=== PATIENT | female | born 2000 | race Caucasian/White ===

== ENCOUNTER 2018-02-12 19:54 | Inpatient (IN) | payer BC ==
[~2018-02-12] VITALS: Ht 182.9 cm; Wt 126.5 kg
[2018-02-12 20:21] VITALS: BP 143/66; PULSE 140; RESP 16; TEMP 98; O2SAT 96
--- NOTE | 2018-02-12 20:24 | PD ---
HPI Chief Complaint: Syncope, shortness of breath Time Seen by Provider: 20:24 Travel History International Travel<30 days: No Contact w/Intl Traveler<30days: No Traveled to known affect area: No History of Present Illness HPI 17-year-old female says that she was at a restaurant with her mother and grandmother today and was not feeling very well. She has been quite short of breath since yesterday. Just the walk from the car to the restaurant made her extremely short of breath. When they sat down to eat patient was nauseous. After they finished eating she got very nauseous and went to the bathroom and vomited 3. After that they drove back to the hotel where she is staying. Once again walking from the parking lot to the elevator made her short of breath and at this point she got really lightheaded and passed out. This is when her mother called 911 and patient was brought in by EMS. She has been tachycardic in the ER and tachypneic. She also says that she suffers from anxiety and has been quite anxious lately. She says that she finished her college on January 09 and her mother drove her from [place] back home. The drive was just 2 hours but about 3-4 weeks ago she went to an emergency room because she noticed her right leg being swollen. Her d-dimer was elevated there and they did an ultrasound which was negative. Patient says since past 2 days she has been having some right-sided chest pain and is very concerned of PE. The pain is worse upon taking a deep breath. Patient also has history of thyroidectomy and is wondering if her symptoms are related to abnormal thyroid levels. Patient is tachycardic, tachypneic and hypoxic. Patient is on oral contraceptives. Patient seemed short of breath while talking but her blood pressure and oxygen saturation were good. Patient was on 2 L of oxygen via nasal cannula. [facility] Past Medical History Narrative Medical List of her past medical, surgical, social and family history is reviewed from the nursing note Social History Tobacco Use: No Allergies-Medications (Allergen,Severity, Reaction): Coded Allergies: tree nut (Verified Allergy, Unknown, 02/12/18) Comments List of her allergies reviewed from the nursing note. Reported Meds & Prescriptions Reported Meds & Active Scripts Active Reported Proair Hfa 8.5 GM Inh (Albuterol Sulfate) 90 Mcg/Act Aer 2 Puff INH Q4-6H PRN 108 mcg/actuation Cetirizine (Cetirizine HCl) 10 Mg Chew 10 Mg CHEW DAILY Flonase Nasal [place] (Fluticasone Nasal [place]) 50 Mcg/Act [place] 50 Mcg EACH NARE BID 09/27 (Norethindrone-Ethinyl Estradiol) 1-20 Mg-Mcg Tab 1 Tab PO DAILY Synthroid (Levothyroxine Sodium) 175 Mcg Tab 175 Mcg PO DAILY Narrative Medication List of her home medications reviewed from the nursing note. Review of Systems Except as stated in HPI: all other systems reviewed are Neg Respiratory: Positive: Shortness of Breath Gastrointestinal: Positive: Nausea, Vomiting Neurologic: Positive: Syncope Physical Exam Narrative GENERAL: Awake, alert, anxious, morbidly obese, moderate to SKIN: Focused skin assessment warm/dry. Pale HEAD: Atraumatic. Normocephalic. EYES: Pupils equal and round. No scleral icterus. No injection or drainage. ENT: No nasal bleeding or discharge. Mucous membranes pink and moist. NECK: Trachea midline. No JVD. CARDIOVASCULAR: Regular rate and rhythm. Tachycardia. No murmur appreciated. RESPIRATORY: Tachypnea with use of accessory muscle. Clear to auscultation. Breath sounds equal bilaterally. GASTROINTESTINAL: Abdomen soft, non-tender, nondistended. Hepatic and splenic margins not palpable. MUSCULOSKELETAL: No obvious deformities. No clubbing. No cyanosis. No edema. NEUROLOGICAL: Awake and alert. No obvious cranial nerve deficits. Motor grossly within normal limits. Normal speech. PSYCHIATRIC: Appropriate mood and affect; insight and judgment normal. Data Data Last Documented VS Orders Orders Complete Blood Count With Diff (02/12/18 20:31) Basic Metabolic Panel (Bmp) (02/12/18 20:31) Troponin I (02/12/18 20:31) Iv Access Insert/Monitor (02/12/18 20:31) Electrocardiogram (02/12/18 20:31) Ecg Monitoring (02/12/18 20:31) Oximetry (02/12/18 20:31) Oxygen Administration (02/12/18 20:31) Ct Pulmonary Angiogram (02/12/18 20:31) Sodium Chloride 0.9% Flush (Ns Flush) (02/12/18 20:45) Lorazepam Inj (Ativan Inj) (02/12/18 21:00) Sodium Chlor 0.9% 1000 Ml Inj (Ns 1000 M (02/12/18 22:15) Sodium Chlor 0.9% 1000 Ml Inj (Ns 1000 M (02/12/18 22:15) Thyroid Stimulating Hormone (02/12/18 22:13) Heparin Inj (Heparin Inj) (02/12/18 23:00) Heparin-D5w 25,000 U/250 Ml (Heparin-D5w (02/12/18 23:00) Act Partial Throm Time (Ptt) (02/12/18 22:56) Prothrombin Time / Inr (Pt) (02/12/18 22:56) Act Partial Throm Time (Ptt) (02/13/18 05:56) Occult Blood (Hemoccult) Stool (02/12/18 22:56) Iohexol 350 Inj (Omnipaque 350 Inj) (02/12/18 22:58) Admit Order (Ed Use Only) (02/12/18 23:23) Labs Laboratory Tests Test 02/12/18 20:40 02/12/18 23:00 White Blood Count 13.7 TH/MM3 Red Blood Count 5.62 MIL/MM3 Hemoglobin 17.4 GM/DL Hematocrit 49.5 % Mean Corpuscular Volume 88.1 FL Mean Corpuscular Hemoglobin 30.9 PG Mean Corpuscular Hemoglobin Concent 35.1 % Red Cell Distribution Width 13.1 % Platelet Count 215 TH/MM3 Mean Platelet Volume 8.8 FL Neutrophils (%) (Auto) 76.6 % Lymphocytes (%) (Auto) 18.2 % Monocytes (%) (Auto) 3.9 % Eosinophils (%) (Auto) 0.8 % Basophils (%) (Auto) 0.5 % Neutrophils # (Auto) 10.5 TH/MM3 Lymphocytes # (Auto) 2.5 TH/MM3 Monocytes # (Auto) 0.5 TH/MM3 Eosinophils # (Auto) 0.1 TH/MM3 Basophils # (Auto) 0.1 TH/MM3 CBC Comment DIFF FINAL Differential Comment Blood Urea Nitrogen 14 MG/DL Creatinine 1.46 MG/DL Random Glucose 111 MG/DL Calcium Level 9.4 MG/DL Sodium Level 140 MEQ/L Potassium Level 4.5 MEQ/L Chloride Level 106 MEQ/L Carbon Dioxide Level 16.2 MEQ/L Anion Gap 18 MEQ/L Estimat Glomerular Filtration Rate 46 ML/MIN Troponin I LESS THAN 0.02 NG/ML Thyroid Stimulating Hormone 3rd Gen 2.310 uIU/ML Prothrombin Time 10.7 SEC Prothromb Time International Ratio 1.1 RATIO Activated Partial Thromboplast Time 25.5 SEC MDM Medical Decision Making Medical Screen Exam Complete: Yes Emergency Medical Condition: Yes Medical Record Reviewed: Yes Interpretation(s) Twelve-lead EKG was reviewed by me. Normal sinus rhythm, normal axis, tachycardia, S1 every 3 T3 pattern noticed, poor R-wave progression. Heart rate of 134 bpm Differential Diagnosis PE, hypothyroidism, dehydration Narrative Course 10:32 PM blood test results are back and patient has leukocytosis with elevated renal function suggestive of possible dehydration. She has increased anion gap acidosis. Awaiting for a TSH level. Awaiting for CT pulmonary angiogram. My suspicion is high for PE in her case. Given her anxiety I gave her some Ativan. Patient continues to be tachycardic with heart rate in 120s currently. Blood pressure stable. He was given 2 L of IV fluid boluses. I had asked for an arterial blood gas but the respiratory therapist came back and informed me that he had tried several times and was unable to get the ABG. [address] scan is suggestive of bilateral large PEs. I have ordered heparin bolus and drip. Awaiting for the hospitalist to call back for admission. Patient remains stable with blood pressure. Critical Care Narrative Aggregate critical care time was 45 minutes. Time to perform other separately billable procedures was not included in the critical care time. My time did not include minutes spent treating any other patients simultaneously or on activities that did not directly contribute to the patient's treatment. The services I provided to this patient were to treat and/or prevent clinically significant deterioration that could result in: Bilateral large PEs, tachycardia, syncope, shortness of breath, heparin bolus and drip I provided critical care services requiring my management, as noted below: Chart data review, documentation time, medication orders and management, vital sign assessments/reviewing monitor data, ordering and reviewing lab tests, ordering and interpreting/reviewing x-rays and diagnostic studies, care of the patient and discussion of the patient with the admitting physicians. Procedures EKG Prior to Arrival: Yes Diagnosis Primary Impression: Pulmonary emboli Additional Impressions: Syncope Qualified Codes: R55 - Syncope and collapse Respiratory distress Increased anion gap metabolic acidosis Admitting Information Admitting Physician Requests: Admit Bridgett,Shravanti R. MD Feb 12, 2018 20:24
[2018-02-12] MEDS ORDERED: JUNETAB PO (20:28)
[2018-02-12] MEDS ORDERED: SYNT175T PO (20:28)
[2018-02-12] MEDS ORDERED: ALBUAER3 INH (20:28)
[2018-02-12] MEDS ORDERED: FLUT1SPR5 EACH NARE (20:28)
[2018-02-12] MEDS ORDERED: CETI10CH CHEW (20:28)
[2018-02-12 20:34] VITALS: PULSE 137; RESP 18; O2SAT 97
[2018-02-12] MEDS ORDERED: SODIUM CHLORIDE 0.9% FLUSH 10 ML FLUSH IVF PRN (20:45)
[2018-02-12] MEDS ORDERED: LORazepam 2 MG/ML VIAL IV PUSH ONE (21:00)
[2018-02-12 21:26] LABS: AUTOMATED NEUTROPHIL # 10.5 TH/MM3 (1.8-7.7); BASOPHIL # 0.1 TH/MM3 (0-0.2); BASOPHIL % 0.5 % (0.0-2.0); EOSINOPHIL # 0.1 TH/MM3 (0-0.4); EOSINOPHIL % 0.8 % (0.0-4.0); HEMATOCRIT 49.5 % (35.0-46.0); HEMOGLOBIN 17.4 GM/DL (11.6-15.3); LYMPH % 18.2 % (9.0-44.0); LYMPHOCYTE # 2.5 TH/MM3 (1.0-4.8); MEAN CELL VOLUME 88.1 FL (80.0-100.0); MEAN CORPUSCULAR HEMOGLOBIN 30.9 PG (27.0-34.0); MEAN CORPUSCULAR HGB CONC 35.1 % (32.0-36.0); MEAN PLATELET VOLUME 8.8 FL (7.0-11.0); MONO % 3.9 % (0.0-8.0); MONOCYTE # 0.5 TH/MM3 (0-0.9); NEUT % 76.6 % (16.0-70.0); PLATELET COUNT 215 TH/MM3 (150-450); RED BLOOD COUNT 5.62 MIL/MM3 (4.00-5.30); RED CELL DISTRIBUTION WIDTH 13.1 % (11.6-17.2); WHITE BLOOD COUNT 13.7 TH/MM3 (4.0-11.0)
[2018-02-12 21:55] LABS: BICARBONATE 16.2 MEQ/L (21.0-32.0); BLOOD UREA NITROGEN 14 MG/DL (7-18); CALCIUM 9.4 MG/DL (8.5-10.1); CHLORIDE 106 MEQ/L (98-107); CREATININE 1.46 MG/DL (0.50-1.00); GLOMERULAR FILTRATION RATE 46 ML/MIN (>89); GLUCOSE,RANDOM 111 MG/DL (74-106); SODIUM (NA) 140 MEQ/L (136-145)
[2018-02-12 21:59] LABS: TROPONIN I LESS THAN 0.02 NG/ML (0.02-0.05)
[2018-02-12] MEDS ORDERED: SODIUM CHLOR 0.9% 1000 ML INJ 1,000 ML IV ONE ×2 (22:15)
[2018-02-12 22:58] VITALS: BP 130/66; PULSE 118; RESP 16; O2SAT 97
[2018-02-12] MEDS ORDERED: IOHEXOL 350 MG/ML 10 ML VIAL (for RAD DIAG) IVCONTRAST ONE (22:58)
[2018-02-12] MEDS ORDERED: HEPARIN SODIUM - IV 10,000 UNITS/10 ML VIAL IV ONE (23:00)
--- NOTE | 2018-02-12 23:15 | RADRPT ---
EXAM DATE: 02/12/2018 10:58 PM EDT AGE/SEX: 17 years / Female INDICATIONS: Possible syncopal episode. Shortness of breath. Carcinoma with chemotherapy. CLINICAL DATA: This is the patient's initial encounter. Patient reports that signs and symptoms have been present for 1 day and indicates a pain score of 0/10. MEDICAL/SURGICAL HISTORY: Carcinoma, thyroid. . RADIATION DOSE: 10.89 CTDI (mGy) COMPARISON: No prior exams available for comparison. TECHNIQUE: Volumetric scanning was performed using a multi-row detector CT scanner during bolus infu tommie of 75 ml Omnipaque 350 (iohexol) nonionic water-soluble contrast as a single exam dose. The marsha a was post processed with a variety of visualization algorithms including full volume maximum intensi ty projection and sliding thin slab reformation. Using automated exposure control and adjustment of the mA and/or kV according to patient size, radiation dose was kept as low as reasonably achievable t o obtain optimal diagnostic quality images. FINDINGS: There are numerous bilateral large central and peripheral pulmonary emboli. There is no pleural effus ion or lung consolidation. Calcified granuloma present in the right lower lobe. No adenopathy. Trace pericardial fluid. No acute findings in the upper abdomen. Thyroid gland is incompletely visualized i n patient with reported history of thyroid carcinoma. CONCLUSION: 1. Multiple large central and peripheral bilateral pulmonary emboli. 2. Trace pericardial fluid. Electronically signed by: Justo Patel MD 02/12/2018 11:14 PM EDT
[2018-02-12] MEDS: LORazepam 2 MG/ML VIAL IV PUSH PRN (23:53)
[2018-02-13] MEDS ORDERED: BISACODYL 10 MG SUPP RECTAL PRN (00:45)
[2018-02-13] MEDS ORDERED: SODIUM CHLORIDE 0.9% FLUSH 10 ML FLUSH IV FLUSH PRN (00:45)
[2018-02-13] MEDS ORDERED: MAGNESIUM HYDROXIDE SUSP 30 ML CUP PO PRN (00:45)
[2018-02-13] MEDS ORDERED: ACETAMINOPHEN 325 MG TAB PO PRN (00:45)
[2018-02-13] MEDS ORDERED: LACTULOSE SYRUP 20 GM/30 ML CUP PO PRN (00:45)
[2018-02-13] MEDS ORDERED: SENNOSIDES 8.6 MG TAB PO PRN (00:45)
[2018-02-13] MEDS ORDERED: NALOXONE HCL 0.4 MG/ML AMP IV PUSH PRN (00:45)
[2018-02-13] MEDS: HEPARIN-D5W 25,000 U/250 ML 250 ML IV PRN ×3 (01:00→15:07)
[2018-02-13 01:25] VITALS: BP 127/88; PULSE 119; RESP 18; TEMP 98.6; O2SAT 98
--- NOTE | 2018-02-13 01:46 | HHI.HP ---
HPI Service [facility] Primary Care Physician Unknown Admission Diagnosis Bilateral large PEs, shortness of breath, syncope Diagnoses: Travel History International Travel<30 Days: No Contact w/Intl Traveler <30 Da: No Traveled to Known Affected Are: No History of Present Illness 17-year-old female with a past medical history significant for hypothyroidism presents to the emergency department for evaluation of shortness of breath and a syncopal episode. Patient reports that for the past 2 days she has had shortness of breath. Today she noticed that she had increasing dyspnea on exertion. She reports associated emesis 3 with dizziness and loss of consciousness. She states she had right lower extremity pain approximately 1 month ago. She denies any chest pain. No abdominal pain. No fevers/chills. Review of Systems Except as stated in HPI: all other systems reviewed are Neg Past Family Social History Past Medical History Hypothyroidism Past Surgical History Thyroidectomy Reported Medications Reported Meds & Active Scripts Active Reported Proair Hfa 8.5 GM Inh (Albuterol Sulfate) 90 Mcg/Act Aer 2 Puff INH Q4-6H PRN 108 mcg/actuation Cetirizine (Cetirizine HCl) 10 Mg Chew 10 Mg CHEW DAILY Flonase Nasal [place] (Fluticasone Nasal [place]) 50 Mcg/Act [place] 50 Mcg EACH NARE BID June09/27 (Norethindrone-Ethinyl Estradiol) 1-20 Mg-Mcg Tab 1 Tab PO DAILY Synthroid (Levothyroxine Sodium) 175 Mcg Tab 175 Mcg PO DAILY Allergies: Coded Allergies: tree nut (Verified Allergy, Unknown, 02/12/18) Family History Father with diabetes mellitus Social History Negative for alcohol, tobacco and illicit drugs Physical Exam Vital Signs Vital Signs Date Time Temp Pulse Resp B/P (MAP) Pulse Ox O2 Delivery O2 Flow Rate FiO2 02/12/18 22:58 118 16 130/66 (87) 97 Nasal Cannula 2.00 02/12/18 20:34 137 18 97 2.00 02/12/18 20:34 97 Nasal Cannula 2.00 02/12/18 20:28 143 18 94 Nasal Cannula 2.00 02/12/18 20:21 98.0 140 16 143/66 (91) 96 Physical Exam GENERAL: Obese, female sitting up in bed. Patient is extremely anxious. SKIN: No rashes, ecchymoses or lesions. Cool and dry. HEAD: Atraumatic. Normocephalic. No temporal or scalp tenderness. EYES: Pupils equal round and reactive. Extraocular motions intact. No scleral icterus. No injection or drainage. ENT: Nose without bleeding, purulent drainage or septal hematoma. Throat without erythema, tonsillar hypertrophy or exudate. Uvula midline. Airway patent. NECK: Trachea midline. No JVD or lymphadenopathy. Supple, nontender, no meningeal signs. CARDIOVASCULAR: Regular rate and rhythm without murmurs, gallops, or rubs. RESPIRATORY: Clear to auscultation. Breath sounds equal bilaterally. No wheezes , rales, or rhonchi. GASTROINTESTINAL: Abdomen soft, non-tender, nondistended. No hepato-splenomegaly , or palpable masses. No guarding. MUSCULOSKELETAL: Extremities without clubbing, cyanosis, or edema. No joint tenderness, effusion, or edema noted. No calf tenderness. NEUROLOGICAL: Awake and alert. Cranial nerves II through XII intact. Motor and sensory grossly within normal limits. Normal speech. Laboratory Laboratory Tests Test 02/12/18 20:40 02/12/18 23:00 White Blood Count 13.7 Red Blood Count 5.62 Hemoglobin 17.4 Hematocrit 49.5 Mean Corpuscular Volume 88.1 Mean Corpuscular Hemoglobin 30.9 Mean Corpuscular Hemoglobin Concent 35.1 Red Cell Distribution Width 13.1 Platelet Count 215 Mean Platelet Volume 8.8 Neutrophils (%) (Auto) 76.6 Lymphocytes (%) (Auto) 18.2 Monocytes (%) (Auto) 3.9 Eosinophils (%) (Auto) 0.8 Basophils (%) (Auto) 0.5 Neutrophils # (Auto) 10.5 Lymphocytes # (Auto) 2.5 Monocytes # (Auto) 0.5 Eosinophils # (Auto) 0.1 Basophils # (Auto) 0.1 CBC Comment DIFF FINAL Differential Comment Blood Urea Nitrogen 14 Creatinine 1.46 Random Glucose 111 Calcium Level 9.4 Sodium Level 140 Potassium Level 4.5 Chloride Level 106 Carbon Dioxide Level 16.2 Anion Gap 18 Estimat Glomerular Filtration Rate 46 Troponin I LESS THAN 0.02 Thyroid Stimulating Hormone 3rd Gen 2.310 Result Diagram: 02/12/18203902/12/182039 Caprini VTE Risk Assessment Caprini VTE Risk Assessment: Mod/High Risk (score >= 2) Caprini Risk Assessment Model Point Value = 1 Point Value = 2 Point Value = 3 Point Value = 5 Age 41-60 Minor surgery BMI > 25 kg/m2 Swollen legs Varicose veins or History of unexplained or recurrent spontaneous Oral contraceptives or hormone replacement Sepsis (< 1 month) Serious lung disease, including pneumonia (< 1 month) Abnormal pulmonary function Acute myocardial infarction Congestive heart failure (< 1 month) History of inflammatory bowel disease Medical patient at bed rest Age 61-74 Arthroscopic surgery Major open surgery (> 45 min) Laparoscopic surgery (> 45 min) Malignancy Confined to bed (> 72 hours) Immobilizing plaster cast Central venous access Age >= 75 History of VTE Family history of VTE Factor V Leiden Prothrombin [id number] Lupus anticoagulant Anticardiolipin antibodies Elevated serum homocysteine Heparin-induced thrombocytopenia Other congenital or acquired thrombophilia Stroke (< 1 month) Elective arthroplasty Hip, pelvis, or leg fracture Acute spinal cord injury (< 1 month) Prophylaxis Regimen Total Risk Factor Score Risk Level Prophylaxis Regimen 0-1 Low Early ambulation 2 Moderate Order ONE of the following: *Sequential Compression Device (SCD) *Heparin 5000 units SQ BID 3-4 Higher Order ONE of the following medications: *Heparin 5000 units SQ TID *Enoxaparin/Lovenox 40 mg SQ daily (WT < 150 kg, CrCl > 30 mL/min) *Enoxaparin/Lovenox 30 mg SQ daily (WT < 150 kg, CrCl > 10-29 mL/min) *Enoxaparin/Lovenox 30 mg SQ BID (WT < 150 kg, CrCl > 30 mL/min) AND/OR *Sequential Compression Device (SCD) 5 or more Highest Order ONE of the following medications: *Heparin 5000 units SQ TID (Preferred with Epidurals) *Enoxaparin/Lovenox 40 mg SQ daily (WT < 150 kg, CrCl > 30 mL/min) *Enoxaparin/Lovenox 30 mg SQ daily (WT < 150 kg, CrCl > 10-29 mL/min) *Enoxaparin/Lovenox 30 mg SQ BID (WT < 150 kg, CrCl > 30 mL/min) AND *Sequential Compression Device (SCD) Assessment and Plan Assessment and Plan Assessment/plan: 1. Bilateral PE CTA significant for multiple large central and peripheral bilateral pulmonary emboli Heparin drip Pulmonology consulted, appreciate recommendations Lower extremity ultrasound pending Echo pending 2. Acute kidney injury Creatinine 1.46, no baseline for comparison IV fluid hydration Monitor renal function 3. Hypothyroidism Continue home Synthroid 4. Anxiety Patient extremely anxious Ativan as needed FEN Regular diet Electrolytes: Monitor and replete as needed Heparin drip Physician Certification 2 Midnight Certification Type: Admission for Inpatient Services Order for Inpatient Services The services are ordered in accordance with Medicare regulations or non- Medicare payer requirements, as applicable. In the case of services not specified as inpatient-only, they are appropriately provided as inpatient services in accordance with the 2-midnight benchmark. Estimated LOS (days): 2 2 days is the estimated time the patient will need to remain in the hospital, assuming treatment plan goals are met and no additional complications. Post-Hospital Plan: Not yet determined Rajwinder Ogden MD Feb 13, 2018 01:46
[2018-02-13 02:13] LABS: INTERNATIONAL NORMALIZED RATIO 1.1 RATIO; PROTHROMBIN TIME - PATIENT 10.7 SEC (9.8-11.6)
[2018-02-13] MEDS: SODIUM CHLOR 0.9% 1000 ML INJ 1,000 ML IV SCH ×3 (02:19→17:06)
[2018-02-13 04:00] VITALS: BP 128/76; PULSE 111; RESP 18; TEMP 97.9; O2SAT 98
[2018-02-13 06:10] LABS: BICARBONATE 17.7 MEQ/L (21.0-32.0); CALCIUM 8.6 MG/DL (8.5-10.1); CREATININE 0.93 MG/DL (0.50-1.00)
[2018-02-13] MEDS: LEVOTHYROXINE SODIUM 75 MCG TAB PO SCH (06:13)
[2018-02-13] MEDS: LEVOTHYROXINE SODIUM 100 MCG TAB PO SCH (06:13)
[2018-02-13 08:00] VITALS: BP 149/90; PULSE 110; RESP 15; TEMP 98.3; O2SAT 99
[2018-02-13] MEDS: SODIUM CHLORIDE 0.9% FLUSH 10 ML FLUSH IV FLUSH SCH ×2 (09:00→21:00)
--- NOTE | 2018-02-13 09:58 | RADRPT ---
EXAM DATE: 02/13/2018 9:54 AM EDT AGE/SEX: 17 years / Female INDICATIONS: Bilateral leg swelling. CLINICAL DATA: This is the patient's initial encounter. Patient reports that signs and symptoms have been present for 4 - 6 days and indicates a pain score of 2/10. MEDICAL/SURGICAL HISTORY: . Thyroid cancer. Glasses. Syncope. Anxiety. . Radiation therapy. COMPARISON: No prior exams available for comparison. TECHNIQUE: Venous ultrasound of both lower extremities was performed from the inguinal ligament to t he proximal calf. Real-time, color Doppler and spectral tracing, compression and augmentation techni ques were used. FINDINGS: Right Leg: There is thrombus within the right popliteal and peroneal veins. The common femoral vein, superficial femoral vein are patent. Left Leg: There is normal compressibility of the deep venous system from the inguinal region to the proximal calf. No echogenic clot is seen in the lumen of the common femoral, femoral, popliteal, and posterior tibial veins. There is a normal response of the venous system to proximal and distal augm entation and respiration. CONCLUSION: 1. There is thrombus within the right popliteal and peroneal veins. Electronically signed by: Maverick Joel MD 02/13/2018 9:57 AM EDT
[2018-02-13] MEDS: FLUTICASONE PROPIONATE 50 MCG/ACT 16 GM NASAL SPRAY EACH NARE SCH ×2 (10:14→21:00)
[2018-02-13] MEDS: CETIRIZINE HCL 10 MG TAB PO SCH (10:15)
[2018-02-13] MEDS ORDERED: EPINEPHrine HCL (1:10,000) 1 MG/10 ML SYRINGE IV ONE (10:18)
[2018-02-13 12:00] VITALS: BP 142/89; PULSE 114; RESP 16; TEMP 97.3; O2SAT 97
[2018-02-13] MEDS ORDERED: RESP: ALBUTEROL 1.25 MG/3 ML NEB (PRN) NEB (12:45)
[2018-02-13 13:08] LABS: RHEUMATOID FACTOR SCREEN NEGATIVE (NEGATIVE)
--- NOTE | 2018-02-13 13:10 | MB ---
cc: Tyra Abdul MD DATE: 02/13/2018 REASON FOR CONSULTATION: Pulmonary emboli and hypoxia. HISTORY OF PRESENT ILLNESS: This is a 17-year-old female who was admitted with a history of progressive shortness of breath and a syncopal episode. The patient apparently has been experiencing some shortness of breath for 2-3 days and she was dizzy and apparently had significant shortness of breath yesterday and had a syncopal episode and thus was brought to the emergency room for evaluation. Upon arrival a CTA of the chest was done which demonstrated multiple bilateral large pulmonary emboli and also evidence for trace pericardial fluid. Doppler study of the leg veins was positive for a DVT in the right popliteal and peroneal vein. The patient has been started on IV heparin and she is on oxygen at 2 liters. Presently, she is stable and maintaining good vitals with a blood pressure of 130/60, heart rate of 105. The patient denies chest pains. Her shortness of breath has improved and she denies any leg or calf muscle pains, but she has had leg cramping in the past: PAST MEDICAL HISTORY: Includes history for thyroid cancer with thyroidectomy that was done 2 years ago. She has had hypothyroidism and is on thyroid replacement therapy. She also has mild nasal allergies. No significant surgery other than the thyroidectomy and she also received radioiodine therapy. MEDICATION LIST: 1. Synthroid 175 mcg daily. 2. Cetirizine 10 mg a day. 3. Flonase nasal spray 2 sprays in each nostril daily. 4. Proventil 2 puffs p.r.n. 5. Norethindrone ethinyl estradiol 1 mg/20 mcg 1 tablet daily. ALLERGIES: NO KNOWN DRUG ALLERGIES. FAMILY HISTORY: Significant for diabetes mellitus. HABITS: The patient does not smoke. No history of alcohol use. She is in college. REVIEW OF SYSTEMS: The patient is overweight. She has shortness of breath. She has cramping in her legs. She has no significant leg swelling. Denies joint pains. No abdominal pains, nausea, vomiting. No headaches, but had blackout spell. She denies any hemoptysis or hematemesis. Denies skin lesions. She has some anxiety. PHYSICAL EXAMINATION: GENERAL: This moderately obese, young white female who is anxious, not in acute distress. VITAL SIGNS: Blood pressure 130/70, pulse is 106, respirations 20, temperature 98. HEENT: Head is normocephalic. Pupils were reactive. Throat was clear. Nasal mucosa injected. NECK: Supple, no bruits, no lymphadenopathy noted. CHEST: Equal movements with decreased breath sounds to the periphery. HEART: The heart tones were regular with S1 and S2. ABDOMEN: Soft, protuberant without masses. No organomegaly or tenderness. EXTREMITIES: No lesions. There is no edema. No calf tenderness. Eddie's sign is negative. SKIN: No lesions observed. NEUROLOGIC: There are no focal deficits identified. IMPRESSION: 1. Bilateral pulmonary embolism with hypoxemia. 2. History of thyroid cancer and thyroidectomy. 3. Hypothyroidism. 4. Dehydration and acute kidney injury. 5. Deep venous thrombosis, right lower extremity. PLAN: The patient is on heparin therapy per protocol which we will continue. I also placed her on O2 at 2 liters nasal cannula. We will maintain saturations greater than 92. Blood gas study to be obtained and the patient will be kept on bed rest. A hematology/oncology consult would be requested since she has a history of thyroid cancer and a hypercoagulable state. Once her clinical condition stabilizes, we could wean her off the oxygen. Thank you, Dr. Kitchen, for this consultation. Tyra Abdul MD VJD/CHARISMA , 12:44 PM , 01:09 PM
--- NOTE | 2018-02-13 15:18 | EKG ---
Date Performed: 02/12/2018 Time Performed: 21:36:14 PTAGE: 17 years EKG: SINUS TACHYCARDIA INDETERMINATE AXIS POSSIBLE ANTERIOR MYOCARDIAL INFARCTION MODERATE T-WAV E ABNORMALITY, CONSIDER LATERAL ISCHEMIA MODERATE T-WAVE ABNORMALITY, CONSIDER INFERIOR ISCHEMIA ABNO RMAL ECG NO PREVIOUS TRACING DOCTOR: Vanessa Guzman Interpretating Date/Time 02/13/2018 15:17:47
[2018-02-13 16:00] VITALS: BP 162/92; PULSE 114; RESP 16; TEMP 97.7; O2SAT 99
--- NOTE | 2018-02-13 18:43 | PD.CONS ---
History of Present Illness Service Hematology/oncology. Consult Requested By Pulmonology service. Reason for Consult Bilateral pulmonary emboli, suspected massive pulmonary emboli with cardiopulmonary compromise. Primary Care Physician Unknown Diagnoses: History of Present Illness Chief complaint: 1. Progressive difficulty breathing over the past 4 days. 2. Syncopal episode on the day of presentation to the hospital 02/12/2018). History of presenting illness: Ms. 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 The patient drove down 5 days ago from [place] to [facility] for family vacation. This was a 12 hour continuous car trip and the patient tells me she slept in the backseat for most of it. After arrival she became increasingly short of breath to the point where she had difficulty walking short distances, the shortness of breath was associated with nausea and vomiting and on the day of presentation to the hospital she passed out while walking from the lobby of her hotel to the hotel room. She was brought in immediately to the emergency department after she came to come at the time of presentation her heart rate was in the 140s, she was hypoxic. She was sent in for stat CT angiogram which revealed acute bilateral pulmonary emboli. Patient has been initiated on a heparin infusion. An EKG performed in the emergency department revealed poor R-wave progression and tachycardia. She has been on this overnight. She remains tachycardic and short of breath, she is perceives the shortness of breath is anxiety. The hematology service been asked to see her to ascertain the provoking factors of her pulmonary emboli. Should be noted this lady has been on estrogen containing oral contraceptive pills (Juvel) since 2016 in addition to this she is morbidly obese and had recent road travel. Review of Systems Constitutional: COMPLAINS OF: Fatigue, Dizziness, DENIES: Diaphoretic episodes , Fever, Weight gain, Weight loss, Chills, Change in appetite, Night Sweats Endocrine: DENIES: Abnorml menstrual pattern, Heat/cold intolerance, Polydipsia , Polyuria, Polyphagia Eyes: DENIES: Blurred vision, Diplopia, Eye inflammation, Eye pain, Vision loss , Photosensitivity, Double Vision Ears, nose, mouth, throat: DENIES: Tinnitus, Hearing loss, Vertigo, Nasal discharge, Oral lesions, Throat pain, Hoarseness, Ear Pain, Running Nose, Epistaxis, Sinus Pain, Toothache, Odynophagia Respiratory: COMPLAINS OF: Cough, Wheezing, Shortness of breath, DENIES: Apneas , Snoring, Hemoptysis, Sputum production Cardiovascular: COMPLAINS OF: Palpitations, Syncope, Dyspnea on Exertion, DENIES: Chest pain, PND, Lower Extremity Edema, Orthopnea, Claudication Gastrointestinal: DENIES: Abdominal pain, Black stools, Bloody stools, Constipation, Diarrhea, Nausea, Vomiting, Difficulty Swallowing, Anorexia Genitourinary: DENIES: Abnormal vaginal bleeding, Dysmenorrhea, Dyspareunia, Sexual dysfunction, Urinary frequency, Urinary incontinence, Urgency, Hematuria , Dysuria, Nocturia, Vaginal discharge Musculoskeletal: COMPLAINS OF: Joint pain (Ankle and knees.), Muscle aches, DENIES: Stiffness, Joint Swelling, Back pain, Neck pain Integumentary: DENIES: Abnormal pigmentation, Pruritus, Rash, Nail changes, Breast masses, Breast skin changes, Nipple discharge Hematologic/lymphatic: DENIES: Bruising, Lymphadenopathy Immunologic/allergic: DENIES: Eczema, Urticaria Neurologic: DENIES: Abnormal gait, Headache, Localized weakness, Paresthesias, Seizures, Speech Problems, Tremor, Poor Balance Psychiatric: COMPLAINS OF: Anxiety, DENIES: Confusion, Mood changes, Depression , Hallucinations, Agitation, Suicidal Ideation, Homicidal Ideation, Delusions Except as stated in HPI: all other systems reviewed are Neg Past Family Social History Allergies: Coded Allergies: tree nut (Verified Allergy, Unknown, 02/12/18) Past Medical History Diagnosis of papillary carcinoma of the thyroid diagnosed in 2015 when she was age [age] years old. Bilateral pulmonary emboli Obesity Ovarian cyst Past Surgical History Thyroidectomy 2015. [place] tooth extraction Family History Father diabetes. Maternal grandfather diabetes. No oncologic diagnoses in the family. Mother is alive and well. 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 Lives in [place], lifelong non-smoker , denies drug abuse. Physical Exam Vital Signs Vital Signs Date Time Temp Pulse Resp B/P (MAP) Pulse Ox O2 Delivery O2 Flow Rate FiO2 02/13/18 16:00 97.7 114 16 162/92 (115) 99 02/13/18 12:00 97.3 114 16 142/89 (106) 97 02/13/18 08:00 98.3 110 15 149/90 (109) 99 02/13/18 04:00 97.9 111 18 128/76 (93) 98 02/13/18 01:25 98.6 119 18 127/88 (101) 98 02/12/18 22:58 118 16 130/66 (87) 97 Nasal Cannula 2.00 02/12/18 20:34 137 18 97 2.00 02/12/18 20:34 97 Nasal Cannula 2.00 02/12/18 20:34 97 Nasal Cannula 2.00 02/12/18 20:28 143 18 94 Nasal Cannula 2.00 02/12/18 20:21 98.0 140 16 143/66 (91) 96 Physical Exam GENERAL: Young female, sitting up in bed, appears to be anxious, on oxygen supplementation via nasal cannula. Mother at bedside. SKIN: No rashes, ecchymoses or lesions. Cool and dry. HEAD: Atraumatic. Normocephalic. No temporal or scalp tenderness. EYES: Pupils equal round and reactive. Extraocular motions intact. No scleral icterus. No injection or drainage. ENT: Nose without bleeding, purulent drainage or septal hematoma. Throat without erythema, tonsillar hypertrophy or exudate. Uvula midline. Airway patent. Horizontal incision noted along the suprasternal notch. NECK: Trachea midline. No JVD or lymphadenopathy. Supple, nontender, no meningeal signs. CARDIOVASCULAR: Tachycardic, S1-S2 no obvious murmurs rubs gallops, regular rhythm. RESPIRATORY: Clear to auscultation. Breath sounds equal bilaterally. No wheezes , rales, or rhonchi. GASTROINTESTINAL: Abdomen soft, non-tender, nondistended. No hepato-splenomegaly , or palpable masses. No guarding. MUSCULOSKELETAL: Extremities without clubbing, cyanosis, or edema. No joint tenderness, effusion, or edema noted. No calf tenderness. Negative Homans sign bilaterally. NEUROLOGICAL: Awake and alert. Cranial nerves II through XII intact. Motor and sensory grossly within normal limits. Five out of 5 muscle strength in all muscle groups. Normal speech. Laboratory Laboratory Tests Test 02/12/18 20:40 02/12/18 23:00 02/13/18 05:20 02/13/18 12:00 White Blood Count 13.7 Red Blood Count 5.62 Hemoglobin 17.4 Hematocrit 49.5 Mean Corpuscular Volume 88.1 Mean Corpuscular Hemoglobin 30.9 Mean Corpuscular Hemoglobin Concent 35.1 Red Cell Distribution Width 13.1 Platelet Count 215 Mean Platelet Volume 8.8 Neutrophils (%) (Auto) 76.6 Lymphocytes (%) (Auto) 18.2 Monocytes (%) (Auto) 3.9 Eosinophils (%) (Auto) 0.8 Basophils (%) (Auto) 0.5 Neutrophils # (Auto) 10.5 Lymphocytes # (Auto) 2.5 Monocytes # (Auto) 0.5 Eosinophils # (Auto) 0.1 Basophils # (Auto) 0.1 CBC Comment DIFF FINAL Differential Comment Blood Urea Nitrogen 14 10 Creatinine 1.46 0.93 Random Glucose 111 91 Calcium Level 9.4 8.6 Sodium Level 140 143 Potassium Level 4.5 4.4 Chloride Level 106 113 Carbon Dioxide Level 16.2 17.7 Anion Gap 18 12 Estimat Glomerular Filtration Rate 46 78 Troponin I LESS THAN 0.02 Thyroid Stimulating Hormone 3rd Gen 2.310 Prothrombin Time 10.7 Prothromb Time International Ratio 1.1 Activated Partial Thromboplast Time 25.5 71.0 Erythrocyte Sedimentation Rate 4 C-Reactive Protein 1.75 Rheumatoid Factor Screen NEGATIVE Rheumatoid Factor Titer Test 02/13/18 14:25 Activated Partial Thromboplast Time 35.7 Result Diagram: 02/12/18203902/13/[address] angiogram dated 02/12/2018: Conclusion: 1. Multiple large central and peripheral bilateral pulmonary emboli. Trace pericardial fluid. Ultrasound Doppler studies of bilateral lower extremities dated 02/13/2018: Conclusion: 1. There is a thrombus within the right popliteal and peroneal veins. EKG dated 02/12/2018: Interpretation: Sinus tachycardia, intermediate axis possible anterior myocardial infarction moderate T-wave abnormality, consider lateral ischemia. Moderate T-wave abnormality. Consider inferior ischemia. Abnormal EKG. Assessment and Plan Assessment and Plan This is a 17-year-old female who recently traveled from [facility] to [facility] for family vacation. The patient developed difficulty breathing shortly after arrival symptoms worsen over the past 48 hours to the point where she had a syncopal episode in her hotel. The patient was evaluated at [facility], CT angiogram of the chest revealed bilateral pulmonary emboli involving central and peripheral vessels, lower extremity ultrasound studies revealed a right lower extremity deep venous thrombosis involving the popliteal vein. Risk factors for developing deep venous thrombosis and pulmonary emboli include morbid obesity, concomitant use of estrogen-containing oral contraceptive pills and recent long road travel. On my clinical assessment this lady has what appears to be massive pulmonary emboli. She needs to be considered for chemical thrombolysis with TPA. Plan: 1. Suspected massive pulmonary emboli with cardiopulmonary compromise: Obtain stat echocardiogram. If there are signs of myocardial strain specifically involving the right ventricle this patient will benefit from chemical thrombolysis with TPA to help mitigate long-term sequelae of massive pulmonary emboli which include chronic respiratory insufficiency. For the time being she may remain on intravenous heparin. I have contacted the on-call facility designer and explained the case to him; Dr. French has agreed to authorizing a stat echocardiogram. The patient's nurse as well as the charge nurse on the inpatient unit has been informed. My cell phone number has been distributed to the facility designer as well as the echocardiogram tech for them to call me with the results. Should this patient be found to have concerning findings suggestive of right heart strain she will be transferred to the critical care unit and the train reservation clerk will be consulted for placement of a internal jugular vein catheter with TPA infusion. I have noted a pro thrombotic workup has been ordered, the results of this will trickling over the next week to 10 days. Provoking factors which may be identified will pertain to intermediate to long-term management of her pulmonary emboli. Emphasis at this time ought to be on initial therapy. The hematology service to follow along with you. Discussed Condition With The patient, her mother, patient's nurse. On-call cardiology. Ernesto Banks MD Feb 13, 2018 18:43
[2018-02-13] MEDS: LORazepam 2 MG/ML VIAL IV PUSH PRN (19:34)
--- NOTE | 2018-02-13 20:21 | ECHRPT ---
Indication: PULMONARY EMBOLI CONCLUSIONS The left ventricular systolic function is normal with an estimated ejection fraction in the range of 60-65%. There is a flattened septum in systole consistent with right ventricle pressure overload. The right ventricle is severely dilated. There is akinesis of the RV free wall with apical hypercontractility of the apex (Miller's sign) consistent with pulmonary embolism. Trace mitral valve regurgitation. There is mild to moderate tricuspid valve regurgitation. There is estimated severe pulmonary hypertension present ( > 70 mmHg). Results discussed with Dr. Banks BP: 162 / 92 HR: 114 Rhythm: Sinus, PVCs MEASUREMENTS (Male / Female) Normal Values Technical Quality:Fair 2D ECHO LV Diastolic Diameter PLAX 4.3 cm 4.2 - 5.9 / 3.9 - 5.3 cm LV Systolic Diameter PLAX 3.1 cm IVS Diastolic Thickness 0.8 cm 0.6 - 1.0 / 0.6 - 0.9 cm LVPW Diastolic Thickness 0.8 cm 0.6 - 1.0 / 0.6 - 0.9 cm LV Relative Wall Thickness 0.4 RV Internal Dim ED PLAX 2.8 cm LVOT Diameter 2.0 cm Aortic Root Diameter 2.9 cm LA Systolic Diameter LX 2.3 cm 3.0 - 4.0 / 2.7 - 3.8 cm DOPPLER AV Peak Velocity 119.0 cm/s AV Peak Gradient 5.7 mmHg AV Mean Gradient 3.0 mmHg AV Velocity Time Integral 15.9 cm LVOT Peak Velocity 59.4 cm/s LVOT Peak Gradient 1.4 mmHg LVOT Velocity Time Integral 6.8 cm AV Area Cont Eq vti 1.3 cm AV Area Cont Eq pk 1.6 cm Mitral E Point Velocity 45.4 cm/s Mitral A Point Velocity 57.8 cm/s Mitral E to A Ratio 0.8 TR Peak Velocity 428.0 cm/s TR Peak Gradient 73.0 mmHg Right Atrial Pressure 15.0 mmHg Pulmonary Artery Systolic Pressu 88.3 mmHg Right Ventricular Systolic Press 88.3 mmHg PV Peak Velocity 48.1 cm/s PV Peak Gradient 0.9 mmHg FINDINGS LEFT VENTRICLE Normal left ventricular size. Wall thickness is normal. The left ventricular systolic function is normal with an estimated ejection fraction in the range of 60-65%. There is a flattened septum in systole consistent with right ventricle pressure overload. RIGHT VENTRICLE The right ventricle is severely dilated. The right ventricular systoilc function is severely decreased. There is akinesis of the RV free wall with apical hypercontractility of the apex (Miller's sign) consistent with pulmonary embolism. LEFT ATRIUM The left atrial size is normal. RIGHT ATRIUM The right atrial size is severely dilated. ATRIAL SEPTUM The interatrial septum not well visualized. AORTA The aortic root and proximal ascending aorta are normal in size on limited imaging. MITRAL VALVE Structurally normal mitral valve. No mitral valve stenosis. Trace mitral valve regurgitation. AORTIC VALVE Trileaflet aortic valve. No aortic valve stenosis or regurgitation. TRICUSPID VALVE Structurally normal tricuspid valve. There is mild to moderate tricuspid valve regurgitation. The estimated pulmonary arterial pressure is 88.3 mmHg. There is estimated severe pulmonary hypertension present ( > 70 mmHg). PULMONARY VALVE The pulmonary valve is not well visualized. Trivial pulmonary valve regurgitation. VESSELS The inferior vena cava was not well visualized. PERICARDIUM No pericardial effusion. Gómez French DO (Electronically Signed) Final Date:13 February 2018 20:20
[2018-02-13 21:00] VITALS: BP 164/109; PULSE 124; RESP 20; TEMP 98.3; O2SAT 100
--- NOTE | 2018-02-13 21:13 | PD.CONS ---
[facility] Service Critical Care Medicine Consult Requested By Primary Care Physician Unknown History of Present Illness 17-year-old female with a past medical history significant for hypothyroidism presents to the emergency department for evaluation of shortness of breath and a syncopal episode. Patient reports that for the past 2 days she has had shortness of breath. Today she noticed that she had increasing dyspnea on exertion. She reports associated emesis 3 with dizziness and loss of consciousness. She states she had right lower extremity pain approximately 1 month ago. She denies any chest pain. No abdominal pain. No fevers/chills. The patient was initially admitted to medicine service on a heparin drip. She was evaluated by hematology oncology Dr. Banks, and the stress echocardiogram showed severe RV dilation. The patient was also clinically worsening requiring more oxygen support. She was taken to IR for mechanical thrombectomy. While in the IR suite she suffered a respiratory arrest and was intubated and successfully resuscitated. She returned to ICU in severe shock/obstructive. Shortly after arrival to the unit the patient suffered another episode of cardiac arrest requiring 2 cycles of CPR and 2 injections of epinephrine. Due to hemodynamic instability the TPA bolus followed by an infusion was immediately administered. Review of Systems Constitutional: COMPLAINS OF: Diaphoretic episodes, Fatigue, DENIES: Fever, Weight gain, Weight loss, Chills, Dizziness, Change in appetite, Night Sweats Endocrine: DENIES: Abnorml menstrual pattern, Heat/cold intolerance, Polydipsia , Polyuria, Polyphagia Eyes: DENIES: Blurred vision, Diplopia, Eye inflammation, Eye pain, Vision loss , Photosensitivity, Double Vision Ears, nose, mouth, throat: DENIES: Tinnitus, Hearing loss, Vertigo, Nasal discharge, Oral lesions, Throat pain, Hoarseness, Ear Pain, Running Nose, Epistaxis, Sinus Pain, Toothache, Odynophagia Respiratory: COMPLAINS OF: Cough, Shortness of breath, DENIES: Apneas, Snoring , Wheezing, Hemoptysis, Sputum production Cardiovascular: COMPLAINS OF: Chest pain, Syncope, Dyspnea on Exertion, Lower Extremity Edema, DENIES: Palpitations, PND, Orthopnea, Claudication Gastrointestinal: DENIES: Abdominal pain, Black stools, Bloody stools, Constipation, Diarrhea, Nausea, Vomiting, Difficulty Swallowing, Anorexia Genitourinary: DENIES: Abnormal vaginal bleeding, Dysmenorrhea, Dyspareunia, Sexual dysfunction, Urinary frequency, Urinary incontinence, Urgency, Hematuria , Dysuria, Nocturia, Vaginal discharge Musculoskeletal: DENIES: Joint pain, Muscle aches, Stiffness, Joint Swelling, Back pain, Neck pain Integumentary: DENIES: Abnormal pigmentation, Pruritus, Rash, Nail changes, Breast masses, Breast skin changes, Nipple discharge Hematologic/lymphatic: DENIES: Bruising, Lymphadenopathy Immunologic/allergic: DENIES: Eczema, Urticaria Neurologic: DENIES: Abnormal gait, Headache, Localized weakness, Paresthesias, Seizures, Speech Problems, Tremor, Poor Balance Psychiatric: COMPLAINS OF: Anxiety, DENIES: Confusion, Mood changes, Depression , Hallucinations, Agitation, Suicidal Ideation, Homicidal Ideation, Delusions Past Family Social History Allergies: Coded Allergies: tree nut (Verified Allergy, Unknown, 02/12/18) Past Medical History Papillary carcinoma of the thyroid diagnosed in 2014 Bilateral pulmonary emboli Obesity Ovarian cyst Past Surgical History Thyroidectomy 2014. [place] tooth extraction Reported Medications Reported Meds & Active Scripts Active Reported Proair Hfa 8.5 GM Inh (Albuterol Sulfate) 90 Mcg/Act Aer 2 Puff INH Q4-6H PRN 108 mcg/actuation Cetirizine (Cetirizine HCl) 10 Mg Chew 10 Mg CHEW DAILY Flonase Nasal [place] (Fluticasone Nasal [place]) 50 Mcg/Act [place] 50 Mcg EACH NARE BID Junel 1/20 (Norethindrone-Ethinyl Estradiol) 1-20 Mg-Mcg Tab 1 Tab PO DAILY Synthroid (Levothyroxine Sodium) 175 Mcg Tab 175 Mcg PO DAILY Active Ordered Medications Current Medications Medications (Trade) Dose Ordered Sig/Gregg Route PRN Reason Start Time Stop Time Status Last Admin Dose Admin Sodium Chloride (NS Flush) 2 ml UNSCH PRN IVF FLUSH AFTER USING IV ACCESS 02/12/18 20:45 Heparin Sodium/ Dextrose 250 ml @ 18 mls/hr TITRATE PRN IV Coagulation Management 02/12/18 23:00 Future Hold 02/13/18 15:07 Lorazepam (Ativan Inj) 1 mg Q4H PRN IV PUSH anxiety 02/12/18 23:45 02/13/18 19:34 Sodium Chloride (NS Flush) 2 ml UNSCH PRN IV FLUSH FLUSH AFTER USING IV ACCESS 02/13/18 00:45 Sodium Chloride (NS Flush) 2 ml BID IV FLUSH 02/13/18 09:00 6/8/18 09:00 Acetaminophen (Tylenol) 650 mg Q4H PRN PO TEMP > 100.4 02/13/18 00:45 02/13/18 18:21 Naloxone HCl (Narcan Inj) 0.4 mg UNSCH PRN IV PUSH SEE LABEL COMMENTS 02/13/18 00:45 Magnesium Hydroxide (Milk Of Magnesia Liq) 30 ml Q12H PRN PO Mild constipation 02/13/18 00:45 Sennosides (Senokot) 17.2 mg Q12H PRN PO Moderate constipation 02/13/18 00:45 Bisacodyl (Dulcolax Supp) 10 mg DAILY PRN RECTAL SEVERE CONSITIPATION/ IF NPO 02/13/18 00:45 Lactulose (Lactulose Liq) 30 ml DAILY PRN PO SEVERE CONSITIPATION/ IF PO 02/13/18 00:45 Cetirizine HCl (ZyrTEC) 10 mg DAILY PO 02/13/18 09:00 02/13/18 10:15 Fluticasone Propionate (Flonase Anil Spr) 1 spray BID EACH NARE 02/13/18 09:00 02/13/18 10:14 Levothyroxine Sodium (Synthroid) 100 mcg DAILY@0700 PO 02/13/18 07:00 02/13/18 06:13 Levothyroxine Sodium (Synthroid) 75 mcg DAILY@0700 PO 02/13/18 07:00 02/13/18 06:13 Sodium Chloride 1,000 ml @ 125 mls/hr Q8H IV 02/13/18 01:45 02/13/18 02:19 Albuterol Sulfate (Albuterol Neb) 1.25 mg Q6HR NEB PRN NEB SHORTNESS OF BREATH 02/13/18 12:45 Family History Father diabetes. Maternal grandfather diabetes. No oncologic diagnoses in the family. Mother is alive and well. Social History Denies tobacco, alcohol, or illicit drug abuse Physical Exam Vital Signs Vital Signs Date Time Temp Pulse Resp B/P (MAP) Pulse Ox O2 Delivery O2 Flow Rate FiO2 02/13/18 16:00 97.7 114 16 162/92 (115) 99 02/13/18 12:00 97.3 114 16 142/89 (106) 97 02/13/18 08:00 98.3 110 15 149/90 (109) 99 02/13/18 04:00 97.9 111 18 128/76 (93) 98 02/13/18 01:25 98.6 119 18 127/88 (101) 98 02/12/18 22:58 118 16 130/66 (87) 97 Nasal Cannula 2.00 Physical Exam GENERAL: Obese young female in moderate respiratory distress. SKIN: Warm and dry. HEAD: Normocephalic. EYES: No scleral icterus. No injection or drainage. NECK: Supple, trachea midline. No JVD or lymphadenopathy. CARDIOVASCULAR: Regular rate and rhythm without murmurs, gallops, or rubs. RESPIRATORY: Breath sounds equal bilaterally. No accessory muscle use. GASTROINTESTINAL: Abdomen soft, non-tender, nondistended. MUSCULOSKELETAL: No cyanosis, or edema. BACK: Nontender without obvious deformity. NEURO EXAM: GCS: 15 Mental Status: The patient is alert and oriented to person, place, and time with normal speech. Cranial Nerves: Visual acuity intact bilaterally. Visual arteaga normal in all quadrants. Pupils are round, reactive to light. Extraocular movements are intact without ptosis. Hearing is normal bilaterally. Voice is normal. Tongue protrudes midline and moves symmetrically. Laboratory Laboratory Tests Test 02/12/18 23:00 02/13/18 05:20 02/13/18 12:00 02/13/18 14:25 Prothrombin Time 10.7 Prothromb Time International Ratio 1.1 Activated Partial Thromboplast Time 25.5 71.0 35.7 Blood Urea Nitrogen 10 Creatinine 0.93 Random Glucose 91 Calcium Level 8.6 Sodium Level 143 Potassium Level 4.4 Chloride Level 113 Carbon Dioxide Level 17.7 Anion Gap 12 Estimat Glomerular Filtration Rate 78 Erythrocyte Sedimentation Rate 4 C-Reactive Protein 1.75 Rheumatoid Factor Screen NEGATIVE Rheumatoid Factor Titer Result Diagram: 02/12/18203902/13/18 0520 Imaging Last 24 hours Impressions Lower Extremity Ultrasound 02/13/18 0000 Signed Impressions: CONCLUSION: 1. There is thrombus within the right popliteal and peroneal veins. Assessment and Plan Assessment and Plan Respiratory failure -Massive PE -Status post mechanical thrombectomy -TPA administration was discussed with patient's mother and explained to her high risks of bleeding including intracranial hemorrhage. The mother clearly understood all risks and benefits of the TPA administration and agreed with TPA infusion -Continue mechanical ventilation -Continue heparin drip -Liquor Commissioner input appreciated Obstructive shock -Due to above -TPA -Epinephrine/Levophed/vasopressin to keep MAP above 65 Metabolic acidosis -Sodium bicarbonate Hypercoagulable state -History of thyroid cancer -Management per hematology oncology DVT GI prophylaxis -Nathaniel's and SCDs -IV heparin -Pepcid Critical Care: The total critical care time was 35 minutes. Time to perform other separately billable procedures was not included in the critical care time. Tomás Dumont MD Feb 13, 2018 9:13 pm
[2018-02-14] VITALS (15 sets, daily range): BP systolic 92–143; BP diastolic 53–78; PULSE 70–133; RESP 18–35; TEMP 98.1–99.1; O2SAT 90–99
[2018-02-14] MEDS ORDERED: SODIUM CHLOR 0.9% 250 ML INJ 250 ML ONE ×2 (01:01→01:07)
[2018-02-14] MEDS ORDERED: SODIUM CHLORIDE 0.9% INJ 10 ML ONE (01:42)
[2018-02-14] MEDS ORDERED: IODIXANOL 320 MG/ML 50 ML VIAL (for RAD SPEC) I-ARTERIAL ONE ×2 (02:04→18:20)
[2018-02-14] MEDS ORDERED: NOREPINEPHRINE-DEXTROSE DRIP 250 ML IV ONE (02:08)
[2018-02-14] MEDS ORDERED: MIDAZOLAM HCL 2 MG/2 ML VIAL ONE (02:13)
[2018-02-14] MEDS ORDERED: fentaNYL 2,500 MCG/NS 250 ML IV PRN (02:15)
[2018-02-14] MEDS ORDERED: PROPOFOL 1000 MG/100 ML IV PRN (02:15)
[2018-02-14 02:36] LABS: AUTOMATED NEUTROPHIL # 9.9 TH/MM3 (1.8-7.7); BASOPHIL # 0.1 TH/MM3 (0-0.2); BASOPHIL % 0.7 % (0.0-2.0); EOSINOPHIL # 0.2 TH/MM3 (0-0.4); EOSINOPHIL % 1.3 % (0.0-4.0); HEMATOCRIT 38.1 % (35.0-46.0); HEMOGLOBIN 12.6 GM/DL (11.6-15.3); LYMPH % 29.4 % (9.0-44.0); LYMPHOCYTE # 4.4 TH/MM3 (1.0-4.8); MEAN CORPUSCULAR HEMOGLOBIN 30.4 PG (27.0-34.0); MEAN PLATELET VOLUME 8.7 FL (7.0-11.0); MONO % 1.8 % (0.0-8.0); MONOCYTE # 0.3 TH/MM3 (0-0.9); NEUT % 66.8 % (16.0-70.0); PLATELET COUNT 152 TH/MM3 (150-450); RED BLOOD COUNT 4.14 MIL/MM3 (4.00-5.30); RED CELL DISTRIBUTION WIDTH 13.3 % (11.6-17.2); WHITE BLOOD COUNT 14.8 TH/MM3 (4.0-11.0)
[2018-02-14] MEDS ORDERED: AMIODARONE INJ 150 MG in DEXTROSE 5% IN WATER 100ML INJ 100 ML IV ONE ×2 (03:00)
[2018-02-14] MEDS ORDERED: AMIODARONE INJ 450 MG in SODIUM CHLOR 0.9% (EXCEL) INJ 241 ML IV PRN (03:03)
[2018-02-14] MEDS ORDERED: PROPOFOL 1000 MG/100 ML INJ 100 ML IV PRN (03:15)
[2018-02-14] MEDS ORDERED: MIDAZOLAM 100 MG/100 ML INJ 100 ML IV PRN (03:15)
[2018-02-14 03:23] LABS: ALBUMIN 2.2 GM/DL (3.4-5.0); CALCIUM 6.8 MG/DL (8.5-10.1); CREATININE 1.75 MG/DL (0.50-1.00); MAGNESIUM 2.1 MG/DL (1.5-2.5); TOTAL BILIRUBIN ADULT 0.3 MG/DL (0.2-1.0); TOTAL PROTEIN 4.8 GM/DL (6.4-8.2); TROPONIN I 0.13 NG/ML (0.02-0.05)
[2018-02-14] MEDS ORDERED: PHENYLEPHRINE HCL 10 MG/ML VIAL ONE (03:29)
[2018-02-14] MEDS ORDERED: VASOPRESSIN 20 UNITS/ML VIAL ONE (03:43)
[2018-02-14] MEDS ORDERED: NURSING INFORMATION OTHER PRN (04:00)
[2018-02-14] MEDS ORDERED: ALTEPLASE INJ 100 MG in WATER STERILE FOR INJ 100 ML IV ONE (04:00)
--- NOTE | 2018-02-14 04:15 | RADRPT ---
EXAM DATE: 02/14/2018 3:46 AM EDT AGE/SEX: 17 years / Female INDICATIONS: Shortness of breath CLINICAL DATA: This is the patient's initial encounter. Patient reports that signs and symptoms have been present for 1 day and indicates a pain score of Nonresponsive. MEDICAL/SURGICAL HISTORY: Carcinoma, thyroid. None. COMPARISON: No prior exams available for comparison. FINDINGS: Endotracheal tube in good position. NG tip in stomach. Mild basilar airspace disease. Cardiomegaly. CONCLUSION: Cardiomegaly with mild basilar and dependent airspace disease in the lungs. Endotracheal tube and makeda ogastric tube in good position. Electronically signed by: Justo Patel MD 02/14/2018 4:14 AM EDT
[2018-02-14] MEDS ORDERED: VASOPRESSIN 40 U/D5W 100 ML Titrate, Post Cardiac Surgery IV PRN ×2 (04:30)
[2018-02-14] MEDS: EPINEPHrine 2 MG/D5W 250 ML IV PRN ×6 (04:41→15:15)
[2018-02-14] MEDS ORDERED: NOREPINEPHRINE 4 MG/D5W 250 ML IV PRN ×2 (05:00→15:00)
[2018-02-14] MEDS: SODIUM CHLOR 0.9% 1000 ML INJ 1,000 ML IV SCH ×4 (05:00→08:00)
[2018-02-14] MEDS ORDERED: EPINEPHrine HCL (1:10,000) 1 MG/10 ML SYRINGE IV ONE (05:00)
[2018-02-14] MEDS ORDERED: CALCIUM CHLORIDE 10% SOLN 1 GRAM/10 ML SYR IV ONE ×3 (05:00→12:00)
[2018-02-14] MEDS ORDERED: SODIUM BICARBONATE 8.4% INJ 50 MEQ/50 ML SYR IV ONE ×3 (05:00→12:00)
[2018-02-14] MEDS ORDERED: EPINEPHrine HCL (1:1000) 30 MG/30 ML VIAL IV ONE (05:00)
[2018-02-14] MEDS ORDERED: ATROPINE SULFATE 1 MG/10 ML SYRINGE IV ONE (05:00)
[2018-02-14] MEDS: SODIUM BICARBONATE 8.4% INJ 150 MEQ in DEXTROSE 5% IN WATE 1000ML INJ 1,000 ML IV SCH ×4 (05:39→15:49)
[2018-02-14] MEDS: fentaNYL DRIP 250 ML IV PRN (06:11)
[2018-02-14] MEDS: MIDAZOLAM 50 MG/50 ML INJ 50 ML IV PRN ×2 (06:31→20:22)
[2018-02-14] MEDS ORDERED: HEPARIN-D5W 25,000 U/250 ML 250 ML IV PRN (07:30)
[2018-02-14] MEDS: CHLORHEXIDINE 0.12% (ORAL KIT) 15 ML CUP MT SCH ×2 (08:00→20:48)
[2018-02-14] MEDS ORDERED: DOBUTamine INJ 1,000 MG in DEXTROSE 5% IN WATER INJ 170 ML IV PRN ×2 (08:00)
[2018-02-14] MEDS: EPOPROSTENOL NEB SOLUTION 50 NG/KG/MIN 100 ML NEB SCH ×2 (08:29)
[2018-02-14] MEDS: FLUTICASONE PROPIONATE 50 MCG/ACT 16 GM NASAL SPRAY EACH NARE SCH ×2 (09:00→21:00)
[2018-02-14] MEDS: INSULIN REGULAR 100 UNITS/100 ML NS ALGORITHM 4 IV PRN ×2 (09:00)
[2018-02-14] MEDS ORDERED: DEXTROSE 50% IN WATER 50 ML VIAL(D50) IV PUSH PRN (09:00)
[2018-02-14] MEDS ORDERED: MISC INFORMATION OTHER ONE (09:00)
[2018-02-14] MEDS: SODIUM CHLORIDE 0.9% FLUSH 10 ML FLUSH IV FLUSH SCH ×2 (09:00→22:03)
--- NOTE | 2018-02-14 09:08 | PD.ONC.PN ---
Subjective Subjective Remarks Afebrile overnight. Patient intubated, sedated. Objective Data Date Time Temp Pulse Resp B/P (MAP) Pulse Ox O2 Delivery O2 Flow Rate FiO2 02/14/18 08:23 114 88/54 02/14/18 06:00 114 02/14/18 04:41 120 108/62 02/14/18 04:26 97 100 02/14/18 04:00 99.1 120 27 105/53 (70) 97 02/14/18 04:00 99.1 120 26 105/53 (70) 97 02/14/18 04:00 101 02/14/18 03:45 120 107/60 02/14/18 03:20 55 34/14 02/14/18 03:10 101 94/57 02/14/18 02:28 94 100 02/14/18 01:30 93 100 02/13/18 21:00 98.3 124 20 164/109 (127) 100 02/13/18 19:21 20 02/13/18 16:00 97.7 114 16 162/92 (115) 99 02/13/18 12:00 97.3 114 16 142/89 (106) 97 02/14/18 02/14/18 02/14/18 07:00 15:00 23:00 Intake Total 3103 ml Output Total 500 ml Balance 2603 ml Result Diagram: 02/14/18 0200 02/14/18 0200 Laboratory Results Laboratory Tests Test 02/13/18 12:00 02/13/18 14:25 02/13/18 22:10 02/14/18 02:00 Erythrocyte Sedimentation Rate 4 mm/hr C-Reactive Protein 1.75 MG/DL Rheumatoid Factor Screen NEGATIVE Rheumatoid Factor Titer IU/ML Activated Partial Thromboplast Time 35.7 SEC 30.6 SEC 163.4 SEC White Blood Count 14.8 TH/MM3 Red Blood Count 4.14 MIL/MM3 Hemoglobin 12.6 GM/DL Hematocrit 38.1 % Mean Corpuscular Volume 92.0 FL Mean Corpuscular Hemoglobin 30.4 PG Mean Corpuscular Hemoglobin Concent 33.0 % Red Cell Distribution Width 13.3 % Platelet Count 152 TH/MM3 Mean Platelet Volume 8.7 FL Neutrophils (%) (Auto) 66.8 % Lymphocytes (%) (Auto) 29.4 % Monocytes (%) (Auto) 1.8 % Eosinophils (%) (Auto) 1.3 % Basophils (%) (Auto) 0.7 % Neutrophils # (Auto) 9.9 TH/MM3 Lymphocytes # (Auto) 4.4 TH/MM3 Monocytes # (Auto) 0.3 TH/MM3 Eosinophils # (Auto) 0.2 TH/MM3 Basophils # (Auto) 0.1 TH/MM3 CBC Comment DIFF FINAL Differential Comment Nasal Screen MRSA (PCR) MRSA NOT DETECTED Blood Urea Nitrogen 8 MG/DL Creatinine 1.75 MG/DL Random Glucose 249 MG/DL Total Protein 4.8 GM/DL Albumin 2.2 GM/DL Calcium Level 6.8 MG/DL Magnesium Level 2.1 MG/DL Alkaline Phosphatase 61 U/L Aspartate Amino Transf (AST/SGOT) 112 U/L Alanine Aminotransferase (ALT/SGPT) 137 U/L Total Bilirubin 0.3 MG/DL Sodium Level 145 MEQ/L Potassium Level 4.7 MEQ/L Chloride Level 114 MEQ/L Carbon Dioxide Level 15.0 MEQ/L Anion Gap 16 MEQ/L Estimat Glomerular Filtration Rate 37 ML/MIN Protein Corrected Calcium 8.0 MG/DL Troponin I 0.13 NG/ML Test 02/14/18 02:07 02/14/18 04:53 02/14/18 07:00 02/14/18 07:06 Blood Gas Puncture Site ART LINE ART LINE ART LINE Blood Gas Patient Temperature 98.6 98.6 98.6 Blood Gas HCO3 13 mmol/L 13 mmol/L 13 mmol/L Blood Gas Base Excess -17.0 mmol/L -14.8 mmol/L -14.2 mmol/L Blood Gas Oxygen Saturation 93 % 97 % 89 % Arterial Blood pH 6.93 7.11 7.14 Arterial Blood Partial Pressure CO2 68 mmHg 43 mmHg 40 mmHg Arterial Blood Partial Pressure O2 112 mmHg 148 mmHg 72 mmHg Arterial Blood Oxygen Content 15.9 Vol % 17.3 Vol % 16.9 Vol % Arterial Blood Carboxyhemoglobin 0.0 % 0.5 % 0.8 % Arterial Blood Methemoglobin 0.9 % 1.0 % 1.1 % Blood Gas Hemoglobin 12.1 G/DL 12.5 G/DL 13.4 G/DL Oxygen Delivery Device VENTILATOR VENTILATOR VENTILATOR Blood Gas Ventilator Setting PRVC12/500/1.0/+5 PRVC20/500/1.0/+5 500/20/+5/1.0 Blood Gas Inspired Oxygen 100 % 100 % 100 % Activated Partial Thromboplast Time 73.9 SEC Imaging Studies Last 24 hours Impressions Chest X-Ray 02/14/18 0000 Signed Impressions: CONCLUSION: Cardiomegaly with mild basilar and dependent airspace disease in the lungs. End otracheal tube and nasogastric tube in good position. Administered Medications Medications (Trade) Dose Ordered Sig/Gregg Route PRN Reason Start Time Stop Time Status Last Admin Dose Admin Lorazepam (Ativan Inj) 1 mg Q4H PRN IV PUSH anxiety 02/12/18 23:45 02/13/18 19:34 Sodium Chloride (NS Flush) 2 ml BID IV FLUSH 02/13/18 09:00 02/13/18 09:00 Acetaminophen (Tylenol) 650 mg Q4H PRN PO TEMP > 100.4 02/13/18 00:45 02/13/18 18:21 Cetirizine HCl (ZyrTEC) 10 mg DAILY PO 02/13/18 09:00 02/13/18 10:15 Fluticasone Propionate (Flonase Anil Spr) 1 spray BID EACH NARE 02/13/18 09:00 02/13/18 10:14 Levothyroxine Sodium (Synthroid) 100 mcg DAILY@0700 PO 02/13/18 07:00 02/13/18 06:13 Levothyroxine Sodium (Synthroid) 75 mcg DAILY@0700 PO 02/13/18 07:00 02/13/18 06:13 Fentanyl Citrate 250 ml @ 5 mls/hr TITRATE PRN IV SEDATION 02/14/18 03:15 02/14/18 06:11 Epinephrine HCl 2 mg/Dextrose 250 ml @ 37.5 mls/hr TITRATE PRN IV Blood Pressure Management 02/14/18 04:15 02/14/18 08:23 Vasopressin 40 units/Dextrose 100 ml @ 6 mls/hr TITRATE PRN IV Blood Pressure Management 02/14/18 04:30 02/14/18 03:45 Norepinephrine Bitartrate 250 ml @ 7.5 mls/hr TITRATE PRN IV Maintain MAP > 65 mmHg 02/14/18 05:00 02/14/18 03:20 Sodium Bicarbonate 150 meq/Dextrose 1,150 ml @ 100 mls/hr [id number] IV 02/14/18 05:15 02/14/18 05:39 Midazolam HCl 50 ml @ 2 mls/hr TITRATE PRN IV SEDATION 02/14/18 06:30 02/14/18 06:31 Epoprostenol Sodium 87.5 ml/ Sodium Chloride 100 ml @ 5 mls/hr Q8H NEB 02/14/18 09:00 02/14/18 08:29 Dobutamine HCl 1000 mg/Dextrose 250 ml @ 8.73 mls/hr TITRATE PRN IV Rate change by 02/14/18 08:00 02/14/18 08:49 Objective Remarks GENERAL: intubated sedated young female, supine in bed SKIN: Warm and dry. HEAD: Normocephalic. EYES: No injection or drainage. NECK: Supple, trachea midline. CARDIOVASCULAR: +S1/S2 RESPIRATORY: anterior arteaga with scattered rhonchi. on mechanical ventilation with FiO2 at 100% GASTROINTESTINAL: Abdomen soft, non-tender, nondistended. EXTREMITIES: No cyanosis NEUROLOGICAL: intubated, sedated Assessment/Plan Problem List: (1) Pulmonary emboli ICD Codes: I26.99 - Other pulmonary embolism without acute cor pulmonale Status: Acute Plan: --s/p tpa infusion 02/14 --s/p embolectomy Assessment 17y/o female admitted with massive pe with right heart strain, now s/p tpa. h/o papillary carcinoma of the thyroid diagnosed in 2014 when she was age [age] years old. Bilateral pulmonary emboli Obesity Ovarian cyst Past Surgical History Plan 1. continue heparin gtt 2. monitor CBC 3. continue supportive care Attending Statement The exam, history, and the medical decision-making described in the above note were completed with the assistance of the mid-level provider. I reviewed and agree with the findings presented. I attest that I had a [id number] encounter with the patient on the same day, and personally performed and documented my assessment and findings in the medical record. Events last 12 hours noted. Patient with massive PE, RV Echo changes, failed initial conservative management , clinical worsening transfer to ICU. Attempt at local thrombolysis when she decompensated in IR and was resuscitated successfully. Code in ICU and revived. Careful management by cardiologist. s/p CT head reviewed with NS. Recent fall reported by mom. Pt with abrasion over L cheek before admission. Trauma, emergent use of thrombolytic due to hemodynamic instability noted to produce the CT findings. As discussed conservative management. UFH continue for now due to life threatening PE with RV dysfunction. Case further complication by pt's menses which began after stopping OC's and post thrombolytic therapy. Monitor hgb and transfuse support as needed. Discussed with pt and mom last night, she tends to have heavy menses for first two days. Answered mother and aunt's questions at bedside. Problem Qualifiers (1) Pulmonary emboli: Lilliam Alvarado Feb 14, 2018 09:08 Julia Roblero MD Feb 14, 2018 15:35
[2018-02-14] MEDS ORDERED: CALCIUM GLUCONATE 10% 1 GM/10 ML VIAL ONE ×2 (09:46→09:47)
[2018-02-14] MEDS ORDERED: CALCIUM CHLORIDE 10% SOLN 1 GRAM/10 ML SYR ONE (09:46)
[2018-02-14] MEDS ORDERED: SODIUM BICARBONATE 8.4% INJ 50 MEQ/50 ML SYR ONE ×2 (09:46→10:00)
--- NOTE | 2018-02-14 10:49 | HHI.CCPN ---
Subjective Remarks/Hospital Course Hospital Course: 17-year-old female with a past medical history significant for hypothyroidism presents to the emergency department for evaluation of shortness of breath and a syncopal episode. Patient reports that for the past 2 days she has had shortness of breath. Today she noticed that she had increasing dyspnea on exertion. She reports associated emesis 3 with dizziness and loss of consciousness. She states she had right lower extremity pain approximately 1 month ago. She denies any chest pain. No abdominal pain. No fevers/chills. The patient was initially admitted to medicine service on a heparin drip. She was evaluated by hematology oncology Dr. Banks, and the stress echocardiogram showed severe RV dilation. The patient was also clinically worsening requiring more oxygen support. She was taken to IR for mechanical thrombectomy. While in the IR suite she suffered a respiratory arrest and was intubated and successfully resuscitated. She returned to ICU in severe shock/obstructive. Shortly after arrival to the unit the patient suffered another episode of cardiac arrest requiring 2 cycles of CPR and 2 injections of epinephrine. Due to hemodynamic instability the TPA bolus followed by an infusion was immediately administered. Subjective: 02/14: patient remains in profound obstructive cardiogenic shock with acute RV failure, as well as acute hypoxic respiratory failure. I added inhaled flolan at 50 ng/kg/min, dobutamine at 5 mcg/kg/min. epinephrine is at 6 mcg/min and vasopressin at 0.04 units/min. avoiding norepinephrine to minimize pulmonary vascular constriction. avoiding milrinone currently due to hypotension, although if we get control of her shock, milrinone may be of added benefit. lactate is 8 and continues to rise. pH 7.1 with BE -14. remains hemodynamically unstable. pupils are 6mm and minimally reactive, although the patient has recently received atropine IV during her cardiac arrest, so unclear what prognostic value her pupillary exam is currently. She does have a history of recently falling and hitting her head, so we will order head CT to rule out catastrophic hemorrhage. Also have given 3 amps bicarb, 1 gm calcium chloride for her acid/base and electrolyte derangements. started insulin drip for severe hyperglycemia. remained at bedside titrating vasoactive medications. remains on 100% fio2. very unstable. Objective Vital Signs Date Time Temp Pulse Resp B/P (MAP) Pulse Ox O2 Delivery O2 Flow Rate FiO2 02/14/18 08:23 114 88/54 02/14/18 04:26 97 100 02/14/18 04:00 99.1 27 02/12/18 22:58 Nasal Cannula 2.00 Intake and Output 02/14/18 02/14/18 02/15/18 08:00 16:00 00:00 Intake Total 2103 ml Output Total 500 ml Balance 1603 ml Result Diagram: 02/14/18 0200 02/14/18 0200 Other Results Laboratory Tests Test 02/14/18 02:07 02/14/18 04:53 02/14/18 07:06 Blood Gas Puncture Site ART LINE ART LINE ART LINE Blood Gas Patient Temperature 98.6 98.6 98.6 Blood Gas HCO3 13 mmol/L (22-26) 13 mmol/L (22-26) 13 mmol/L (22-26) Blood Gas Base Excess -17.0 mmol/L (-2-2) -14.8 mmol/L (-2-2) -14.2 mmol/L (-2-2) Blood Gas Oxygen Saturation 93 % (90-100) 97 % (90-100) 89 % (90-100) Arterial Blood pH 6.93 (7.380-7.420) 7.11 (7.380-7.420) 7.14 (7.380-7.420) Arterial Blood Partial Pressure CO2 68 mmHg (38-42) 43 mmHg (38-42) 40 mmHg (38-42) Arterial Blood Partial Pressure O2 112 mmHg (61-120) 148 mmHg (61-120) 72 mmHg (61-120) Arterial Blood Oxygen Content 15.9 Vol % (12.0-20.0) 17.3 Vol % (12.0-20.0) 16.9 Vol % (12.0-20.0) Arterial Blood Carboxyhemoglobin 0.0 % (0-4) 0.5 % (0-4) 0.8 % (0-4) Arterial Blood Methemoglobin 0.9 % (0-2) 1.0 % (0-2) 1.1 % (0-2) Blood Gas Hemoglobin 12.1 G/DL (12.0-16.0) 12.5 G/DL (12.0-16.0) 13.4 G/DL (12.0-16.0) Oxygen Delivery Device VENTILATOR VENTILATOR VENTILATOR Blood Gas Ventilator Setting PRVC12/500/1.0/+5 PRVC20/500/1.0/+5 500/20/+5/1.0 Blood Gas Inspired Oxygen 100 % 100 % 100 % Imaging Last 24 hours Impressions Lower Extremity Ultrasound 02/13/18 0000 Signed Impressions: CONCLUSION: 1. There is thrombus within the right popliteal and peroneal veins. Objective Remarks GENERAL: Obese young female in severe distress and hemodynamic instability. SKIN: cool, poorly perfused. HEAD: Normocephalic. EYES: No scleral icterus. No injection or drainage. NECK: Supple, trachea midline. large neck circumference prevents accurate assessment of JVD. CARDIOVASCULAR: tachycardic rate, regular rhythm. sinus. dobutamine at 5 mcg/kg/ min, epi 6 mcg/min, vasopressin 0.04 units/min, sodium bicarb 100cc/hr. RESPIRATORY: very tachypneic. RR 35. MV 23 LPM. PEEP 6. fio2 100%. inhaled flolan at 50 ng/kg/min. using accessory muscles. labored. equal chest rise. scant amount of bloody secretions. no active hemorrhage. GASTROINTESTINAL: Abdomen obese, soft, non-tender, nondistended. no guarding. EXTREMITIES: cool, poorly perfused. distal pulses 1+. right groin with arterial sheath in place, site clean and dry, dressing intact, no hematoma. left groin with triple lumen catheter in place, site c/d, dressing intact, no hematoma. NEURO EXAM: RASS -4. spontaneously moves all extremities. pupils 5mm and sluggishly reactive. equal and conjugate. withdraws to pain. Bedside Critical care ultrasound 02/14: hyperdynamic and underfilled left ventricle. severely dilated and moderately depressed right ventricular function. Severe flattening of the intraventricular septum in diastole suggestive of ongoing RV pressure overload. RVSP estimated at 69 mmHg based on TR jet. mild TR. IVC remains collapsable. trace pericardial effusion. A/P Assessment and Plan Assessment: 17yF with massive pulmonary embolism and associated Cardiogenic shock, Right heart failure, acute hypoxic respiratory failure. remains unstable. active resuscitation continues. Plan by systems: Neurologic: Acute metabolic encephalopathy - head CT to rule out intracerebral bleeding - possibly component of hypoxic/ischemic encephalopathy, but both cardiac arrest times were short, so likely minimized time of cerebral ischemia. - continue versed, fentanyl - no weaning of sedation until hemodynamics stabilize. - RASS goal -2/-3. Respiratory: Acute hypoxic and hypercarbic respiratory failure Massive pulmonary embolism Pulmonary Hypertension - PH secondary to acute PE - vent bundle, hob elevated, nebs - wean fio2 for goal spo2 > 92% - inhaled flolan at 50 ng/kg/min - no weaning of mechanical ventilation given shock and instability - trend abg's - will attempt to avoid neuromuscular blockade as it will likely worsen her hemodynamics - will avoid elevations in intrathoracic pressure such as high PEEP to improve hemodynamics. Cardiovascular: Cardiogenic Shock- Obstructive type Right Ventricular Failure Massive Pulmonary Embolism - lactate continues to rise: shock not controlled yet. - trend lactates - trend uop - trend abg - dobutamine at 5 mcg/kg/min - epi at 6 mcg/min - vasopressin at 0.04 units/min - will keep map > 65 mmHg and continue to maintain right coronary perfusion - s/p systemic TPA 02/14 for hemodynamic collapse - s/p endovascular mechanical thrombectomy 02/13 - continue heparin drip Renal: Acute kidney injury - likely secondary to shock - trend uop - daily bmp - must keep deluca. -- Strict I/Os FEN/GI: Acute Liver Injury: shock liver and congestive hepatopathy Obesity Lactic Acidosis: acute, severe, worsening. Severe anion gap metabolic acidosis - NPO while in shock - OG tube to LIWS - trend CMP daily - trend lactates - bicarb infusion at 100cc/hr Heme/ID: Hypercoagulable State s/p systemic TPA - continue heparin drip - hematology consulted and following - trend daily cbc - no infectious etiology suspected at this time Endocrine: Severe hyperglycemia of critical illness -- insulin drip, algorithm 4 Prophylaxis: GI Prophylaxis pepcid iv DVT Prophylaxis -- currently holding SCDs given concern over active DVTs. however, there is little evidence to suggest SCDs would worsen clot burden, and may prevent further development of clots. will order. - heparin drip Lines: 02/14: right femoral arterial sheath 02/14: left femoral triple lumen catheter 02/13: deluca must keep all lines. will need central line which terminates in SVC for CVP monitoring and ScVO2 monitoring, but will hold off on placing so recently after systemic TPA. Dispo: - remain in ICU. very critically ill and unstable. This patient remains critically ill with one or more organ systems which are or may become a threat to life. I have spent in excess of 126 minutes discontinuously in the care and management of this patient. This time is exclusive of procedures, and includes, but is not limited to, evaluation of the patient, review of the medical record, discussions with family, consultants, nursing staff, or respiratory therapy, and documentation in the medical record. Gennaro Ocampo MD Feb 14, 2018 10:49
[2018-02-14] MEDS: FAMOTIDINE 20 MG/2 ML VIAL IV PUSH SCH (11:00)
[2018-02-14] MEDS ORDERED: SODIUM CHLORIDE 0.9% IV ONE (11:45)
[2018-02-14] MEDS ORDERED: POTASSIUM CHLORIDE IV ONE (11:45)
[2018-02-14 12:00] LABS: HEMATOCRIT 36.7 % (35.0-46.0); HEMOGLOBIN 12.4 GM/DL (11.6-15.3); MEAN CELL VOLUME 89.7 FL (80.0-100.0); MEAN CORPUSCULAR HEMOGLOBIN 30.3 PG (27.0-34.0); MEAN CORPUSCULAR HGB CONC 33.7 % (32.0-36.0); RED BLOOD COUNT 4.09 MIL/MM3 (4.00-5.30); WHITE BLOOD COUNT 25.4 TH/MM3 (4.0-11.0)
[2018-02-14] MEDS ORDERED: ePHEDrine/NS 25 MG/5 ML SYRINGE IV ONE (12:00)
[2018-02-14] MEDS ORDERED: PHENYLEPH/NS 1000 MCG/10 ML SYR IV ONE (12:00)
[2018-02-14] MEDS ORDERED: ROCURONIUM INJ 50 MG/5 ML SYRINGE IV PUSH ONE (12:00)
[2018-02-14 12:01] LABS: MEAN PLATELET VOLUME 8.3 FL (7.0-11.0); PLATELET COUNT 136 TH/MM3 (150-450); RED CELL DISTRIBUTION WIDTH 12.8 % (11.6-17.2)
[2018-02-14 12:18] LABS: INTERNATIONAL NORMALIZED RATIO 1.5 RATIO; PROTHROMBIN TIME - PATIENT 14.8 SEC (9.8-11.6)
[2018-02-14 12:49] LABS: ALBUMIN 2.3 GM/DL (3.4-5.0); ALKALINE PHOSPHATASE 59 U/L (45-117); ALT (GPT) 243 U/L (9-42); BICARBONATE 15.4 MEQ/L (21.0-32.0); BLOOD UREA NITROGEN 14 MG/DL (7-18); CALCIUM 7.5 MG/DL (8.5-10.1); CHLORIDE 113 MEQ/L (98-107); CREATININE 2.47 MG/DL (0.50-1.00); GLOMERULAR FILTRATION RATE 25 ML/MIN (>89); GLUCOSE,RANDOM 247 MG/DL (74-106); SODIUM (NA) 147 MEQ/L (136-145); TOTAL BILIRUBIN ADULT 0.7 MG/DL (0.2-1.0); TOTAL PROTEIN 4.9 GM/DL (6.4-8.2)
--- NOTE | 2018-02-14 12:59 | RADRPT ---
EXAM DATE: 02/14/2018 12:45 PM EDT AGE/SEX: 17 years / Female INDICATIONS: Altered mental status. CLINICAL DATA: This is the patient's initial encounter. Patient reports that signs and symptoms have been present for 1 day and indicates a pain score of Nonresponsive. MEDICAL/SURGICAL HISTORY: Carcinoma, thyroid. Pulmonary embolism. None. RADIATION DOSE: 55.50 CTDI (mGy) COMPARISON: No prior exams available for comparison. TECHNIQUE: CT of the head without contrast. Using automated exposure control and adjustment of the mA and/or kV according to patient size, radiation dose was kept as low as reasonably achievable to ob tain optimal diagnostic quality images. FINDINGS: There is mild canting of the head which causes some asymmetry. Cerebrum: Abnormal. There are 2 focal hyperdense lesions in the right supratentorial brain. The larg er lesion is in the right middle cranial fossa adjacent and anterior to the right temporal bone measu ring 3.2 x 2.0 cm. This lesion extends to the mid convexity region. The second lesion is posterior in the right mid to high convexity parietal lobe with epicentered in the cortex measuring 1.9 x 1.3 cm. There is questionable linear hyperdensity in the sulci of the right mid convexity parietal and front al region and several focal small hyperdensities in the left mid convexity parietal region. There is no significant asymmetry to the ventricles when taking into account the canting of the head. No evide nce of midline shift. The lateral and third ventricles are normal in size. Posterior Fossa: The cerebellum and brainstem are intact. The 4th ventricle is midline. The cerebe llopontine angle is unremarkable. Extracranial: The visualized portion of the orbits is intact. Skull: The calvaria is intact. No evidence of skull fracture. CONCLUSION: 1. Multiple hyperdense abnormalities in the supratentorial brain with 2 focal areas of masslike hype rdensity right temporal and right parietal lobe, suggesting either masses or hematoma. In addition, t here is suggestion of bilateral subarachnoid hemorrhage. 2. Recommend further characterization with MRI of the brain with and without contrast. Electronically signed by: Bernardino Waters MD 02/14/2018 12:57 PM EDT
[2018-02-14 13:19] LABS: AST (GOT) 248 U/L (16-38)
[2018-02-14] MEDS: LEVOTHYROXINE SODIUM 100 MCG TAB PO SCH (13:30)
[2018-02-14] MEDS: CETIRIZINE HCL 10 MG TAB PO SCH (13:30)
[2018-02-14] MEDS: LEVOTHYROXINE SODIUM 75 MCG TAB PO SCH (13:30)
--- NOTE | 2018-02-14 13:33 | HHI.PR ---
Subjective Remarks ALL EVENTS SINCE YESTERDAY NOTED ON THE VENTILATOR UNRESPONSIVE POST CARDIAC ARRESST Objective Vital Signs Date Time Temp Pulse Resp B/P (MAP) Pulse Ox O2 Delivery O2 Flow Rate FiO2 02/14/18 12:00 99.1 133 32 104/65 (78) 97 02/14/18 10:00 85 02/14/18 08:23 114 88/54 02/14/18 08:10 96 100 02/14/18 08:00 100 02/14/18 08:00 116 02/14/18 08:00 98.4 116 35 92/56 (68) 90 Automatic Cuff 02/14/18 06:00 114 02/14/18 04:41 120 108/62 02/14/18 04:26 97 100 02/14/18 04:00 99.1 120 27 105/53 (70) 97 02/14/18 04:00 99.1 120 26 105/53 (70) 97 02/14/18 04:00 101 02/14/18 03:45 120 107/60 02/14/18 03:20 55 34/14 02/14/18 03:10 101 94/57 02/14/18 02:28 94 100 02/14/18 01:30 93 100 02/13/18 21:00 98.3 124 20 164/109 (127) 100 02/13/18 19:21 20 02/13/18 16:00 97.7 114 16 162/92 (115) 99 I/O 02/13/18 02/13/18 02/13/18 02/14/18 02/14/18 02/14/18 07:00 15:00 23:00 07:00 15:00 23:00 Intake Total 150 ml 240 ml 3103 ml 250 ml Output Total 500 ml Balance 150 ml 240 ml 2603 ml 250 ml Intake Oral 150 ml 240 ml IV Total 3103 ml 250 ml Output Urine Total 500 ml # Voids 1 3 # Bowel Movements 0 1 Result Diagram: 02/14/18 1111 02/14/18 1111 Objective Remarks Vital Signs Date Time Temp Pulse Resp B/P (MAP) Pulse Ox O2 Delivery O2 Flow Rate FiO2 02/14/18 12:00 99.1 133 32 104/65 (78) 97 02/14/18 10:00 85 02/14/18 08:23 114 88/54 02/14/18 08:10 96 100 02/14/18 08:00 100 02/14/18 08:00 116 02/14/18 08:00 98.4 116 35 92/56 (68) 90 Automatic Cuff 02/14/18 06:00 114 02/14/18 04:41 120 108/62 02/14/18 04:26 97 100 02/14/18 04:00 99.1 120 27 105/53 (70) 97 02/14/18 04:00 99.1 120 26 105/53 (70) 97 02/14/18 04:00 101 02/14/18 03:45 120 107/60 02/14/18 03:20 55 34/14 02/14/18 03:10 101 94/57 02/14/18 02:28 94 100 02/14/18 01:30 93 100 02/13/18 21:00 98.3 124 20 164/109 (127) 100 02/13/18 19:21 20 02/13/18 16:00 97.7 114 16 162/92 (115) 99 Medications and IVs GENERAL: ON VENT SUPPORT UNRESPONSIVE SKIN: Warm and dry. HEAD: Atraumatic. Normocephalic. EYES: Pupils equal and round. No scleral icterus. No injection or drainage. ENT: No nasal bleeding or discharge. Mucous membranes pink and moist. NECK: Trachea midline. No JVD. CARDIOVASCULAR: Regular rate and rhythm. RESPIRATORY: No accessory muscle use. Clear to auscultation. Breath sounds equal bilaterally. GASTROINTESTINAL: Abdomen soft, non-tender, nondistended. Hepatic and splenic margins not palpable. MUSCULOSKELETAL: Extremities without clubbing, cyanosis, or edema. No obvious deformities. NEUROLOGICAL: Awake and alert. No obvious cranial nerve deficits. Motor grossly within normal limits. Five out of 5 muscle strength in the arms and legs. Normal speech. PSYCHIATRIC: Appropriate mood and affect; insight and judgment normal. Assessment and Plan Assessment and Plan IMPRESSION RESPIRATORY FAILURE MASSIVE PE RV FAILURE/CARDIOGENIC JETHRO HYPERCOAGULABLE STATE S/P TPA/EMBOLECTOMY ACUTE LIVER AND KIDNEY INJURY PLAN VENT SUPPORTANTI COAGULATION NEURO ECALUATION CC,NEPHROLOGY,HEMATOLOGY FOLLOWING Discharge Planning GENERAL: ON THE VENTILATOR, UNRESPONSIVE SKIN: Warm and dry. HEAD: Atraumatic. Normocephalic. EYES: Pupils equal and round NON REACTIVE , . No scleral icterus. No injection or drainage. ENT: No nasal bleeding or discharge. Mucous membranes pink and moist. NECK: Trachea midline. No JVD. CARDIOVASCULAR: Regular rate and rhythm. RESPIRATORY: No accessory muscle use. Clear to auscultation. Breath sounds equal bilaterally. GASTROINTESTINAL: Abdomen soft, non-tender, nondistended. Hepatic and splenic margins not palpable. MUSCULOSKELETAL: Extremities without clubbing, cyanosis, or edema. No obvious deformities. NEUROLOGICAL: Awake and alert. No obvious cranial nerve deficits. Motor grossly within normal limits. Five out of 5 muscle strength in the arms and legs. Normal speech. PSYCHIATRIC: Appropriate mood and affect; insight and judgment normal. Leroy Harper MD Feb 14, 2018 13:33
[2018-02-14] MEDS ORDERED: DOBUTamine INJ 1,000 MG in SODIUM CHLOR 0.9% 250 ML INJ 170 ML IV PRN ×4 (15:00)
[2018-02-14] MEDS ORDERED: HEPARIN INJ 25,000 UNITS in SODIUM CHLOR 0.9% 250 ML INJ 250 ML IV PRN (15:00)
[2018-02-14] MEDS ORDERED: EPINEPHrine (1:1000) INJ 2 MG in SODIUM CHLOR 0.9% 250 ML INJ 250 ML IV PRN ×2 (15:00)
[2018-02-14] MEDS ORDERED: NOREPINEPHRINE INJ 4 MG in SODIUM CHLOR 0.9% 250 ML INJ 250 ML IV PRN (15:00)
[2018-02-14] MEDS ORDERED: VASOPRESSIN INJ 40 UNITS in SODIUM CHLORIDE 0.9% INJ 98 ML IV PRN (15:30)
[2018-02-14] MEDS ORDERED: POTASSIUM CHLOR 40 MEQ PREMIX 100 ML IV SCH (15:30)
--- NOTE | 2018-02-14 18:12 | PD.CONS ---
History of Present Illness Service Neurosurgery Consult Requested By Recreation Manager Reason for Consult Intracranial hemorrhage Primary Care Physician Unknown Diagnoses: History of Present Illness 17-year-old female visiting. Approximately 5 days ago he drove to patient. After arrival at his shortness of breath. Mother states that patient has a structure with probable loss of consciousness. She was brought to the emergency room for evaluation. She was noted to be hypoxic and tachycardic. Stat pulmonary CT angiogram revealed acute bilateral pulmonary emboli. She was placed on Heparin infusion.. Echocardiogram revealed severe right ventricle dilation. She underwent mechanical thrombectomy, and sustained respiratory arrest requiring resuscitation and intubation in the interventional radiology suite. She was admitted to the intensive surgical care unit with hemodynamic instability. She had a second cardiac arrest in the intensive care requiring CPR. She was given a TPA bolus and infusion. On 02/14/18 she remains in cardiogenic shock with RV failure, on pressors. Review of Systems Unable to obtain from patient. Intubated and sedated Past Family Social History Allergies: Coded Allergies: tree nut (Verified Allergy, Unknown, 02/12/18) Past Medical History Obesity Reported Medications Reported Meds & Active Scripts Active Reported Proair Hfa 8.5 GM Inh (Albuterol Sulfate) 90 Mcg/Act Aer 2 Puff INH Q4-6H PRN 108 mcg/actuation Cetirizine (Cetirizine HCl) 10 Mg Chew 10 Mg CHEW DAILY Flonase Nasal [place] (Fluticasone Nasal [place]) 50 Mcg/Act [place] 50 Mcg EACH NARE BID [place] 09/27 (Norethindrone-Ethinyl Estradiol) 1-20 Mg-Mcg Tab 1 Tab PO DAILY Synthroid (Levothyroxine Sodium) 175 Mcg Tab 175 Mcg PO DAILY Physical Exam Vital Signs Vital Signs Date Time Temp Pulse Resp B/P (MAP) Pulse Ox O2 Delivery O2 Flow Rate FiO2 02/14/18 16:22 99 100 02/14/18 15:15 112 122/65 02/14/18 12:30 99 100 02/14/18 12:00 80 02/14/18 12:00 133 02/14/18 12:00 99.1 133 32 104/65 (78) 97 02/14/18 11:00 124 102/60 02/14/18 10:00 85 02/14/18 08:23 114 88/54 02/14/18 08:10 96 100 02/14/18 08:00 100 02/14/18 08:00 116 02/14/18 08:00 98.4 116 35 92/56 (68) 90 Automatic Cuff 02/14/18 06:00 114 02/14/18 04:41 120 108/62 02/14/18 04:26 97 100 02/14/18 04:00 99.1 120 27 105/53 (70) 97 02/14/18 04:00 99.1 120 26 105/53 (70) 97 02/14/18 04:00 101 02/14/18 03:45 120 107/60 02/14/18 03:20 55 34/14 02/14/18 03:10 101 94/57 02/14/18 02:28 94 100 02/14/18 01:30 93 100 02/13/18 21:00 98.3 124 20 164/109 (127) 100 02/13/18 19:21 20 Physical Exam General: Sedated.Intubated. Neurologic: Pupils are 5 mm nonreactive Absent corneal and oculocephalic response No facial or extremity movement to deep pain. Laboratory Laboratory Tests Test 02/13/18 22:10 02/14/18 02:00 02/14/18 02:07 02/14/18 04:53 Activated Partial Thromboplast Time 30.6 163.4 White Blood Count 14.8 Red Blood Count 4.14 Hemoglobin 12.6 Hematocrit 38.1 Mean Corpuscular Volume 92.0 Mean Corpuscular Hemoglobin 30.4 Mean Corpuscular Hemoglobin Concent 33.0 Red Cell Distribution Width 13.3 Platelet Count 152 Mean Platelet Volume 8.7 Neutrophils (%) (Auto) 66.8 Lymphocytes (%) (Auto) 29.4 Monocytes (%) (Auto) 1.8 Eosinophils (%) (Auto) 1.3 Basophils (%) (Auto) 0.7 Neutrophils # (Auto) 9.9 Lymphocytes # (Auto) 4.4 Monocytes # (Auto) 0.3 Eosinophils # (Auto) 0.2 Basophils # (Auto) 0.1 CBC Comment DIFF FINAL Differential Comment Nasal Screen MRSA (PCR) MRSA NOT DETECTED Blood Urea Nitrogen 8 Creatinine 1.75 Random Glucose 249 Total Protein 4.8 Albumin 2.2 Calcium Level 6.8 Magnesium Level 2.1 Alkaline Phosphatase 61 Aspartate Amino Transf (AST/SGOT) 112 Alanine Aminotransferase (ALT/SGPT) 137 Total Bilirubin 0.3 Sodium Level 145 Potassium Level 4.7 Chloride Level 114 Carbon Dioxide Level 15.0 Anion Gap 16 Estimat Glomerular Filtration Rate 37 Protein Corrected Calcium 8.0 Troponin I 0.13 Blood Gas Puncture Site ART LINE ART LINE Blood Gas Patient Temperature 98.6 98.6 Blood Gas HCO3 13 13 Blood Gas Base Excess -17.0 -14.8 Blood Gas Oxygen Saturation 93 97 Arterial Blood pH 6.93 7.11 Arterial Blood Partial Pressure CO2 68 43 Arterial Blood Partial Pressure O2 112 148 Arterial Blood Oxygen Content 15.9 17.3 Arterial Blood Carboxyhemoglobin 0.0 0.5 Arterial Blood Methemoglobin 0.9 1.0 Blood Gas Hemoglobin 12.1 12.5 Oxygen Delivery Device VENTILATOR VENTILATOR Blood Gas Ventilator Setting PRVC12/500/1.0/+5 PRVC20/500/1.0/+5 Blood Gas Inspired Oxygen 100 100 Test 02/14/18 07:00 02/14/18 07:06 02/14/18 11:11 Activated Partial Thromboplast Time 73.9 37.5 Blood Gas Puncture Site ART LINE Blood Gas Patient Temperature 98.6 Blood Gas HCO3 13 Blood Gas Base Excess -14.2 Blood Gas Oxygen Saturation 89 Arterial Blood pH 7.14 Arterial Blood Partial Pressure CO2 40 Arterial Blood Partial Pressure O2 72 Arterial Blood Oxygen Content 16.9 Arterial Blood Carboxyhemoglobin 0.8 Arterial Blood Methemoglobin 1.1 Blood Gas Hemoglobin 13.4 Oxygen Delivery Device VENTILATOR Blood Gas Ventilator Setting 500/20/+5/1.0 Blood Gas Inspired Oxygen 100 White Blood Count 25.4 Red Blood Count 4.09 Hemoglobin 12.4 Hematocrit 36.7 Mean Corpuscular Volume 89.7 Mean Corpuscular Hemoglobin 30.3 Mean Corpuscular Hemoglobin Concent 33.7 Red Cell Distribution Width 12.8 Platelet Count 136 Mean Platelet Volume 8.3 Prothrombin Time 14.8 Prothromb Time International Ratio 1.5 Fibrinogen 85 Blood Urea Nitrogen 14 Creatinine 2.47 Random Glucose 247 Total Protein 4.9 Albumin 2.3 Calcium Level 7.5 Alkaline Phosphatase 59 Aspartate Amino Transf (AST/SGOT) 248 Alanine Aminotransferase (ALT/SGPT) 243 Total Bilirubin 0.7 Sodium Level 147 Potassium Level 3.1 Chloride Level 113 Carbon Dioxide Level 15.4 Anion Gap 19 Estimat Glomerular Filtration Rate 25 Lactic Acid Level 11.4 Result Diagram: 02/14/18 1111 02/14/18 1111 Imaging 03/07/2018 CT scan head images reviewed by the undersigned. In addition to the 2 areas of parenchymal hemorrhage right temporal parietal lobes, there is evidence contusion and subarachnoid hemorrhage throughout the right greater than left hemisphere. No significant overall mass-effect. Head CT 02/14/18 0000 Signed Impressions: CONCLUSION: 1. Multiple hyperdense abnormalities in the supratentorial brain with 2 focal areas of masslike hyperdensity right temporal and right parietal lobe, suggesti ng either masses or hematoma. In addition, there is suggestion of bilateral sub arachnoid hemorrhage. 2. Recommend further characterization with MRI of the brain with and without c ontrast. Chest X-Ray 02/14/18 Signed Impressions: CONCLUSION: Cardiomegaly with mild basilar and dependent airspace disease in the lungs. End otracheal tube and nasogastric tube in good position. Lower Extremity Ultrasound 02/13/18 Signed Impressions: CONCLUSION: 1. There is thrombus within the right popliteal and peroneal veins. CT Angiography 02/12/182030 Signed Impressions: CONCLUSION: 1. Multiple large central and peripheral bilateral pulmonary emboli. 2. Trace pericardial fluid. Assessment and Plan Assessment and Plan Impression: 1. Right temporal and parietal acute parenchymal hemorrhage with smaller scattered areas of punctate hemorrhage and mild subarachnoid hemorrhage in the right greater than left hemisphere. No significant mass-effect. Contributing factors include head trauma, anticoagulation-TPA, emboli, hypoxia- cerebral ischemia, venous congestion or thrombosis. She apparently also had a brief episode following TPA and cardiac resuscitation Plan: Findings were discussed with the family. Discussed with paint process engineer Discussed with radiology Patient undergoing further interventional procedures for residual left pulmonary embolus. Plan follow-up CT scan of the radiology procedures today. Rodrigo Izaguirre MD Feb 14, 2018 18:12
--- NOTE | 2018-02-14 18:42 | RADRPT ---
EXAM DATE: 02/14/2018 6:32 PM EDT AGE/SEX: 17 years / Female INDICATIONS: Follow up hemorrhage. CLINICAL DATA: This is the patient's subsequent encounter. Patient reports that signs and symptoms h ave been present for 1 day and indicates a pain score of Nonresponsive. MEDICAL/SURGICAL HISTORY: Cardiovascular disease. Carcinoma, thyroid. . RADIATION DOSE: 55.39 CTDI (mGy) ;Tabletop exam COMPARISON: [facility] [place], CT BRAIN W/O CONTRAST, 02/14/2018. . TECHNIQUE: CT of the head without contrast. Using automated exposure control and adjustment of the mA and/or kV according to patient size, radiation dose was kept as low as reasonably achievable to ob tain optimal diagnostic quality images. FINDINGS: Previously described focal hemorrhage in the right parieto-occipital region measuring up to about 1.3 x 1.8 cm and in the right temporal lobe measuring up to about 3.2 x 2 cm is stable with some surroun ding edema. There is scattered subarachnoid hemorrhage in the brain. There is some sulcal effacement in brain edema but no significant midline shift. No acute bony abnormalities. CONCLUSION: 1. Stable parenchymal hemorrhage on the right and scattered subarachnoid hemorrhage with some swelli ng and edema in the brain. Overall no significant change from February 14 at 1243. Electronically signed by: Justo Patel MD 02/14/2018 6:41 PM EDT
[2018-02-14] MEDS ORDERED: levETIRAcetam INJ 100 ML IV ONE (19:30)
--- NOTE | 2018-02-14 19:43 | RADRPT ---
EXAM DATE: 02/14/2018 7:22 PM EDT AGE/SEX: 17 years / Female INDICATIONS: PA catheterplacement. CLINICAL DATA: This is the patient's subsequent encounter. Patient reports that signs and symptoms h ave been present for 2 days and indicates a pain score of Nonresponsive. MEDICAL/SURGICAL HISTORY: None. None. COMPARISON: [facility] – [place], CHEST SINGLE AP, 02/14/2018. . FINDINGS: [place] catheter tip in right pulmonary artery. Endotracheal tube and nasogastric tube in good posi tion. Mild patchy bilateral airspace disease, slightly increased from February 14 3:05 AM. CONCLUSION: Increase in bilateral airspace disease since earlier exam. Placement of [place] catheter with tip i n right pulmonary artery. Endotracheal tube and nasogastric tube unchanged. Electronically signed by: Justo Patel MD 02/14/2018 7:42 PM EDT
[2018-02-14] MEDS: MILRINONE INJ 20 MG in SODIUM CHLORIDE 0.9% INJ 80 ML IV SCH (20:47)
[2018-02-14] MEDS: levETIRAcetam INJ 500 MG in SODIUM CHLORIDE 0.9% INJ 100 ML IV SCH (21:00)
[2018-02-14 23:52] LABS: HOMOCYSTEINE 5.8 umol/L (<10.4)
[2018-02-15] VITALS (20 sets, daily range): BP systolic 98–151; BP diastolic 47–84; PULSE 80–125; RESP 18; TEMP 98.4–99.6; O2SAT 93–99
[2018-02-15] MEDS: FAMOTIDINE 20 MG/2 ML VIAL IV PUSH SCH ×2 (00:02→12:20)
[2018-02-15] MEDS: fentaNYL DRIP 250 ML IV PRN ×2 (00:08→17:14)
[2018-02-15] MEDS: INSULIN REGULAR 100 UNITS/100 ML NS ALGORITHM 4 IV PRN ×2 (00:43)
[2018-02-15] MEDS ORDERED: INSULIN REGULAR 100 UNITS/100 ML NS ALGORITHM 4 IV PRN ×2 (04:00)
[2018-02-15 05:56] LABS: HEMATOCRIT 29.6 % (35.0-46.0); HEMOGLOBIN 10.3 GM/DL (11.6-15.3); MEAN CELL VOLUME 87.4 FL (80.0-100.0); MEAN CORPUSCULAR HEMOGLOBIN 30.4 PG (27.0-34.0); MEAN CORPUSCULAR HGB CONC 34.7 % (32.0-36.0); MEAN PLATELET VOLUME 8.8 FL (7.0-11.0); PLATELET COUNT 99 TH/MM3 (150-450); RED BLOOD COUNT 3.38 MIL/MM3 (4.00-5.30); WHITE BLOOD COUNT 20.4 TH/MM3 (4.0-11.0)
[2018-02-15 06:05] LABS: INTERNATIONAL NORMALIZED RATIO 1.1 RATIO; PROTHROMBIN TIME - PATIENT 11.5 SEC (9.8-11.6)
[2018-02-15 06:15] LABS: ALBUMIN 2.4 GM/DL (3.4-5.0); ALKALINE PHOSPHATASE 63 U/L (45-117); ALT (GPT) 156 U/L (9-42); AST (GOT) 101 U/L (16-38); BICARBONATE 22.9 MEQ/L (21.0-32.0); BLOOD UREA NITROGEN 20 MG/DL (7-18); CALCIUM 7.7 MG/DL (8.5-10.1); CHLORIDE 113 MEQ/L (98-107); CREATININE 2.44 MG/DL (0.50-1.00); GLOMERULAR FILTRATION RATE 26 ML/MIN (>89); GLUCOSE,RANDOM 112 MG/DL (74-106); SODIUM (NA) 147 MEQ/L (136-145); TOTAL BILIRUBIN ADULT 0.5 MG/DL (0.2-1.0); TOTAL PROTEIN 4.9 GM/DL (6.4-8.2)
[2018-02-15] MEDS: MILRINONE INJ 20 MG in SODIUM CHLORIDE 0.9% INJ 80 ML IV SCH (07:13)
[2018-02-15] MEDS: LEVOTHYROXINE SODIUM 100 MCG TAB PO SCH (07:14)
[2018-02-15] MEDS: LEVOTHYROXINE SODIUM 75 MCG TAB PO SCH (07:14)
--- NOTE | 2018-02-15 08:43 | HHI.CCPN ---
Subjective Remarks/Hospital Course Hospital Course: 17-year-old female with a past medical history significant for hypothyroidism presents to the emergency department for evaluation of shortness of breath and a syncopal episode. Patient reports that for the past 2 days she has had shortness of breath. Today she noticed that she had increasing dyspnea on exertion. She reports associated emesis 3 with dizziness and loss of consciousness. She states she had right lower extremity pain approximately 1 month ago. She denies any chest pain. No abdominal pain. No fevers/chills. The patient was initially admitted to medicine service on a heparin drip. She was evaluated by hematology oncology Dr. Banks, and the stress echocardiogram showed severe RV dilation. The patient was also clinically worsening requiring more oxygen support. She was taken to IR for mechanical thrombectomy. While in the IR suite she suffered a respiratory arrest and was intubated and successfully resuscitated. She returned to ICU in severe shock/obstructive. Shortly after arrival to the unit the patient suffered another episode of cardiac arrest requiring 2 cycles of CPR and 2 injections of epinephrine. Due to hemodynamic instability the TPA bolus followed by an infusion was immediately administered. Subjective: 02/14: patient remains in profound obstructive cardiogenic shock with acute RV failure, as well as acute hypoxic respiratory failure. I added inhaled flolan at 50 ng/kg/min, dobutamine at 5 mcg/kg/min. epinephrine is at 6 mcg/min and vasopressin at 0.04 units/min. avoiding norepinephrine to minimize pulmonary vascular constriction. avoiding milrinone currently due to hypotension, although if we get control of her shock, milrinone may be of added benefit. lactate is 8 and continues to rise. pH 7.1 with BE -14. remains hemodynamically unstable. pupils are 6mm and minimally reactive, although the patient has recently received atropine IV during her cardiac arrest, so unclear what prognostic value her pupillary exam is currently. She does have a history of recently falling and hitting her head, so we will order head CT to rule out catastrophic hemorrhage. Also have given 3 amps bicarb, 1 gm calcium chloride for her acid/base and electrolyte derangements. started insulin drip for severe hyperglycemia. remained at bedside titrating vasoactive medications. remains on 100% fio2. very unstable. 02/15: Objective Vital Signs Date Time Temp Pulse Resp B/P (MAP) Pulse Ox O2 Delivery O2 Flow Rate FiO2 02/15/18 07:42 122 101/48 02/15/18 05:30 50 02/15/18 04:15 96 02/15/18 04:00 99.6 18 02/14/18 19:00 Mechanical Ventilator 02/12/18 22:58 2.00 Intake and Output 02/15/18 02/15/18 02/15/18 07:59 15:59 23:59 Intake Total 90 ml Output Total 270 ml Balance -180 ml Result Diagram: 02/15/18 0530 02/15/18 0530 Imaging Last 24 hours Impressions Lower Extremity Ultrasound 02/13/18 0000 Signed Impressions: CONCLUSION: 1. There is thrombus within the right popliteal and peroneal veins. Objective Remarks GENERAL: Obese young female in severe distress and hemodynamic instability. SKIN: cool, poorly perfused. HEAD: Normocephalic. EYES: No scleral icterus. No injection or drainage. NECK: Supple, trachea midline. large neck circumference prevents accurate assessment of JVD. CARDIOVASCULAR: tachycardic rate, regular rhythm. sinus. dobutamine at 5 mcg/kg/ min, epi 6 mcg/min, vasopressin 0.04 units/min, sodium bicarb 100cc/hr. RESPIRATORY: very tachypneic. RR 35. MV 23 LPM. PEEP 6. fio2 100%. inhaled flolan at 50 ng/kg/min. using accessory muscles. labored. equal chest rise. scant amount of bloody secretions. no active hemorrhage. GASTROINTESTINAL: Abdomen obese, soft, non-tender, nondistended. no guarding. EXTREMITIES: cool, poorly perfused. distal pulses 1+. right groin with arterial sheath in place, site clean and dry, dressing intact, no hematoma. left groin with triple lumen catheter in place, site c/d, dressing intact, no hematoma. NEURO EXAM: RASS -4. spontaneously moves all extremities. pupils 5mm and sluggishly reactive. equal and conjugate. withdraws to pain. Bedside Critical care ultrasound 02/14: hyperdynamic and underfilled left ventricle. severely dilated and moderately depressed right ventricular function. Severe flattening of the intraventricular septum in diastole suggestive of ongoing RV pressure overload. RVSP estimated at 69 mmHg based on TR jet. mild TR. IVC remains collapsable. trace pericardial effusion. A/P Assessment and Plan Assessment: 17yF with massive pulmonary embolism and associated Cardiogenic shock, Right heart failure, acute hypoxic respiratory failure. Course now complicated by Intracerebral hemorrhage. critically ill. Plan by systems: Neurologic: Acute metabolic encephalopathy Acute intraparenchymal hemorrhage - neurosurgery: Dr. Izaguirre following - possibly component of hypoxic/ischemic encephalopathy, but both cardiac arrest times were short, so likely minimized time of cerebral ischemia. - continue versed, fentanyl - start spontaneous awakening trials. - RASS goal -2 - frequent neuro checks - repeat head CT today or tomorrow - avoid anticoagulation. - noted platelets of 99: risk/benefit favors holding on transfusing platelets given recent massive PE and concern for hypercoagulability. Respiratory: Acute hypoxic and hypercarbic respiratory failure Massive pulmonary embolism Pulmonary Hypertension - PH secondary to acute PE - vent bundle, hob elevated, nebs - wean fio2 for goal spo2 > 92% - inhaled flolan at 50 ng/kg/min - no weaning of mechanical ventilation given shock and instability - trend abg's Cardiovascular: Cardiogenic Shock- Obstructive type Right Ventricular Failure Massive Pulmonary Embolism - clearing lactate. - too hypotensive with milrinone overnight. will discontinue and restart dobutamine - continue vasopressin for map > 65 mmHg. - s/p systemic TPA 02/14 for hemodynamic collapse - s/p endovascular mechanical thrombectomy 02/13, repeat thrombectomy 02/14 - s/p emergent IVC filter placement 02/14 - hold all anticoagulation. Renal: Acute kidney injury likely Acute Tubular Necrosis - likely secondary to shock and contrast loads: now almost completely anuric. likely ATN - trend uop - daily bmp - must keep deluca. -- Strict I/Os - does not need emergent dialysis today: however, her right ventricular failure will not tolerate any degree of volume overload or cor pulmonale, so will consult nephrology: may need emergent dialysis for any hemodynamic volume overload. In addition, with new head bleeds and likely some degree of cerebral edema from ischemic encephalopathy, would prefer CVVHD to IHD to minimize oncotic shifts. FEN/GI: Acute Liver Injury: shock liver and congestive hepatopathy Obesity Lactic Acidosis- resolving. Severe anion gap metabolic acidosis- resolving. - start tube feeds. - trend CMP daily Heme/ID: Hypercoagulable State s/p systemic TPA 02/14 Thrombocytopenia Hypofibrinogenemia Massive Pulmonary Embolism - hold all anticoagulation given head bleeds - will not reverse coagulopathy given recent massive PE - low platelets secondary to consumption: 4T score low probability for HIT - s/p emergent IVC filter placement 02/14 - hematology consulted and following - trend daily cbc - no infectious etiology suspected at this time Endocrine: Severe hyperglycemia of critical illness- improving -- d/c insulin drip. -- start SSI, med scale, q4h Prophylaxis: GI Prophylaxis pepcid iv DVT Prophylaxis -- SCDs - IVC filter - hold anticoagulation. Lines: 02/14: right femoral arterial sheath 02/14: left femoral triple lumen catheter 02/13: deluca 02/14: right IJ 9 Fr introducer sheath 02/14: right IJ PA catheter (IR guided into right main PA, free of clot). Dispo: - remain in ICU. very critically ill. This patient remains critically ill with one or more organ systems which are or may become a threat to life. I have spent in excess of 65 minutes discontinuously in the care and management of this patient. This time is exclusive of procedures, and includes, but is not limited to, evaluation of the patient, review of the medical record, discussions with family, consultants, nursing staff, or respiratory therapy, and documentation in the medical record. Gennaro Ocampo MD Feb 15, 2018 08:43
[2018-02-15] MEDS ORDERED: DEXTROSE 50% IN WATER 50 ML VIAL(D50) IV PUSH PRN (08:45)
[2018-02-15] MEDS: EPOPROSTENOL NEB SOLUTION 50 NG/KG/MIN 100 ML NEB SCH ×8 (09:00→21:13)
[2018-02-15] MEDS: FLUTICASONE PROPIONATE 50 MCG/ACT 16 GM NASAL SPRAY EACH NARE SCH ×2 (09:00→21:00)
[2018-02-15] MEDS: SODIUM CHLOR 0.9% 1000 ML INJ 1,000 ML IV SCH (09:30)
[2018-02-15] MEDS: CETIRIZINE HCL 10 MG TAB PO SCH (09:53)
[2018-02-15] MEDS: CHLORHEXIDINE 0.12% (ORAL KIT) 15 ML CUP MT SCH ×2 (09:54→20:00)
[2018-02-15] MEDS: levETIRAcetam INJ 500 MG in SODIUM CHLORIDE 0.9% INJ 100 ML IV SCH ×2 (09:54→21:17)
[2018-02-15] MEDS: SODIUM CHLORIDE 0.9% FLUSH 10 ML FLUSH IV FLUSH SCH ×2 (09:54→21:00)
--- NOTE | 2018-02-15 10:44 | PD.ONC.PN ---
Subjective Subjective Remarks Afebrile overnight. Patient intubated, sedated. about to undergo EEG s/p IVC filter placement last night. off heparin. Objective Data Date Time Temp Pulse Resp B/P (MAP) Pulse Ox O2 Delivery O2 Flow Rate FiO2 02/15/18 10:23 93 40 02/15/18 08:36 97 Mechanical Ventilator 40 02/15/18 08:00 40 02/15/18 08:00 99.1 125 18 124/72 (89) 99 98/47 (64) 02/15/18 07:42 122 101/48 02/15/18 07:42 119 98/46 02/15/18 07:13 110 84/48 02/15/18 07:00 124 02/15/18 05:30 50 02/15/18 04:15 96 40 02/15/18 04:00 40 02/15/18 04:00 99.6 102 18 151/68 (95) 98 102/54 (70) 02/15/18 03:00 105 02/15/18 01:00 105 02/15/18 00:30 97 40 02/15/18 00:30 40 02/15/18 00:00 60 02/15/18 00:00 98.4 97 18 105/59 (74) 98 114/66 (82) 02/14/18 23:00 97 98/56 02/14/18 22:39 98 100/55 02/14/18 21:23 99 60 02/14/18 20:47 89 135/72 02/14/18 20:00 98.1 70 18 131/65 (87) 98 143/78 (99) 02/14/18 20:00 60 02/14/18 19:00 80 02/14/18 19:00 98 Mechanical Ventilator 60 02/14/18 18:55 98 100 02/14/18 18:25 99 100 02/14/18 16:22 99 100 02/14/18 15:15 112 122/65 02/14/18 12:30 99 100 02/14/18 12:00 80 02/14/18 12:00 133 02/14/18 12:00 99.1 133 32 104/65 (78) 97 02/14/18 11:00 124 102/60 02/15/18 02/15/18 02/15/18 07:00 15:00 23:00 Intake Total 90 ml 1831 ml Output Total 270 ml Balance -180 ml 1831 ml Result Diagram: 02/15/18 0530 02/15/18 0530 Laboratory Results Laboratory Tests Test 02/14/18 11:11 02/15/18 05:30 White Blood Count 25.4 TH/MM3 20.4 TH/MM3 Red Blood Count 4.09 MIL/MM3 3.38 MIL/MM3 Hemoglobin 12.4 GM/DL 10.3 GM/DL Hematocrit 36.7 % 29.6 % Mean Corpuscular Volume 89.7 FL 87.4 FL Mean Corpuscular Hemoglobin 30.3 PG 30.4 PG Mean Corpuscular Hemoglobin Concent 33.7 % 34.7 % Red Cell Distribution Width 12.8 % 13.0 % Platelet Count 136 TH/MM3 99 TH/MM3 Mean Platelet Volume 8.3 FL 8.8 FL Prothrombin Time 14.8 SEC 11.5 SEC Prothromb Time International Ratio 1.5 RATIO 1.1 RATIO Activated Partial Thromboplast Time 37.5 SEC 23.0 SEC Fibrinogen 85 mg/dL 223 mg/dL Blood Urea Nitrogen 14 MG/DL 20 MG/DL Creatinine 2.47 MG/DL 2.44 MG/DL Random Glucose 247 MG/DL 112 MG/DL Total Protein 4.9 GM/DL 4.9 GM/DL Albumin 2.3 GM/DL 2.4 GM/DL Calcium Level 7.5 MG/DL 7.7 MG/DL Alkaline Phosphatase 59 U/L 63 U/L Aspartate Amino Transf (AST/SGOT) 248 U/L 101 U/L Alanine Aminotransferase (ALT/SGPT) 243 U/L 156 U/L Total Bilirubin 0.7 MG/DL 0.5 MG/DL Sodium Level 147 MEQ/L 147 MEQ/L Potassium Level 3.1 MEQ/L 4.6 MEQ/L Chloride Level 113 MEQ/L 113 MEQ/L Carbon Dioxide Level 15.4 MEQ/L 22.9 MEQ/L Anion Gap 19 MEQ/L 11 MEQ/L Estimat Glomerular Filtration Rate 25 ML/MIN 26 ML/MIN Lactic Acid Level 11.4 mmol/L 1.2 mmol/L Administered Medications Medications (Trade) Dose Ordered Sig/Gregg Route PRN Reason Start Time Stop Time Status Last Admin Dose Admin Sodium Chloride (NS Flush) 2 ml BID IV FLUSH 02/13/18 09:00 02/15/18 09:54 Acetaminophen (Tylenol) 650 mg Q4H PRN PO TEMP > 100.4 02/13/18 00:45 02/13/18 18:21 Cetirizine HCl (ZyrTEC) 10 mg DAILY PO 02/13/18 09:00 02/15/18 09:53 Fluticasone Propionate (Flonase Anil Spr) 1 spray BID EACH NARE 02/13/18 09:00 02/13/18 10:14 Levothyroxine Sodium (Synthroid) 100 mcg DAILY@0700 PO 02/13/18 07:00 02/15/18 07:14 Levothyroxine Sodium (Synthroid) 75 mcg DAILY@0700 PO 02/13/18 07:00 02/15/18 07:14 Chlorhexidine Gluconate (Peridex 0.12% Liq) 15 ml BID@08,20 MT 02/14/18 08:00 02/15/18 09:54 Fentanyl Citrate 250 ml @ 5 mls/hr TITRATE PRN IV SEDATION 02/14/18 03:15 02/15/18 00:08 Midazolam HCl 50 ml @ 2 mls/hr TITRATE PRN IV SEDATION 02/14/18 06:30 02/14/18 20:22 Epoprostenol Sodium 87.5 ml/ Sodium Chloride 100 ml @ 5 mls/hr Q8H NEB 02/14/18 09:00 02/15/18 10:18 Famotidine (Pepcid Inj) 20 mg Q12H IV PUSH 02/14/18 11:00 02/15/18 00:02 Sodium Chloride 1,000 ml @ 50 mls/hr Q20H IV 02/14/18 13:30 02/15/18 09:30 Levetriacetam 500 mg/Sodium Chloride 105 ml @ 420 mls/hr Q12HR IV 02/14/18 21:00 02/15/18 09:54 Objective Remarks GENERAL: intubated sedated young woman, supine in bed, undergoing EEG SKIN: Warm and dry. HEAD: Normocephalic. EYES: No injection or drainage. NECK: Supple, trachea midline. CARDIOVASCULAR: +S1/S2 RESPIRATORY: scattered rhonchi, anterior arteaga. on mechanical ventilation. GASTROINTESTINAL: Abdomen nondistended. EXTREMITIES: No cyanosis NEUROLOGICAL: intubated, sedated Assessment/Plan Problem List: (1) Pulmonary emboli ICD Codes: I26.99 - Other pulmonary embolism without acute cor pulmonale Status: Acute Plan: --s/p tpa infusion 02/14 --s/p embolectomy --s/p IVC filter placement. (2) SAH (subarachnoid hemorrhage) ICD Codes: I60.9 - Nontraumatic subarachnoid hemorrhage, unspecified Assessment 17y/o female admitted with massive pe with right heart strain, now s/p tpa. h/o papillary carcinoma of the thyroid diagnosed in 2014 when she was age [age] years old. Bilateral pulmonary emboli Obesity Ovarian cyst Past Surgical History Plan 1. monitor CBC 2. continue supportive care 3. anticoagulation contraindicated d/t brain bleed. Attending Statement The exam, history, and the medical decision-making described in the above note were completed with the assistance of the mid-level provider. I reviewed and agree with the findings presented. I attest that I had a [id number] encounter with the patient on the same day, and personally performed and documented my assessment and findings in the medical record. Events overnight noted. Decker liam monitoring, special tester managing. Emotional support provided to mother consistently at bedside. Problem Qualifiers (1) Pulmonary emboli: Lilliam Alvarado Feb 15, 2018 10:44 Julia Roblero MD Feb 15, 2018 12:48
[2018-02-15] MEDS: INSULIN NovoLIN REGULAR SUPPLEMENTAL SCALE SQ SCH ×3 (12:00→20:00)
[2018-02-15] MEDS ORDERED: VASOPRESSIN INJ 40 UNITS in DEXTROSE 5% IN WATER 100ML INJ 98 ML IV PRN ×2 (13:17)
--- NOTE | 2018-02-15 13:19 | PD.CONS ---
HPI Service Nephrology Consult Requested By Dr. Ocampo Reason for Consult ARF Primary Care Physician Unknown History of Present Illness 17 Year old from [place], here on family vacation, had a long drive, she was short of breath and had nausea, vomiting, she passed out while walking from Hotel lobby to the room, brought in with these complaints, she was diagnosed with Bilateral pulmonary embolism, she was taking oral contraceptive pills and has ovarian cysts. Patient has Pulmonary angiogram had cardiac arrest and resuscitation and a second cardiac arrest in ICU. Patient had a brain bleed from the fall, TPA, embolectomy, she has IVC filter. She is now oliguric ARF creatinine 2.44. Review of Systems ROS Limitations: Clinical Condition Past Family Social History Allergies: Coded Allergies: tree nut (Verified Allergy, Unknown, 02/12/18) Past Medical History Diagnosis of papillary carcinoma of the thyroid diagnosed in 2014 when she was age [age] years old. Bilateral pulmonary emboli Obesity Ovarian cyst Past Surgical History Thyroidectomy 2014. [place] tooth extraction Reported Medications Reported Meds & Active Scripts Active Reported Proair Hfa 8.5 GM Inh (Albuterol Sulfate) 90 Mcg/Act Aer 2 Puff INH Q4-6H PRN 108 mcg/actuation Cetirizine (Cetirizine HCl) 10 Mg Chew 10 Mg CHEW DAILY Flonase Nasal [place] (Fluticasone Nasal [place]) 50 Mcg/Act [place] 50 Mcg EACH NARE BID Junel 09/27 (Norethindrone-Ethinyl Estradiol) 1-20 Mg-Mcg Tab 1 Tab PO DAILY Synthroid (Levothyroxine Sodium) 175 Mcg Tab 175 Mcg PO DAILY Active Ordered Medications Current Medications Medications (Trade) Dose Ordered Sig/Gregg Route Start Time Stop Time Status Last Admin (NS Flush) 2 ml UNSCH PRN IVF 02/12/18 20:45 (NS Flush) 2 ml UNSCH PRN IV FLUSH 02/13/18 00:45 (NS Flush) 2 ml BID IV FLUSH 02/13/18 09:00 02/15/18 09:54 (Tylenol) 650 mg Q4H PRN PO 02/13/18 00:45 02/13/18 18:21 (Narcan Inj) 0.4 mg UNSCH PRN IV PUSH 02/13/18 00:45 (Milk Of Magnesia Liq) 30 ml Q12H PRN PO 02/13/18 00:45 (Senokot) 17.2 mg Q12H PRN PO 02/13/18 00:45 (Dulcolax Supp) 10 mg DAILY PRN RECTAL 02/13/18 00:45 (Lactulose Liq) 30 ml DAILY PRN PO 02/13/18 00:45 (ZyrTEC) 10 mg DAILY PO 02/13/18 09:00 02/15/18 09:53 (Flonase Anil Spr) 1 spray BID EACH NARE 02/13/18 09:00 02/13/18 10:14 (Synthroid) 100 mcg DAILY@0700 PO 02/13/18 07:00 02/15/18 07:14 (Synthroid) 75 mcg DAILY@0700 PO 02/13/18 07:00 02/15/18 07:14 (Albuterol Neb) 1.25 mg Q6HR NEB PRN NEB 02/13/18 12:45 (Peridex 0.12% Liq) 15 ml BID@08,20 MT 02/14/18 08:00 02/15/18 09:54 Propofol 100 ml @ 3.45 mls/hr TITRATE PRN IV 02/14/18 03:15 Fentanyl Citrate 250 ml @ 5 mls/hr TITRATE PRN IV 02/14/18 03:15 02/15/18 00:08 Midazolam HCl 50 ml @ 2 mls/hr TITRATE PRN IV 02/14/18 06:30 02/14/18 20:22 Epoprostenol Sodium 87.5 ml/ Sodium Chloride 100 ml @ 5 mls/hr Q8H NEB 02/14/18 09:00 02/15/18 10:18 (D50w (Vial) Inj) 50 ml UNSCH PRN IV PUSH 02/14/18 09:00 (Pepcid Inj) 20 mg Q12H IV PUSH 02/14/18 11:00 02/15/18 12:20 Sodium Chloride 1,000 ml @ 50 mls/hr Q20H IV 02/14/18 13:30 02/15/18 09:30 Heparin Sodium (Porcine) 91805 units/Sodium Chloride 252.5 ml @ 10.1 mls/hr TITRATE PRN IV 02/14/18 15:00 Dobutamine HCl 1000 mg/Sodium Chloride 250 ml @ 13.09 mls/ hr TITRATE PRN IV 02/14/18 15:00 Epinephrine HCl 2 mg/Sodium Chloride 252 ml @ 37.8 mls/hr TITRATE PRN IV 02/14/18 15:00 Norepinephrine Bitartrate 4 mg/ Sodium Chloride 254 ml @ 7.62 mls/hr TITRATE PRN IV 02/14/18 15:00 Clevidipine 50 ml @ 2 mls/hr TITRATE PRN IV 02/14/18 19:15 Levetriacetam 500 mg/Sodium Chloride 105 ml @ 420 mls/hr Q12HR IV 02/14/18 21:00 02/15/18 09:54 (D50w (Vial) Inj) 25 ml UNSCH PRN IV PUSH 02/15/18 08:45 (NovoLIN R SUPPLEMENTAL SCALE) 1 Q4HR SQ 02/15/18 12:00 (Pepcid Inj) 10 mg Q12H IV PUSH 02/15/18 21:00 Family History Father diabetes Mother healthy Social History Single, 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 Lives in [place], lifelong non-smoker , denies drug abuse. Physical Exam Vital Signs Vital Signs Date Time Temp Pulse Resp B/P (MAP) Pulse Ox O2 Delivery O2 Flow Rate FiO2 02/15/18 12:43 98.9 02/15/18 12:40 40 02/15/18 10:23 93 40 02/15/18 08:36 97 Mechanical Ventilator 40 02/15/18 08:00 40 02/15/18 08:00 99.1 125 18 124/72 (89) 99 98/47 (64) 02/15/18 07:42 122 101/48 02/15/18 07:42 119 98/46 02/15/18 07:13 110 84/48 02/15/18 07:00 124 02/15/18 05:30 50 02/15/18 04:15 96 40 02/15/18 04:00 40 02/15/18 04:00 99.6 102 18 151/68 (95) 98 102/54 (70) 02/15/18 03:00 105 02/15/18 01:00 105 02/15/18 00:30 97 40 02/15/18 00:30 40 02/15/18 00:00 60 02/15/18 00:00 98.4 97 18 105/59 (74) 98 114/66 (82) 02/14/18 23:00 97 98/56 02/14/18 22:39 98 100/55 02/14/18 21:23 99 60 02/14/18 20:47 89 135/72 02/14/18 20:00 98.1 70 18 131/65 (87) 98 143/78 (99) 02/14/18 20:00 60 02/14/18 19:00 80 02/14/18 19:00 98 Mechanical Ventilator 60 02/14/18 18:55 98 100 02/14/18 18:25 99 100 02/14/18 16:22 99 100 02/14/18 15:15 112 122/65 Physical Exam GENERAL: Well-nourished, well-developed intubated patient. SKIN: Warm and dry. HEAD: Normocephalic. EYES: No scleral icterus. No injection or drainage. NECK: Supple, trachea midline. No JVD or lymphadenopathy.intubated CARDIOVASCULAR: Regular rate and rhythm without murmurs, gallops, or rubs. RESPIRATORY: Breath sounds equal bilaterally. No accessory muscle use. GASTROINTESTINAL: Abdomen soft, non-tender, nondistended. EXTREMITIES: No cyanosis, or edema. NEUROLOGICAL: obtunded. Laboratory Laboratory Tests Test 02/15/18 05:30 White Blood Count 20.4 Red Blood Count 3.38 Hemoglobin 10.3 Hematocrit 29.6 Mean Corpuscular Volume 87.4 Mean Corpuscular Hemoglobin 30.4 Mean Corpuscular Hemoglobin Concent 34.7 Red Cell Distribution Width 13.0 Platelet Count 99 Mean Platelet Volume 8.8 Prothrombin Time 11.5 Prothromb Time International Ratio 1.1 Activated Partial Thromboplast Time 23.0 Fibrinogen 223 Blood Urea Nitrogen 20 Creatinine 2.44 Random Glucose 112 Total Protein 4.9 Albumin 2.4 Calcium Level 7.7 Alkaline Phosphatase 63 Aspartate Amino Transf (AST/SGOT) 101 Alanine Aminotransferase (ALT/SGPT) 156 Total Bilirubin 0.5 Sodium Level 147 Potassium Level 4.6 Chloride Level 113 Carbon Dioxide Level 22.9 Anion Gap 11 Estimat Glomerular Filtration Rate 26 Lactic Acid Level 1.2 Result Diagram: 02/15/18 0530 02/15/18 0530 Imaging Last Impressions Head CT 02/14/18 0000 Signed Impressions: CONCLUSION: 1. Stable parenchymal hemorrhage on the right and scattered subarachnoid hemor rhage with some swelling and edema in the brain. Overall no significant change from February 14 at 1243. Chest X-Ray 02/14/18 0000 Signed Impressions: CONCLUSION: Increase in bilateral airspace disease since earlier exam. Placement of [place] nz catheter with tip in right pulmonary artery. Endotracheal tube and nasogastr ic tube unchanged. Lower Extremity Ultrasound 02/13/18 Signed Impressions: CONCLUSION: 1. There is thrombus within the right popliteal and peroneal veins. CT Angiography 02/12/182030 Signed Impressions: CONCLUSION: 1. Multiple large central and peripheral bilateral pulmonary emboli. 2. Trace pericardial fluid. Assessment and Plan Problem List: (1) Acute renal failure ICD Codes: N17.9 - Acute kidney failure, unspecified Plan: patient has ischemic event and receive contrast study contributing to ARF her urine out put is low PA pressures are high she may require CRRT at some point she requires vasopressors check urine Na creatinine BMP avoid Nephrotoxins. d/w Dr. Ocampo (2) Pulmonary emboli ICD Codes: I26.99 - Other pulmonary embolism without acute cor pulmonale Status: Acute Plan: treated with TPA, Angiogram (3) Cardiac arrest ICD Codes: I46.9 - Cardiac arrest, cause unspecified Plan: patient had cardiac arrest x 2 (4) SAH (subarachnoid hemorrhage) ICD Codes: I60.9 - Nontraumatic subarachnoid hemorrhage, unspecified Status: Acute Plan: as above complications from fall/TPA/anticoagulation Problem Qualifiers (1) Acute renal failure: Qualified Codes: N17.0 - Acute kidney failure with tubular necrosis (2) Pulmonary emboli: Lori Banks MD Feb 15, 2018 13:19
[2018-02-15] MEDS ORDERED: VASOPRESSIN INJ 40 UNITS in SODIUM CHLORIDE 0.9% INJ 100 ML IV PRN (13:45)
--- NOTE | 2018-02-15 14:29 | MG ---
cc: Kendall De Guzman MD, PhD TEST NUMBER: [id number] REFERRING PHYSICIAN: Dr. Paul TECHNIQUE: This is a 17-channel EEG. DESCRIPTION: Background rhythm reveals generalized slowing in delta frequency, roughly 3-4 Hz with an amplitude of 20-40 microvolts. There is periodic activity, which appears to be mainly triphasic waves. It is not truly epileptiform. Later in the tracing, there does appear to be some sharply contoured waves over the right hemisphere with some degree of phase reversal periodically in the right hemisphere. These become more frequent throughout the tracing. Photic stimulation is done with no significant driving response. INTERPRETATION: Abnormal study consistent with a diffuse encephalopathy. In addition, sharp activity is identified frequently over the right hemisphere with phase reversal, which is consistent with a possible seizure focus in the right hemisphere. Kendall De Guzman MD, PhD ALYCIA/CHARISMA , 02:16 PM , 02:28 PM
--- NOTE | 2018-02-15 15:14 | EKG ---
Date Performed: 02/14/2018 Time Performed: 02:10:08 PTAGE: 17 years EKG: Atrial fibrillation with uncontrolled ventricular response. Right axis deviation Possible e xtensive infarct - age undetermined Low QRS voltages in precordial leads Abnormal ECG NO PREVIOUS TRACING DOCTOR: Jeb Blank Interpretating Date/Time 02/15/2018 15:11:59
--- NOTE | 2018-02-15 15:46 | MB ---
cc: Kendall De Guzman MD, PhD DATE: 02/15/2018 REASON FOR CONSULTATION: Seizure. HISTORY OF PRESENT ILLNESS: This is a 17-year-old female who presented to the hospital on 02/12/2018 with syncopal episodes and shortness of breath. CT angiogram on presentation revealed multiple large central and peripheral bilateral pulmonary emboli. She did receive TPA and underwent mechanical thrombectomy, placed on heparin infusion. CT scan of the brain revealed 2 areas of parenchymal hemorrhage in the right temporal and parietal lobe area, as well as subarachnoid hemorrhage at the right greater than the left hemisphere. No mass effect were seen. She developed intermittent twitching activity in the left side. An EEG was obtained. The EEG reveals diffuse slowing with epileptiform discharges over the right hemisphere. She is on Keppra. Apparently, the twitching has subsided. CURRENT MEDICATIONS: She has been loaded with Cerebyx 1000 mg and placed on Cerebyx maintenance of 100 mg IV every 8 hours. She is on Keppra 500 mg every 12 hours, heparin infusion, dobutamine, norepinephrine. NEUROLOGIC EXAMINATION: Blood pressure 137/63, pulse 111, temperature 98.1 degrees. Higher cortical function: She is nonresponsive. Cranial nerves: The pupils are 2 mm, symmetric and reactive to light. Extraocular movements are intact to doll's eyes maneuver. Motor exam: To tactile stimulation of the left hand, she has some myoclonus, a little bit on the right as well. She has no spontaneous limb movements. Otherwise, there is no posturing. Reflexes are symmetric. IMAGING STUDIES: CT of the brain done yesterday shows multiple hyperdense abnormalities with 2 focal areas of mass-like hyperdensity right temporal lobe, right parietal lobe suggesting masses or hematoma, bilateral subarachnoid hemorrhage is identified. LABORATORY DATA: The white count is 20,400, hemoglobin 10.3, hematocrit 29.6%, platelet count is 99,000. Sedimentation rate is 4. Sodium is 147, potassium 4.6, chloride 113, CO2 22.9, BUN is 20, creatinine 2.44, glucose 112, AST 101, ALT 156, alkaline phosphatase 63. ABG 23. PT 11.5, INR 1.1. IMPRESSION: Focal seizures from the right hemisphere. There is evidence of right hemispheric hemorrhage on CT scan, as well as bilateral subarachnoid hemorrhage. RECOMMENDATION: Agree with the current anticonvulsant therapy with both Cerebyx and Keppra. We will repeat an EEG tomorrow. Kendall De Guzman MD, PhD ALYCIA/ALFREDA , 02:52 PM , 03:45 PM
[2018-02-15] MEDS ORDERED: FOSPHENYTOIN INJ 1,000 MGPE in SODIUM CHLORIDE 0.9% INJ 50 ML IV ONE (16:00)
--- NOTE | 2018-02-15 16:22 | HHI.PR ---
Subjective Remarks ALL EVENTS SINCE YESTERDAY NOTED ON THE VENTILATOR UNRESPONSIVE POST CARDIAC ARREST Objective Vital Signs Date Time Temp Pulse Resp B/P (MAP) Pulse Ox O2 Delivery O2 Flow Rate FiO2 02/15/18 16:10 97 40 02/15/18 15:33 98 02/15/18 13:55 111 125/65 02/15/18 13:41 110 02/15/18 12:43 98.9 02/15/18 12:40 40 02/15/18 12:00 98.9 111 18 137/63 (87) 99 134/68 (90) 02/15/18 10:23 93 40 02/15/18 08:36 97 Mechanical Ventilator 40 02/15/18 08:00 40 02/15/18 08:00 99.1 125 18 124/72 (89) 99 98/47 (64) 02/15/18 07:42 122 101/48 02/15/18 07:42 119 98/46 02/15/18 07:13 110 84/48 02/15/18 07:00 124 02/15/18 05:30 50 02/15/18 04:15 96 40 02/15/18 04:00 40 02/15/18 04:00 99.6 102 18 151/68 (95) 98 102/54 (70) 02/15/18 03:00 105 02/15/18 01:00 105 02/15/18 00:30 97 40 02/15/18 00:30 40 02/15/18 00:00 60 02/15/18 00:00 98.4 97 18 105/59 (74) 98 114/66 (82) 02/14/18 23:00 97 98/56 02/14/18 22:39 98 100/55 02/14/18 21:23 99 60 02/14/18 20:47 89 135/72 02/14/18 20:00 98.1 70 18 131/65 (87) 98 143/78 (99) 02/14/18 20:00 60 02/14/18 19:00 80 02/14/18 19:00 98 Mechanical Ventilator 60 02/14/18 18:55 98 100 02/14/18 18:25 99 100 02/14/18 16:22 99 100 I/O 6/9/18 6/9/18 602/15/18 02/15/18 02/15/18 07:00 15:00 23:00 07:00 15:00 23:00 Intake Total 3103 ml 350 ml 1450 ml 90 ml 2036 ml Output Total 500 ml 462 ml 270 ml Balance 2603 ml 350 ml 988 ml -180 ml 2036 ml Intake Oral 0 ml IV Total 3103 ml 350 ml 1450 ml 2036 ml Tube Irrigant 90 ml Output Urine Total 500 ml 412 ml 270 ml Gastric Drainage Total 50 ml # Bowel Movements 0 0 Result Diagram: 02/15/1830 02/15/18529 Objective Remarks Vital Signs Date Time Temp Pulse Resp B/P (MAP) Pulse Ox O2 Delivery O2 Flow Rate FiO2 02/14/18 12:00 99.1 133 32 104/65 (78) 97 02/14/18 10:00 85 02/14/18 08:23 114 88/54 02/14/18 08:10 96 100 02/14/18 08:00 100 02/14/18 08:00 116 02/14/18 08:00 98.4 116 35 92/56 (68) 90 Automatic Cuff 02/14/18 06:00 114 02/14/18 04:41 120 108/62 02/14/18 04:26 97 100 02/14/18 04:00 99.1 120 27 105/53 (70) 97 02/14/18 04:00 99.1 120 26 105/53 (70) 97 02/14/18 04:00 101 02/14/18 03:45 120 107/60 02/14/18 03:20 55 34/14 02/14/18 03:10 101 94/57 02/14/18 02:28 94 100 02/14/18 01:30 93 100 02/13/18 21:00 98.3 124 20 164/109 (127) 100 02/13/18 19:21 20 02/13/18 16:00 97.7 114 16 162/92 (115) 99 Assessment and Plan Assessment and Plan IMPRESSION RESPIRATORY FAILURE MASSIVE PE RV FAILURE/CARDIOGENIC SHOCK HYPERCOAGULABLE STATE S/P TPA/EMBOLECTOMY ACUTE LIVER AND KIDNEY INJURY PLAN VENT SUPPORT ANTI COAGULATION NEURO EVALUATION CC,NEPHROLOGY,HEMATOLOGY FOLLOWING WEAN OFF VENT WHEN POSSIBLE Leroy Harper MD Feb 15, 2018 16:22
[2018-02-15 19:12] LABS: CREATININE, RANDOM URINE 503.2 MG/DL
[2018-02-15] MEDS ORDERED: FAMOTIDINE 20 MG/2 ML VIAL IV PUSH SCH (21:00)
--- NOTE | 2018-02-15 21:32 | PD.PROCEDR ---
Procedure Note Procedure Procedure date: 02/14/2018 Procedure time: 2:30 AM Procedure: Central line placement A time-out was completed verifying correct patient, procedure, site, positioning , and special equipment if applicable. The patient was placed in a dependent position appropriate for central line placement based on the vein to be cannulated. The patients left groin was prepped and draped in sterile fashion. 1% Lidocaine was used to anesthetize the surrounding skin area. A triple lumen 9 -[place] catheter was introduced into the the common femoral vein using the Seldinger technique and under ultrasound guidance. The catheter was threaded smoothly over the guide wire and appropriate blood return was obtained. Each lumen of the catheter was evacuated of air and flushed with sterile saline. The catheter was then sutured in place to the skin and a sterile dressing applied. Perfusion to the extremity distal to the point of catheter insertion was checked and found to be adequate. Estimated Blood Loss: 1ml The patient tolerated the procedure well and there were no complications. Tomás Dumont MD Feb 15, 2018 9:32 pm
[2018-02-15] MEDS ORDERED: FOSPHENYTOIN SODIUM 100 MG PE/2 ML VIAL IM SCH (22:00)
[2018-02-15] MEDS: FOSPHENYTOIN SODIUM 100 MG PE/2 ML VIAL IV SCH (22:01)
--- NOTE | 2018-02-15 23:25 | HHI.NSPN ---
History Chief Complaint: Intubated Interval History In CVICU Intubated on fentanyl Exam Results Vital Signs Date Time Temp Pulse Resp B/P (MAP) Pulse Ox O2 Delivery O2 Flow Rate FiO2 02/15/18 21:43 99 40 02/15/18 20:46 99.1 80 18 149/84 (105) 140/72 (94) 02/15/18 19:00 Mechanical Ventilator 02/12/18 22:58 2.00 Intake and Output 02/15/18 02/15/18 02/16/18 08:00 16:00 00:00 Intake Total 1921 ml 205 ml 884 ml Output Total 270 ml 95 ml Balance 1651 ml 205 ml 789 ml Physical Examination Intubated Pupils 3 mm nonreactive Minimal mildly disconjugate EOM Mild flexion and internal rotation LE deep pain Lab, Micro, Other Results Laboratory Tests Test 02/15/18 05:30 02/15/18 18:20 White Blood Count 20.4 TH/MM3 Red Blood Count 3.38 MIL/MM3 Hemoglobin 10.3 GM/DL Hematocrit 29.6 % Mean Corpuscular Volume 87.4 FL Mean Corpuscular Hemoglobin 30.4 PG Mean Corpuscular Hemoglobin Concent 34.7 % Red Cell Distribution Width 13.0 % Platelet Count 99 TH/MM3 Mean Platelet Volume 8.8 FL Prothrombin Time 11.5 SEC Prothromb Time International Ratio 1.1 RATIO Activated Partial Thromboplast Time 23.0 SEC Fibrinogen 223 mg/dL Blood Urea Nitrogen 20 MG/DL Creatinine 2.44 MG/DL Random Glucose 112 MG/DL Total Protein 4.9 GM/DL Albumin 2.4 GM/DL Calcium Level 7.7 MG/DL Alkaline Phosphatase 63 U/L Aspartate Amino Transf (AST/SGOT) 101 U/L Alanine Aminotransferase (ALT/SGPT) 156 U/L Total Bilirubin 0.5 MG/DL Sodium Level 147 MEQ/L Potassium Level 4.6 MEQ/L Chloride Level 113 MEQ/L Carbon Dioxide Level 22.9 MEQ/L Anion Gap 11 MEQ/L Estimat Glomerular Filtration Rate 26 ML/MIN Lactic Acid Level 1.2 mmol/L Urine Random Creatinine 503.2 MG/DL Urine Random Sodium 52 MEQ/L Medical Decision Making Impression and Plan Impression: Stable neuro exam. Minimal responses. ICH. SAH Possible ischemic encephalopathy Plan: D/W patients mother in ICU Will F/U CT, possible MRI when patient stable for study Rodrigo Izaguirre MD Feb 15, 2018 23:25
[2018-02-16] VITALS (17 sets, daily range): BP systolic 147–175; BP diastolic 68–92; PULSE 69–93; RESP 18–19; TEMP 98.7–99.2; O2SAT 98–100
[2018-02-16 03:50] LABS: ANTI-THROMBIN III ACT 98 (80-120)
[2018-02-16] MEDS: INSULIN NovoLIN REGULAR SUPPLEMENTAL SCALE SQ SCH ×6 (04:00→20:00)
[2018-02-16 04:18] LABS: HEMATOCRIT 26.3 % (35.0-46.0); MEAN CELL VOLUME 88.8 FL (80.0-100.0); MEAN CORPUSCULAR HEMOGLOBIN 30.4 PG (27.0-34.0); MEAN CORPUSCULAR HGB CONC 34.2 % (32.0-36.0); MEAN PLATELET VOLUME 9.3 FL (7.0-11.0); PLATELET COUNT 82 TH/MM3 (150-450); RED BLOOD COUNT 2.96 MIL/MM3 (4.00-5.30); RED CELL DISTRIBUTION WIDTH 13.2 % (11.6-17.2); WHITE BLOOD COUNT 16.5 TH/MM3 (4.0-11.0)
[2018-02-16 04:25] LABS: INTERNATIONAL NORMALIZED RATIO 1.1 RATIO; PROTHROMBIN TIME - PATIENT 11.4 SEC (9.8-11.6)
[2018-02-16 04:31] LABS: ALBUMIN 2.4 GM/DL (3.4-5.0); ALT (GPT) 101 U/L (9-42); AST (GOT) 51 U/L (16-38); BICARBONATE 21.8 MEQ/L (21.0-32.0); BLOOD UREA NITROGEN 30 MG/DL (7-18); CALCIUM 7.5 MG/DL (8.5-10.1); CHLORIDE 114 MEQ/L (98-107); CREATININE 2.18 MG/DL (0.50-1.00); GLOMERULAR FILTRATION RATE 29 ML/MIN (>89); GLUCOSE,RANDOM 104 MG/DL (74-106); SODIUM (NA) 146 MEQ/L (136-145)
[2018-02-16 04:33] LABS: ALKALINE PHOSPHATASE 62 U/L (45-117); PHENYTOIN (DILANTIN) 5.1 MCG/ML (10.0-20.0); TOTAL BILIRUBIN ADULT 0.4 MG/DL (0.2-1.0); TOTAL PROTEIN 5.1 GM/DL (6.4-8.2)
[2018-02-16] MEDS: FOSPHENYTOIN SODIUM 100 MG PE/2 ML VIAL IV SCH ×3 (05:30→21:08)
[2018-02-16] MEDS: SODIUM CHLOR 0.9% 1000 ML INJ 1,000 ML IV SCH (05:31)
[2018-02-16] MEDS: LEVOTHYROXINE SODIUM 75 MCG TAB PO SCH (06:46)
[2018-02-16] MEDS: LEVOTHYROXINE SODIUM 100 MCG TAB PO SCH (06:46)
[2018-02-16] MEDS ORDERED: ACETAMINOPHEN 650 MG/20.3 ML UDC NG PRN (07:30)
--- NOTE | 2018-02-16 07:41 | HHI.CCPN ---
Subjective Remarks/Hospital Course Hospital Course: 17-year-old female with a past medical history significant for hypothyroidism presents to the emergency department for evaluation of shortness of breath and a syncopal episode. Patient reports that for the past 2 days she has had shortness of breath. Today she noticed that she had increasing dyspnea on exertion. She reports associated emesis 3 with dizziness and loss of consciousness. She states she had right lower extremity pain approximately 1 month ago. She denies any chest pain. No abdominal pain. No fevers/chills. The patient was initially admitted to medicine service on a heparin drip. She was evaluated by hematology oncology Dr. Banks, and the stress echocardiogram showed severe RV dilation. The patient was also clinically worsening requiring more oxygen support. She was taken to IR for mechanical thrombectomy. While in the IR suite she suffered a respiratory arrest and was intubated and successfully resuscitated. She returned to ICU in severe shock/obstructive. Shortly after arrival to the unit the patient suffered another episode of cardiac arrest requiring 2 cycles of CPR and 2 injections of epinephrine. Due to hemodynamic instability the TPA bolus followed by an infusion was immediately administered. 02/14: patient remains in profound obstructive cardiogenic shock with acute RV failure, as well as acute hypoxic respiratory failure. I added inhaled flolan at 50 ng/kg/min, dobutamine at 5 mcg/kg/min. epinephrine is at 6 mcg/min and vasopressin at 0.04 units/min. avoiding norepinephrine to minimize pulmonary vascular constriction. avoiding milrinone currently due to hypotension, although if we get control of her shock, milrinone may be of added benefit. lactate is 8 and continues to rise. pH 7.1 with BE -14. remains hemodynamically unstable. pupils are 6mm and minimally reactive, although the patient has recently received atropine IV during her cardiac arrest, so unclear what prognostic value her pupillary exam is currently. She does have a history of recently falling and hitting her head, so we will order head CT to rule out catastrophic hemorrhage. Also have given 3 amps bicarb, 1 gm calcium chloride for her acid/base and electrolyte derangements. started insulin drip for severe hyperglycemia. remained at bedside titrating vasoactive medications. remains on 100% fio2. very unstable. 02/15: Subjective: 02/16: Afebrile. Temperature overnight but did not tolerate tube feeds will be restarted today. KUB ordered. Pupils are reactive with a leftward gaze. Withdraws to pain bilateral upper and lower extremities. Discussed with mother at bedside. Objective Vital Signs Date Time Temp Pulse Resp B/P (MAP) Pulse Ox O2 Delivery O2 Flow Rate FiO2 02/16/18 05:00 71 149/66 02/16/18 04:31 99 40 02/16/18 04:00 99.2 19 02/15/18 19:00 Mechanical Ventilator 02/12/18 22:58 2.00 Intake and Output 02/16/18 02/16/18 02/16/18 07:59 15:59 23:59 Intake Total 884 ml Output Total 239 ml Balance 645 ml Result Diagram: 02/16/18 0400 02/16/18 0400 Imaging Last Impressions Head CT 02/14/18 0000 Signed Impressions: CONCLUSION: 1. Stable parenchymal hemorrhage on the right and scattered subarachnoid hemor rhage with some swelling and edema in the brain. Overall no significant change from February 14 at 1243. Chest X-Ray 02/14/18 0000 Signed Impressions: CONCLUSION: Increase in bilateral airspace disease since earlier exam. Placement of [place] n[place] catheter with tip in right pulmonary artery. Endotracheal tube and nasogastr ic tube unchanged. Lower Extremity Ultrasound 02/13/18 Signed Impressions: CONCLUSION: 1. There is thrombus within the right popliteal and peroneal veins. CT Angiography 02/12/182030 Signed Impressions: CONCLUSION: 1. Multiple large central and peripheral bilateral pulmonary emboli. 2. Trace pericardial fluid. Objective Remarks GENERAL: 17-year-old female currently orotracheally intubated and sedated on a fentanyl drip SKIN: Warm. Well perfused. HEAD: Normocephalic. Atraumatic. EYES: Pupils are about 4 mils bilaterally and sluggishly reactive to 3 mm. No scleral icterus. No injection or drainage. NECK: Supple, trachea midline. large neck circumference prevents accurate assessment of JVD. Right IJ's introducer/[place] catheter is clean dry and intact CARDIOVASCULAR: tachycardic rate, regular rhythm. sinus. S1, S2. No S4. Murmur not appreciated RESPIRATORY: Diminished breath sounds throughout. No wheezing is appreciated GASTROINTESTINAL: Abdomen obese, soft, non-tender, nondistended. no guarding. EXTREMITIES: Warm and currently well perfused.. distal pulses 1+. right groin with arterial sheath in place, site clean and dry, dressing intact, no hematoma. left groin with triple lumen catheter in place, site c/d, dressing intact, no hematoma. NEURO EXAM: RASS -4. spontaneously moves and withdraws to all extremities. Positive gag and corneal reflex. Urinary Catheter: Yes Assessment to: Continue Deluca insert reason: Prolonged Immobilization Vascular Central Line Catheter: Yes Assessment to: Continue Date of Insertion: Feb 14, 2018 Line: Central Venous Catheter Side: Left Location: Femoral A/P Assessment and Plan Neuro/Psych: Acute metabolic encephalopathy Acute temporoparietal intraparenchymal hemorrhage with scattered punctate hemorrhage in right greater than left subarachnoid hemorrhage Seizure disorder NOS Allergic rhinitis - neurosurgery: Dr. Izaguirre following -Neurology following -Dr. De Guzman - possibly component of hypoxic/ischemic encephalopathy, but both cardiac arrest times were short, so likely minimized time of cerebral ischemia. - continue fentanyl drip at 150 mcg/h for sedation while intubated - RASS goal -2 - frequent neuro checks - Daily sedation vacation - repeat head CT brain on 02/16. MRI brain when clinically stable for prolonged movement - avoid anticoagulation in light of hemorrhage as above. - noted platelets of 82: risk/benefit favors holding on transfusing platelets given recent massive PE and concern for hypercoagulability. -Acetaminophen 650 mg by tube every 6 hours as needed fever Currently on levetiracetam 5 mg IV twice daily and fosphenytoin 100 mg IV every 8 hours. Loaded with 5 mg tablet daily to level 5.1 phenytoin. Recheck in a.m. Follow-up EEG today. Yesterday's EEG revealed a diffuse encephalopathy. In addition,sharp activity is identified frequently over the right hemisphere with phase reversal, which is consistent with a possible seizure focus in the right hemisphere. Currently on cetirizine 10 mg daily Respiratory: Acute hypoxic and hypercarbic respiratory failure Massive pulmonary embolism status post alteplase Acute pulmonary Hypertension secondary to acute pulmonary embolism PRVC 18/600/09/13/39 - vent bundle, hob elevated, Albuterol/ipratropium aerosols every 4 hours with albuterol aerosols every 2 hours as needed dyspnea - wean fio2 for goal spo2 > 92% - inhaled epoprostenol at 50 ng/kg/min - no weaning of mechanical ventilation given shock and instability - trend abg's Cardiovascular: Cardiogenic Shock- Obstructive type Right Ventricular Failure secondary to massive pulmonary embolism Resolved lactic acidosis Moderate TR Currently on dobutamine drip at 5 mcg/kg/min - continue vasopressin creatinine 0.01 U/min for map > 65 mmHg. - s/p systemic TPA 02/14 for hemodynamic collapse - s/p endovascular mechanical thrombectomy 02/13, repeat thrombectomy 02/14 - s/p emergent IVC filter placement 02/14 - hold all anticoagulation. Continue normal saline at 50 cc an hour [place] catheter pulmonary capillary wedge pressure 15 mmHg cardiac index 3.2 L/min cardiac output 7.6 Echocardiogram 02/13 The left ventricular systolic function is normal with an estimated ejection fraction in the range of 60-65%. There is a flattened septum in systole consistent with right ventricle pressure overload. The right ventricle is severely dilated. There is akinesis of the RV free wall with apical hypercontractility of the apex (Miller's sign) consistent with pulmonary embolism. Trace mitral valve regurgitation. There is mild to moderate tricuspid valve regurgitation. There is estimated severe pulmonary hypertension present ( > 70 mmHg). Renal: Acute kidney injury likely Acute Tubular Necrosis - likely secondary to shock and contrast loads: -Around 334 cc overnight. Continue to monitor urine output - daily bmp, magnesium phosphorus - must keep deluca. -- Strict I/Os FEN/GI: Acute Liver Injury: shock liver and congestive hepatopathy Elevated BMI of 35.1 Hypoalbuminemia Hypernatremia - start tube feeds with vital 1.5 per nutrition recommendations goal 75 cc an hour Lansoprazole for GI prophylaxis Docusate sodium 100 mg twice daily/senna 820 mg twice daily for bowel regimen - trend CMP daily Heme/ID: Hypercoagulable State with ongoing workup of hypercoagulable profile s/p systemic TPA 02/14 Thrombocytopenia Hypofibrinogenemia Normocytic anemia Massive Pulmonary Embolism - hold all anticoagulation given head bleeds - will not reverse coagulopathy given recent massive PE - low platelets secondary to consumption: 4T score low probability for HIT - s/p emergent IVC filter placement 02/14 - hematology consulted and following - trend daily cbc - no infectious etiology suspected at this time Endocrine: Severe hyperglycemia of critical illness- improving Hypothyroidism Continue SSI, med scale, q4h -TSH is 2.31. Continue levothyroxine 170 mcg by mouth daily Prophylaxis: GI Prophylaxis Lansoprazole DVT Prophylaxis -- SCDs - IVC filter - hold anticoagulation. Lines: 02/14: right femoral arterial sheath 02/14: left femoral triple lumen catheter 02/13: deluca 02/14: right IJ 9 Fr introducer sheath 02/14: right IJ PA catheter (IR guided into right main PA, free of clot). Critical Care: The total critical care time was 35 minutes. Time to perform other separately billable procedures was not included in the critical care time. Discussed with mother at bedside Poncho Casey MD Feb 16, 2018 07:41
--- NOTE | 2018-02-16 07:47 | PD.ONC.PN ---
Subjective Subjective Remarks Patient seen and examined, vital signs, labs, medications, imaging studies including CT scans of the head were reviewed. Events over the past 3 days have been reviewed in detail. She had cardiopulmonary arrest late at night on 02/13/2018 and then arrested again on 02/14/2018 early in the morning. She was successfully resuscitated with ACLS and CPR on both occasions. The first cardiac arrest occurred while She was undergoing mechanical thrombectomy in the interventional radiology suite. The second episode occurred after she had been returned to the surgical intensive care unit. On 02/15/2018 she underwent IVC filter placement and repeat pulmonary arteriogram which revealed interval decrease in clot burden involving the pulmonary artery circulation. The patient is intubated and sedated, she is nonresponsive, case discussed with the patient's mother who is at bedside and the patient's nurse. Overnight there were no acute cardiopulmonary events, the patient continues to be monitored closely with a [place] catheter which is monitoring cardiac output, pulmonary arterial pressures as well as left heart pressures. She is on multiple pressors and inotropes. From a hematologic standpoint, the patient is no longer on anticoagulation given CT head findings indicating intracranial hemorrhage. EEG results from 02/15/2018 were also reviewed, neurosurgical and neurology consultations are reviewed as well. The patient was found to have seizure-like activity on EEG and is now on antiepileptic/antiseizure medications. Objective Data Date Time Temp Pulse Resp B/P (MAP) Pulse Ox O2 Delivery O2 Flow Rate FiO2 02/16/18 07:33 80 02/16/18 07:31 98 Mechanical Ventilator 40 02/16/18 07:19 99 40 02/16/18 05:00 71 149/66 02/16/18 04:31 99 40 02/16/18 04:00 40 02/16/18 04:00 99.2 83 19 167/72 (103) 98 149/68 (95) 02/16/18 03:00 83 02/16/18 00:10 98 40 02/16/18 00:10 40 02/16/18 00:10 99.1 83 19 147/87 (107) 98 153/73 (99) 02/15/18 23:00 86 02/15/18 21:43 99 40 02/15/18 20:46 99.1 80 18 149/84 (105) 97 140/72 (94) 02/15/18 20:46 40 02/15/18 19:00 80 02/15/18 19:00 97 Mechanical Ventilator 40 02/15/18 18:07 95 138/71 02/15/18 17:01 40 02/15/18 16:10 97 40 02/15/18 16:03 98.9 02/15/18 16:00 98.9 91 18 126/68 (87) 95 117/62 (80) 02/15/18 15:33 98 02/15/18 13:55 111 125/65 02/15/18 13:41 110 02/15/18 12:43 98.9 02/15/18 12:40 40 02/15/18 12:00 98.9 111 18 137/63 (87) 99 134/68 (90) 02/15/18 10:23 93 40 02/15/18 08:36 97 Mechanical Ventilator 40 02/15/18 08:00 40 02/15/18 08:00 99.1 125 18 124/72 (89) 99 98/47 (64) 02/15/18 07:42 122 101/48 02/15/18 07:42 119 98/46 02/16/18 02/16/18 02/16/18 07:00 15:00 23:00 Intake Total 884 ml Output Total 239 ml Balance 645 ml Result Diagram: 02/16/18 0400 02/16/18 0400 Laboratory Results Laboratory Tests Test 02/15/18 18:20 02/16/18 04:00 Urine Random Creatinine 503.2 MG/DL Urine Random Sodium 52 MEQ/L White Blood Count 16.5 TH/MM3 Red Blood Count 2.96 MIL/MM3 Hemoglobin 9.0 GM/DL Hematocrit 26.3 % Mean Corpuscular Volume 88.8 FL Mean Corpuscular Hemoglobin 30.4 PG Mean Corpuscular Hemoglobin Concent 34.2 % Red Cell Distribution Width 13.2 % Platelet Count 82 TH/MM3 Mean Platelet Volume 9.3 FL Prothrombin Time 11.4 SEC Prothromb Time International Ratio 1.1 RATIO Activated Partial Thromboplast Time 22.6 SEC Fibrinogen 217 mg/dL Blood Urea Nitrogen 30 MG/DL Creatinine 2.18 MG/DL Random Glucose 104 MG/DL Total Protein 5.1 GM/DL Albumin 2.4 GM/DL Calcium Level 7.5 MG/DL Alkaline Phosphatase 62 U/L Aspartate Amino Transf (AST/SGOT) 51 U/L Alanine Aminotransferase (ALT/SGPT) 101 U/L Total Bilirubin 0.4 MG/DL Sodium Level 146 MEQ/L Potassium Level 4.2 MEQ/L Chloride Level 114 MEQ/L Carbon Dioxide Level 21.8 MEQ/L Anion Gap 10 MEQ/L Estimat Glomerular Filtration Rate 29 ML/MIN Lactic Acid Level 1.2 mmol/L Phenytoin (Dilantin) Level 5.1 MCG/ML Administered Medications Medications (Trade) Dose Ordered Sig/Gregg Route PRN Reason Start Time Stop Time Status Last Admin Dose Admin Sodium Chloride (NS Flush) 2 ml BID IV FLUSH 02/13/18 09:00 02/15/18 21:00 Cetirizine HCl (ZyrTEC) 10 mg DAILY PO 02/13/18 09:00 02/15/18 09:53 Fluticasone Propionate (Flonase Anil Spr) 1 spray BID EACH NARE 02/13/18 09:00 Future Hold 02/13/18 10:14 Levothyroxine Sodium (Synthroid) 100 mcg DAILY@0700 PO 02/13/18 07:00 02/16/18 06:46 Levothyroxine Sodium (Synthroid) 75 mcg DAILY@0700 PO 02/13/18 07:00 02/16/18 06:46 Chlorhexidine Gluconate (Peridex 0.12% Liq) 15 ml BID@08,20 MT 02/14/18 08:00 02/15/18 20:00 Fentanyl Citrate 250 ml @ 5 mls/hr TITRATE PRN IV SEDATION 02/14/18 03:15 02/15/18 17:14 Midazolam HCl 50 ml @ 2 mls/hr TITRATE PRN IV SEDATION 02/14/18 06:30 02/14/18 20:22 Epoprostenol Sodium 87.5 ml/ Sodium Chloride 100 ml @ 5 mls/hr Q8H NEB 02/14/18 09:00 02/15/18 21:13 Sodium Chloride 1,000 ml @ 50 mls/hr Q20H IV 02/14/18 13:30 02/16/18 05:31 Levetriacetam 500 mg/Sodium Chloride 105 ml @ 420 mls/hr Q12HR IV 02/14/18 21:00 02/15/18 21:17 Vasopressin 40 units/Sodium Chloride 102 ml @ 1.5 mls/hr Q24H PRN IV Blood pressure management 02/15/18 13:45 02/15/18 13:55 Fosphenytoin Sodium (Cerebyx Inj) 100 mgpe Q8HR IV 02/15/18 22:00 02/16/18 12:00 02/16/18 05:30 Objective Remarks GENERAL: Young female, laying in bed, intubated and sedated, she has generalized anasarca and edema. No active bleeding noted though she does have areas of bruising of the skin. SKIN: Warm and dry. With small bruising over her chest and extremities. HEAD: Normocephalic. EYES: No scleral icterus. No injection or drainage. Conjunctivae are pale. Pupils appear to be fixed at about 3-4 mm and do not react to light. NECK: Supple, trachea midline. No JVD or lymphadenopathy. Right-sided central venous catheter in place; [place]-Christiano. LYMPHATIC: No adenopathy. CARDIOVASCULAR: Regular rate and rhythm without murmurs. RESPIRATORY: Intubated, on ventilator support, breath sounds equal bilaterally. No accessory muscle use. GASTROINTESTINAL: Abdomen soft, non-tender, appears distended. EXTREMITIES: Generalized edema/anasarca. MUSCULOSKELETAL: Difficult to assess muscle tone due to sedation. NEUROLOGICAL: No spontaneous movements at this time, she is sedated. PSYCHIATRIC: Unable to assess. Assessment/Plan Assessment 17-year-old female hospitalized on 02/12/2018 following syncopal episode and difficulty breathing, CT angiogram revealed bilateral pulmonary emboli with significant clot volume/burden. Lower extremity deep venous thrombosis also identified. Echocardiogram revealed severe right ventricular failure and elevated right peak pulmonary arterial pressures. She underwent thrombolytic therapy on the night of 02/14/2018, shortly thereafter she decompensated from a cardiopulmonary standpoint and has since then been intubated and sedated. Over the past 76 hours she has had 2 cardiopulmonary arrests for which she was resuscitated. sap gatherer of 02/14/2018 she underwent TPA thrombolytic therapy. Afternoon 02/14/2018 she was found to have intracranial hemorrhage. Plan 1. Bilateral pulmonary emboli: Due to intracranial hemorrhage there is a contraindication to anticoagulation at this time. 2. Right heart failure: [place]-Christiano monitor indicates pulmonary arterial systolic pressure 50-55 mmHg. She is on inotropes including Flolan to help regulate pulmonary arterial pressures. 3. Intracranial hemorrhage: Repeat CT scan of the brain without contrast is ordered for later today. 4. Encephalopathy: EEG results noted, per the interpretation of the EEG there appears to be diffuse abnormal activity consistent with diffuse encephalopathy. Areas of sharp activity noted in the right hemisphere concerning for possible seizure focus. Continue antiepileptic therapy; fosphenytoin. 5. Acute kidney injury: Nephrology consulted, the patient may at some point require renal replacement therapy. Disposition: Continue full supportive care. Ernesto Banks MD Feb 16, 2018 07:47
[2018-02-16] MEDS: RESP: ALBUTEROL 2.5 MG/IPRATROPIUM 0.5 MG NEB (SCH) NEB ×4 (08:00→20:50)
[2018-02-16] MEDS: CHLORHEXIDINE 0.12% (ORAL KIT) 15 ML CUP MT SCH ×2 (08:00→20:44)
[2018-02-16] MEDS: fentaNYL DRIP 250 ML IV PRN ×2 (08:42→10:09)
[2018-02-16] MEDS: EPOPROSTENOL NEB SOLUTION 50 NG/KG/MIN 100 ML NEB SCH ×6 (08:45→22:09)
[2018-02-16] MEDS ORDERED: FOSPHENYTOIN SODIUM 500 MG PE/10 ML VIAL IV ONE (09:00)
[2018-02-16] MEDS: SENNOSIDES SYRUP 8.8 MG/5 ML CUP PO SCH ×2 (09:08→21:07)
[2018-02-16] MEDS: CETIRIZINE HCL 10 MG TAB PO SCH (09:08)
[2018-02-16] MEDS: LANSOPRAZOLE SOLUTAB 30 MG TAB NG SCH (09:08)
[2018-02-16] MEDS: DOCUSATE SODIUM 100 MG/10 ML UDC PO SCH ×2 (09:09→21:07)
[2018-02-16] MEDS: SODIUM CHLORIDE 0.9% FLUSH 10 ML FLUSH IV FLUSH SCH ×2 (09:09→21:00)
[2018-02-16] MEDS: levETIRAcetam INJ 500 MG in SODIUM CHLORIDE 0.9% INJ 100 ML IV SCH ×2 (09:13→21:07)
--- NOTE | 2018-02-16 09:41 | RADRPT ---
EXAM DATE: 02/16/2018 8:28 AM EDT AGE/SEX: 17 years / Female INDICATIONS: Evaluate ileus. CLINICAL DATA: This is the patient's initial encounter. Patient reports that signs and symptoms have been present for 1 day and indicates a pain score of Nonresponsive. MEDICAL/SURGICAL HISTORY: None. None. COMPARISON: . FINDINGS: Vena cava filter is again seen. Radiographic contrast persists in both kidneys. Femoral pelvic line is in good position. Bowel gas pattern is unremarkable. CONCLUSION: No significant bowel distention Persistent contrast remaining in the kidneys. This can be seen with ATN. Electronically signed by: Drake Seals MD 02/16/2018 9:40 AM EDT
[2018-02-16] MEDS ORDERED: FOSPHENYTOIN INJ 500 MGPE in SODIUM CHLORIDE 0.9% INJ 50 ML IV ONE (10:30)
[2018-02-16] MEDS: ARTIFICIAL TEARS OPTH SOLN 15 ML BTL EACH EYE SCH ×2 (13:42→21:08)
[2018-02-16 14:55] LABS: CARDIOLIPIN IGG AB <9.4 GPL; CARDIOLIPIN IGM AB <9.4 MPL
[2018-02-16 15:51] LABS: DRVVT 1:1 MIX ND (CORRECTED); DRVVT CONFIRM ND (NEGATIVE); HEXAGONAL PHASE CONFIRM NEGATIVE (NEGATIVE)
--- NOTE | 2018-02-16 15:51 | HHI.NPPN ---
Subjective History of Present Illness 17 year old with massive PE, cardiac arrest ARF, brain bleed Objective Data Data 02/16/18 02/17/18 19:00 07:00 Intake Total 515 ml Balance 515 ml IV Total 515 ml Vital Signs Date Time Temp Pulse Resp B/P (MAP) Pulse Ox O2 Delivery O2 Flow Rate FiO2 02/16/18 15:02 69 02/16/18 13:44 99 40 02/16/18 12:04 40 02/16/18 12:04 98.7 81 19 157/76 (103) 98 153/73 (99) 02/16/18 11:01 82 02/16/18 10:33 99 40 02/16/18 08:40 99.2 69 18 161/82 (108) 98 155/77 (103) 02/16/18 08:35 40 02/16/18 07:33 80 02/16/18 07:31 98 Mechanical Ventilator 40 02/16/18 07:19 99 40 02/16/18 05:00 71 149/66 02/16/18 04:31 99 40 02/16/18 04:00 40 02/16/18 04:00 99.2 83 19 167/72 (103) 98 149/68 (95) 02/16/18 03:00 83 02/16/18 00:10 98 40 02/16/18 00:10 40 02/16/18 00:10 99.1 83 19 147/87 (107) 98 153/73 (99) 02/15/18 23:00 86 02/15/18 21:43 99 40 02/15/18 20:46 99.1 80 18 149/84 (105) 97 140/72 (94) 02/15/18 20:46 40 02/15/18 19:00 80 02/15/18 19:00 97 Mechanical Ventilator 40 02/15/18 18:07 95 138/71 02/15/18 17:01 40 02/15/18 16:10 97 40 02/15/18 16:03 98.9 02/15/18 16:00 98.9 91 18 126/68 (87) 95 117/62 (80) -: 02/16/18 0400 02/16/18 0400 Physical Exam General Appearance: Well Developed, Well Nourished Neck Neck Exam: Neck Supple Pulmonary Resp Exam: Clear Bilaterally, Breath Sounds Equal Cardiology CV Exam: Tachycardia Gastrointestinal/Abdomen GI Exam: Soft, Non-Tender, Bowel Sounds Present Extremeties Extremities Exam: Moderate Edema Assessment/Plan Problem List: (1) Acute renal failure ICD Codes: N17.9 - Acute kidney failure, unspecified Plan: patient has ischemic event and receive contrast study contributing to ARF her urine out put is low PA pressures are high She is on Flolan to help regulate pulmonary arterial pressures. off vasopressors on dobutamine Give Lasix 40 mg IV X 1 Cr declined will try diuresis avoid Nephrotoxins. (2) Pulmonary emboli ICD Codes: I26.99 - Other pulmonary embolism without acute cor pulmonale Status: Acute Plan: treated with TPA, Angiogram (3) Cardiac arrest ICD Codes: I46.9 - Cardiac arrest, cause unspecified Plan: patient had cardiac arrest x 2 (4) SAH (subarachnoid hemorrhage) ICD Codes: I60.9 - Nontraumatic subarachnoid hemorrhage, unspecified Status: Acute Plan: as above complications from fall/TPA/anticoagulation Problem Qualifiers (1) Acute renal failure: Qualified Codes: N17.0 - Acute kidney failure with tubular necrosis (2) Pulmonary emboli: Lori Banks MD Feb 16, 2018 15:51
[2018-02-16] MEDS ORDERED: FUROSEMIDE 40 MG/4 ML VIAL IV PUSH ONE (16:00)
--- NOTE | 2018-02-16 17:07 | HHI.NSPN ---
(Michel Hawley) History Chief Complaint: Unable to obtain due to patient's clinical condition. (Michel Hawley) Interval History 02/14: 17-year-old female visiting. Approximately 5 days ago he drove to patient. After arrival at his shortness of breath. Mother states that patient has a structure with probable loss of consciousness. She was brought to the emergency room for evaluation. She was noted to be hypoxic and tachycardic. Stat pulmonary CT angiogram revealed acute bilateral pulmonary emboli. She was placed on Heparin infusion.. Echocardiogram revealed severe right ventricle dilation. She underwent mechanical thrombectomy, and sustained respiratory arrest requiring resuscitation and intubation in the interventional radiology suite. She was admitted to the intensive surgical care unit with hemodynamic instability. She had a second cardiac arrest in the intensive care requiring CPR. She was given a TPA bolus and infusion. On 02/14/18 she remains in cardiogenic shock with RV failure, on pressors. 02/15: In CVICU Intubated on fentanyl 02/16: Patient is comatose when seen this afternoon. She is intubated and mechanically ventilated. She does not have any sedation infusing. She has slight movement of the left great toe to touch but she did not have any other movement of her extremities to either command or noxious stimulation. (Michel Hawley) Exam Results 02/14/18 02/14/18 02/15/18 02/15/18 02/16/18 02/16/18 06:00 18:00 06:00 18:00 06:00 18:00 Intake Total 3103 ml 1700 ml 190 ml 2086 ml 1768 ml 515 ml Output Total 500 ml 462 ml 270 ml 334 ml Balance 2603 ml 1238 ml -80 ml 2086 ml 1434 ml 515 ml Intake Oral 0 ml 0 ml IV Total 3103 ml 1700 ml 100 ml 2086 ml 1565 ml 515 ml Tube Feeding 143 ml Tube Irrigant 90 ml 60 ml Output Urine Total 500 ml 412 ml 270 ml 334 ml Gastric Drainage Total 50 ml # Bowel Movements 0 0 0 Vital Signs Date Time Temp Pulse Resp B/P (MAP) Pulse Ox O2 Delivery O2 Flow Rate FiO2 02/16/18 16:07 99.0 81 18 156/84 (108) 100 159/83 (108) 02/16/18 16:07 40 02/16/18 15:02 69 02/16/18 13:44 99 40 02/16/18 12:04 40 02/16/18 12:04 98.7 81 19 157/76 (103) 98 153/73 (99) 02/16/18 11:01 82 02/16/18 10:33 99 40 02/16/18 08:40 99.2 69 18 161/82 (108) 98 155/77 (103) 02/16/18 08:35 40 02/16/18 07:33 80 02/16/18 07:31 98 Mechanical Ventilator 40 02/16/18 07:19 99 40 02/16/18 05:00 71 149/66 02/16/18 04:31 99 40 02/16/18 04:00 40 02/16/18 04:00 99.2 83 19 167/72 (103) 98 149/68 (95) 02/16/18 03:00 83 02/16/18 00:10 98 40 02/16/18 00:10 40 02/16/18 00:10 99.1 83 19 147/87 (107) 98 153/73 (99) 02/15/18 23:00 86 02/15/18 21:43 99 40 02/15/18 20:46 99.1 80 18 149/84 (105) 97 140/72 (94) 02/15/18 20:46 40 02/15/18 19:00 80 02/15/18 19:00 97 Mechanical Ventilator 40 02/15/18 18:07 95 138/71 02/15/18 17:01 40 02/15/18 16:10 97 40 02/15/18 16:03 98.9 02/15/18 16:00 98.9 91 18 126/68 (87) 95 117/62 (80) 02/15/18 15:33 98 02/15/18 13:55 111 125/65 02/15/18 13:41 110 02/15/18 12:43 98.9 02/15/18 12:40 40 6/10/18 12:00 98.9 111 18 137/63 (87) 99 134/68 (90) 02/15/18 10:23 93 40 02/15/18 08:36 97 Mechanical Ventilator 40 02/15/18 08:00 40 02/15/18 08:00 99.1 125 18 124/72 (89) 99 98/47 (64) 02/15/18 07:42 122 101/48 02/15/18 07:42 119 98/46 02/15/18 07:13 110 84/48 02/15/18 07:00 124 02/15/18 05:30 50 02/15/18 04:15 96 40 02/15/18 04:00 40 02/15/18 04:00 99.6 102 18 151/68 (95) 98 102/54 (70) 02/15/18 03:00 105 02/15/18 01:00 105 02/15/18 00:30 97 40 02/15/18 00:30 40 02/15/18 00:00 60 02/15/18 00:00 98.4 97 18 105/59 (74) 98 114/66 (82) 02/14/18 23:00 97 98/56 02/14/18 22:39 98 100/55 02/14/18 21:23 99 60 02/14/18 20:47 89 135/72 02/14/18 20:00 98.1 70 18 131/65 (87) 98 143/78 (99) 02/14/18 20:00 60 02/14/18 19:00 80 02/14/18 19:00 98 Mechanical Ventilator 60 02/14/18 18:55 98 100 02/14/18 18:25 99 100 02/14/18 16:22 99 100 02/14/18 15:15 112 122/65 02/14/18 12:30 99 100 02/14/18 12:00 80 02/14/18 12:00 133 02/14/18 12:00 99.1 133 32 104/65 (78) 97 02/14/18 11:00 124 102/60 02/14/18 10:00 85 02/14/18 08:23 114 88/54 02/14/18 08:10 96 100 02/14/18 08:00 100 02/14/18 08:00 116 02/14/18 08:00 98.4 116 35 92/56 (68) 90 Automatic Cuff 02/14/18 06:00 114 02/14/18 04:41 120 108/62 02/14/18 04:26 97 100 02/14/18 04:00 99.1 120 27 105/53 (70) 97 02/14/18 04:00 99.1 120 26 105/53 (70) 97 02/14/18 04:00 101 02/14/18 03:45 120 107/60 02/14/18 03:43 80 02/14/18 03:29 80 02/14/18 03:20 55 34/14 02/14/18 03:10 101 94/57 02/14/18 02:28 94 100 02/14/18 01:30 93 100 02/13/18 21:00 98.3 124 20 164/109 (127) 100 02/13/18 19:21 20 (Michel Hawley) Physical Examination GENERAL: The patient is comatose when seen. She is intubated and mechanically ventilated. She has no sedation infusing. She has fentanyl infusing at 150 mcg/ hr for pain control. Dobutamine is infusing at 5 mcg/kg/min for her blood pressure. HEENT: Normocephalic, atraumatic. Pupils 3 mm and questionably sluggish, mildly disconjugate. Orally intubated. OGT. MUSCULOSKELETAL: Slight movement of left great toe to touch but no response to command or noxious stimulation to any extremity. No evident clubbing or deformity. NEUROLOGICAL: Comatose, no sedation infusing. No eye opening to any stimulation. Did not follow any commands. Slight movement of left great toe to touch but no other extremity response to local or central noxious stimulation. (Michel Hawley) Lab, Micro, Other Results Recent Impressions Abdomen X-Ray 02/16/18 Signed Impressions: CONCLUSION: No significant bowel distention Persistent contrast remaining in the kidneys. This can be seen with ATN. Head CT 02/14/18 Signed Impressions: CONCLUSION: 1. Stable parenchymal hemorrhage on the right and scattered subarachnoid hemor rhage with some swelling and edema in the brain. Overall no significant change from February [address] 6/9/18 0000 Signed Impressions: CONCLUSION: 1. Multiple hyperdense abnormalities in the supratentorial brain with 2 focal areas of masslike hyperdensity right temporal and right parietal lobe, suggesti ng either masses or hematoma. In addition, there is suggestion of bilateral sub arachnoid hemorrhage. 2. Recommend further characterization with MRI of the brain with and without c ontrast. Chest X-Ray 02/14/18 0000 Signed Impressions: CONCLUSION: Increase in bilateral airspace disease since earlier exam. Placement of [place] catheter with tip in right pulmonary artery. Endotracheal tube and nasogastr ic tube unchanged. Chest X-Ray 02/14/18 0000 Signed Impressions: CONCLUSION: Cardiomegaly with mild basilar and dependent airspace disease in the lungs. End otracheal tube and nasogastric tube in good position. Laboratory Tests Test 02/13/18 22:10 02/14/18 02:00 02/14/18 02:07 02/14/18 04:53 Activated Partial Thromboplast Time 30.6 SEC 163.4 SEC White Blood Count 14.8 TH/MM3 Red Blood Count 4.14 MIL/MM3 Hemoglobin 12.6 GM/DL Hematocrit 38.1 % Mean Corpuscular Volume 92.0 FL Mean Corpuscular Hemoglobin 30.4 PG Mean Corpuscular Hemoglobin Concent 33.0 % Red Cell Distribution Width 13.3 % Platelet Count 152 TH/MM3 Mean Platelet Volume 8.7 FL Neutrophils (%) (Auto) 66.8 % Lymphocytes (%) (Auto) 29.4 % Monocytes (%) (Auto) 1.8 % Eosinophils (%) (Auto) 1.3 % Basophils (%) (Auto) 0.7 % Neutrophils # (Auto) 9.9 TH/MM3 Lymphocytes # (Auto) 4.4 TH/MM3 Monocytes # (Auto) 0.3 TH/MM3 Eosinophils # (Auto) 0.2 TH/MM3 Basophils # (Auto) 0.1 TH/MM3 CBC Comment DIFF FINAL Differential Comment Nasal Screen MRSA (PCR) MRSA NOT DETECTED Blood Urea Nitrogen 8 MG/DL Creatinine 1.75 MG/DL Random Glucose 249 MG/DL Total Protein 4.8 GM/DL Albumin 2.2 GM/DL Calcium Level 6.8 MG/DL Magnesium Level 2.1 MG/DL Alkaline Phosphatase 61 U/L Aspartate Amino Transf (AST/SGOT) 112 U/L Alanine Aminotransferase (ALT/SGPT) 137 U/L Total Bilirubin 0.3 MG/DL Sodium Level 145 MEQ/L Potassium Level 4.7 MEQ/L Chloride Level 114 MEQ/L Carbon Dioxide Level 15.0 MEQ/L Anion Gap 16 MEQ/L Estimat Glomerular Filtration Rate 37 ML/MIN Protein Corrected Calcium 8.0 MG/DL Troponin I 0.13 NG/ML Blood Gas Puncture Site ART LINE ART LINE Blood Gas Patient Temperature 98.6 98.6 Blood Gas HCO3 13 mmol/L 13 mmol/L Blood Gas Base Excess -17.0 mmol/L -14.8 mmol/L Blood Gas Oxygen Saturation 93 % 97 % Arterial Blood pH 6.93 7.11 Arterial Blood Partial Pressure CO2 68 mmHg 43 mmHg Arterial Blood Partial Pressure O2 112 mmHg 148 mmHg Arterial Blood Oxygen Content 15.9 Vol % 17.3 Vol % Arterial Blood Carboxyhemoglobin 0.0 % 0.5 % Arterial Blood Methemoglobin 0.9 % 1.0 % Blood Gas Hemoglobin 12.1 G/DL 12.5 G/DL Oxygen Delivery Device VENTILATOR VENTILATOR Blood Gas Ventilator Setting PRVC12/500/1.0/+5 PRVC20/500/1.0/+5 Blood Gas Inspired Oxygen 100 % 100 % Test 02/14/18 07:00 02/14/18 07:06 02/14/18 11:11 02/15/18 05:30 Activated Partial Thromboplast Time 73.9 SEC 37.5 SEC 23.0 SEC Blood Gas Puncture Site ART LINE Blood Gas Patient Temperature 98.6 Blood Gas HCO3 13 mmol/L Blood Gas Base Excess -14.2 mmol/L Blood Gas Oxygen Saturation 89 % Arterial Blood pH 7.14 Arterial Blood Partial Pressure CO2 40 mmHg Arterial Blood Partial Pressure O2 72 mmHg Arterial Blood Oxygen Content 16.9 Vol % Arterial Blood Carboxyhemoglobin 0.8 % Arterial Blood Methemoglobin 1.1 % Blood Gas Hemoglobin 13.4 G/DL Oxygen Delivery Device VENTILATOR Blood Gas Ventilator Setting 500/20/+5/1.0 Blood Gas Inspired Oxygen 100 % White Blood Count 25.4 TH/MM3 20.4 TH/MM3 Red Blood Count 4.09 MIL/MM3 3.38 MIL/MM3 Hemoglobin 12.4 GM/DL 10.3 GM/DL Hematocrit 36.7 % 29.6 % Mean Corpuscular Volume 89.7 FL 87.4 FL Mean Corpuscular Hemoglobin 30.3 PG 30.4 PG Mean Corpuscular Hemoglobin Concent 33.7 % 34.7 % Red Cell Distribution Width 12.8 % 13.0 % Platelet Count 136 TH/MM3 99 TH/MM3 Mean Platelet Volume 8.3 FL 8.8 FL Prothrombin Time 14.8 SEC 11.5 SEC Prothromb Time International Ratio 1.5 RATIO 1.1 RATIO Fibrinogen 85 mg/dL 223 mg/dL Blood Urea Nitrogen 14 MG/DL 20 MG/DL Creatinine 2.47 MG/DL 2.44 MG/DL Random Glucose 247 MG/DL 112 MG/DL Total Protein 4.9 GM/DL 4.9 GM/DL Albumin 2.3 GM/DL 2.4 GM/DL Calcium Level 7.5 MG/DL 7.7 MG/DL Alkaline Phosphatase 59 U/L 63 U/L Aspartate Amino Transf (AST/SGOT) 248 U/L 101 U/L Alanine Aminotransferase (ALT/SGPT) 243 U/L 156 U/L Total Bilirubin 0.7 MG/DL 0.5 MG/DL Sodium Level 147 MEQ/L 147 MEQ/L Potassium Level 3.1 MEQ/L 4.6 MEQ/L Chloride Level 113 MEQ/L 113 MEQ/L Carbon Dioxide Level 15.4 MEQ/L 22.9 MEQ/L Anion Gap 19 MEQ/L 11 MEQ/L Estimat Glomerular Filtration Rate 25 ML/MIN 26 ML/MIN Lactic Acid Level 11.4 mmol/L 1.2 mmol/L Test 02/15/18 18:20 02/16/18 04:00 02/16/18 10:34 Urine Random Creatinine 503.2 MG/DL Urine Random Sodium 52 MEQ/L White Blood Count 16.5 TH/MM3 Red Blood Count 2.96 MIL/MM3 Hemoglobin 9.0 GM/DL Hematocrit 26.3 % Mean Corpuscular Volume 88.8 FL Mean Corpuscular Hemoglobin 30.4 PG Mean Corpuscular Hemoglobin Concent 34.2 % Red Cell Distribution Width 13.2 % Platelet Count 82 TH/MM3 Mean Platelet Volume 9.3 FL Prothrombin Time 11.4 SEC Prothromb Time International Ratio 1.1 RATIO Activated Partial Thromboplast Time 22.6 SEC Fibrinogen 217 mg/dL Blood Urea Nitrogen 30 MG/DL Creatinine 2.18 MG/DL Random Glucose 104 MG/DL Total Protein 5.1 GM/DL Albumin 2.4 GM/DL Calcium Level 7.5 MG/DL Alkaline Phosphatase 62 U/L Aspartate Amino Transf (AST/SGOT) 51 U/L Alanine Aminotransferase (ALT/SGPT) 101 U/L Total Bilirubin 0.4 MG/DL Sodium Level 146 MEQ/L Potassium Level 4.2 MEQ/L Chloride Level 114 MEQ/L Carbon Dioxide Level 21.8 MEQ/L Anion Gap 10 MEQ/L Estimat Glomerular Filtration Rate 29 ML/MIN Lactic Acid Level 1.2 mmol/L Human Chorionic Gonadotropin, Quant LESS THAN 1 MIU/ML Phenytoin (Dilantin) Level 5.1 MCG/ML Blood Gas Puncture Site ALICIA Blood Gas Patient Temperature 98.6 Blood Gas HCO3 21 mmol/L Blood Gas Base Excess -2.8 mmol/L Blood Gas Oxygen Saturation 97 % Arterial Blood pH 7.41 Arterial Blood Partial Pressure CO2 35 mmHg Arterial Blood Partial Pressure O2 155 mmHg Arterial Blood Oxygen Content 12.6 Vol % Arterial Blood Carboxyhemoglobin 0.7 % Arterial Blood Methemoglobin 1.2 % Blood Gas Hemoglobin 9.0 G/DL Oxygen Delivery Device VENTILATOR Blood Gas Ventilator Setting SEE COMMENTS Blood Gas Inspired Oxygen 40 % (Michel Hawley) Medical Decision Making Impression and Plan Impression: 1. Right temporal and parietal acute parenchymal hemorrhage with smaller scattered areas of punctate hemorrhage and mild subarachnoid hemorrhage in the right greater than left hemisphere. No significant mass-effect. Contributing factors include head trauma, anticoagulation-TPA, emboli, hypoxia- cerebral ischemia, venous congestion or thrombosis. She apparently also had a brief episode following TPA and cardiac resuscitation 2. Possible ischemic encephalopathy Patient remains critical. She had no motor response to any stimulation other than the left great toe to touch. Past 24 hrs: 99.2 T max. Intermittent tachycardia. Intermittently elevated SBP. Reviewed labs for today. Improvement in leukocytosis. Decrease in haemoglobin level & platelet count. aPTT 22.6 & fibrinogen 217. Sodium 146. Slight improvement in renal function. Elevated transaminases. Per Dr Izaguirre: "03/07/2018 CT scan head images reviewed by the undersigned. In addition to the 2 areas of parenchymal hemorrhage right temporal parietal lobes, there is evidence contusion and subarachnoid hemorrhage throughout the right greater than left hemisphere. No significant overall mass-effect." Plan: Primary & critical care management per [facility]. Neuro checks. Follow up CT, possible MRI, when patient stable for study. (Michel Hawley) Attending Statement The exam, history, and the medical decision-making described in the above note were completed with the assistance of the mid-level provider. I reviewed and agree with the findings presented. I attest that I had a [id number] encounter with the patient on the same day, and personally performed and documented my assessment and findings in the medical record. On my examination of 02/16/2018, the patient remains intubated, sedated. Pupils 3 mm minimally reactive. Minimal oculocephalic and corneal responses Minimal mostly reflex response to deep pain left lower extremity. Otherwise no extremity responses Labs reviewed Plan follow-up CT scan head (Rodrigo Izaguirre MD) Michel Hawley Feb 16, 2018 17:07 Rodrigo Izaguirre MD Feb 18, 2018 09:57
--- NOTE | 2018-02-16 18:06 | HHI.PR ---
Subjective Remarks S/P Thrombolysis for massive PE and Cardiac Arrest. On vent support and FIO2 40 %.Poor output. On Pressors . Neuro Eval for subdural hematoma. Has pulmonary HTN on Flolan. Objective Vital Signs Date Time Temp Pulse Resp B/P (MAP) Pulse Ox O2 Delivery O2 Flow Rate FiO2 02/16/18 16:07 99.0 81 18 156/84 (108) 100 159/83 (108) 02/16/18 16:07 40 02/16/18 15:02 69 02/16/18 13:44 99 40 02/16/18 12:04 40 02/16/18 12:04 98.7 81 19 157/76 (103) 98 153/73 (99) 02/16/18 11:01 82 02/16/18 10:33 99 40 02/16/18 08:40 99.2 69 18 161/82 (108) 98 155/77 (103) 02/16/18 08:35 40 02/16/18 07:33 80 02/16/18 07:31 98 Mechanical Ventilator 40 02/16/18 07:19 99 40 02/16/18 05:00 71 149/66 02/16/18 04:31 99 40 02/16/18 04:00 40 02/16/18 04:00 99.2 83 19 167/72 (103) 98 149/68 (95) 02/16/18 03:00 83 02/16/18 00:10 98 40 02/16/18 00:10 40 02/16/18 00:10 99.1 83 19 147/87 (107) 98 153/73 (99) 02/15/18 23:00 86 02/15/18 21:43 99 40 02/15/18 20:46 99.1 80 18 149/84 (105) 97 140/72 (94) 02/15/18 20:46 40 02/15/18 19:00 80 02/15/18 19:00 97 Mechanical Ventilator 40 02/15/18 18:07 95 138/71 I/O 02/15/18 02/15/18 02/15/18 02/16/18 02/16/18 02/16/18 07:00 15:00 23:00 07:00 15:00 23:00 Intake Total 90 ml 2036 ml 934 ml 884 ml 515 ml 221 ml Output Total 270 ml 95 ml 239 ml Balance -180 ml 2036 ml 839 ml 645 ml 515 ml 221 ml Intake Oral 0 ml 0 ml IV Total 2036 ml 807 ml 808 ml 515 ml 221 ml Tube Feeding 67 ml 76 ml Tube Irrigant 90 ml 60 ml Output Urine Total 270 ml 95 ml 239 ml # Bowel Movements 0 0 Result Diagram: 02/16/1839902/16/18399 Objective Remarks GENERAL: This moderately obese, young white female who is intubated on the vent HEENT: Head is normocephalic. Pupils were reactive. NECK: Supple, no bruits, no lymphadenopathy noted. CHEST: Equal movements with decreased breath sounds to the periphery. HEART: The heart tones were regular with S1 and S2. ABDOMEN: Soft, protuberant without masses. No organomegaly. EXTREMITIES: No lesions. There is no edema. SKIN: No lesions observed. NEUROLOGIC:Sedated Assessment and Plan Assessment and Plan IMPRESSION: 1. Bilateral pulmonary embolism with hypoxemia. 2. History of thyroid cancer and thyroidectomy. 3. Hypothyroidism. 4. Dehydration and acute kidney injury. 5. Deep venous thrombosis, right lower extremity. 6. LAVINIA Plan : 1. Vent support and Wean FIO2. 2. Cont Flolan inhalation 50 Mcg/Kg 3. Albuterol nebs q6h PRN 4. CXR ,CBC,BMP in am 5. Neuro Evaluation and Rpt CT head. 6. No anticoagulation due to cerebral bleed. 7. Wean Pressors. 8. D/W family. Tyra Abdul MD Feb 16, 2018 18:06
[2018-02-16 18:17] LABS: PROTEIN C ACTIVITY 104 % (70 - 150); PROTEIN S ACTIVITY 69 % (50 - 160)
[2018-02-16] MEDS: CLEVIDIPINE INJ 50 ML IV PRN (21:11)
[2018-02-17] VITALS (19 sets, daily range): BP systolic 120–155; BP diastolic 69–99; PULSE 105–136; RESP 18–19; TEMP 98.5–99.5; O2SAT 94–99
[2018-02-17] MEDS: RESP: ALBUTEROL 2.5 MG/IPRATROPIUM 0.5 MG NEB (SCH) NEB ×6 (00:35→21:00)
[2018-02-17] MEDS: SODIUM CHLOR 0.9% 1000 ML INJ 1,000 ML IV SCH (01:30)
[2018-02-17 03:51] LABS: ACTIVATED PROTEIN C RESISTANCE 4.8 ratio (> OR = 2.1)
[2018-02-17] MEDS: INSULIN NovoLIN REGULAR SUPPLEMENTAL SCALE SQ SCH ×6 (04:00→20:00)
[2018-02-17] MEDS ORDERED: diphenhydrAMINE HCL 50 MG/ML VIAL IM PRN (04:30)
[2018-02-17] MEDS: fentaNYL DRIP 250 ML IV PRN ×2 (04:31→15:38)
[2018-02-17 05:04] LABS: HEMATOCRIT 28.8 % (35.0-46.0); HEMOGLOBIN 9.8 GM/DL (11.6-15.3); MEAN CELL VOLUME 88.8 FL (80.0-100.0); MEAN CORPUSCULAR HEMOGLOBIN 30.1 PG (27.0-34.0); MEAN CORPUSCULAR HGB CONC 33.8 % (32.0-36.0); MEAN PLATELET VOLUME 9.1 FL (7.0-11.0); PLATELET COUNT 99 TH/MM3 (150-450); RED BLOOD COUNT 3.25 MIL/MM3 (4.00-5.30); RED CELL DISTRIBUTION WIDTH 13.2 % (11.6-17.2); WHITE BLOOD COUNT 17.2 TH/MM3 (4.0-11.0)
[2018-02-17 05:09] LABS: INTERNATIONAL NORMALIZED RATIO 1.1 RATIO; PROTHROMBIN TIME - PATIENT 11.2 SEC (9.8-11.6)
[2018-02-17 05:12] LABS: ALBUMIN 2.9 GM/DL (3.4-5.0); AST (GOT) 45 U/L (16-38); BICARBONATE 21.7 MEQ/L (21.0-32.0); BLOOD UREA NITROGEN 31 MG/DL (7-18); CALCIUM 8.2 MG/DL (8.5-10.1); CHLORIDE 112 MEQ/L (98-107); CREATININE 1.86 MG/DL (0.50-1.00); GLOMERULAR FILTRATION RATE 35 ML/MIN (>89); GLUCOSE,RANDOM 108 MG/DL (74-106); MAGNESIUM 2.2 MG/DL (1.5-2.5); SODIUM (NA) 146 MEQ/L (136-145)
[2018-02-17 05:13] LABS: ALT (GPT) 84 U/L (9-42); PHOSPHORUS 2.9 MG/DL (2.5-4.9)
[2018-02-17 05:16] LABS: ALKALINE PHOSPHATASE 78 U/L (45-117); PHENYTOIN (DILANTIN) 10.2 MCG/ML (10.0-20.0); TOTAL BILIRUBIN ADULT 0.7 MG/DL (0.2-1.0); TOTAL PROTEIN 5.8 GM/DL (6.4-8.2); TROPONIN I 0.11 NG/ML (0.02-0.05)
[2018-02-17] MEDS: ARTIFICIAL TEARS OPTH SOLN 15 ML BTL EACH EYE SCH ×3 (06:00→21:21)
[2018-02-17] MEDS: FOSPHENYTOIN SODIUM 100 MG PE/2 ML VIAL IV SCH ×3 (06:58→21:21)
[2018-02-17] MEDS: LEVOTHYROXINE SODIUM 100 MCG TAB PO SCH (06:58)
[2018-02-17] MEDS: diphenhydrAMINE HCL 50 MG/ML VIAL IV PRN ×2 (06:58→10:55)
[2018-02-17] MEDS: LEVOTHYROXINE SODIUM 75 MCG TAB PO SCH (06:58)
[2018-02-17] MEDS: CLEVIDIPINE INJ 50 ML IV PRN ×3 (07:00→20:15)
--- NOTE | 2018-02-17 07:32 | PD.ONC.PN ---
Subjective Subjective Remarks Patient seen and examined, vital signs, labs and medications reviewed. 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 Patient remains intubated, though sedation was turned off overnight she remains on a fentanyl infusion for pain management. She does not respond to verbal or tactile stimulus this morning. There were no acute cardiopulmonary events overnight. Objective Data Date Time Temp Pulse Resp B/P (MAP) Pulse Ox O2 Delivery O2 Flow Rate FiO2 02/17/18 07:28 99 Mechanical Ventilator 40 02/17/18 07:00 133 139/88 02/17/18 04:00 40 02/17/18 03:53 98 40 02/17/18 03:00 99.5 132 18 152/87 (108) 99 137/86 (103) 02/17/18 03:00 121 02/17/18 00:36 99 40 02/17/18 00:00 40 02/16/18 23:00 93 02/16/18 23:00 99.0 87 18 160/83 (108) 99 156/92 (113) 02/16/18 21:11 90 173/101 02/16/18 20:50 98 40 02/16/18 20:00 40 02/16/18 19:00 98 Mechanical Ventilator 40 02/16/18 19:00 80 02/16/18 19:00 98.8 75 18 171/92 (118) 98 175/91 (119) 02/16/18 16:07 99.0 81 18 156/84 (108) 100 159/83 (108) 02/16/18 16:07 40 02/16/18 16:05 99 40 02/16/18 15:02 69 02/16/18 13:44 99 40 02/16/18 12:04 40 02/16/18 12:04 98.7 81 19 157/76 (103) 98 153/73 (99) 02/16/18 11:01 82 02/16/18 10:33 99 40 02/16/18 08:40 99.2 69 18 161/82 (108) 98 155/77 (103) 02/16/18 08:35 40 02/16/18 07:33 80 02/16/18 07:31 98 Mechanical Ventilator 40 02/17/18 02/17/18 02/17/18 07:00 15:00 23:00 Intake Total 808.2 ml Output Total 1600 ml Balance -791.8 ml Result Diagram: 02/17/18 0430 02/17/18 0430 Laboratory Results Laboratory Tests Test 02/16/18 10:34 02/17/18 04:30 02/17/18 05:58 Blood Gas Puncture Site ALICIA ART LINE Blood Gas Patient Temperature 98.6 98.6 Blood Gas HCO3 21 mmol/L 24 mmol/L Blood Gas Base Excess -2.8 mmol/L 0.2 mmol/L Blood Gas Oxygen Saturation 97 % 96 % Arterial Blood pH 7.41 7.43 Arterial Blood Partial Pressure CO2 35 mmHg 37 mmHg Arterial Blood Partial Pressure O2 155 mmHg 109 mmHg Arterial Blood Oxygen Content 12.6 Vol % 13.1 Vol % Arterial Blood Carboxyhemoglobin 0.7 % 0.8 % Arterial Blood Methemoglobin 1.2 % 1.3 % Blood Gas Hemoglobin 9.0 G/DL 9.6 G/DL Oxygen Delivery Device VENTILATOR VENTILATOR Blood Gas Ventilator Setting SEE COMMENTS PRVC/AC Blood Gas Inspired Oxygen 40 % 40 % White Blood Count 17.2 TH/MM3 Red Blood Count 3.25 MIL/MM3 Hemoglobin 9.8 GM/DL Hematocrit 28.8 % Mean Corpuscular Volume 88.8 FL Mean Corpuscular Hemoglobin 30.1 PG Mean Corpuscular Hemoglobin Concent 33.8 % Red Cell Distribution Width 13.2 % Platelet Count 99 TH/MM3 Mean Platelet Volume 9.1 FL Prothrombin Time 11.2 SEC Prothromb Time International Ratio 1.1 RATIO Activated Partial Thromboplast Time 21.7 SEC Fibrinogen 183 mg/dL Blood Urea Nitrogen 31 MG/DL Creatinine 1.86 MG/DL Random Glucose 108 MG/DL Total Protein 5.8 GM/DL Albumin 2.9 GM/DL Calcium Level 8.2 MG/DL Phosphorus Level 2.9 MG/DL Magnesium Level 2.2 MG/DL Alkaline Phosphatase 78 U/L Aspartate Amino Transf (AST/SGOT) 45 U/L Alanine Aminotransferase (ALT/SGPT) 84 U/L Lactate Dehydrogenase 460 U/L Total Bilirubin 0.7 MG/DL Sodium Level 146 MEQ/L Potassium Level 3.5 MEQ/L Chloride Level 112 MEQ/L Carbon Dioxide Level 21.7 MEQ/L Anion Gap 12 MEQ/L Estimat Glomerular Filtration Rate 35 ML/MIN Lactic Acid Level 1.5 mmol/L Total Creatine Kinase 193 U/L Creatine Kinase MB 0.9 NG/ML Creatine Kinase MB % 0.5 % Troponin I 0.11 NG/ML Amylase Level 73 U/L Lipase 128 U/L Phenytoin (Dilantin) Level 10.2 MCG/ML Administered Medications Medications (Trade) Dose Ordered Sig/Gregg Route PRN Reason Start Time Stop Time Status Last Admin Dose Admin Sodium Chloride (NS Flush) 2 ml BID IV FLUSH 02/13/18 09:00 02/16/18 21:00 Cetirizine HCl (ZyrTEC) 10 mg DAILY PO 02/13/18 09:00 02/16/18 09:08 Fluticasone Propionate (Flonase Anil Spr) 1 spray BID EACH NARE 02/13/18 09:00 Future Hold 02/13/18 10:14 Levothyroxine Sodium (Synthroid) 100 mcg DAILY@0700 PO 02/13/18 07:00 02/17/18 06:58 Levothyroxine Sodium (Synthroid) 75 mcg DAILY@0700 PO 02/13/18 07:00 02/17/18 06:58 Chlorhexidine Gluconate (Peridex 0.12% Liq) 15 ml BID@08,20 MT 02/14/18 08:00 02/16/18 20:44 Fentanyl Citrate 250 ml @ 5 mls/hr TITRATE PRN IV SEDATION 02/14/18 03:15 02/17/18 04:31 Midazolam HCl 50 ml @ 2 mls/hr TITRATE PRN IV SEDATION 02/14/18 06:30 02/14/18 20:22 Epoprostenol Sodium 87.5 ml/ Sodium Chloride 100 ml @ 5 mls/hr Q8H NEB 02/14/18 09:00 02/16/18 22:09 Sodium Chloride 1,000 ml @ 50 mls/hr Q20H IV 02/14/18 13:30 02/16/18 05:31 Clevidipine 50 ml @ 2 mls/hr TITRATE PRN IV Blood Pressure Management 02/14/18 19:15 02/17/18 07:00 Levetriacetam 500 mg/Sodium Chloride 105 ml @ 420 mls/hr Q12HR IV 02/14/18 21:00 02/16/18 21:07 Vasopressin 40 units/Sodium Chloride 102 ml @ 1.5 mls/hr Q24H PRN IV Blood pressure management 02/15/18 13:45 02/15/18 13:55 Fosphenytoin Sodium (Cerebyx Inj) 100 mgpe Q8HR IV 02/16/18 14:00 02/17/18 06:58 Albuterol/ Ipratropium (Duoneb Neb) 1 ampule Q4HR NEB NEB 02/16/18 08:00 02/17/18 03:52 Artificial Tears (Tears Naturale Opth Soln) 1 drop Q8HR EACH EYE 02/16/18 14:00 02/17/18 06:00 Lansoprazole (Prevacid Odt) 30 mg DAILY NG 02/16/18 09:00 02/16/18 09:08 Docusate Sodium (Colace Liq) 100 mg Q12HR PO 02/16/18 09:00 02/16/18 21:07 Sennosides (Senna Liq) 8.8 mg BID PO 02/16/18 09:00 02/16/18 21:07 Diphenhydramine HCl (Benadryl Inj) 25 mg Q4H PRN IV hives 02/17/18 05:30 02/17/18 06:58 Objective Remarks GENERAL: Young female, laying in bed, intubated and sedated, she has generalized anasarca and edema. No active bleeding noted though she does have areas of bruising of the skin. SKIN: Warm and dry. With small bruising over her chest and extremities. HEAD: Normocephalic. EYES: No scleral icterus. No injection or drainage. Conjunctivae are pale. Pupils appear to be fixed at about 3-4 mm and do not react to light. NECK: Supple, trachea midline. No JVD or lymphadenopathy. Right-sided central venous catheter in place; [place]. LYMPHATIC: No adenopathy. CARDIOVASCULAR: Tachycardic with heart rate of 135 bpm, regular. RESPIRATORY: Intubated, on ventilator support, breath sounds equal bilaterally. No accessory muscle use. GASTROINTESTINAL: Abdomen soft, non-tender, appears distended. EXTREMITIES: Generalized edema/anasarca. MUSCULOSKELETAL: Difficult to assess muscle tone due to sedation. NEUROLOGICAL: No spontaneous movements at this time, she is sedated. Pupils bilaterally dilated, right pupil is 1 cm, left pupil approximately 8 mm. Some response to light. PSYCHIATRIC: Unable to assess. Assessment/Plan Problem List: (1) Pulmonary emboli ICD Codes: I26.99 - Other pulmonary embolism without acute cor pulmonale Status: Acute Plan: --s/p tpa infusion 02/14 --s/p embolectomy --s/p IVC filter placement. (2) SAH (subarachnoid hemorrhage) ICD Codes: I60.9 - Nontraumatic subarachnoid hemorrhage, unspecified Status: Acute Assessment 17-year-old female hospitalized on 02/12/2018 following syncopal episode and difficulty breathing, CT angiogram revealed bilateral pulmonary emboli with significant clot volume/burden. Lower extremity deep venous thrombosis also identified. Echocardiogram revealed severe right ventricular failure and elevated right peak pulmonary arterial pressures. She underwent thrombolytic therapy on the night of 02/14/2018, shortly thereafter she decompensated from a cardiopulmonary standpoint and has since then been intubated and sedated. Over the past 76 hours she has had 2 cardiopulmonary arrests for which she was resuscitated. 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 Afternoon 02/14/2018 she was found to have intracranial hemorrhage. Plan 1. Bilateral pulmonary emboli: Due to intracranial hemorrhage there is a contraindication to anticoagulation at this time. She is therefore not on anticoagulation at this time. 2. Right heart failure: [place] monitor indicates pulmonary arterial systolic pressure 50-55 mmHg. She is no longer requiring inotropes. 3. Intracranial hemorrhage: Conservative management recommended by neurosurgery. 4. Encephalopathy: EEG results noted, per the interpretation of the EEG there appears to be diffuse abnormal activity consistent with diffuse encephalopathy. Areas of sharp activity noted in the right hemisphere concerning for possible seizure focus. Continue antiepileptic therapy; fosphenytoin. 5. Acute kidney injury: Improving renal function, urine output approximately 2300 cc yesterday, the patient was initiated Lasix 40 mg IV daily. Disposition: Continue full supportive care. Prognosis remains guarded. Extent of neurologic recovery is yet to be determined, as of right now she is not responding and is not moving her extremities spontaneously. Problem Qualifiers (1) Pulmonary emboli: Ernesto Banks MD Feb 17, 2018 07:31
[2018-02-17] MEDS: CHLORHEXIDINE 0.12% (ORAL KIT) 15 ML CUP MT SCH ×2 (08:04→21:22)
--- NOTE | 2018-02-17 08:30 | HHI.CCPN ---
Subjective Remarks/Hospital Course Hospital Course: 17-year-old female with a past medical history significant for hypothyroidism presents to the emergency department for evaluation of shortness of breath and a syncopal episode. Patient reports that for the past 2 days she has had shortness of breath. Today she noticed that she had increasing dyspnea on exertion. She reports associated emesis 3 with dizziness and loss of consciousness. She states she had right lower extremity pain approximately 1 month ago. She denies any chest pain. No abdominal pain. No fevers/chills. The patient was initially admitted to medicine service on a heparin drip. She was evaluated by hematology oncology Dr. Banks, and the stress echocardiogram showed severe RV dilation. The patient was also clinically worsening requiring more oxygen support. She was taken to IR for mechanical thrombectomy. While in the IR suite she suffered a respiratory arrest and was intubated and successfully resuscitated. She returned to ICU in severe shock/obstructive. Shortly after arrival to the unit the patient suffered another episode of cardiac arrest requiring 2 cycles of CPR and 2 injections of epinephrine. Due to hemodynamic instability the TPA bolus followed by an infusion was immediately administered. 02/14: patient remains in profound obstructive cardiogenic shock with acute RV failure, as well as acute hypoxic respiratory failure. I added inhaled flolan at 50 ng/kg/min, dobutamine at 5 mcg/kg/min. epinephrine is at 6 mcg/min and vasopressin at 0.04 units/min. avoiding norepinephrine to minimize pulmonary vascular constriction. avoiding milrinone currently due to hypotension, although if we get control of her shock, milrinone may be of added benefit. lactate is 8 and continues to rise. pH 7.1 with BE -14. remains hemodynamically unstable. pupils are 6mm and minimally reactive, although the patient has recently received atropine IV during her cardiac arrest, so unclear what prognostic value her pupillary exam is currently. She does have a history of recently falling and hitting her head, so we will order head CT to rule out catastrophic hemorrhage. Also have given 3 amps bicarb, 1 gm calcium chloride for her acid/base and electrolyte derangements. started insulin drip for severe hyperglycemia. remained at bedside titrating vasoactive medications. remains on 100% fio2. very unstable. 02/15: 02/16: Afebrile. Temperature overnight but did not tolerate tube feeds will be restarted today. KUB ordered. Pupils are reactive with a leftward gaze. Withdraws to pain bilateral upper and lower extremities. Discussed with mother at bedside. Subjective: 02/17: T-max 99.5. Currently afebrile. Dobutamine discontinued overnight due to "tachycardia". Cardiac output is greater than 11. Cardiac index is greater than 4. Neuro examination worsened overnight. Both pupils are fixed and dilated right pupil about 8 mm left pupil about 6 mm and fixed. Does not withdraw to pain at all today. Gag positive. No corneal reflex. No cough. Objective Vital Signs Date Time Temp Pulse Resp B/P (MAP) Pulse Ox O2 Delivery O2 Flow Rate FiO2 02/17/18 08:09 40 02/17/18 07:47 99 02/17/18 07:32 136 02/17/18 07:31 98.7 19 155/84 (107) 136/87 (103) 02/17/18 07:28 Mechanical Ventilator Intake and Output 02/17/18 02/17/18 02/18/18 08:00 16:00 00:00 Intake Total 808.2 ml Output Total 1600 ml Balance -791.8 ml Result Diagram: 02/17/18 0430 02/17/18 0430 Imaging Last Impressions Abdomen X-Ray 02/16/18 0000 Signed Impressions: CONCLUSION: No significant bowel distention Persistent contrast remaining in the kidneys. This can be seen with ATN. Head CT 02/14/18 Signed Impressions: CONCLUSION: 1. Stable parenchymal hemorrhage on the right and scattered subarachnoid hemor rhage with some swelling and edema in the brain. Overall no significant change from February 14 at 1243. Chest X-Ray 02/14/18 Signed Impressions: CONCLUSION: Increase in bilateral airspace disease since earlier exam. Placement of [place] n[place] catheter with tip in right pulmonary artery. Endotracheal tube and nasogastr ic tube unchanged. Lower Extremity Ultrasound 02/13/18 Signed Impressions: CONCLUSION: 1. There is thrombus within the right popliteal and peroneal veins. CT Angiography 02/12/182030 Signed Impressions: CONCLUSION: 1. Multiple large central and peripheral bilateral pulmonary emboli. 2. Trace pericardial fluid. Objective Remarks GENERAL: 17-year-old female currently orotracheally intubated and sedated on a fentanyl drip SKIN: Warm. Well perfused. HEAD: Normocephalic. Atraumatic. EYES: Right pupil is about 8 mm and fixed. Left pupil is about 6 mm and fixed. No scleral icterus. No injection or drainage. NECK: Supple, trachea midline. large neck circumference prevents accurate assessment of JVD. Right IJ's introducer/[place] catheter is clean dry and intact CARDIOVASCULAR: tachycardic rate, regular rhythm. sinus. S1, S2. No S4. Murmur not appreciated RESPIRATORY: Diminished breath sounds throughout. No wheezing is appreciated GASTROINTESTINAL: Abdomen obese, soft, non-tender, nondistended. no guarding. EXTREMITIES: Warm and currently well perfused.. distal pulses 1+. right groin with arterial sheath in place, site clean and dry, dressing intact, no hematoma. left groin with triple lumen catheter in place, site c/d, dressing intact, no hematoma. NEURO EXAM: Today, did would not withdraw to pain. No clonus. Positive gag. No cough. No corneal reflex.. Urinary Catheter: Yes Assessment to: Continue Deluca insert reason: ICU Pt Getting Diuretics Vascular Central Line Catheter: Yes Assessment to: Continue Date of Insertion: Feb 14, 2018 Line: Central Venous Catheter Side: Left Location: Femoral A/P Assessment and Plan Neuro/Psych: Acute metabolic encephalopathy Acute temporoparietal intraparenchymal hemorrhage with scattered punctate hemorrhage in right greater than left subarachnoid hemorrhage Seizure disorder NOS Allergic rhinitis - neurosurgery: Dr. Izaguirre following -Neurology following -Dr. De Guzman - possibly component of hypoxic/ischemic encephalopathy, but both cardiac arrest times were short, so likely minimized time of cerebral ischemia. - continue fentanyl drip at 150 mcg/h for sedation while intubated - RASS goal -2 - frequent neuro checks - Daily sedation vacation - repeat head CT brain on 02/16 not performed due to stability of patient on multiple drips according to RN. Will order today stat 02/17. MRI brain when clinically stable for prolonged movement - avoid anticoagulation in light of hemorrhage as above. - noted platelets of remain low: risk/benefit favors holding on transfusing platelets given recent massive PE and concern for hypercoagulability. But will await CT brain -Acetaminophen 650 mg by tube every 6 hours as needed fever Currently on levetiracetam 500 mg IV twice daily and fosphenytoin 100 mg IV every 8 hours. Loaded with 500 mg IV yesterday. Levels currently 10.2 phenytoin. Recheck in a.m. Follow-up EEG today. 02/15 EEG revealed a diffuse encephalopathy. In addition, sharp activity is identified frequently over the right hemisphere with phase reversal, which is consistent with a possible seizure focus in the right hemisphere. Holding cetirizine 10 mg daily Respiratory: Acute hypoxic and hypercarbic respiratory failure Massive pulmonary embolism status post alteplase Acute pulmonary Hypertension secondary to acute pulmonary embolism PRVC 18/600/09/13/39 - vent bundle, hob elevated, Albuterol/ipratropium aerosols every 4 hours with albuterol aerosols every 2 hours as needed dyspnea - wean fio2 for goal spo2 > 92% - inhaled epoprostenol at 50 ng/kg/min. Start weaning today by 10 ng/kg/min every 8 hours - no weaning of mechanical ventilation given shock and instability - trend abg's Cardiovascular: Cardiogenic Shock- Obstructive type Right Ventricular Failure secondary to massive pulmonary embolism Resolved lactic acidosis Moderate TR Overnight discontinued dobutamine drip at 5 mcg/kg/min Overnight discontinued vasopressin creatinine 0.01 U/min for map > 65 mmHg. - s/p systemic TPA 02/14 for hemodynamic collapse - s/p endovascular mechanical thrombectomy 02/13, repeat thrombectomy 02/14 - s/p emergent IVC filter placement 02/14 - hold all anticoagulation. Continue normal saline at 50 cc an hour [place] catheter pulmonary capillary wedge pressure 17 mmHg cardiac index 4.1 L/min cardiac output 11.1 Echocardiogram 02/13 The left ventricular systolic function is normal with an estimated ejection fraction in the range of 60-65%. There is a flattened septum in systole consistent with right ventricle pressure overload. The right ventricle is severely dilated. There is akinesis of the RV free wall with apical hypercontractility of the apex (Miller's sign) consistent with pulmonary embolism. Trace mitral valve regurgitation. There is mild to moderate tricuspid valve regurgitation. There is estimated severe pulmonary hypertension present ( > 70 mmHg). Renal: Acute kidney injury likely Acute Tubular Necrosis - likely secondary to shock and contrast loads: -Around 2300 cc overnight. Continue to monitor urine output - daily bmp, magnesium phosphorus - must keep deluca. -- Strict I/Os -Start on furosemide 40 mg IV daily FEN/GI: Acute Liver Injury: shock liver and congestive hepatopathy Elevated BMI of 35.1 Hypoalbuminemia Hypernatremia - start tube feeds with vital 1.5 per nutrition recommendations goal 75 cc an hour currently 20 cc an hour. KUB yesterday revealed no acute signs of obstruction Lansoprazole for GI prophylaxis Docusate sodium 100 mg twice daily/senna 820 mg twice daily for bowel regimen - trend CMP daily Heme/ID: Hypercoagulable State with ongoing workup of hypercoagulable profile s/p systemic TPA 02/14 Thrombocytopenia Hypofibrinogenemia Normocytic anemia Massive Pulmonary Embolism - hold all anticoagulation given head bleeds - will not reverse coagulopathy given recent massive PE - low platelets secondary to consumption: 4T score low probability for HIT - s/p emergent IVC filter placement 02/14 - hematology consulted and following - trend daily cbc - no infectious etiology suspected at this time FIGUEROA screen positive. Further laboratory workup pending Endocrine: Severe hyperglycemia of critical illness- improving Hypothyroidism Continue SSI, med scale, q4h -TSH is 2.31. Continue levothyroxine 175 mcg by mouth daily Prophylaxis: GI Prophylaxis Lansoprazole DVT Prophylaxis -- SCDs - IVC filter - hold anticoagulation. Lines: 02/14: right femoral arterial sheath 02/14: left femoral triple lumen catheter 02/13: deluca 02/14: right IJ 9 Fr introducer sheath 02/14: right IJ PA catheter (IR guided into right main PA, free of clot). Critical Care: The total critical care time was 35 minutes. Time to perform other separately billable procedures was not included in the critical care time. Discussed with mother at bedside Poncho Casey MD Feb 17, 2018 08:29
[2018-02-17] MEDS: EPOPROSTENOL NEB SOLUTION 50 NG/KG/MIN 100 ML NEB SCH ×2 (09:00)
[2018-02-17] MEDS ORDERED: FUROSEMIDE 40 MG/4 ML VIAL IV PUSH SCH (09:00)
[2018-02-17] MEDS ORDERED: EPOPROSTENOL NEB SOLUTION 40 NG/KG/MIN 100 ML NEB SCH ×2 (09:00)
[2018-02-17] MEDS: LANSOPRAZOLE SOLUTAB 30 MG TAB NG SCH (09:20)
[2018-02-17] MEDS: DOCUSATE SODIUM 100 MG/10 ML UDC PO SCH ×2 (09:20→21:23)
[2018-02-17] MEDS: SENNOSIDES SYRUP 8.8 MG/5 ML CUP PO SCH ×2 (09:20→21:23)
[2018-02-17] MEDS: SODIUM CHLORIDE 0.9% FLUSH 10 ML FLUSH IV FLUSH SCH ×2 (09:20→21:25)
[2018-02-17] MEDS: levETIRAcetam INJ 500 MG in SODIUM CHLORIDE 0.9% INJ 100 ML IV SCH ×2 (09:21→21:23)
--- NOTE | 2018-02-17 09:21 | RADRPT ---
EXAM DATE: 02/17/2018 9:06 AM EDT AGE/SEX: 17 years / Female INDICATIONS: F/U intracerebral hemorrhage. CLINICAL DATA: This is the patient's subsequent encounter. Patient reports that signs and symptoms h ave been present for 3 days and indicates a pain score of Nonresponsive. MEDICAL/SURGICAL HISTORY: . intracerebral hemorrahage, bilateral PE. Non-responsive. RADIATION DOSE: 67.70 CTDI (mGy) [place] [facility] [place] [facility] [place]. . TECHNIQUE: CT of the head without contrast. Using automated exposure control and adjustment of the mA and/or kV according to patient size, radiation dose was kept as low as reasonably achievable to ob tain optimal diagnostic quality images. FINDINGS: The right temporal lobe parenchymal hemorrhage is very slightly improved compared to the pr evious examination dated 02/14/2018. This measures 3.1 cm in greatest dimension. Surrounding cytotoxic edema is noted. There are tiny areas of parenchymal/subarachnoid hemorrhage within the left frontal l obe measuring 10 mm, left temporal lobe measuring 6 mm and right parietal lobe measuring 5 mm which a re stable. No new midline shift is noted. Stable sulcal effacement is again noted. The bony structure s are unchanged. CONCLUSION: Very slight improvement of the 3.1 cm right temporal lobe parenchymal hemorrhage. Scattered tiny area s of parenchymal/subarachnoid hemorrhage are stable within the left frontal, left temporal and right parietal lobes. Diffuse sulcal effacement is unchanged. No new midline shift is noted. Electronically signed by: Joon Davis MD 02/17/2018 9:20 AM EDT
--- NOTE | 2018-02-17 09:21 | RADRPT ---
EXAM DATE: 02/17/2018 9:03 AM EDT AGE/SEX: 17 years / Female INDICATIONS: Respiratory failure. CLINICAL DATA: This is the patient's subsequent encounter. Patient reports that signs and symptoms h ave been present for 1 week and indicates a pain score of Nonresponsive. MEDICAL/SURGICAL HISTORY: Hypothyroidism. Carcinoma, thyroid. None. COMPARISON: [facility] – [place]ST SINGLE AP, 02/14/2018. . FINDINGS: [place] catheter has been pulled back and now its tip appears to be in either in the pulmonary outf low track or proximal main pulmonary artery. Lungs remain hypoaerated. Air bronchograms are seen in the left base. Heart remains moderately enlarged. Endotracheal and nasogastric tubes are in stable position. CONCLUSION: 1. Repositioning of [place] catheter as described above. 2. Persistent hypoaeration of lungs with left basilar airspace disease. 3. Stable position of endotracheal and nasogastric tubes. Electronically signed by: Juan Miguel Parmar MD 02/17/2018 9:19 AM EDT
[2018-02-17] MEDS: MIDAZOLAM 50 MG/50 ML INJ 50 ML IV PRN (11:15)
[2018-02-17] MEDS ORDERED: METOPROLOL TARTRATE 5 MG/5 ML VIAL ONE (12:08)
[2018-02-17] MEDS ORDERED: METOPROLOL TARTRATE 5 MG/5 ML VIAL IV PUSH ONE (12:15)
--- NOTE | 2018-02-17 12:25 | HHI.NPPN ---
Subjective History of Present Illness 17 year old with massive PE, cardiac arrest ARF, brain bleed Objective Data Data 02/17/18 02/18/18 19:00 07:00 Intake Total 112.8 ml Balance 112.8 ml IV Total 112.8 ml Vital Signs Date Time Temp Pulse Resp B/P (MAP) Pulse Ox O2 Delivery O2 Flow Rate FiO2 02/17/18 12:10 40 02/17/18 11:09 98.8 136 18 155/89 (111) 99 148/99 (115) 02/17/18 11:08 135 02/17/18 10:59 98 40 02/17/18 09:15 151/95 02/17/18 08:30 99 02/17/18 08:09 40 02/17/18 07:47 99 40 02/17/18 07:32 136 02/17/18 07:31 98.7 136 19 155/84 (107) 99 136/87 (103) 02/17/18 07:28 99 Mechanical Ventilator 40 02/17/18 07:00 133 139/88 02/17/18 04:00 40 02/17/18 03:53 98 40 02/17/18 03:00 99.5 132 18 152/87 (108) 99 137/86 (103) 02/17/18 03:00 121 02/17/18 00:36 99 40 02/17/18 00:00 40 02/16/18 23:00 93 02/16/18 23:00 99.0 87 18 160/83 (108) 99 156/92 (113) 02/16/18 21:11 90 173/101 02/16/18 20:50 98 40 02/16/18 20:00 40 02/16/18 19:00 98 Mechanical Ventilator 40 02/16/18 19:00 80 02/16/18 19:00 98.8 75 18 171/92 (118) 98 175/91 (119) 02/16/18 16:07 99.0 81 18 156/84 (108) 100 159/83 (108) 02/16/18 16:07 40 02/16/18 16:05 99 40 02/16/18 15:02 69 02/16/18 13:44 99 40 -: 02/17/18 0430 02/17/18 0430 Physical Exam General Appearance: Well Developed, Well Nourished Neck Neck Exam: Neck Supple Pulmonary Resp Exam: Clear Bilaterally, Breath Sounds Equal Cardiology CV Exam: Tachycardia Gastrointestinal/Abdomen GI Exam: Soft, Non-Tender, Bowel Sounds Present Extremeties Extremities Exam: Moderate Edema Assessment/Plan Problem List: (1) Acute renal failure ICD Codes: N17.9 - Acute kidney failure, unspecified Plan: patient has ischemic event and receive contrast study contributing to ARF her urine out put is low PA pressures are high She is on Flolan to help regulate pulmonary arterial pressures. off vasopressors on dobutamine Diuresing well with Lasix, urine output 2.3 L yesterday and 1.6 L already today avoid Nephrotoxins. Creatinine declined to 1.8 May decrease Lasix to 20 mg daily replace potassium (2) Pulmonary emboli ICD Codes: I26.99 - Other pulmonary embolism without acute cor pulmonale Status: Acute Plan: treated with TPA, Angiogram (3) Cardiac arrest ICD Codes: I46.9 - Cardiac arrest, cause unspecified Plan: patient had cardiac arrest x 2 (4) SAH (subarachnoid hemorrhage) ICD Codes: I60.9 - Nontraumatic subarachnoid hemorrhage, unspecified Status: Acute Plan: as above complications from fall/TPA/anticoagulation Problem Qualifiers (1) Acute renal failure: Qualified Codes: N17.0 - Acute kidney failure with tubular necrosis (2) Pulmonary emboli: Lori Banks MD Feb 17, 2018 12:25
[2018-02-17] MEDS ORDERED: POTASSIUM BICARBONATE 25 MEQ EFFERVESCENT TAB PO ONE (12:30)
[2018-02-17] MEDS: METOCLOPRAMIDE HCL 10 MG/2 ML VIAL IV PUSH SCH ×2 (14:12→21:23)
[2018-02-17] MEDS: SILDENAFIL CITRATE 20 MG TAB PO SCH ×2 (14:13→21:23)
[2018-02-17] MEDS: METOPROLOL TARTRATE 5 MG/5 ML VIAL IV PUSH SCH ×2 (16:05→21:22)
[2018-02-17] MEDS ORDERED: EPOPROSTENOL NEB SOLUTION 30 NG/KG/MIN 100 ML NEB SCH ×2 (17:00)
--- NOTE | 2018-02-17 17:18 | HHI.PR ---
Subjective Remarks S/P Thrombolysis for massive PE and Cardiac Arrest.Now with respiratory failure . On vent support and FIO2 40 %. Improved output.Still not responsive and off sedation. Off Pressors . Neuro Evaluation for subdural hematoma. Remains on Flolan. Cerebryx. Objective Vital Signs Date Time Temp Pulse Resp B/P (MAP) Pulse Ox O2 Delivery O2 Flow Rate FiO2 02/17/18 16:02 40 02/17/18 15:12 130 02/17/18 15:10 99.1 131 18 147/83 (104) 99 138/82 (100) 02/17/18 14:49 94 40 02/17/18 12:10 40 02/17/18 11:09 98.8 136 18 155/89 (111) 99 148/99 (115) 02/17/18 11:08 135 02/17/18 10:59 98 40 02/17/18 09:15 151/95 02/17/18 08:30 99 02/17/18 08:09 40 02/17/18 07:47 99 40 02/17/18 07:32 136 02/17/18 07:31 98.7 136 19 155/84 (107) 99 136/87 (103) 02/17/18 07:28 99 Mechanical Ventilator 40 02/17/18 07:00 133 139/88 02/17/18 04:00 40 02/17/18 03:53 98 40 02/17/18 03:00 99.5 132 18 152/87 (108) 99 137/86 (103) 02/17/18 03:00 121 02/17/18 00:36 99 40 02/17/18 00:00 40 02/16/18 23:00 93 02/16/18 23:00 99.0 87 18 160/83 (108) 99 156/92 (113) 02/16/18 21:11 90 173/101 02/16/18 20:50 98 40 02/16/18 20:00 40 02/16/18 19:00 98 Mechanical Ventilator 40 02/16/18 19:00 80 02/16/18 19:00 98.8 75 18 171/92 (118) 98 175/91 (119) I/O 02/16/18 02/16/18 02/16/18 02/17/18 02/17/18 02/17/18 07:00 15:00 23:00 07:00 15:00 23:00 Intake Total 884 ml 515 ml 381 ml 808.2 ml 162.8 ml 510 ml Output Total 239 ml 900 ml 1600 ml Balance 645 ml 515 ml -519 ml -791.8 ml 162.8 ml 510 ml Intake Oral 0 ml 0 ml IV Total 808 ml 515 ml 326 ml 552.2 ml 162.8 ml 510 ml Tube Feeding 76 ml 55 ml 156 ml Tube Irrigant 100 ml Output Urine Total 239 ml 700 ml 1600 ml Emesis 200 ml # Bowel Movements 0 0 0 Result Diagram: 02/17/1842902/17/18429 Objective Remarks GENERAL: This moderately overweight , young white female who is intubated on the vent HEENT: Head is normocephalic. Pupils were reactive. NECK: No venous distention, no lymphadenopathy noted. CHEST: Equal movements with decreased breath sounds at the periphery. HEART: The heart tones were regular with S1 and S2. ABDOMEN: Soft, protuberant without masses. No organomegaly. EXTREMITIES: No lesions. There is no edema. SKIN: No lesions observed. NEUROLOGIC:Sedated Assessment and Plan Assessment and Plan IMPRESSION: 1. Bilateral pulmonary embolism with hypoxemia. 2. History of thyroid cancer and thyroidectomy. 3. Hypothyroidism. 4. Dehydration and acute kidney injury. 5. Deep venous thrombosis, right lower extremity. 6. LAVINIA Plan : 1. Vent support and Wean FIO2. 2. Flolan inhalation 50 Mcg/Kg 3. Albuterol nebs q6h PRN 4. CBC,BMP in am 5. Neuro Evaluation and EEG today 6. No anticoagulation due to Intra cerebral bleed. 7. Sildenafil 20 mg TID 8. Discussed with family. Tyra Abdul MD Feb 17, 2018 17:18
--- NOTE | 2018-02-17 17:56 | HHI.NSPN ---
(Michel Hawley) History Chief Complaint: Unable to obtain due to patient's clinical condition. (Michel Hawley) Interval History 02/14: 17-year-old female visiting. Approximately 5 days ago he drove to patient. After arrival at his shortness of breath. Mother states that patient has a structure with probable loss of consciousness. She was brought to the emergency room for evaluation. She was noted to be hypoxic and tachycardic. Stat pulmonary CT angiogram revealed acute bilateral pulmonary emboli. She was placed on Heparin infusion.. Echocardiogram revealed severe right ventricle dilation. She underwent mechanical thrombectomy, and sustained respiratory arrest requiring resuscitation and intubation in the interventional radiology suite. She was admitted to the intensive surgical care unit with hemodynamic instability. She had a second cardiac arrest in the intensive care requiring CPR. She was given a TPA bolus and infusion. On 02/14/18 she remains in cardiogenic shock with RV failure, on pressors. 02/15: In CVICU Intubated on fentanyl 02/16: Patient is comatose when seen this afternoon. She is intubated and mechanically ventilated. She does not have any sedation infusing. She has slight movement of the left great toe to touch but she did not have any other movement of her extremities to either command or noxious stimulation. 02/17: When seen this afternoon the patient is still comatose. She remains intubated and mechanically sedation. She does have midazolam infusing for sedation. She did not move any extremities to command or noxious stimulation. Her pupils were dilated and non-reactive although she did have a trace right corneal reflex. (Michel Hawley) Exam Results 02/15/18 02/15/18 02/16/18 02/16/18 02/17/18 02/17/18 06:00 18:00 06:00 18:00 06:00 18:00 Intake Total 190 ml 2086 ml 1768 ml 736 ml 160 ml 1481.0 ml Output Total 270 ml 334 ml 900 ml 1600 ml Balance -80 ml 2086 ml 1434 ml 736 ml -740 ml -119.0 ml Intake Oral 0 ml 0 ml 0 ml IV Total 100 ml 2086 ml 1565 ml 736 ml 105 ml 1225.0 ml Tube Feeding 143 ml 55 ml 156 ml Tube Irrigant 90 ml 60 ml 100 ml Output Urine Total 270 ml 334 ml 700 ml 1600 ml Emesis 200 ml # Bowel Movements 0 0 0 0 Vital Signs Date Time Temp Pulse Resp B/P (MAP) Pulse Ox O2 Delivery O2 Flow Rate FiO2 02/17/18 16:02 40 02/17/18 16:00 94 40 02/17/18 15:12 130 02/17/18 15:10 99.1 131 18 147/83 (104) 99 138/82 (100) 02/17/18 14:49 94 40 02/17/18 12:10 40 02/17/18 11:09 98.8 136 18 155/89 (111) 99 148/99 (115) 02/17/18 11:08 135 02/17/18 10:59 98 40 02/17/18 09:15 151/95 02/17/18 08:30 99 02/17/18 08:09 40 02/17/18 07:47 99 40 02/17/18 07:32 136 02/17/18 07:31 98.7 136 19 155/84 (107) 99 136/87 (103) 02/17/18 07:28 99 Mechanical Ventilator 40 02/17/18 07:00 133 139/88 02/17/18 04:00 40 02/17/18 03:53 98 40 02/17/18 03:00 99.5 132 18 152/87 (108) 99 137/86 (103) 02/17/18 03:00 121 02/17/18 00:36 99 40 02/17/18 00:00 40 02/16/18 23:00 93 02/16/18 23:00 99.0 87 18 160/83 (108) 99 156/92 (113) 02/16/18 21:11 90 173/101 02/16/18 20:50 98 40 02/16/18 20:00 40 02/16/18 19:00 98 Mechanical Ventilator 40 02/16/18 19:00 80 02/16/18 19:00 98.8 75 18 171/92 (118) 98 175/91 (119) 02/16/18 16:07 99.0 81 18 156/84 (108) 100 159/83 (108) 02/16/18 16:07 40 02/16/18 16:05 99 40 02/16/18 15:02 69 02/16/18 13:44 99 40 02/16/18 12:04 40 02/16/18 12:04 98.7 81 19 157/76 (103) 98 153/73 (99) 02/16/18 11:01 82 02/16/18 10:33 99 40 02/16/18 08:40 99.2 69 18 161/82 (108) 98 155/77 (103) 02/16/18 08:35 40 02/16/18 07:33 80 02/16/18 07:31 98 Mechanical Ventilator 40 02/16/18 07:19 99 40 02/16/18 05:00 71 149/66 02/16/18 04:31 99 40 02/16/18 04:00 40 02/16/18 04:00 99.2 83 19 167/72 (103) 98 149/68 (95) 02/16/18 03:00 83 02/16/18 00:10 98 40 02/16/18 00:10 40 02/16/18 00:10 99.1 83 19 147/87 (107) 98 153/73 (99) 02/15/18 23:00 86 02/15/18 21:43 99 40 02/15/18 20:46 99.1 80 18 149/84 (105) 97 140/72 (94) 02/15/18 20:46 40 02/15/18 19:00 80 02/15/18 19:00 97 Mechanical Ventilator 40 02/15/18 18:07 95 138/71 02/15/18 17:01 40 02/15/18 16:10 97 40 02/15/18 16:03 98.9 02/15/18 16:00 98.9 91 18 126/68 (87) 95 117/62 (80) 02/15/18 15:33 98 02/15/18 13:55 111 125/65 02/15/18 13:41 110 02/15/18 12:43 98.9 02/15/18 12:40 40 02/15/18 12:00 98.9 111 18 137/63 (87) 99 134/68 (90) 02/15/18 10:23 93 40 02/15/18 08:36 97 Mechanical Ventilator 40 02/15/18 08:00 40 02/15/18 08:00 99.1 125 18 124/72 (89) 99 98/47 (64) 02/15/18 07:42 122 101/48 02/15/18 07:42 119 98/46 02/15/18 07:13 110 84/48 02/15/18 07:00 124 02/15/18 05:30 50 02/15/18 04:15 96 40 02/15/18 04:00 40 02/15/18 04:00 99.6 102 18 151/68 (95) 98 102/54 (70) 02/15/18 03:00 105 02/15/18 01:00 105 02/15/18 00:30 97 40 02/15/18 00:30 40 02/15/18 00:00 60 02/15/18 00:00 98.4 97 18 105/59 (74) 98 114/66 (82) 02/14/18 23:00 97 98/56 02/14/18 22:39 98 100/55 02/14/18 21:23 99 60 02/14/18 20:47 89 135/72 02/14/18 20:00 98.1 70 18 131/65 (87) 98 143/78 (99) 02/14/18 20:00 60 02/14/18 19:00 80 02/14/18 19:00 98 Mechanical Ventilator 60 02/14/18 18:55 98 100 02/14/18 18:25 99 100 (Michel Hawley) Physical Examination GENERAL: The patient is comatose when seen. She is intubated and mechanically ventilated. She has midazolam 2 mg/hr for sedation infusing. She has fentanyl infusing at 200 mcg/hr for pain control. Clevidipine is infusing at 4 mg/hr for blood pressure control. She is not breathing over the set rate. HEENT: Normocephalic, atraumatic. Left pupil 5 to 6 mm and right pupil 6 to 7 mm non-reactive. Orally intubated. OGT. MUSCULOSKELETAL: No response to command or noxious stimulation to any extremity. No evident clubbing or deformity. NEUROLOGICAL: Comatose, sedated with midazolam. No eye opening to any stimulation. Trace right eyelash flutter to noxious stimulation (left foot & right central). Trace right corneal reflex but none on left. Did not follow any commands. No extremity response to local or central noxious stimulation. (Michel Hawley) Lab, Micro, Other Results Recent Impressions Head CT 02/17/18 0752 Signed Impressions: CONCLUSION: Very slight improvement of the 3.1 cm right temporal lobe parenchymal hemorrhag e. Scattered tiny areas of parenchymal/subarachnoid hemorrhage are stable withi n the left frontal, left temporal and right parietal lobes. Diffuse sulcal effa cement is unchanged. No new midline shift is noted. Chest X-Ray 02/17/18 0000 Signed Impressions: CONCLUSION: 1. Repositioning of [place]-Christ[place] catheter as described above. 2. Persistent hypoaeration of lungs with left basilar airspace disease. 3. Stable position of endotracheal and nasogastric tubes. Abdomen X-Ray 02/16/18 0000 Signed Impressions: CONCLUSION: No significant bowel distention Persistent contrast remaining in the kidneys. This can be seen with ATN. Laboratory Tests Test 02/15/18 05:30 02/15/18 18:20 02/16/18 04:00 02/16/18 10:34 White Blood Count 20.4 TH/MM3 16.5 TH/MM3 Red Blood Count 3.38 MIL/MM3 2.96 MIL/MM3 Hemoglobin 10.3 GM/DL 9.0 GM/DL Hematocrit 29.6 % 26.3 % Mean Corpuscular Volume 87.4 FL 88.8 FL Mean Corpuscular Hemoglobin 30.4 PG 30.4 PG Mean Corpuscular Hemoglobin Concent 34.7 % 34.2 % Red Cell Distribution Width 13.0 % 13.2 % Platelet Count 99 TH/MM3 82 TH/MM3 Mean Platelet Volume 8.8 FL 9.3 FL Prothrombin Time 11.5 SEC 11.4 SEC Prothromb Time International Ratio 1.1 RATIO 1.1 RATIO Activated Partial Thromboplast Time 23.0 SEC 22.6 SEC Fibrinogen 223 mg/dL 217 mg/dL Blood Urea Nitrogen 20 MG/DL 30 MG/DL Creatinine 2.44 MG/DL 2.18 MG/DL Random Glucose 112 MG/DL 104 MG/DL Total Protein 4.9 GM/DL 5.1 GM/DL Albumin 2.4 GM/DL 2.4 GM/DL Calcium Level 7.7 MG/DL 7.5 MG/DL Alkaline Phosphatase 63 U/L 62 U/L Aspartate Amino Transf (AST/SGOT) 101 U/L 51 U/L Alanine Aminotransferase (ALT/SGPT) 156 U/L 101 U/L Total Bilirubin 0.5 MG/DL 0.4 MG/DL Sodium Level 147 MEQ/L 146 MEQ/L Potassium Level 4.6 MEQ/L 4.2 MEQ/L Chloride Level 113 MEQ/L 114 MEQ/L Carbon Dioxide Level 22.9 MEQ/L 21.8 MEQ/L Anion Gap 11 MEQ/L 10 MEQ/L Estimat Glomerular Filtration Rate 26 ML/MIN 29 ML/MIN Lactic Acid Level 1.2 mmol/L 1.2 mmol/L Urine Random Creatinine 503.2 MG/DL Urine Random Sodium 52 MEQ/L Human Chorionic Gonadotropin, Quant LESS THAN 1 MIU/ML Phenytoin (Dilantin) Level 5.1 MCG/ML Blood Gas Puncture Site ALICIA Blood Gas Patient Temperature 98.6 Blood Gas HCO3 21 mmol/L Blood Gas Base Excess -2.8 mmol/L Blood Gas Oxygen Saturation 97 % Arterial Blood pH 7.41 Arterial Blood Partial Pressure CO2 35 mmHg Arterial Blood Partial Pressure O2 155 mmHg Arterial Blood Oxygen Content 12.6 Vol % Arterial Blood Carboxyhemoglobin 0.7 % Arterial Blood Methemoglobin 1.2 % Blood Gas Hemoglobin 9.0 G/DL Oxygen Delivery Device VENTILATOR Blood Gas Ventilator Setting SEE COMMENTS Blood Gas Inspired Oxygen 40 % Test 02/17/18 04:30 02/17/18 05:58 02/17/18 13:15 White Blood Count 17.2 TH/MM3 Red Blood Count 3.25 MIL/MM3 Hemoglobin 9.8 GM/DL Hematocrit 28.8 % Mean Corpuscular Volume 88.8 FL Mean Corpuscular Hemoglobin 30.1 PG Mean Corpuscular Hemoglobin Concent 33.8 % Red Cell Distribution Width 13.2 % Platelet Count 99 TH/MM3 Mean Platelet Volume 9.1 FL Prothrombin Time 11.2 SEC Prothromb Time International Ratio 1.1 RATIO Activated Partial Thromboplast Time 21.7 SEC Fibrinogen 183 mg/dL Blood Urea Nitrogen 31 MG/DL Creatinine 1.86 MG/DL Random Glucose 108 MG/DL Total Protein 5.8 GM/DL Albumin 2.9 GM/DL Calcium Level 8.2 MG/DL Phosphorus Level 2.9 MG/DL Magnesium Level 2.2 MG/DL Alkaline Phosphatase 78 U/L Aspartate Amino Transf (AST/SGOT) 45 U/L Alanine Aminotransferase (ALT/SGPT) 84 U/L Lactate Dehydrogenase 460 U/L Total Bilirubin 0.7 MG/DL Sodium Level 146 MEQ/L Potassium Level 3.5 MEQ/L Chloride Level 112 MEQ/L Carbon Dioxide Level 21.7 MEQ/L Anion Gap 12 MEQ/L Estimat Glomerular Filtration Rate 35 ML/MIN Lactic Acid Level 1.5 mmol/L Total Creatine Kinase 193 U/L Creatine Kinase MB 0.9 NG/ML Creatine Kinase MB % 0.5 % Troponin I 0.11 NG/ML Amylase Level 73 U/L Lipase 128 U/L Phenytoin (Dilantin) Level 10.2 MCG/ML Blood Gas Puncture Site ART LINE Blood Gas Patient Temperature 98.6 Blood Gas HCO3 24 mmol/L Blood Gas Base Excess 0.2 mmol/L Blood Gas Oxygen Saturation 96 % Arterial Blood pH 7.43 Arterial Blood Partial Pressure CO2 37 mmHg Arterial Blood Partial Pressure O2 109 mmHg Arterial Blood Oxygen Content 13.1 Vol % Arterial Blood Carboxyhemoglobin 0.8 % Arterial Blood Methemoglobin 1.3 % Blood Gas Hemoglobin 9.6 G/DL Oxygen Delivery Device VENTILATOR Blood Gas Ventilator Setting PRVC/AC Blood Gas Inspired Oxygen 40 % Ammonia 19 MCMOL/L (Michel Hawley) Medical Decision Making Impression and Plan Impression: 1. Right temporal and parietal acute parenchymal hemorrhage with smaller scattered areas of punctate hemorrhage and mild subarachnoid hemorrhage in the right greater than left hemisphere. No significant mass-effect. Contributing factors include head trauma, anticoagulation-TPA, emboli, hypoxia- cerebral ischemia, venous congestion or thrombosis. She apparently also had a brief episode following TPA and cardiac resuscitation 2. Possible ischemic encephalopathy Patient remains critical. She had no motor response to any stimulation except for trace right eyelash flutter. Pupils dilated and nonreactive although trace right corneal reflex. Past 24 hrs: 99.5 T max. Intermittent tachycardia. Intermittently elevated SBP. Reviewed labs for today. Increase in leukocytosis. Improvement in haemoglobin level & platelet count. aPTT 21.7 & fibrinogen 183. Sodium 146. Slight improvement in renal function. Improvement in transaminases. CT brain demonstrated very slight improvement in the right temporal lobe parenchymal haemorrhage with the parenchymal & subarachnoid haemorrhage stable, sulcal effacement unchanged, no midline shift noted. Plan: Primary & critical care management per Vacuum Repairer. Neuro checks. (Michel Hawley) Attending Statement The exam, history, and the medical decision-making described in the above note were completed with the assistance of the mid-level provider. I reviewed and agree with the findings presented. I attest that I had a [id number] encounter with the patient on the same day, and personally performed and documented my assessment and findings in the medical record. On my examination of 02/17/2018, the patient remains intubated, sedated on fentanyl. Her pupils have enlarged earlier in the day, now approximately 7 mm left, 6 mm right, nonreactive. No eye-opening She has mild moderately disconjugate oculocephalic movements and minimal corneal response. No response to deep pain all extremities. The patient's CT scan head 02/17/2018 images are reviewed and discussed at length with the patient's family in the intensive care unit on the evening of 08/2018. I advised him that there appears to be progression of what appeared to be a component of ischemic or hypoxic encephalopathy noted on her initial CT scan. There is now further effacement of the sulci diffuse in both hemispheres as well as loss of navarrete-white interface. No progression of the intracranial hemorrhage, which in and of itself does not appear to cause significant mass-effect. There is increasing effacement along the cisterns. I have advised the family that the patient likely has diffuse severe brain damage, possibly related to hypoxic or ischemic brain injury. It is not felt that there is a role for surgical intervention in this situation , which may serve to temporarily diminish secondary effects from cerebral edema , but would not have any impact on the apparent severe underlying brain injury. An MRI of the brain has been scheduled. The patient has been discussed on the evening of 02/17/2018 with regional loss prevention manager. (Rodrigo Izaguirre MD) Michel Hawley Feb 17, 2018 17:56 Rodrigo Izaguirre MD Feb 18, 2018 10:04
--- NOTE | 2018-02-17 21:54 | MG ---
cc: Eloy Sosa MD, Mandeep MD EEG NUMBER [id number] Generalized 1-3 Hz delta activity occurring 20-50 microvolts, periodic delta at times frontal channels. Mild EEG variability reactivity. Limited driving with photic stimulation. Single lead EKG showing sinus tachycardia. INTERPRETATION: Moderate to severe encephalopathy. Clinical correlation. MD HOWARD Nieto/ , 09:40 PM , 09:52 PM
[2018-02-18] VITALS (13 sets, daily range): BP systolic 95–139; BP diastolic 58–89; PULSE 78–105; RESP 18; TEMP 97.3–98; O2SAT 95–99
[2018-02-18] MEDS: RESP: ALBUTEROL 2.5 MG/IPRATROPIUM 0.5 MG NEB (SCH) NEB ×6 (00:42→20:15)
[2018-02-18] MEDS: EPOPROSTENOL NEB SOLUTION 40 NG/KG/MIN 100 ML NEB SCH ×6 (00:45→23:26)
[2018-02-18] MEDS: SODIUM CHLOR 0.9% 1000 ML INJ 1,000 ML IV SCH ×2 (00:48→17:30)
[2018-02-18] MEDS ORDERED: EPOPROSTENOL NEB SOLUTION 20 NG/KG/MIN 100 ML NEB SCH ×2 (01:00)
[2018-02-18] MEDS: METOPROLOL TARTRATE 5 MG/5 ML VIAL IV PUSH SCH ×4 (03:37→21:16)
[2018-02-18] MEDS: CLEVIDIPINE INJ 50 ML IV PRN ×2 (03:40→18:00)
[2018-02-18] MEDS: fentaNYL DRIP 250 ML IV PRN (03:40)
[2018-02-18] MEDS: INSULIN NovoLIN REGULAR SUPPLEMENTAL SCALE SQ SCH ×6 (04:00→20:00)
--- NOTE | 2018-02-18 04:20 | RADRPT ---
EXAM DATE: 02/18/2018 4:15 AM EDT AGE/SEX: 17 years / Female INDICATIONS: Short of breath. CLINICAL DATA: This is the patient's subsequent encounter. Patient reports that signs and symptoms h ave been present for 1 week and indicates a pain score of 0/10. MEDICAL/SURGICAL HISTORY: Carcinoma, thyroid. Hyperthyroidism. None. COMPARISON: [facility] [place], CHEST SINGLE AP, 02/17/2018. . FINDINGS: Single AP view the chest. Endotracheal tube and nasogastric tube remain in place. Right IJ catheter i s no longer seen. Mild left lung base opacity is unchanged. Cardiomediastinal silhouette unchanged. N o evidence of pneumothorax. CONCLUSION: 1. Right IJ [place]-Christiano catheter no longer seen. 2. Mild left lung base opacity unchanged. Electronically signed by: Kamran Baez MD 02/18/2018 4:19 AM EDT
[2018-02-18 05:02] LABS: ALBUMIN 2.6 GM/DL (3.4-5.0); ALT (GPT) 58 U/L (9-42); AST (GOT) 27 U/L (16-38); BICARBONATE 26.3 MEQ/L (21.0-32.0); BLOOD UREA NITROGEN 28 MG/DL (7-18); CHLORIDE 113 MEQ/L (98-107); CREATININE 1.51 MG/DL (0.50-1.00); GLOMERULAR FILTRATION RATE 44 ML/MIN (>89); GLUCOSE,RANDOM 117 MG/DL (74-106); INTERNATIONAL NORMALIZED RATIO 1.1 RATIO; MAGNESIUM 2.5 MG/DL (1.5-2.5); PHOSPHORUS 3.6 MG/DL (2.5-4.9); PROTHROMBIN TIME - PATIENT 11.2 SEC (9.8-11.6); SODIUM (NA) 149 MEQ/L (136-145)
[2018-02-18 05:03] LABS: HEMOGLOBIN 10.5 GM/DL (11.6-15.3); MEAN CELL VOLUME 90.4 FL (80.0-100.0); MEAN CORPUSCULAR HEMOGLOBIN 30.7 PG (27.0-34.0); MEAN PLATELET VOLUME 8.9 FL (7.0-11.0); PLATELET COUNT 102 TH/MM3 (150-450); RED BLOOD COUNT 3.43 MIL/MM3 (4.00-5.30); RED CELL DISTRIBUTION WIDTH 13.5 % (11.6-17.2); WHITE BLOOD COUNT 14.3 TH/MM3 (4.0-11.0)
[2018-02-18 05:05] LABS: ALKALINE PHOSPHATASE 84 U/L (45-117); PHENYTOIN (DILANTIN) 9.9 MCG/ML (10.0-20.0); TOTAL BILIRUBIN ADULT 0.6 MG/DL (0.2-1.0); TOTAL PROTEIN 5.7 GM/DL (6.4-8.2)
[2018-02-18] MEDS: FOSPHENYTOIN SODIUM 100 MG PE/2 ML VIAL IV SCH ×3 (05:55→21:16)
[2018-02-18] MEDS: SILDENAFIL CITRATE 20 MG TAB PO SCH ×3 (05:55→21:17)
[2018-02-18] MEDS: METOCLOPRAMIDE HCL 10 MG/2 ML VIAL IV PUSH SCH ×3 (05:56→21:17)
[2018-02-18] MEDS: LEVOTHYROXINE SODIUM 100 MCG TAB PO SCH (05:56)
[2018-02-18] MEDS: ARTIFICIAL TEARS OPTH SOLN 15 ML BTL EACH EYE SCH ×3 (05:56→22:00)
[2018-02-18] MEDS: LEVOTHYROXINE SODIUM 75 MCG TAB PO SCH (05:56)
[2018-02-18] MEDS: MIDAZOLAM 50 MG/50 ML INJ 50 ML IV PRN (05:57)
--- NOTE | 2018-02-18 07:30 | PD.ONC.PN ---
Subjective Subjective Remarks Patient seen and examined, vital signs, labs and medications reviewed. CT scan of the head from 02/17/2018 also reviewed. Paper Twister notes reviewed including critical care medicine and neurosurgical notes. Patient remains intubated, she is nonresponsive despite not being on sedation. No spontaneous movements, pupils remained fixed and dilated, no corneal reflex and no gag reflex. Concern for a reversible neurologic damage. Patient's mother and aunt at bedside. Objective Data Date Time Temp Pulse Resp B/P (MAP) Pulse Ox O2 Delivery O2 Flow Rate FiO2 02/18/18 07:10 95 40 02/18/18 04:00 40 02/18/18 03:52 96 40 02/18/18 03:50 105 02/18/18 03:50 98.0 89 18 135/74 (94) 99 112/77 (89) 02/18/18 03:40 93 124/77 02/18/18 00:42 97 40 02/18/18 00:37 40 02/17/18 23:15 105 02/17/18 23:15 98.9 105 18 128/69 (88) 97 136/81 (99) 02/17/18 23:04 96 40 02/17/18 20:50 94 40 02/17/18 20:15 114 121/72 02/17/18 20:00 40 02/17/18 19:04 95 Mechanical Ventilator 40 02/17/18 19:04 98.5 114 18 135/77 (96) 97 120/70 (87) 02/17/18 19:00 113 02/17/18 16:02 40 02/17/18 16:00 94 40 02/17/18 15:12 130 02/17/18 15:10 99.1 131 18 147/83 (104) 99 138/82 (100) 02/17/18 14:49 94 40 02/17/18 12:10 40 02/17/18 11:09 98.8 136 18 155/89 (111) 99 148/99 (115) 02/17/18 11:08 135 02/17/18 10:59 98 40 02/17/18 09:15 151/95 02/17/18 08:30 99 02/17/18 08:09 40 02/17/18 07:47 99 40 02/17/18 07:32 136 02/17/18 07:31 98.7 136 19 155/84 (107) 99 136/87 (103) 02/17/18 07:28 99 Mechanical Ventilator 40 02/18/18 02/18/18 02/18/18 07:00 15:00 23:00 Intake Total 992 ml Output Total 500 ml Balance 492 ml Result Diagram: 02/18/18 0439 02/18/18 0439 Laboratory Results Laboratory Tests Test 02/17/18 13:15 02/18/18 04:39 02/18/18 06:14 Ammonia 19 MCMOL/L LESS THAN 10 MCMOL/L White Blood Count 14.3 TH/MM3 Red Blood Count 3.43 MIL/MM3 Hemoglobin 10.5 GM/DL Hematocrit 31.0 % Mean Corpuscular Volume 90.4 FL Mean Corpuscular Hemoglobin 30.7 PG Mean Corpuscular Hemoglobin Concent 34.0 % Red Cell Distribution Width 13.5 % Platelet Count 102 TH/MM3 Mean Platelet Volume 8.9 FL Prothrombin Time 11.2 SEC Prothromb Time International Ratio 1.1 RATIO Activated Partial Thromboplast Time 19.6 SEC Blood Urea Nitrogen 28 MG/DL Creatinine 1.51 MG/DL Random Glucose 117 MG/DL Total Protein 5.7 GM/DL Albumin 2.6 GM/DL Calcium Level 8.0 MG/DL Phosphorus Level 3.6 MG/DL Magnesium Level 2.5 MG/DL Alkaline Phosphatase 84 U/L Aspartate Amino Transf (AST/SGOT) 27 U/L Alanine Aminotransferase (ALT/SGPT) 58 U/L Total Bilirubin 0.6 MG/DL Sodium Level 149 MEQ/L Potassium Level 3.2 MEQ/L Chloride Level 113 MEQ/L Carbon Dioxide Level 26.3 MEQ/L Anion Gap 10 MEQ/L Estimat Glomerular Filtration Rate 44 ML/MIN Lactic Acid Level 1.1 mmol/L Phenytoin (Dilantin) Level 9.9 MCG/ML Blood Gas Puncture Site ART LINE Blood Gas Patient Temperature 98.6 Blood Gas HCO3 26 mmol/L Blood Gas Base Excess 2.7 mmol/L Blood Gas Oxygen Saturation 95 % Arterial Blood pH 7.46 Arterial Blood Partial Pressure CO2 37 mmHg Arterial Blood Partial Pressure O2 84 mmHg Arterial Blood Oxygen Content 14.1 Vol % Arterial Blood Carboxyhemoglobin 0.9 % Arterial Blood Methemoglobin 1.1 % Blood Gas Hemoglobin 10.5 G/DL Oxygen Delivery Device VENTILATOR Blood Gas Ventilator Setting PRVC/AC Blood Gas Inspired Oxygen 40 % Imaging Studies Last 24 hours Impressions Chest X-Ray 02/18/18 0600 Signed Impressions: CONCLUSION: 1. Right IJ Nikolai-Christiano catheter no longer seen. 2. Mild left lung base opacity unchanged. Head CT 02/17/18 0752 Signed Impressions: CONCLUSION: Very slight improvement of the 3.1 cm right temporal lobe parenchymal hemorrhag e. Scattered tiny areas of parenchymal/subarachnoid hemorrhage are stable withi n the left frontal, left temporal and right parietal lobes. Diffuse sulcal effa cement is unchanged. No new midline shift is noted. Administered Medications Medications (Trade) Dose Ordered Sig/Gregg Route PRN Reason Start Time Stop Time Status Last Admin Dose Admin Sodium Chloride (NS Flush) 2 ml BID IV FLUSH 02/13/18 09:00 02/17/18 21:25 Cetirizine HCl (ZyrTEC) 10 mg DAILY PO 02/13/18 09:00 Future Hold 02/16/18 09:08 Fluticasone Propionate (Flonase Anil Spr) 1 spray BID EACH NARE 02/13/18 09:00 Future Hold 02/13/18 10:14 Levothyroxine Sodium (Synthroid) 100 mcg DAILY@0700 PO 02/13/18 07:00 02/18/18 05:56 Levothyroxine Sodium (Synthroid) 75 mcg DAILY@0700 PO 02/13/18 07:00 02/18/18 05:56 Chlorhexidine Gluconate (Peridex 0.12% Liq) 15 ml BID@08,20 MT 02/14/18 08:00 02/17/18 21:22 Fentanyl Citrate 250 ml @ 5 mls/hr TITRATE PRN IV SEDATION 02/14/18 03:15 02/18/18 03:40 Midazolam HCl 50 ml @ 2 mls/hr TITRATE PRN IV SEDATION 02/14/18 06:30 02/18/18 05:57 Sodium Chloride 1,000 ml @ 50 mls/hr Q20H IV 02/14/18 13:30 02/18/18 00:48 Clevidipine 50 ml @ 2 mls/hr TITRATE PRN IV Blood Pressure Management 02/14/18 19:15 02/18/18 03:40 Levetriacetam 500 mg/Sodium Chloride 105 ml @ 420 mls/hr Q12HR IV 02/14/18 21:00 02/17/18 21:23 Vasopressin 40 units/Sodium Chloride 102 ml @ 1.5 mls/hr Q24H PRN IV Blood pressure management 02/15/18 13:45 02/15/18 13:55 Fosphenytoin Sodium (Cerebyx Inj) 100 mgpe Q8HR IV 02/16/18 14:00 02/18/18 05:55 Albuterol/ Ipratropium (Duoneb Neb) 1 ampule Q4HR NEB NEB 02/16/18 08:00 02/18/18 07:09 Artificial Tears (Tears Naturale Opth Soln) 1 drop Q8HR EACH EYE 02/16/18 14:00 02/18/18 05:56 Lansoprazole (Prevacid Odt) 30 mg DAILY NG 02/16/18 09:00 02/17/18 09:20 Docusate Sodium (Colace Liq) 100 mg Q12HR PO 02/16/18 09:00 02/17/18 21:23 Sennosides (Senna Liq) 8.8 mg BID PO 02/16/18 09:00 02/17/18 21:23 Diphenhydramine HCl (Benadryl Inj) 25 mg Q4H PRN IV hives 02/17/18 05:30 02/17/18 10:55 Metoclopramide HCl (Reglan Inj) 5 mg Q8HR IV PUSH 02/17/18 14:00 02/18/18 05:56 Sildenafil Citrate (Revatio) 20 mg Q8HR PO 02/17/18 14:00 02/18/18 05:55 Metoprolol Tartrate (Lopressor Inj) 5 mg Q6H IV PUSH 02/17/18 16:00 02/18/18 03:37 Epoprostenol Sodium 70 ml/ Sodium Chloride 100 ml @ 5 mls/hr Q8H NEB 02/18/18 00:00 02/18/18 00:45 Objective Remarks GENERAL: Young female, laying in bed, intubated and sedated, she has generalized anasarca and edema. No active bleeding noted though she does have areas of bruising of the skin. SKIN: Warm and dry. With small bruising over her chest and extremities. HEAD: Normocephalic. EYES: No scleral icterus. No injection or drainage. Conjunctivae are pale. Pupils appear to be fixed at about 8 mm and do not react to light. NECK: Supple, trachea midline. No JVD or lymphadenopathy. Right-sided central venous catheter in place; Nikolai-Christiano. LYMPHATIC: No adenopathy. CARDIOVASCULAR: Tachycardic with heart rate of 135 bpm, regular. RESPIRATORY: Intubated, on ventilator support, breath sounds equal bilaterally. No accessory muscle use. GASTROINTESTINAL: Abdomen soft, non-tender, appears distended. EXTREMITIES: Generalized edema/anasarca. MUSCULOSKELETAL: Difficult to assess muscle tone due to sedation. NEUROLOGICAL: No spontaneous movements at this time, she is sedated. Pupils bilaterally dilated, right pupil is 8mm, left pupil approximately 8 mm. No discernible response to light reflex. PSYCHIATRIC: Unable to assess. Assessment/Plan Problem List: (1) Pulmonary emboli ICD Codes: I26.99 - Other pulmonary embolism without acute cor pulmonale Status: Acute Plan: --s/p tpa infusion 02/14 --s/p embolectomy --s/p IVC filter placement. (2) SAH (subarachnoid hemorrhage) ICD Codes: I60.9 - Nontraumatic subarachnoid hemorrhage, unspecified Status: Acute Assessment 17-year-old female hospitalized on 02/12/2018 following syncopal episode and difficulty breathing, CT angiogram revealed bilateral pulmonary emboli with significant clot volume/burden. Lower extremity deep venous thrombosis also identified. Echocardiogram revealed severe right ventricular failure and elevated right peak pulmonary arterial pressures. She underwent thrombolytic therapy on the night of 02/14/2018, shortly thereafter she decompensated from a cardiopulmonary standpoint and has since then been intubated and sedated. Over the past 76 hours she has had 2 cardiopulmonary arrests for which she was resuscitated. low voltage electrician of 02/14/2018 she underwent TPA thrombolytic therapy. Afternoon 02/14/2018 she was found to have intracranial hemorrhage. Plan 1. Bilateral pulmonary emboli: Due to intracranial hemorrhage there is a contraindication to anticoagulation at this time. She is therefore not on anticoagulation at this time. Hypercoagulable workup indicates no findings to suggest prothrombotic state at this time. Factor V Leiden mutation negative, prothrombin gene mutation negative, lupus anticoagulant negative, protein C and protein S antigen activity within normal limits. 2. Intracranial hemorrhage and subdural hematoma: Suspect permanent neurologic deficits. MRI brain pending for later this afternoon. Disposition: Prognosis remains guarded. Spoke to the patient's mother and aunt at bedside, they have some questions regarding the chronicity of the pulmonary artery thrombosis and also questions regarding current clot burden in the pulmonary arteries. They seem to be coming to the realization that neurologic recovery may not be possible. It may be reasonable to consider involving the palliative care service should MRI of the brain indicate findings consistent with permanent brain damage and limited chance of recovery. Problem Qualifiers (1) Pulmonary emboli: Ernesto Banks MD Feb 18, 2018 07:30
[2018-02-18 07:51] LABS: BETA2-GLYCOPROTEIN IGA <9 SAU (< OR = 20); BETA2-GLYCOPROTEIN IGG <9 SGU (< OR = 20); BETA2-GLYCOPROTEIN IGM <9 SMU (< OR = 20)
--- NOTE | 2018-02-18 08:13 | HHI.CCPN ---
Subjective Remarks/Hospital Course Hospital Course: 17-year-old female with a past medical history significant for hypothyroidism presents to the emergency department for evaluation of shortness of breath and a syncopal episode. Patient reports that for the past 2 days she has had shortness of breath. Today she noticed that she had increasing dyspnea on exertion. She reports associated emesis 3 with dizziness and loss of consciousness. She states she had right lower extremity pain approximately 1 month ago. She denies any chest pain. No abdominal pain. No fevers/chills. The patient was initially admitted to medicine service on a heparin drip. She was evaluated by hematology oncology Dr. Banks, and the stress echocardiogram showed severe RV dilation. The patient was also clinically worsening requiring more oxygen support. She was taken to IR for mechanical thrombectomy. While in the IR suite she suffered a respiratory arrest and was intubated and successfully resuscitated. She returned to ICU in severe shock/obstructive. Shortly after arrival to the unit the patient suffered another episode of cardiac arrest requiring 2 cycles of CPR and 2 injections of epinephrine. Due to hemodynamic instability the TPA bolus followed by an infusion was immediately administered. 02/14: patient remains in profound obstructive cardiogenic shock with acute RV failure, as well as acute hypoxic respiratory failure. I added inhaled flolan at 50 ng/kg/min, dobutamine at 5 mcg/kg/min. epinephrine is at 6 mcg/min and vasopressin at 0.04 units/min. avoiding norepinephrine to minimize pulmonary vascular constriction. avoiding milrinone currently due to hypotension, although if we get control of her shock, milrinone may be of added benefit. lactate is 8 and continues to rise. pH 7.1 with BE -14. remains hemodynamically unstable. pupils are 6mm and minimally reactive, although the patient has recently received atropine IV during her cardiac arrest, so unclear what prognostic value her pupillary exam is currently. She does have a history of recently falling and hitting her head, so we will order head CT to rule out catastrophic hemorrhage. Also have given 3 amps bicarb, 1 gm calcium chloride for her acid/base and electrolyte derangements. started insulin drip for severe hyperglycemia. remained at bedside titrating vasoactive medications. remains on 100% fio2. very unstable. 02/15: 02/16: Afebrile. Temperature overnight but did not tolerate tube feeds will be restarted today. KUB ordered. Pupils are reactive with a leftward gaze. Withdraws to pain bilateral upper and lower extremities. Discussed with mother at bedside. Subjective: 02/17: T-max 99.5. Currently afebrile. Dobutamine discontinued overnight due to "tachycardia". Cardiac output is greater than 11. Cardiac index is greater than 4. Neuro examination worsened overnight. Both pupils are fixed and dilated right pupil about 8 mm left pupil about 6 mm and fixed. Does not withdraw to pain at all today. Gag positive. No corneal reflex. No cough. 02/18: reamains sedated. pupils remain fixed and dilated. plan for MRI today. hemodynamically stable on minimal clevidipine to keep SBP < 140. high concern for anoxic brain injury. discussed with mother at bedside. Objective Vital Signs Date Time Temp Pulse Resp B/P (MAP) Pulse Ox O2 Delivery O2 Flow Rate FiO2 02/18/18 07:10 95 40 02/18/18 03:50 105 02/18/18 03:50 98.0 18 135/74 (94) 112/77 (89) 02/17/18 19:04 Mechanical Ventilator Intake and Output 02/18/18 02/18/18 02/19/18 08:00 16:00 00:00 Intake Total 992 ml Output Total 500 ml Balance 492 ml Result Diagram: 02/18/18 0439 02/18/18 0439 Other Results Laboratory Tests Test 02/18/18 06:14 Blood Gas Puncture Site ART LINE Blood Gas Patient Temperature 98.6 Blood Gas HCO3 26 mmol/L (22-26) Blood Gas Base Excess 2.7 mmol/L (-2-2) Blood Gas Oxygen Saturation 95 % (90-100) Arterial Blood pH 7.46 (7.380-7.420) Arterial Blood Partial Pressure CO2 37 mmHg (38-42) Arterial Blood Partial Pressure O2 84 mmHg (61-120) Arterial Blood Oxygen Content 14.1 Vol % (12.0-20.0) Arterial Blood Carboxyhemoglobin 0.9 % (0-4) Arterial Blood Methemoglobin 1.1 % (0-2) Blood Gas Hemoglobin 10.5 G/DL (12.0-16.0) Oxygen Delivery Device VENTILATOR Blood Gas Ventilator Setting PRVC/AC Blood Gas Inspired Oxygen 40 % Imaging Last Impressions Abdomen X-Ray 02/16/18 0000 Signed Impressions: CONCLUSION: No significant bowel distention Persistent contrast remaining in the kidneys. This can be seen with ATN. Head CT 02/14/18 Signed Impressions: CONCLUSION: 1. Stable parenchymal hemorrhage on the right and scattered subarachnoid hemor rhage with some swelling and edema in the brain. Overall no significant change from February 14 at 1243. Chest X-Ray 02/14/18 Signed Impressions: CONCLUSION: Increase in bilateral airspace disease since earlier exam. Placement of Joseph-Ga nz catheter with tip in right pulmonary artery. Endotracheal tube and nasogastr ic tube unchanged. Lower Extremity Ultrasound 02/13/18 Signed Impressions: CONCLUSION: 1. There is thrombus within the right popliteal and peroneal veins. CT Angiography 02/12/182030 Signed Impressions: CONCLUSION: 1. Multiple large central and peripheral bilateral pulmonary emboli. 2. Trace pericardial fluid. Objective Remarks GENERAL: 17-year-old female currently orotracheally intubated and sedated on fentanyl and versed. SKIN: Warm. Well perfused. HEAD: Normocephalic. Atraumatic. EYES: Right pupil is about 7 mm and fixed. Left pupil is about 7 mm and fixed. No scleral icterus. No injection or drainage. NECK: Supple, trachea midline. large neck circumference prevents accurate assessment of JVD. dressing over right neck clean, dry, intact. CARDIOVASCULAR: tachycardic rate, regular rhythm. sinus. RESPIRATORY: Diminished breath sounds throughout. No wheezing is appreciated GASTROINTESTINAL: Abdomen obese, soft, non-tender, nondistended. no guarding. EXTREMITIES: Warm and currently well perfused.. distal pulses 1+. right groin with arterial sheath in place, site clean and dry, dressing intact, no hematoma. left groin with triple lumen catheter in place, site c/d, dressing intact, no hematoma. NEURO EXAM: does not withdraw to pain. does not posture. sedated. pupils as above. No clonus. Positive gag. No cough. No corneal reflex. Date of Insertion: Feb 14, 2018 Line: Central Venous Catheter Side: Left Location: Femoral A/P Assessment and Plan Assessment: 17yF with massive PE complicated by cardiac arrest x 2, intracerebral hemorrhage, hypoxic/ischemic encephalopathy. remains critically ill. neuro exam worse. will obtain MRI today. have discussed at length with family at bedside. Neuro/Psych: Acute hypoxic/ischemic encephalopathy Acute temporoparietal intraparenchymal hemorrhage with scattered punctate hemorrhage in right greater than left subarachnoid hemorrhage Seizure disorder NOS Allergic rhinitis - neurosurgery: Dr. Izaguirre following -Neurology following -Dr. De Guzman - possibly component of hypoxic/ischemic encephalopathy, but both cardiac arrest times were short, so likely minimized time of cerebral ischemia. - continue versed, fentanyl. - RASS goal -2 - frequent neuro checks - Daily sedation vacation -CT brain 02/17: mild reduction in size of bleed. no midline shift - MRI today. - avoid anticoagulation in light of hemorrhage as above. - noted platelets of remain low: risk/benefit favors holding on transfusing platelets given recent massive PE and concern for hypercoagulability. -Acetaminophen 650 mg by tube every 6 hours as needed fever Currently on levetiracetam 500 mg IV twice daily and fosphenytoin 100 mg IV every 8 hours. phenytoin level 9.9. EEG 02/17: severe encephalopathy. 02/15 EEG revealed a diffuse encephalopathy. In addition,sharp activity is identified frequently over the right hemisphere with phase reversal, which is consistent with a possible seizure focus in the right hemisphere. Holding cetirizine 10 mg daily Respiratory: Acute hypoxic and hypercarbic respiratory failure Massive pulmonary embolism status post systemic TPA Acute pulmonary Hypertension secondary to acute pulmonary embolism PRVC 18/600// - vent bundle, hob elevated, Albuterol/ipratropium aerosols every 4 hours with albuterol aerosols every 2 hours as needed dyspnea - wean fio2 for goal spo2 > 92% - inhaled epoprostenol at 40 ng/kg/min. hold further weaning today. - no weaning of mechanical ventilation given shock and instability Cardiovascular: Cardiogenic Shock- Obstructive type Right Ventricular Failure secondary to massive pulmonary embolism Resolved lactic acidosis Moderate TR off inotropes on clevidipine for goal sbp < 140 increase sildenafil to 30 mg po q8h - s/p systemic TPA 02/14 for hemodynamic collapse - s/p endovascular mechanical thrombectomy 02/13, repeat thrombectomy 02/14 - s/p emergent IVC filter placement 02/14 - hold all anticoagulation. Continue normal saline at 50 cc an hour continue lasix 20mg iv daily Echocardiogram 02/13 The left ventricular systolic function is normal with an estimated ejection fraction in the range of 60-65%. There is a flattened septum in systole consistent with right ventricle pressure overload. The right ventricle is severely dilated. There is akinesis of the RV free wall with apical hypercontractility of the apex (Miller's sign) consistent with pulmonary embolism. Trace mitral valve regurgitation. There is mild to moderate tricuspid valve regurgitation. There is estimated severe pulmonary hypertension present ( > 70 mmHg). Renal: Acute kidney injury likely Acute Tubular Necrosis - likely secondary to shock and contrast loads: -very slowly improving. Cr remains elevated. uop adequate. - daily bmp, magnesium phosphorus - must keep deluca. -- Strict I/Os -continue furosemide 40 mg IV daily FEN/GI: Acute Liver Injury: shock liver and congestive hepatopathy- resolving. Elevated BMI of 35.1 Hypoalbuminemia Hypernatremia - start tube feeds with vital 1.5 per nutrition recommendations goal 75 cc an hour currently 20 cc an hour. KUB yesterday revealed no acute signs of obstruction Lansoprazole for GI prophylaxis Docusate sodium 100 mg twice daily/senna 820 mg twice daily for bowel regimen - trend CMP daily Heme/ID: Hypercoagulable State with ongoing workup of hypercoagulable profile s/p systemic TPA 02/14 Thrombocytopenia Hypofibrinogenemia- resolved Normocytic anemia Massive Pulmonary Embolism - hold all anticoagulation given head bleeds - will not reverse coagulopathy given recent massive PE - low platelets secondary to consumption: 4T score low probability for HIT - s/p emergent IVC filter placement 02/14 - hematology consulted and following - trend daily cbc - no infectious etiology suspected at this time FIGUEROA screen positive. Further laboratory workup pending Endocrine: Severe hyperglycemia of critical illness- improving Hypothyroidism Continue SSI, med scale, q4h -TSH is 2.31. Continue levothyroxine 175 mcg by mouth daily Prophylaxis: GI Prophylaxis Lansoprazole DVT Prophylaxis -- SCDs - IVC filter - hold anticoagulation. Lines: 02/14: right femoral arterial sheath 02/14: left femoral triple lumen catheter 02/13: deluca 02/14 - 02/17: right IJ 9 Fr introducer sheath 02/14 - 02/17: right IJ PA catheter (IR guided into right main PA, free of clot). will need to swap lines to upper extremity and out of groin, will await MRI first. Critical Care: The total critical care time was 53 minutes. Time to perform other separately billable procedures was not included in the critical care time. Gennaro Ocampo MD Feb 18, 2018 08:13
[2018-02-18] MEDS ORDERED: POTASSIUM PHOSPHATE MONOBASIC 500 MG TAB PO PRN (08:15)
[2018-02-18] MEDS ORDERED: SILDENAFIL CITRATE 20 MG TAB PO ONE (08:15)
[2018-02-18] MEDS ORDERED: MAGNESIUM OXIDE 400 MG TAB PO PRN (08:15)
[2018-02-18] MEDS ORDERED: POTASSIUM PHOSPHATE MONOBASIC 500 MG TAB PO/TUBE PRN (08:15)
[2018-02-18] MEDS ORDERED: POTASSIUM CHLORIDE 25 MEQ EFFERVESCENT TAB PO PRN (08:15)
[2018-02-18] MEDS ORDERED: MAGNESIUM SULFATE INJ 2 GM in SODIUM CHLORIDE 0.9% INJ 96 ML IV PRN (08:15)
[2018-02-18] MEDS ORDERED: POTASSIUM CHLOR 40 MEQ PREMIX 100 ML IV PRN ×2 (08:15)
[2018-02-18] MEDS ORDERED: MAGNESIUM SULFATE INJ 4 GM in SODIUM CHLORIDE 0.9% INJ 92 ML IV PRN (08:15)
[2018-02-18] MEDS ORDERED: POTASSIUM PHOSPHATE INJ 30 MMOL in SODIUM CHLOR 0.9% 250 ML INJ 250 ML IV PRN (08:15)
[2018-02-18] MEDS ORDERED: SODIUM PHOSPHATE INJ 30 MMOL in SODIUM CHLOR 0.9% 250 ML INJ 240 ML IV PRN (08:15)
[2018-02-18] MEDS ORDERED: PILL SPLITTER OTHER PRN (08:30)
[2018-02-18] MEDS ORDERED: FUROSEMIDE 20 MG/2 ML VIAL IV PUSH SCH (09:00)
[2018-02-18] MEDS ORDERED: EPOPROSTENOL NEB SOLUTION 10 NG/KG/MIN 100 ML NEB SCH ×2 (09:00)
[2018-02-18] MEDS: CHLORHEXIDINE 0.12% (ORAL KIT) 15 ML CUP MT SCH ×2 (09:10→21:14)
[2018-02-18] MEDS: levETIRAcetam INJ 500 MG in SODIUM CHLORIDE 0.9% INJ 100 ML IV SCH ×2 (09:11→21:15)
[2018-02-18] MEDS: DOCUSATE SODIUM 100 MG/10 ML UDC PO SCH ×2 (09:11→21:15)
[2018-02-18] MEDS: LANSOPRAZOLE SOLUTAB 30 MG TAB NG SCH (09:12)
[2018-02-18] MEDS: SENNOSIDES SYRUP 8.8 MG/5 ML CUP PO SCH ×2 (09:12→21:15)
[2018-02-18] MEDS: SODIUM CHLORIDE 0.9% FLUSH 10 ML FLUSH IV FLUSH SCH ×2 (09:13→21:00)
[2018-02-18] MEDS: POTASSIUM CHLOR 20 MEQ PREMIX 100 ML IV PRN ×4 (09:18→18:55)
[2018-02-18] MEDS ORDERED: EPINEPHrine HCL (1:10,000) 1 MG/10 ML SYRINGE ONE (10:26)
--- NOTE | 2018-02-18 11:13 | PD.CONS ---
Consult Service Palliative Care Consult Requested By Dr. Izaguirre Primary Care Physician Unknown Reason for Consultation a. To assist with evaluation and management of symptoms including:dyspnea, pain b. To assist medical decision maker(s) with: better understanding of current medical conditions; weighing benefits/burdens of medical treatment options; making medical treatment decisions. HPI History of Present Illness Patient is a 17-year-old who a few days ago prior to hospitalization had a long extended car trip ([facility] to [facility]). Per medical record patient has been experiencing dyspnea for 2-3 days prior to hospitalization. She was also feeling dizzy. Patient on 02/12/2018 after finishing her meal in a restaurant with grandmother and mother complaining of not feeling very well. Just to walk from the car to the restaurant made her extremely short of breath. Patient sat down and felt very nauseated. After they finished eating patient went to the bathroom and vomited 3. She subsequently passed out in the lobby of hotel and EMS was activated. Patient presented to the hospital on 02/13/2018 for progressively worsening dyspnea and syncopy. In the ER: * Temperature is 98.0, pulse is 140, respirations 16, blood pressure is 143/66, pulse ox is 96% * WBCs 13.7, hemoglobin 17.4, hematocrit 49.5, platelet is 215 * Sodium is 140, potassium is 4.5, chloride 106, bicarb is 16.2, BUN is 14, creatinine is 1.46 * PT is 10.7, INR is 1.1, PTT is 25.5 * CTA shows multiple large central and peripheral bilateral pulmonary emboli. There is trace pericardial fluid * Ultrasound shows thrombus in the right popliteal and peroneal veins * Patient was admitted to the hospital, 2D echo was ordered, patient placed on heparin drip. Pulmonology was consulted 2D echo shows trace mitral valve regurgitation, [id number] tricuspid valve regurgitation, severe pulmonary hypertension present, EF is 60-65%. T here is a flattening spelled septum in systole consistent with right ventricular pressure overload. There is akinesis in the right ventricle free wall with apical hypercontractility of the apex consistent with PE. The right ventricle is severely dilated 02/13/2018. Pulmonology came to evaluate patient. Patient at the time was on O2 at 2 L nasal cannula. Hematology oncology consult was requested as patient has a history of thyroid cancer and a hypercoagulable state. Hematology oncology came by to evaluate patient. Patient was transferred to SICU. Critical medicine was ordered. Interventional radiology was consulted mechanical thrombectomy. While in the IR suite, patient suffered a respiratory arrest and was intubated and successfully resuscitated. Patient returned to the ICU with severe shock. Shortly after arrival to the ICU patient suffered another episode of cardiac arrest requiring 2 cycles of CPR and 2 injections of epinephrine. Due to hemodynamic instability TPA bolus followed by infusion was administered. 02/14/2018-patient remain in obstructive cardiogenic shock with acute RV failure. Patient in acute hypoxic respiratory failure. School Bus Driver/Teacher Assistant added Flolan, dobutamine, epinephrine. Critical medicine noted that pupils are 6 mm and minimally reactive. CT of the head was ordered which shows stable parenchymal hemorrhage on the right and scattered subarachnoid hemorrhage with some swelling and edema in the brain. Neurosurgery was consulted. Neurosurgery noted minimal response. Neurosurgery noted right temporal and parietal acute parenchymal hemorrhage with smaller scattered areas of punctate hemorrhage and mild subarachnoid hemorrhage in the right greater than left hemisphere. Neurosurgery feels contributing factors include head trauma, anticoagulation TPA , emboli, hypoxia cerebral ischemia, venous congestion or thrombosis. 02/15/2018-patient's condition further complicated by renal failure that required nephrology consult. Neurology was also consulted for seizures. EEG was ordered and there is evidence of right hemispheric hemorrhage on the CT scan as well as bilateral subarachnoid hemorrhage. Anticonvulsants manage by neurology. 02/16/2018 -patient remains intubated on mechanical ventilation. Patient has temperature overnight did not tolerate tube feedings. KUB ordered. Critical medicine noticed that pupils are reactive leftward gaze. Patient's withdraw to pain bilaterally upper and lower extremity. Neurosurgery following and noticed that pupils are 3 mm minimally reactive. There is minimal oculocephalic and corneal responses. Minimal mostly reflexive responsive to deep pain left lower extremity. Otherwise no extremity response. Medical team feels patient has anoxic encephalopathy. 02/17/2018. Patient remains intubated on mechanical ventilation. Noted that patient's pupils remained fixed and dilated. Patient is not withdrawing to pain for medical team. Gag is positive. There is no corneal reflex no cough reflex per critical medicine notes. Neurosurgery noted " have advised the family that the patient likely has diffuse severe brain damage, possibly related to hypoxic or ischemic brain injury. It is not felt that there is a role for surgical intervention in this situation , which may serve to temporarily diminish secondary effects from cerebral edema , but would not have any impact on the apparent severe underlying brain injury. " 02/18/2018. Patient remains sedated. Pupils are fixed and dilated. MRI has been ordered. Is more than likely that patient has anoxic brain injury. Neurosurgery consulted palliative care to review goals of care. MRI is pending. In summary. 17 year old after car trip from [place] to [facility], had syncope , and dyspnea. EMS activated, and further workup show multiple large central bilateral PE, and thrombus in popliteal vein. Was IR for thrombectomy but condition complicated by cardiac arrest x2; cardiogenic shock from RV failure, respiratory failure, and renal failure. Pt had tpa. Further complications arose including: right temporal and parietal acute parenchymal hemorrhage with smaller scattered areas of punctate hemorrhage and mild subarachnoid hemorrhage in the right greater than left hemisphere; anoxic encephalopaty, cerebral edema, and seizures. Patient is minimally responsive, could not elaborate on pain or dyspnea or other discomfort. There is not grimacin or groaning. She has been on sedation earlier this morning. Family meeting done with myself, Dr. Paul, pt's mother, grandfather, and aunt. I have also spoke with pt's Father over the phone. Imaging, her course of hospitalization, test, prognosis, different clinical scenarios, peg, trach, code status were all discussed. Goals of treatment are as follows: * advance care planing (time spent on code status, health care proxy, participating in medical decison making.18 min). * Family are aware of significant encephalopathy, the possibility of being dependant of life support for an extended period of time, and possibility she may not have any progression in neurological recovery. * If after, this , by Friday there is not significant neurological improvement, interactions, they would revaluate on what to do: comfort vs continue medical care. * They are aware that timeframe on how much she can recover may be long and takes time. * They are hopeful that she may have some neurologic improvement Friday, but realistic, that may also not happen. * both pt's parents have said if there is no hope, Magali would not want prolong life support. They want to balance giving her a chance to recover, but also do not want patient to have prolong suffering from debility. * Transitioning to comfort measures was discussed with family and they are amenable to that should there be no meaningful neurologic recovery. * Peg and trach decisions were discussed. Review of Systems ROS Limitations: Clinical Condition Constitutional: COMPLAINS OF: Weight gain Endocrine: COMPLAINS OF: Heat/cold intolerance (papillary cardinoma diagnosed at age 14.) Eyes: DENIES: Eye inflammation Ears, nose, mouth, throat: DENIES: Throat pain, Hoarseness Respiratory: COMPLAINS OF: Shortness of breath (see hpi) Cardiovascular: COMPLAINS OF: Dyspnea on Exertion (see hpi) Gastrointestinal: COMPLAINS OF: Nausea, DENIES: Abdominal pain, Black stools, Bloody stools Musculoskeletal: DENIES: Muscle aches, Stiffness Integumentary: DENIES: Pruritus, Rash Hematologic/Lymphatics: DENIES: Prolonged bleed w/ proced Immunologic/Allergic: DENIES: Urticaria Neurologic: COMPLAINS OF: Seizures, Tremor, Poor Balance Past Family Social History Coded Allergies: tree nut (Verified Allergy, Unknown, 02/12/18) Past Medical History Diagnosis of papillary carcinoma of the thyroid diagnosed in 2014 when she was age [age] years old. Bilateral pulmonary emboli Obesity Ovarian cyst Past Surgical History Thyroidectomy 2014. [place] tooth extraction Current Medications Medications (Trade) Dose Ordered Sig/Gregg Route Start Time Stop Time Status Last Admin (NS Flush) 2 ml UNSCH PRN IV FLUSH 02/13/18 00:45 (NS Flush) 2 ml BID IV FLUSH 02/13/18 09:00 02/18/18 09:13 (Narcan Inj) 0.4 mg UNSCH PRN IV PUSH 02/13/18 00:45 (Milk Of Magnesia Liq) 30 ml Q12H PRN PO 02/13/18 00:45 (Senokot) 17.2 mg Q12H PRN PO 02/13/18 00:45 (Dulcolax Supp) 10 mg DAILY PRN RECTAL 02/13/18 00:45 (Lactulose Liq) 30 ml DAILY PRN PO 02/13/18 00:45 (ZyrTEC) 10 mg DAILY PO 02/13/18 09:00 Future Hold 02/16/18 09:08 (Flonase Anil Spr) 1 spray BID EACH NARE 02/13/18 09:00 Future Hold 02/13/18 10:14 (Synthroid) 100 mcg DAILY@0700 PO 02/13/18 07:00 02/18/18 05:56 (Synthroid) 75 mcg DAILY@0700 PO 02/13/18 07:00 02/18/18 05:56 (Peridex 0.12% Liq) 15 ml BID@08,20 MT 02/14/18 08:00 02/18/18 09:10 Fentanyl Citrate 250 ml @ 5 mls/hr TITRATE PRN IV 02/14/18 03:15 02/18/18 03:40 Midazolam HCl 50 ml @ 2 mls/hr TITRATE PRN IV 02/14/18 06:30 02/18/18 05:57 (D50w (Vial) Inj) 50 ml UNSCH PRN IV PUSH 02/14/18 09:00 Sodium Chloride 1,000 ml @ 50 mls/hr Q20H IV 02/14/18 13:30 02/18/18 00:48 Dobutamine HCl 1000 mg/Sodium Chloride 250 ml @ 13.09 mls/ hr TITRATE PRN IV 02/14/18 15:00 Future Hold Norepinephrine Bitartrate 4 mg/ Sodium Chloride 254 ml @ 7.62 mls/hr TITRATE PRN IV 02/14/18 15:00 Clevidipine 50 ml @ 2 mls/hr TITRATE PRN IV 02/14/18 19:15 02/18/18 03:40 Levetriacetam 500 mg/Sodium Chloride 105 ml @ 420 mls/hr Q12HR IV 02/14/18 21:00 02/18/18 09:11 (D50w (Vial) Inj) 25 ml UNSCH PRN IV PUSH 02/15/18 08:45 (NovoLIN R SUPPLEMENTAL SCALE) 1 Q4HR SQ 02/15/18 12:00 (Cerebyx Inj) 100 mgpe Q8HR IV 02/16/18 14:00 02/18/18 05:55 (Duoneb Neb) 1 ampule Q4HR NEB NEB 02/16/18 08:00 02/18/18 07:09 (Albuterol Neb) 2.5 mg Q2HR NEB PRN NEB 02/16/18 07:30 (Tears Naturale Opth Soln) 1 drop Q8HR EACH EYE 02/16/18 14:00 02/18/18 05:56 (Tylenol 650 Mg/ 20 ml Liq) 650 mg Q6H PRN NG 02/16/18 07:30 (Prevacid Odt) 30 mg DAILY NG 02/16/18 09:00 02/18/18 09:12 (Colace Liq) 100 mg Q12HR PO 02/16/18 09:00 02/18/18 09:11 (Senna Liq) 8.8 mg BID PO 02/16/18 09:00 02/18/18 09:12 (Benadryl Inj) 25 mg Q4H PRN IV 02/17/18 05:30 02/17/18 10:55 (Reglan Inj) 5 mg Q8HR IV PUSH 02/17/18 14:00 02/18/18 05:56 (Lasix Inj) 20 mg DAILY IV PUSH 02/18/18 09:00 02/18/18 09:13 (Lopressor Inj) 5 mg Q6H IV PUSH 02/17/18 16:00 02/18/18 09:12 Epoprostenol Sodium 70 ml/ Sodium Chloride 100 ml @ 5 mls/hr Q8H NEB 02/18/18 00:00 02/18/18 09:10 (Revatio) 30 mg Q8HR PO 02/18/18 14:00 Potassium Chloride 100 ml @ 50 mls/hr Q2H PRN IV 02/18/18 08:15 Potassium Chloride 100 ml @ 50 mls/hr Q2H PRN IV 02/18/18 08:15 02/18/18 09:18 (K-Lyte Cl Eff) 50 meq UNSCH PRN PO 02/18/18 08:15 Potassium Chloride 100 ml @ 25 mls/hr UNSCH PRN IV 02/18/18 08:15 Potassium Chloride 100 ml @ 50 mls/hr Q2H PRN IV 02/18/18 08:15 Magnesium Sulfate 4 gm/Sodium Chloride 100 ml @ 50 mls/hr UNSCH PRN IV 02/18/18 08:15 (Mag-Ox) 800 mg UNSCH PRN PO 02/18/18 08:15 Magnesium Sulfate 2 gm/Sodium Chloride 100 ml @ 50 mls/hr UNSCH PRN IV 02/18/18 08:15 (K-Phos) 2,000 mg Q4H PRN PO 02/18/18 08:15 Sodium Phosphate 30 mmol/Sodium Chloride 250 ml @ 42 mls/hr UNSCH PRN IV 02/18/18 08:15 (K-Phos) 2,000 mg UNSCH PRN PO/TUBE 02/18/18 08:15 Potassium Phosphate 30 mmol/ Sodium Chloride 260 ml @ 42 mls/hr UNSCH PRN IV 02/18/18 08:15 (Pill Splitter) 1 ea UNSCH PRN OTHER 02/18/18 08:30 Family History Father diabetes. Maternal grandfather diabetes. No oncologic diagnoses in the family. Mother is alive and well. 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 Lives in [place] Spiritual/Cultural Factors none Living Will: Never completed Health Care Surrogate: Never completed Durable Power of Solid Waste Truck Driver: Never completed Physical Exam Vital Signs Date Time Temp Pulse Resp B/P (MAP) Pulse Ox O2 Delivery O2 Flow Rate FiO2 02/18/18 08:00 40 02/18/18 07:30 97.7 98 18 112/63 (79) 96 95/58 (70) 02/18/18 07:30 98 02/18/18 07:30 96 Mechanical Ventilator 40 02/18/18 07:10 95 40 02/18/18 04:00 40 02/18/18 03:52 96 40 02/18/18 03:50 105 02/18/18 03:50 98.0 89 18 135/74 (94) 99 112/77 (89) 02/18/18 03:40 93 124/77 02/18/18 00:42 97 40 02/18/18 00:37 40 02/17/18 23:15 105 02/17/18 23:15 98.9 105 18 128/69 (88) 97 136/81 (99) 02/17/18 23:04 96 40 02/17/18 20:50 94 40 02/17/18 20:15 114 121/72 02/17/18 20:00 40 02/17/18 19:04 95 Mechanical Ventilator 40 02/17/18 19:04 98.5 114 18 135/77 (96) 97 120/70 (87) 02/17/18 19:00 113 02/17/18 16:02 40 02/17/18 16:00 94 40 02/17/18 15:12 130 02/17/18 15:10 99.1 131 18 147/83 (104) 99 138/82 (100) 02/17/18 14:49 94 40 02/17/18 12:10 40 02/17/18 11:09 98.8 136 18 155/89 (111) 99 148/99 (115) 02/17/18 11:08 135 02/17/18 10:59 98 40 Exam CONSTITUTIONAL/GENERAL: 17 year old intubated, in critical condition, TUBES/LINES/DRAINS: right femoral arterial sheath, left femoral triple lumen, deluca. right IJ SKIN: No jaundice, rashes, or lesions. Ecchymoses on upper extremities. No wounds seen anteriorly. Skin temperature appropriate. Not diaphoretic. HEAD: Atraumatic. Normocephalic. EYES: Pupils dilated, minimally reactive. ENT: . Nose without bleeding or purulent drainage. Throat intubated NECK: Trachea midline. CARDIOVASCULAR: Regular rate and rhythm without murmurs, gallops, or rubs. No JVD. Peripheral pulses symmetric. RESPIRATORY/CHEST: Symmetric, unlabored respirations. Clear to auscultation. Breath sounds equal bilaterally. No wheezes, rales, or rhonchi. GASTROINTESTINAL: Abdomen soft, non-tender, nondistended. No hepato-splenomegaly , or palpable masses. No guarding. Bowel sounds present. GENITOURINARY: Without palpable bladder distension. Deluca catheter in place. MUSCULOSKELETAL: Extremities without clubbing, cyanosis, or edema. LYMPHATICS: No palpable cervical or supraclavicular adenopathy. NEUROLOGICAL: unresponsive PSYCHIATRIC: could not examine given level of responsiveness. Diagnostic Tests Laboratory Laboratory Tests Test 02/15/18 18:20 02/16/18 04:00 02/16/18 10:34 02/17/18 04:30 Urine Random Creatinine 503.2 MG/DL Urine Random Sodium 52 MEQ/L White Blood Count 16.5 TH/MM3 (4.0-11.0) 17.2 TH/MM3 (4.0-11.0) Red Blood Count 2.96 MIL/MM3 (4.00-5.30) 3.25 MIL/MM3 (4.00-5.30) Hemoglobin 9.0 GM/DL (11.6-15.3) 9.8 GM/DL (11.6-15.3) Hematocrit 26.3 % (35.0-46.0) 28.8 % (35.0-46.0) Mean Corpuscular Volume 88.8 FL (80.0-100.0) 88.8 FL (80.0-100.0) Mean Corpuscular Hemoglobin 30.4 PG (27.0-34.0) 30.1 PG (27.0-34.0) Mean Corpuscular Hemoglobin Concent 34.2 % (32.0-36.0) 33.8 % (32.0-36.0) Red Cell Distribution Width 13.2 % (11.6-17.2) 13.2 % (11.6-17.2) Platelet Count 82 TH/MM3 (150-450) 99 TH/MM3 (150-450) Mean Platelet Volume 9.3 FL (7.0-11.0) 9.1 FL (7.0-11.0) Prothrombin Time 11.4 SEC (9.8-11.6) 11.2 SEC (9.8-11.6) Prothromb Time International Ratio 1.1 RATIO 1.1 RATIO Activated Partial Thromboplast Time 22.6 SEC (24.3-30.1) 21.7 SEC (24.3-30.1) Fibrinogen 217 mg/dL (227-377) 183 mg/dL (227-377) Blood Urea Nitrogen 30 MG/DL (7-18) 31 MG/DL (7-18) Creatinine 2.18 MG/DL (0.50-1.00) 1.86 MG/DL (0.50-1.00) Random Glucose 104 MG/DL (74-106) 108 MG/DL (74-106) Total Protein 5.1 GM/DL (6.4-8.2) 5.8 GM/DL (6.4-8.2) Albumin 2.4 GM/DL (3.4-5.0) 2.9 GM/DL (3.4-5.0) Calcium Level 7.5 MG/DL (8.5-10.1) 8.2 MG/DL (8.5-10.1) Alkaline Phosphatase 62 U/L (45-117) 78 U/L (45-117) Aspartate Amino Transf (AST/SGOT) 51 U/L (16-38) 45 U/L (16-38) Alanine Aminotransferase (ALT/SGPT) 101 U/L (9-42) 84 U/L (9-42) Total Bilirubin 0.4 MG/DL (0.2-1.0) 0.7 MG/DL (0.2-1.0) Sodium Level 146 MEQ/L (136-145) 146 MEQ/L (136-145) Potassium Level 4.2 MEQ/L (3.5-5.1) 3.5 MEQ/L (3.5-5.1) Chloride Level 114 MEQ/L (98-107) 112 MEQ/L (98-107) Carbon Dioxide Level 21.8 MEQ/L (21.0-32.0) 21.7 MEQ/L (21.0-32.0) Anion Gap 10 MEQ/L (5-15) 12 MEQ/L (5-15) Estimat Glomerular Filtration Rate 29 ML/MIN (>89) 35 ML/MIN (>89) Lactic Acid Level 1.2 mmol/L (0.4-2.0) 1.5 mmol/L (0.4-2.0) Human Chorionic Gonadotropin, Quant LESS THAN 1 MIU/ML (0-5) Phenytoin (Dilantin) Level 5.1 MCG/ML (10.0-20.0) 10.2 MCG/ML (10.0-20.0) Blood Gas Puncture Site ALICIA Blood Gas Patient Temperature 98.6 Blood Gas HCO3 21 mmol/L (22-26) Blood Gas Base Excess -2.8 mmol/L (-2-2) Blood Gas Oxygen Saturation 97 % (90-100) Arterial Blood pH 7.41 (7.380-7.420) Arterial Blood Partial Pressure CO2 35 mmHg (38-42) Arterial Blood Partial Pressure O2 155 mmHg (61-120) Arterial Blood Oxygen Content 12.6 Vol % (12.0-20.0) Arterial Blood Carboxyhemoglobin 0.7 % (0-4) Arterial Blood Methemoglobin 1.2 % (0-2) Blood Gas Hemoglobin 9.0 G/DL (12.0-16.0) Oxygen Delivery Device VENTILATOR Blood Gas Ventilator Setting SEE COMMENTS Blood Gas Inspired Oxygen 40 % Phosphorus Level 2.9 MG/DL (2.5-4.9) Magnesium Level 2.2 MG/DL (1.5-2.5) Lactate Dehydrogenase 460 U/L (84-246) Total Creatine Kinase 193 U/L (26-192) Creatine Kinase MB 0.9 NG/ML (0.5-3.6) Creatine Kinase MB % 0.5 % (0.0-4.0) Troponin I 0.11 NG/ML (0.02-0.05) Amylase Level 73 U/L (25-115) Lipase 128 U/L (73-393) Test 02/17/18 05:58 02/17/18 13:15 02/18/18 04:39 02/18/18 06:14 Blood Gas Puncture Site ART LINE ART LINE Blood Gas Patient Temperature 98.6 98.6 Blood Gas HCO3 24 mmol/L (22-26) 26 mmol/L (22-26) Blood Gas Base Excess 0.2 mmol/L (-2-2) 2.7 mmol/L (-2-2) Blood Gas Oxygen Saturation 96 % (90-100) 95 % (90-100) Arterial Blood pH 7.43 (7.380-7.420) 7.46 (7.380-7.420) Arterial Blood Partial Pressure CO2 37 mmHg (38-42) 37 mmHg (38-42) Arterial Blood Partial Pressure O2 109 mmHg (61-120) 84 mmHg (61-120) Arterial Blood Oxygen Content 13.1 Vol % (12.0-20.0) 14.1 Vol % (12.0-20.0) Arterial Blood Carboxyhemoglobin 0.8 % (0-4) 0.9 % (0-4) Arterial Blood Methemoglobin 1.3 % (0-2) 1.1 % (0-2) Blood Gas Hemoglobin 9.6 G/DL (12.0-16.0) 10.5 G/DL (12.0-16.0) Oxygen Delivery Device VENTILATOR VENTILATOR Blood Gas Ventilator Setting PRVC/AC PRVC/AC Blood Gas Inspired Oxygen 40 % 40 % Ammonia 19 MCMOL/L (11-32) LESS THAN 10 MCMOL/L White Blood Count 14.3 TH/MM3 (4.0-11.0) Red Blood Count 3.43 MIL/MM3 (4.00-5.30) Hemoglobin 10.5 GM/DL (11.6-15.3) Hematocrit 31.0 % (35.0-46.0) Mean Corpuscular Volume 90.4 FL (80.0-100.0) Mean Corpuscular Hemoglobin 30.7 PG (27.0-34.0) Mean Corpuscular Hemoglobin Concent 34.0 % (32.0-36.0) Red Cell Distribution Width 13.5 % (11.6-17.2) Platelet Count 102 TH/MM3 (150-450) Mean Platelet Volume 8.9 FL (7.0-11.0) Prothrombin Time 11.2 SEC (9.8-11.6) Prothromb Time International Ratio 1.1 RATIO Activated Partial Thromboplast Time 19.6 SEC (24.3-30.1) Blood Urea Nitrogen 28 MG/DL (7-18) Creatinine 1.51 MG/DL (0.50-1.00) Random Glucose 117 MG/DL (74-106) Total Protein 5.7 GM/DL (6.4-8.2) Albumin 2.6 GM/DL (3.4-5.0) Calcium Level 8.0 MG/DL (8.5-10.1) Phosphorus Level 3.6 MG/DL (2.5-4.9) Magnesium Level 2.5 MG/DL (1.5-2.5) Alkaline Phosphatase 84 U/L (45-117) Aspartate Amino Transf (AST/SGOT) 27 U/L (16-38) Alanine Aminotransferase (ALT/SGPT) 58 U/L (9-42) Total Bilirubin 0.6 MG/DL (0.2-1.0) Sodium Level 149 MEQ/L (136-145) Potassium Level 3.2 MEQ/L (3.5-5.1) Chloride Level 113 MEQ/L (98-107) Carbon Dioxide Level 26.3 MEQ/L (21.0-32.0) Anion Gap 10 MEQ/L (5-15) Estimat Glomerular Filtration Rate 44 ML/MIN (>89) Lactic Acid Level 1.1 mmol/L (0.4-2.0) Phenytoin (Dilantin) Level 9.9 MCG/ML (10.0-20.0) Result Diagram: 02/18/18 0439 02/18/18 505 Imaging Last Impressions Chest X-Ray 02/18/18 0600 Signed Impressions: CONCLUSION: 1. Right IJ [place] catheter no longer seen. 2. Mild left lung base opacity unchanged. Head CT 02/17/18 0752 Signed Impressions: CONCLUSION: Very slight improvement of the 3.1 cm right temporal lobe parenchymal hemorrhag e. Scattered tiny areas of parenchymal/subarachnoid hemorrhage are stable withi n the left frontal, left temporal and right parietal lobes. Diffuse sulcal effa cement is unchanged. No new midline shift is noted. Abdomen X-Ray 02/16/18 0000 Signed Impressions: CONCLUSION: No significant bowel distention Persistent contrast remaining in the kidneys. This can be seen with ATN. Lower Extremity Ultrasound 02/13/18 Signed Impressions: CONCLUSION: 1. There is thrombus within the right popliteal and peroneal veins. CT Angiography 02/12/182030 Signed Impressions: CONCLUSION: 1. Multiple large central and peripheral bilateral pulmonary emboli. 2. Trace pericardial fluid. Patient/Family Conference Present at Family Conference: pt's mother, aunt , grandfather. labels molder Dr. Paul, and myself. Family Conference Time (mins): 40 (total 40 min, including 18 min of advance care planning.. ) Family Conference Location: Bedside, Hallway Issues Discussed: * Palliative care role, purpose, approach * Additional medical, psychosocial, and spiritual history * Patients general health, functional status, and cognitive changes in the months leading up to the current hospitalization * Patient/family understanding of the current medical problems * Patient/family understanding of prognosis * Patients goals of care as best understood from advance directives and/or conversations and/or values * Current medical treatment options and benefits/burdens of those options * Likely scenarios comparing ongoing aggressive care with a transition to comfort measures only * Questions answered to the best of my ability * Palliative care contact information provided 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 Pt's father Mir Waterman, as witnessed by RN on 02/18/2018 decline to participate in health care decision making and wish to defer to pt's mother Andreia Waterman Ethical issues impacting care: none. Important Contacts Andreia Waterman [phone] Prognosis 17 year old after car trip from [place] to [facility], had syncope, and dyspnea. EMS activated, and further workup show multiple large central bilateral PE, and thrombus in popliteal vein. Was IR for thrombectomy but condition complicated by cardiac arrestx2; cardiogenic shock from RV failure, respiratory failure, and renal failure. Pt had tpa. Further complications arose including: right temporal and parietal acute parenchymal hemorrhage with smaller scattered areas of punctate hemorrhage and mild subarachnoid hemorrhage in the right greater than left hemisphere; anoxic encephalopathy, seizures. Prognosis is guarded. Code Status: Full Code Plan == code DNR. both parents are amenable to DNR. == capacity- patient does not have capacity to make medical decisions, and given ich and anoxia , high probablility of not regaining capacity. == Health Care Decision Maker. there is no advance directive available. Pt is single, no children, and by [place] Statutes, patient parents: Andreia Waterman and Mir Waterman are health care proxy. Mir Waterman while on the phone, and witnessed by RN Clary Sandhu does not want to participate in medical decision making and defer to pt's mother Andreia Waterman. Therefore, sole healthcare decision maker/Health care proxy is pt's mother Andreia Waterman. == goals of treatment (family meeting held with pt's mother, pt's aunt, and pt' s grandfather, along with myself and labels molder). Spoke with pt's Father over the phone, who again has defered decision making. * advance care planing (time spent on code status, health care proxy, participating in medical decison making.18 min). * Family are aware of significant encephalopathy, the possibility of being dependant of life support for an extended period of time, and possibility she may not have any progression in neurological recovery. * If after, this weekend, by Friday there is not significant neurological improvement, interactions, they would revaluate on what to do: comfort vs continue medical care. * They are aware that timeframe on how much she can recover may be long and takes time. * They are hopeful that she may have some neurologic improvement Friday, but realistic, that may also not happen. * both pt's parents have said if there is no hope, Magali would not want prolong life support. They want to balance giving her a chance to recover, but also do not want patient to have prolong suffering from debility. * Transitioning to comfort measures was discussed with family and they are amenable to that should there be no meaningful neurologic recovery. * Peg and trach decisions were discussed. == symptoms of discomfort: dyspnea- remains on the vent, no new med rec, currently off sedation. Pain- from ich hemorrhage, cpr, hospitalization, intubated- continue current regimen. == palliative care will be available to make recommendations for symptom management, and review goals of care as clinical condition evolves. == case management was consulted to complete health care proxy with pt's mother. d/w with labels molder. Thank you for the opportunity to participate in the care of Ms. Waterman. Attestation To help prompt me to consider important information that might be impacting today's encounter and assessment, information from prior notes written by myself or my colleagues may have been "brought forward" into today's note. My signature on this note, however, is an attestation that I personally performed the exam, history, and/or decision-making noted today, and, unless otherwise indicated, the interactions with patient, family, and staff as well as the review of records all occurred today. I also attest that the listed assessment and stated plan reflect my best clinical judgment today based on the combination of historical information, prior notes, and today's exam/ interactions. When time spent is documented, it refers only to time spent today by the signer, or if indicated, combined time spent today by collaborating physician/nurse practitioner. Wei Perez MD Feb 18, 2018 11:13
--- NOTE | 2018-02-18 12:02 | RADRPT ---
EXAM DATE: 02/18/2018 11:15 AM EDT AGE/SEX: 17 years / Female INDICATIONS: Bleed. CLINICAL DATA: This is the patient's subsequent encounter. Patient reports that signs and symptoms h ave been present for 2 weeks and indicates a pain score of Nonresponsive. MEDICAL/SURGICAL HISTORY: Carcinoma, thyroid. Thyroidectomy. IVC Filter placement. COMPARISON: No prior exams available for comparison. TECHNIQUE: Multiplanar, multisequence examination of the brain was performed without contrast. FINDINGS: Study is abnormal with multiple small focal cortical parenchymal hemorrhage is evident. The largest i s in the right sylvian region measuring 2.3 cm... There is reversal of the normal navarrete-white matter d ifferentiation consistent with acute cortical ischemia. Ischemia more prominent in the occipital kati ons extending into the sylvian regions. No significant changes in the navarrete matter as expected.. Ventricular size is appropriate. Gated appear to be disconjugate however there is no midbrain hemorrhage identified. The posterior fossa shows similar ischemic changes although a lesser degree than the supratentorial l brain. There is no midline shift. There is no venous thrombosis. CONCLUSION: 1. Findings consistent with anoxia without edema. 2. Cortical hemorrhages, Largest right posterior sylvian region. 3. There is no venous thrombosis. Cortical hemorrhages in both hemispheres Electronically signed by: Drake Seals MD 02/18/2018 12:00 PM EDT
--- NOTE | 2018-02-18 13:28 | HHI.PR ---
Subjective Remarks S/P Thrombolysis for massive PE and Cardiac Arrest.Now with respiratory failure . On vent support and FIO2 40 %. Improved output.Still not responsive and off sedation. Off Pressors . Went for head MRI. O2 sats dropped earlier. Remains on Flolan. Objective Vital Signs Date Time Temp Pulse Resp B/P (MAP) Pulse Ox O2 Delivery O2 Flow Rate FiO2 02/18/18 13:00 100 02/18/18 12:00 40 02/18/18 10:30 98 100 02/18/18 10:00 97 40 02/18/18 08:00 40 02/18/18 07:30 97.7 98 18 112/63 (79) 96 95/58 (70) 02/18/18 07:30 98 02/18/18 07:30 96 Mechanical Ventilator 40 02/18/18 07:10 95 40 02/18/18 04:00 40 02/18/18 03:52 96 40 02/18/18 03:50 105 02/18/18 03:50 98.0 89 18 135/74 (94) 99 112/77 (89) 02/18/18 03:40 93 124/77 02/18/18 00:42 97 40 02/18/18 00:37 40 02/17/18 23:15 105 02/17/18 23:15 98.9 105 18 128/69 (88) 97 136/81 (99) 02/17/18 23:04 96 40 02/17/18 20:50 94 40 02/17/18 20:15 114 121/72 02/17/18 20:00 40 02/17/18 19:04 95 Mechanical Ventilator 40 02/17/18 19:04 98.5 114 18 135/77 (96) 97 120/70 (87) 02/17/18 19:00 113 02/17/18 16:02 40 02/17/18 16:00 94 40 02/17/18 15:12 130 02/17/18 15:10 99.1 131 18 147/83 (104) 99 138/82 (100) 02/17/18 14:49 94 40 I/O 02/17/18 02/17/18 02/17/18 02/18/18 02/18/18 02/18/18 07:00 15:00 23:00 07:00 15:00 23:00 Intake Total 808.2 ml 162.8 ml 645 ml 992 ml Output Total 1600 ml 3830 ml 500 ml Balance -791.8 ml 162.8 ml -3185 ml 492 ml Intake Oral 0 ml IV Total 552.2 ml 162.8 ml 615 ml 826 ml Tube Feeding 156 ml 30 ml 166 ml Tube Irrigant 100 ml Output Urine Total 1600 ml 3800 ml 500 ml Gastric Drainage Total 30 ml # Bowel Movements 0 0 0 Result Diagram: 02/18/1843802/18/18438 Objective Remarks GENERAL: This moderately overweight , young white female who is intubated on the vent HEENT: Head is normocephalic. Pupils were reactive. NECK: No venous distention, no lymphadenopathy noted. CHEST: Equal movements with decreased breath sounds at the periphery. HEART: The heart tones were regular with S1 and S2. ABDOMEN: Soft, protuberant without masses. No organomegaly. EXTREMITIES: No lesions. There is no edema. SKIN: No lesions observed. NEUROLOGIC:Unresponsive Assessment and Plan Assessment and Plan IMPRESSION: 1. Bilateral pulmonary embolism with hypoxemia. 2. History of thyroid cancer and thyroidectomy. 3. Hypothyroidism. 4. Dehydration and acute kidney injury. 5. Deep venous thrombosis, right lower extremity. 6. LAVINIA Plan : 1. Vent support and Wean FIO2. 2. Cont Flolan inhalation 40 Mcg/Kg 3. Albuterol nebs q6h PRN 4. Sildenafil 30 mg TID 5. Neuro Evaluation 6. No anticoagulation 7. CXR ,CBC in am 8. D/W family, here. Tyra Abdul MD Feb 18, 2018 13:28
--- NOTE | 2018-02-18 13:55 | HHI.NPPN ---
Subjective History of Present Illness 17 year old with massive PE, cardiac arrest ARF, brain bleed Objective Data Data Vital Signs Date Time Temp Pulse Resp B/P (MAP) Pulse Ox O2 Delivery O2 Flow Rate FiO2 02/18/18 13:00 100 02/18/18 12:00 86 02/18/18 12:00 40 02/18/18 12:00 97.6 92 18 96 129/85 (100) 02/18/18 10:30 98 100 02/18/18 10:00 97 40 02/18/18 08:00 40 02/18/18 07:30 97.7 98 18 112/63 (79) 96 95/58 (70) 02/18/18 07:30 98 02/18/18 07:30 96 Mechanical Ventilator 40 02/18/18 07:10 95 40 02/18/18 04:00 40 02/18/18 03:52 96 40 02/18/18 03:50 105 02/18/18 03:50 98.0 89 18 135/74 (94) 99 112/77 (89) 02/18/18 03:40 93 124/77 02/18/18 00:42 97 40 02/18/18 00:37 40 02/17/18 23:15 105 02/17/18 23:15 98.9 105 18 128/69 (88) 97 136/81 (99) 02/17/18 23:04 96 40 02/17/18 20:50 94 40 02/17/18 20:15 114 121/72 02/17/18 20:00 40 02/17/18 19:04 95 Mechanical Ventilator 40 02/17/18 19:04 98.5 114 18 135/77 (96) 97 120/70 (87) 02/17/18 19:00 113 02/17/18 16:02 40 02/17/18 16:00 94 40 02/17/18 15:12 130 02/17/18 15:10 99.1 131 18 147/83 (104) 99 138/82 (100) 02/17/18 14:49 94 40 -: 02/18/18 0439 02/18/18 0439 Physical Exam General Appearance: Well Developed, Well Nourished Neck Neck Exam: Neck Supple Pulmonary Resp Exam: Clear Bilaterally, Breath Sounds Equal Cardiology CV Exam: Tachycardia Gastrointestinal/Abdomen GI Exam: Soft, Non-Tender, Bowel Sounds Present Extremeties Extremities Exam: Moderate Edema Assessment/Plan Assessment Summary: Secndry Hyperparathyroid Problem List: (1) Acute renal failure ICD Codes: N17.9 - Acute kidney failure, unspecified Plan: patient has ischemic event and receive contrast study contributing to ARF her urine out put is low PA pressures are high She is on Flolan to help regulate pulmonary arterial pressures. Diuresing well with Lasix, urine output 4.3 L yesterday avoid Nephrotoxins. Creatinine declined to 1.5 Lasix to 20 mg daily dc it K replaced Na 149 replaced potassium MRI brain done Severe Encephalopathy from anoxia prognosis is guarded to poor wait for improvement (2) Pulmonary emboli ICD Codes: I26.99 - Other pulmonary embolism without acute cor pulmonale Status: Acute Plan: treated with TPA, Angiogram (3) Cardiac arrest ICD Codes: I46.9 - Cardiac arrest, cause unspecified Plan: patient had cardiac arrest x 2 (4) SAH (subarachnoid hemorrhage) ICD Codes: I60.9 - Nontraumatic subarachnoid hemorrhage, unspecified Status: Acute Plan: as above complications from fall/TPA/anticoagulation Problem Qualifiers (1) Acute renal failure: Qualified Codes: N17.0 - Acute kidney failure with tubular necrosis (2) Pulmonary emboli: Lori Banks MD Feb 18, 2018 13:55
--- NOTE | 2018-02-18 16:55 | HHI.PR ---
Review/Management Diagnosis right contusions, MRI showing signs of hypoxic encephalopathy focal sz resolved on cerebyx and keppra. protein corrected phenytoin level is 16 Plan re check eeg Diagnosis/Plan: Subjective Subjective Comments pt has been nonresponsive off sedation, pupils dilated and nonreactive Active Medications Current Medications Medications (Trade) Dose Ordered Sig/Gregg Route Start Time Stop Time Status Last Admin (NS Flush) 2 ml UNSCH PRN IV FLUSH 02/13/18 00:45 (NS Flush) 2 ml BID IV FLUSH 02/13/18 09:00 02/18/18 09:13 (Narcan Inj) 0.4 mg UNSCH PRN IV PUSH 02/13/18 00:45 (Milk Of Magnesia Liq) 30 ml Q12H PRN PO 02/13/18 00:45 (Senokot) 17.2 mg Q12H PRN PO 02/13/18 00:45 (Dulcolax Supp) 10 mg DAILY PRN RECTAL 02/13/18 00:45 (Lactulose Liq) 30 ml DAILY PRN PO 02/13/18 00:45 (ZyrTEC) 10 mg DAILY PO 02/13/18 09:00 Future Hold 02/16/18 09:08 (Flonase Anil Spr) 1 spray BID EACH NARE 02/13/18 09:00 Future Hold 02/13/18 10:14 (Synthroid) 100 mcg DAILY@0700 PO 02/13/18 07:00 02/18/18 05:56 (Synthroid) 75 mcg DAILY@0700 PO 02/13/18 07:00 02/18/18 05:56 (Peridex 0.12% Liq) 15 ml BID@08,20 MT 02/14/18 08:00 02/18/18 09:10 Fentanyl Citrate 250 ml @ 5 mls/hr TITRATE PRN IV 02/14/18 03:15 02/18/18 03:40 Midazolam HCl 50 ml @ 2 mls/hr TITRATE PRN IV 02/14/18 06:30 02/18/18 05:57 (D50w (Vial) Inj) 50 ml UNSCH PRN IV PUSH 02/14/18 09:00 Sodium Chloride 1,000 ml @ 50 mls/hr Q20H IV 02/14/18 13:30 02/18/18 00:48 Dobutamine HCl 1000 mg/Sodium Chloride 250 ml @ 13.09 mls/ hr TITRATE PRN IV 02/14/18 15:00 Future Hold Norepinephrine Bitartrate 4 mg/ Sodium Chloride 254 ml @ 7.62 mls/hr TITRATE PRN IV 02/14/18 15:00 Clevidipine 50 ml @ 2 mls/hr TITRATE PRN IV 02/14/18 19:15 02/18/18 03:40 Levetriacetam 500 mg/Sodium Chloride 105 ml @ 420 mls/hr Q12HR IV 02/14/18 21:00 02/18/18 09:11 (D50w (Vial) Inj) 25 ml UNSCH PRN IV PUSH 02/15/18 08:45 (NovoLIN R SUPPLEMENTAL SCALE) 1 Q4HR SQ 02/15/18 12:00 (Cerebyx Inj) 100 mgpe Q8HR IV 02/16/18 14:00 02/18/18 14:29 (Duoneb Neb) 1 ampule Q4HR NEB NEB 02/16/18 08:00 02/18/18 16:06 (Albuterol Neb) 2.5 mg Q2HR NEB PRN NEB 02/16/18 07:30 (Tears Naturale Opth Soln) 1 drop Q8HR EACH EYE 02/16/18 14:00 02/18/18 14:29 (Tylenol 650 Mg/ 20 ml Liq) 650 mg Q6H PRN NG 02/16/18 07:30 (Prevacid Odt) 30 mg DAILY NG 02/16/18 09:00 02/18/18 09:12 (Colace Liq) 100 mg Q12HR PO 02/16/18 09:00 02/18/18 09:11 (Senna Liq) 8.8 mg BID PO 02/16/18 09:00 02/18/18 09:12 (Benadryl Inj) 25 mg Q4H PRN IV 02/17/18 05:30 02/17/18 10:55 (Reglan Inj) 5 mg Q8HR IV PUSH 02/17/18 14:00 02/18/18 14:29 (Lopressor Inj) 5 mg Q6H IV PUSH 02/17/18 16:00 02/18/18 16:34 Epoprostenol Sodium 70 ml/ Sodium Chloride 100 ml @ 5 mls/hr Q8H NEB 02/18/18 00:00 02/18/18 09:10 (Revatio) 30 mg Q8HR PO 02/18/18 14:00 02/18/18 14:29 Potassium Chloride 100 ml @ 50 mls/hr Q2H PRN IV 02/18/18 08:15 Potassium Chloride 100 ml @ 50 mls/hr Q2H PRN IV 02/18/18 08:15 02/18/18 13:21 (K-Lyte Cl Eff) 50 meq UNSCH PRN PO 02/18/18 08:15 Potassium Chloride 100 ml @ 25 mls/hr UNSCH PRN IV 02/18/18 08:15 Potassium Chloride 100 ml @ 50 mls/hr Q2H PRN IV 02/18/18 08:15 Magnesium Sulfate 4 gm/Sodium Chloride 100 ml @ 50 mls/hr UNSCH PRN IV 02/18/18 08:15 (Mag-Ox) 800 mg UNSCH PRN PO 02/18/18 08:15 Magnesium Sulfate 2 gm/Sodium Chloride 100 ml @ 50 mls/hr UNSCH PRN IV 02/18/18 08:15 (K-Phos) 2,000 mg Q4H PRN PO 02/18/18 08:15 Sodium Phosphate 30 mmol/Sodium Chloride 250 ml @ 42 mls/hr UNSCH PRN IV 02/18/18 08:15 (K-Phos) 2,000 mg UNSCH PRN PO/TUBE 02/18/18 08:15 Potassium Phosphate 30 mmol/ Sodium Chloride 260 ml @ 42 mls/hr UNSCH PRN IV 02/18/18 08:15 (Pill Splitter) 1 ea UNSCH PRN OTHER 02/18/18 08:30 Allergies Allergies Coded Allergies tree nut (Verified Allergy, Unknown, 02/12/18) Exam I&O / VS Vital Signs Date Time Temp Pulse Resp B/P (MAP) Pulse Ox O2 Delivery O2 Flow Rate FiO2 02/18/18 16:00 65 02/18/18 14:35 97 70 02/18/18 13:00 100 02/18/18 12:58 99 100 02/18/18 12:00 86 02/18/18 12:00 40 02/18/18 12:00 97.6 92 18 96 129/85 (100) 02/18/18 10:30 98 100 02/18/18 10:00 97 40 02/18/18 08:00 40 02/18/18 07:30 97.7 98 18 112/63 (79) 96 95/58 (70) 02/18/18 07:30 98 02/18/18 07:30 96 Mechanical Ventilator 40 02/18/18 07:10 95 40 02/18/18 04:00 40 02/18/18 03:52 96 40 02/18/18 03:50 105 02/18/18 03:50 98.0 89 18 135/74 (94) 99 112/77 (89) 02/18/18 03:40 93 124/77 02/18/18 00:42 97 40 02/18/18 00:37 40 02/17/18 23:15 105 02/17/18 23:15 98.9 105 18 128/69 (88) 97 136/81 (99) 02/17/18 23:04 96 40 02/17/18 20:50 94 40 02/17/18 20:15 114 121/72 02/17/18 20:00 40 02/17/18 19:04 95 Mechanical Ventilator 40 02/17/18 19:04 98.5 114 18 135/77 (96) 97 120/70 (87) 02/17/18 19:00 113 Exam Comments nonresponsive pupils 4 mm bilateral, nonreactive No EOM MOTOR --no spontaneous movement, no tonic clonic activity Objective Radiology Results mri brain c/w diffuse anoxid injury , right hemisphere contusions Micro and Labs Laboratory Tests Test 02/18/18 04:39 02/18/18 06:14 White Blood Count 14.3 Red Blood Count 3.43 Hemoglobin 10.5 Hematocrit 31.0 Mean Corpuscular Volume 90.4 Mean Corpuscular Hemoglobin 30.7 Mean Corpuscular Hemoglobin Concent 34.0 Red Cell Distribution Width 13.5 Platelet Count 102 Mean Platelet Volume 8.9 Prothrombin Time 11.2 Prothromb Time International Ratio 1.1 Activated Partial Thromboplast Time 19.6 Blood Urea Nitrogen 28 Creatinine 1.51 Random Glucose 117 Total Protein 5.7 Albumin 2.6 Calcium Level 8.0 Phosphorus Level 3.6 Magnesium Level 2.5 Alkaline Phosphatase 84 Aspartate Amino Transf (AST/SGOT) 27 Alanine Aminotransferase (ALT/SGPT) 58 Total Bilirubin 0.6 Sodium Level 149 Potassium Level 3.2 Chloride Level 113 Carbon Dioxide Level 26.3 Anion Gap 10 Estimat Glomerular Filtration Rate 44 Lactic Acid Level 1.1 Ammonia LESS THAN 10 Phenytoin (Dilantin) Level 9.9 Blood Gas Puncture Site ART LINE Blood Gas Patient Temperature 98.6 Blood Gas HCO3 26 Blood Gas Base Excess 2.7 Blood Gas Oxygen Saturation 95 Arterial Blood pH 7.46 Arterial Blood Partial Pressure CO2 37 Arterial Blood Partial Pressure O2 84 Arterial Blood Oxygen Content 14.1 Arterial Blood Carboxyhemoglobin 0.9 Arterial Blood Methemoglobin 1.1 Blood Gas Hemoglobin 10.5 Oxygen Delivery Device VENTILATOR Blood Gas Ventilator Setting PRVC/AC Blood Gas Inspired Oxygen 40 Kendall De Guzman MD PhD Feb 18, 2018 16:55
[2018-02-18 17:04] LABS: ANA PATTERN DIFFUSE
[2018-02-18 17:51] LABS: PHOSPHATIDYLSERINE AB IGA LESS THAN 20.0 U/mL (< 20.0); PHOSPHATIDYLSERINE AB IGG LESS THAN 10.0 U/mL (< 11.0); PHOSPHATIDYLSERINE AB IGM LESS THAN 25.0 U/mL (< 25.0)
--- NOTE | 2018-02-18 19:54 | RADRPT ---
EXAM DATE: 02/17/2018 12:57 PM EDT AGE/SEX: 17 years / Female INDICATIONS: Patient with history of pulmonary embolism in need of inferior vena cava filter placeme nt. CLINICAL DATA: This is the patient's subsequent encounter. Patient reports that signs and symptoms h ave been present for 2 days and indicates a pain score of Nonresponsive. MEDICAL/SURGICAL HISTORY: Hypothyroidism. Pulmonary embolism Thyroidectomy. COMPARISON: No prior exams available for comparison. FLUORO TIME (min): 26.5 IMAGE SERIES: 18 ACCESS SITE: Right internal jugular vein CONTRAST (cc): 15 cc Visipaque (iodixanol) Anesthesia and pain control was provided by the Anesthesia department. DEVICE(S): Right Inferior vena cava, Laquita Vena Cava Filter . . PROCEDURE : 1. Ultrasound-guided venipuncture. 2. Inferior venacavogram. 3. Inferior vena cava filter placement. 4. Conscious sedation with continuous EKG and oximetry monitoring. The risks, benefits and alternatives to the procedure were explained and verbal and written consent w as obtained. The site was prepped in sterile fashion. Full sterile technique was used, including ca p, mask, sterile gloves and gown and a large sterile sheet. Hand hygiene and 2% chlorhexidine and/or betadine/alcohol prep was utilized per protocol for cutaneous antisepsis. Sterile gel and sterile p robe cover were utilized for ultrasound guidance. The skin and subcutaneous tissues were infiltrated with local anesthetic solution. With ultrasound and fluoroscopic guidance the targeted vein was punctured and a vascular sheath was p laced. Inferior venacavogram was performed to demonstrate level of renal veins. No caval thrombus was identified. The prescribed filter was deployed in the infrarenal inferior vena cava. Following deplo yment the filter was identified in good position. Conscious sedation was performed with the prescribed dosages and duration as above in the presence of an independent trained radiology nurse to assist in the monitoring of the patient. EKG and oximetry remained stable throughout the procedure. The patient tolerated the procedure well and there were n o complications. The patient was sent to post anesthesia recovery in stable condition. CONCLUSION: 1. Uncomplicated inferior vena cava filter placement as above. Electronically signed by: Steven Hernandez MD 02/18/2018 7:52 PM EDT
--- NOTE | 2018-02-18 21:01 | HHI.NSPN ---
History Chief Complaint: Unable to obtain due to patient's clinical condition. Interval History In CVICU Intubated on fentanyl Exam Results Vital Signs Date Time Temp Pulse Resp B/P (MAP) Pulse Ox O2 Delivery O2 Flow Rate FiO2 02/18/18 20:00 99 65 02/18/18 18:00 84 137/83 02/18/18 16:00 97.3 18 02/18/18 07:30 Mechanical Ventilator Intake and Output 02/18/18 02/18/18 02/19/18 08:00 16:00 00:00 Intake Total 992 ml 305 ml 626 ml Output Total 500 ml 1050 ml Balance 492 ml 305 ml -424 ml Physical Examination Patient is intubated. Minimal sedation Pupils are 7 mm nonreactive Minimal oculocephalic responses Mild turning of the head to the right to sternal rub and deep pain. Mild reflux movement of the lower extremities to deep pain. No eye-opening Does not follow commands No response to voice Lab, Micro, Other Results 02/18/2018 MRI brain images reviewed by the undersigned. Findings consistent with mild residual diffuse parenchymal hemorrhages, stable right temporal hemorrhage without significant mass-effect. Correa-white signal intensity shift consistent with anoxic encephalopathy. No significant edema or hydrocephalus. Chest X-Ray 02/18/18 0600 Signed Impressions: CONCLUSION: 1. Right IJ [place]-Christiano catheter no longer seen. 2. Mild left lung base opacity unchanged. Brain MRI 02/18/18 0000 Signed Impressions: CONCLUSION: 1. Findings consistent with anoxia without edema. 2. Cortical hemorrhages, Largest right posterior sylvian region. 3. There is no venous thrombosis. Cortical hemorrhages in both hemispheres Medical Decision Making Impression and Plan Impression: Stable neuro exam. Minimal mostly mid to lower brainstem responses on exam ICH. SAH-stable on follow-up MRI 02/18/2018 MRI findings consistent with significant anoxic encephalopathy. Plan: No neurosurgical intervention anticipated. No significant edema or hydrocephalus noted on MRI 02/18/2018. Patient discussed with palliative care earlier on 02/18/2018. Evaluation noted. Discussed with merchandising execution associate Continue supportive care Overall prognosis appears poor, however given the patient's age the family may elect to continue supportive care for at least the intermediate term. Rodrigo Izaguirre MD Feb 18, 2018 21:01
[2018-02-19] VITALS (15 sets, daily range): BP systolic 94–148; BP diastolic 52–91; PULSE 70–91; RESP 18; TEMP 93.4–98.3; O2SAT 97–99
[2018-02-19] MEDS: RESP: ALBUTEROL 2.5 MG/IPRATROPIUM 0.5 MG NEB (SCH) NEB ×6 (00:43→20:04)
[2018-02-19] MEDS: CLEVIDIPINE INJ 50 ML IV PRN ×3 (03:20→15:29)
[2018-02-19] MEDS: METOPROLOL TARTRATE 5 MG/5 ML VIAL IV PUSH SCH ×3 (03:48→16:00)
[2018-02-19] MEDS: INSULIN NovoLIN REGULAR SUPPLEMENTAL SCALE SQ SCH ×6 (04:00→20:00)
[2018-02-19 05:00] LABS: HEMATOCRIT 29.4 % (35.0-46.0); MEAN CELL VOLUME 90.6 FL (80.0-100.0); MEAN CORPUSCULAR HEMOGLOBIN 30.9 PG (27.0-34.0); MEAN CORPUSCULAR HGB CONC 34.1 % (32.0-36.0); MEAN PLATELET VOLUME 9.6 FL (7.0-11.0); PLATELET COUNT 105 TH/MM3 (150-450); RED BLOOD COUNT 3.25 MIL/MM3 (4.00-5.30); RED CELL DISTRIBUTION WIDTH 13.6 % (11.6-17.2); WHITE BLOOD COUNT 10.3 TH/MM3 (4.0-11.0)
[2018-02-19 05:26] LABS: ALBUMIN 2.5 GM/DL (3.4-5.0); AST (GOT) 28 U/L (16-38); BICARBONATE 23.8 MEQ/L (21.0-32.0); BLOOD UREA NITROGEN 28 MG/DL (7-18); CALCIUM 8.4 MG/DL (8.5-10.1); CHLORIDE 117 MEQ/L (98-107); CREATININE 1.17 MG/DL (0.50-1.00); GLOMERULAR FILTRATION RATE 60 ML/MIN (>89); GLUCOSE,RANDOM 98 MG/DL (74-106); SODIUM (NA) 150 MEQ/L (136-145)
[2018-02-19] MEDS: SODIUM CHLOR 0.9% 1000 ML INJ 1,000 ML IV SCH (05:27)
[2018-02-19] MEDS: SILDENAFIL CITRATE 20 MG TAB PO SCH ×3 (05:28→23:00)
[2018-02-19] MEDS: ARTIFICIAL TEARS OPTH SOLN 15 ML BTL EACH EYE SCH ×3 (05:28→22:00)
[2018-02-19] MEDS: FOSPHENYTOIN SODIUM 100 MG PE/2 ML VIAL IV SCH ×3 (05:28→21:54)
[2018-02-19] MEDS: METOCLOPRAMIDE HCL 10 MG/2 ML VIAL IV PUSH SCH ×3 (05:28→21:54)
[2018-02-19 05:33] LABS: ALKALINE PHOSPHATASE 75 U/L (45-117); ALT (GPT) 42 U/L (9-42); PHENYTOIN (DILANTIN) 10.3 MCG/ML (10.0-20.0); TOTAL BILIRUBIN ADULT 0.4 MG/DL (0.2-1.0); TOTAL PROTEIN 5.6 GM/DL (6.4-8.2)
[2018-02-19] MEDS: LEVOTHYROXINE SODIUM 75 MCG TAB PO SCH ×2 (06:26→08:59)
[2018-02-19] MEDS: LEVOTHYROXINE SODIUM 100 MCG TAB PO SCH ×2 (06:26→09:02)
[2018-02-19] MEDS ORDERED: FUROSEMIDE 40 MG/4 ML VIAL IV PUSH ONE (06:30)
[2018-02-19] MEDS ORDERED: MAGNESIUM CITRATE SOLN 300 ML BTL PO ONE (06:30)
[2018-02-19] MEDS: CHLORHEXIDINE 0.12% (ORAL KIT) 15 ML CUP MT SCH ×2 (08:44→21:56)
--- NOTE | 2018-02-19 08:52 | PD.ONC.PN ---
Subjective Subjective Remarks Pt seen and examined, MRI results from 02/18 reviewed, [facility] consultant notes reviewed including critical care and Neurosurgery. Pt remains intubated and non responsive. Pt was seen yesterday by palliative care, she is now DNR. Objective Data Date Time Temp Pulse Resp B/P (MAP) Pulse Ox O2 Delivery O2 Flow Rate FiO2 02/19/18 08:08 98 60 02/19/18 04:13 99 60 02/19/18 04:00 60 02/19/18 04:00 97.4 85 18 99 133/79 (97) 02/19/18 04:00 85 02/19/18 03:20 80 136/82 02/19/18 00:43 99 65 02/19/18 00:00 65 02/19/18 00:00 83 02/19/18 00:00 97.4 83 18 97 136/81 (99) 02/18/18 20:00 97.3 92 18 98 137/84 (101) 02/18/18 20:00 99 65 02/18/18 20:00 90 02/18/18 20:00 65 02/18/18 18:00 84 137/83 02/18/18 16:20 99 65 02/18/18 16:00 78 02/18/18 16:00 97.3 92 18 137/89 (105) 99 139/85 (103) 02/18/18 16:00 65 02/18/18 14:35 97 70 02/18/18 13:00 100 02/18/18 12:58 99 100 02/18/18 12:00 86 02/18/18 12:00 40 02/18/18 12:00 97.6 92 18 96 129/85 (100) 02/18/18 10:30 98 100 02/18/18 10:00 97 40 02/19/18 02/19/18 02/19/18 07:00 15:00 23:00 Intake Total 100 ml Output Total 400 ml Balance -300 ml Result Diagram: 02/19/18 0355 02/19/18 0355 Laboratory Results Laboratory Tests Test 02/19/18 03:55 White Blood Count 10.3 TH/MM3 Red Blood Count 3.25 MIL/MM3 Hemoglobin 10.0 GM/DL Hematocrit 29.4 % Mean Corpuscular Volume 90.6 FL Mean Corpuscular Hemoglobin 30.9 PG Mean Corpuscular Hemoglobin Concent 34.1 % Red Cell Distribution Width 13.6 % Platelet Count 105 TH/MM3 Mean Platelet Volume 9.6 FL Blood Urea Nitrogen 28 MG/DL Creatinine 1.17 MG/DL Random Glucose 98 MG/DL Total Protein 5.6 GM/DL Albumin 2.5 GM/DL Calcium Level 8.4 MG/DL Alkaline Phosphatase 75 U/L Aspartate Amino Transf (AST/SGOT) 28 U/L Alanine Aminotransferase (ALT/SGPT) 42 U/L Total Bilirubin 0.4 MG/DL Sodium Level 150 MEQ/L Potassium Level 4.1 MEQ/L Chloride Level 117 MEQ/L Carbon Dioxide Level 23.8 MEQ/L Anion Gap 9 MEQ/L Estimat Glomerular Filtration Rate 60 ML/MIN Phenytoin (Dilantin) Level 10.3 MCG/ML Administered Medications Medications (Trade) Dose Ordered Sig/Gregg Route PRN Reason Start Time Stop Time Status Last Admin Dose Admin Sodium Chloride (NS Flush) 2 ml BID IV FLUSH 02/13/18 09:00 02/18/18 21:00 Cetirizine HCl (ZyrTEC) 10 mg DAILY PO 02/13/18 09:00 Future Hold 02/16/18 09:08 Fluticasone Propionate (Flonase Anil Spr) 1 spray BID EACH NARE 02/13/18 09:00 Future Hold 02/13/18 10:14 Levothyroxine Sodium (Synthroid) 100 mcg DAILY@0700 PO 02/13/18 07:00 02/18/18 05:56 Levothyroxine Sodium (Synthroid) 75 mcg DAILY@0700 PO 02/13/18 07:00 02/18/18 05:56 Chlorhexidine Gluconate (Peridex 0.12% Liq) 15 ml BID@08,20 MT 02/14/18 08:00 02/19/18 08:44 Fentanyl Citrate 250 ml @ 5 mls/hr TITRATE PRN IV SEDATION 02/14/18 03:15 02/18/18 03:40 Midazolam HCl 50 ml @ 2 mls/hr TITRATE PRN IV SEDATION 02/14/18 06:30 02/18/18 05:57 Sodium Chloride 1,000 ml @ 25 mls/hr Q24H IV 02/14/18 13:30 02/19/18 05:27 Clevidipine 50 ml @ 2 mls/hr TITRATE PRN IV Blood Pressure Management 02/14/18 19:15 02/19/18 03:20 Levetriacetam 500 mg/Sodium Chloride 105 ml @ 420 mls/hr Q12HR IV 02/14/18 21:00 02/18/18 21:15 Fosphenytoin Sodium (Cerebyx Inj) 100 mgpe Q8HR IV 02/16/18 14:00 02/19/18 05:28 Albuterol/ Ipratropium (Duoneb Neb) 1 ampule Q4HR NEB NEB 02/16/18 08:00 02/19/18 08:07 Artificial Tears (Tears Naturale Opth Soln) 1 drop Q8HR EACH EYE 02/16/18 14:00 02/19/18 05:28 Lansoprazole (Prevacid Odt) 30 mg DAILY NG 02/16/18 09:00 02/18/18 09:12 Docusate Sodium (Colace Liq) 100 mg Q12HR PO 02/16/18 09:00 02/18/18 21:15 Diphenhydramine HCl (Benadryl Inj) 25 mg Q4H PRN IV hives 02/17/18 05:30 02/17/18 10:55 Metoclopramide HCl (Reglan Inj) 5 mg Q8HR IV PUSH 02/17/18 14:00 02/19/18 05:28 Metoprolol Tartrate (Lopressor Inj) 5 mg Q6H IV PUSH 02/17/18 16:00 02/19/18 03:48 Epoprostenol Sodium 70 ml/ Sodium Chloride 100 ml @ 5 mls/hr Q8H NEB 02/18/18 00:00 02/18/18 23:26 Potassium Chloride 100 ml @ 50 mls/hr Q2H PRN IV For Potassium 2.8 - 3.2 mEq/L 02/18/18 08:15 02/18/18 18:55 Objective Remarks GENERAL: Young female, laying in bed, intubated and sedated, she has generalized anasarca and edema. No active bleeding noted though she does have areas of bruising of the skin. SKIN: Warm and dry. With small bruising over her chest and extremities. HEAD: Normocephalic. EYES: No scleral icterus. No injection or drainage. Conjunctivae are pale. Pupils appear to be fixed at about 8 mm and do not react to light. NECK: Supple, trachea midline. No JVD or lymphadenopathy. Right-sided central venous catheter in place; [place]. LYMPHATIC: No adenopathy. CARDIOVASCULAR: Tachycardic with heart rate of 135 bpm, regular. RESPIRATORY: Intubated, on ventilator support, breath sounds equal bilaterally. No accessory muscle use. GASTROINTESTINAL: Abdomen soft, non-tender, appears distended. EXTREMITIES: Generalized edema/anasarca. MUSCULOSKELETAL: Difficult to assess muscle tone due to sedation. NEUROLOGICAL: No spontaneous movements at this time, she is sedated. Pupils bilaterally dilated, right pupil is 8mm, left pupil approximately 8 mm. No discernible response to light reflex. PSYCHIATRIC: Unable to assess. Assessment/Plan Problem List: (1) Pulmonary emboli ICD Codes: I26.99 - Other pulmonary embolism without acute cor pulmonale Status: Acute Plan: --s/p tpa infusion 02/14 --s/p embolectomy --s/p IVC filter placement. (2) SAH (subarachnoid hemorrhage) ICD Codes: I60.9 - Nontraumatic subarachnoid hemorrhage, unspecified Status: Acute Assessment 17-year-old female hospitalized on 02/12/2018 following syncopal episode and difficulty breathing, CT angiogram revealed bilateral pulmonary emboli with significant clot volume/burden. Lower extremity deep venous thrombosis also identified. Echocardiogram revealed severe right ventricular failure and elevated right peak pulmonary arterial pressures. She underwent thrombolytic therapy on the night of 02/14/2018, shortly thereafter she decompensated from a cardiopulmonary standpoint and has since then been intubated and sedated. Over the past 76 hours she has had 2 cardiopulmonary arrests for which she was resuscitated. 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 Afternoon 02/14/2018 she was found to have intracranial hemorrhage. Plan 1. Bilateral pulmonary emboli: Due to intracranial hemorrhage there is a contraindication to anticoagulation at this time. She is therefore not on anticoagulation at this time. Hypercoagulable workup indicates no findings to suggest prothrombotic state at this time. Factor V Leiden mutation negative, prothrombin gene mutation negative, lupus anticoagulant negative, protein C and protein S antigen activity within normal limits. 2. Anoxic brain injury noted on MRI, intraparenchymal bleeding and SDH noted. Anoxic brain injury likely resulted when she had cardio-pulm failure, CPR likely was not sufficient to circulate blood through the pulm arterial circulation due to extensive pre-existing PE burden. Disposition: Prognosis is extremely poor. If no neurologic improvement over the next 24-48 hrs, the patient's mother will likely elect for withdrawal of support. I spent time this morning with the patient's mother and her aunt, we talked about the MRI brain and overall poor prognosis. Emotional support provided. Problem Qualifiers (1) Pulmonary emboli: Ernesto Banks MD Feb 19, 2018 08:52
[2018-02-19] MEDS: LANSOPRAZOLE SOLUTAB 30 MG TAB NG SCH (08:59)
[2018-02-19] MEDS: levETIRAcetam INJ 500 MG in SODIUM CHLORIDE 0.9% INJ 100 ML IV SCH ×2 (09:00→21:56)
[2018-02-19] MEDS: SODIUM CHLORIDE 0.9% FLUSH 10 ML FLUSH IV FLUSH SCH ×2 (09:00→09:10)
[2018-02-19] MEDS: DOCUSATE SODIUM 50 MG/SENNA 8.6 MG TAB PO SCH ×2 (09:02→21:57)
[2018-02-19] MEDS: DOCUSATE SODIUM 100 MG/10 ML UDC PO SCH ×2 (09:03→21:57)
[2018-02-19] MEDS: LACTULOSE SYRUP 20 GM/30 ML CUP PO SCH ×2 (09:03→21:58)
--- NOTE | 2018-02-19 09:48 | RADRPT ---
EXAM DATE: 02/19/2018 9:20 AM EDT AGE/SEX: 17 years / Female INDICATIONS: Confirm NG tube placement CLINICAL DATA: This is the patient's subsequent encounter. Patient reports that signs and symptoms h ave been present for 1 day and indicates a pain score of Nonresponsive. MEDICAL/SURGICAL HISTORY: . thyroid cancer pulmonary embolus Non-responsive. COMPARISON: No prior exams available for comparison. FINDINGS: A nasogastric feeding tube has been inserted. Tip is located in the right upper quadrant presumably w ithin the first portion of the duodenum. CONCLUSION: Tip of Dobbhoff feeding tube appears to be within the proximal duodenum. Electronically signed by: Juan Miguel Parmar MD 02/19/2018 9:47 AM EDT
[2018-02-19] MEDS: EPOPROSTENOL NEB SOLUTION 40 NG/KG/MIN 100 ML NEB SCH ×4 (10:47→19:00)
[2018-02-19] MEDS: MAGNESIUM HYDROXIDE SUSP 30 ML CUP PO SCH (12:45)
--- NOTE | 2018-02-19 12:52 | HHI.PR ---
Subjective Remarks S/P Thrombolysis for massive PE and Cardiac Arrest.Now with respiratory failure . On vent support and FIO2 60 %. .Still not responsive and off sedation.Neuro statu s is worse. Went for head MRI. Suggests hypoxic encephalopathy. Remains on Flolan. Objective Vital Signs Date Time Temp Pulse Resp B/P (MAP) Pulse Ox O2 Delivery O2 Flow Rate FiO2 02/19/18 08:08 98 60 02/19/18 08:00 60 02/19/18 07:00 84 02/19/18 07:00 96.4 84 18 116/77 (90) 98 121/77 (92) 02/19/18 04:13 99 60 02/19/18 04:00 60 02/19/18 04:00 97.4 85 18 99 133/79 (97) 02/19/18 04:00 85 02/19/18 03:20 80 136/82 02/19/18 00:43 99 65 02/19/18 00:00 65 02/19/18 00:00 83 02/19/18 00:00 97.4 83 18 97 136/81 (99) 02/18/18 20:00 97.3 92 18 98 137/84 (101) 02/18/18 20:00 99 65 02/18/18 20:00 90 02/18/18 20:00 65 02/18/18 18:00 84 137/83 02/18/18 16:20 99 65 02/18/18 16:00 78 02/18/18 16:00 97.3 92 18 137/89 (105) 99 139/85 (103) 02/18/18 16:00 65 02/18/18 14:35 97 70 02/18/18 13:00 100 02/18/18 12:58 99 100 I/O 02/18/18 02/18/18 02/18/18 02/19/18 02/19/18 02/19/18 07:00 15:00 23:00 07:00 15:00 23:00 Intake Total 992 ml 305 ml 881 ml 100 ml Output Total 500 ml 1050 ml 400 ml Balance 492 ml 305 ml -169 ml -300 ml Intake Oral 0 ml IV Total 826 ml 305 ml 811 ml 100 ml Tube Feeding 166 ml 70 ml Output Urine Total 500 ml 1050 ml 400 ml Gastric Drainage Total 0 ml # Bowel Movements 0 0 Result Diagram: 02/19/18 0355 02/19/18 0355 Objective Remarks GENERAL: This moderately overweight , young white female who is intubated on the vent HEENT: Head is normocephalic. Pupils were poorly reactive. NECK: No venous distention, no lymphadenopathy noted. CHEST: Equal movements with decreased breath sounds at the periphery. HEART: The heart tones were regular with S1 and S2. ABDOMEN: Soft, protuberant without masses. No organomegaly. EXTREMITIES: No lesions. There is no edema. SKIN: No lesions observed. NEUROLOGIC:Unresponsive Assessment and Plan Assessment and Plan IMPRESSION: 1. Bilateral pulmonary embolism with hypoxemia. 2. History of thyroid cancer and thyroidectomy. 3. Hypothyroidism. 4. Dehydration and acute kidney injury. 5. Deep venous thrombosis, right lower extremity. 6. [place] Plan : 1. Vent support and Wean FIO2. 2. Cont Flolan inhalation 40 Mcg/Kg 3. Albuterol nebs q6h PRN 4. Sildenafil 30 mg TID 5. Continued Neuro Evaluation 6. No anticoagulation 7. CBC BMP in am Tyra Abdul MD Feb 19, 2018 12:52
--- NOTE | 2018-02-19 14:50 | HHI.NPPN ---
Subjective History of Present Illness 17 year old with massive PE, cardiac arrest ARF, brain bleed Objective Data Data Vital Signs Date Time Temp Pulse Resp B/P (MAP) Pulse Ox O2 Delivery O2 Flow Rate FiO2 02/19/18 14:05 93.9 02/19/18 12:00 60 02/19/18 11:00 70 02/19/18 11:00 93.4 81 18 130/89 (103) 99 148/91 (110) 02/19/18 08:08 98 60 02/19/18 08:00 60 02/19/18 07:00 84 02/19/18 07:00 96.4 84 18 116/77 (90) 98 121/77 (92) 02/19/18 04:13 99 60 02/19/18 04:00 60 02/19/18 04:00 97.4 85 18 99 133/79 (97) 02/19/18 04:00 85 02/19/18 03:20 80 136/82 02/19/18 00:43 99 65 02/19/18 00:00 65 02/19/18 00:00 83 02/19/18 00:00 97.4 83 18 97 136/81 (99) 02/18/18 20:00 97.3 92 18 98 137/84 (101) 02/18/18 20:00 99 65 02/18/18 20:00 90 02/18/18 20:00 65 02/18/18 18:00 84 137/83 02/18/18 16:20 99 65 02/18/18 16:00 78 02/18/18 16:00 97.3 92 18 137/89 (105) 99 139/85 (103) 02/18/18 16:00 65 -: 02/19/18 0355 02/19/18 0355 Physical Exam General Appearance: Well Developed, Well Nourished Neck Neck Exam: Neck Supple Pulmonary Resp Exam: Clear Bilaterally, Breath Sounds Equal Cardiology CV Exam: Tachycardia Gastrointestinal/Abdomen GI Exam: Soft, Non-Tender, Bowel Sounds Present Extremeties Extremities Exam: Moderate Edema Assessment/Plan Assessment Summary: [place] Hyperparathyroid Problem List: (1) Acute renal failure ICD Codes: N17.9 - Acute kidney failure, unspecified Plan: patient has ischemic event and receive contrast study contributing to ARF her urine out put is low PA pressures are high She is on Flolan to help regulate pulmonary arterial pressures. Diuresing well with Lasix, avoid Nephrotoxins. Creatinine declined to 1.17 K stable Na 150 replace water MRI brain Severe Encephalopathy from anoxia prognosis is guarded to poor wait for improvement EEG slow waves (2) Pulmonary emboli ICD Codes: I26.99 - Other pulmonary embolism without acute cor pulmonale Status: Acute Plan: treated with TPA, Angiogram (3) Cardiac arrest ICD Codes: I46.9 - Cardiac arrest, cause unspecified Plan: patient had cardiac arrest x 2 (4) SAH (subarachnoid hemorrhage) ICD Codes: I60.9 - Nontraumatic subarachnoid hemorrhage, unspecified Status: Acute Plan: as above complications from fall/TPA/anticoagulation Problem Qualifiers (1) Acute renal failure: Qualified Codes: N17.0 - Acute kidney failure with tubular necrosis (2) Pulmonary emboli: Lori Banks MD Feb 19, 2018 14:50
[2018-02-19] MEDS: FREE WATER G-TUBE SCH ×2 (16:00→20:00)
--- NOTE | 2018-02-19 18:13 | HHI.HCPN ---
Reason for visit a. To assist with evaluation and management of symptoms including:dyspnea, pain b. To assist medical decision maker(s) with: better understanding of current medical conditions; weighing benefits/burdens of medical treatment options; making medical treatment decisions. Subjective/Interval History Pt had EEG today, not on sedation, but still no significant neurological improvement. EEG pending. Family/friend interactions Spoke with pt's mother, grandfather, and aunt. Gave updates, no change in goals of care. Continue aggressive treatment short of resucitiation. They are given pt a few more days to see if there is any improvement. Advance Directives Living Will: Never completed Health Care Surrogate: Never completed Durable Power of Cash Posting Clerk: Never completed Objective Vital Signs Date Time Temp Pulse Resp B/P (MAP) Pulse Ox O2 Delivery O2 Flow Rate FiO2 02/19/18 16:16 60 02/19/18 15:57 98 60 02/19/18 15:00 80 02/19/18 15:00 96.2 88 18 114/71 (85) 99 117/73 (88) 02/19/18 14:05 93.9 02/19/18 14:00 81 120/75 02/19/18 12:00 60 02/19/18 11:00 70 02/19/18 11:00 93.4 81 18 130/89 (103) 99 148/91 (110) 02/19/18 08:08 98 60 02/19/18 08:00 60 02/19/18 07:00 84 02/19/18 07:00 96.4 84 18 116/77 (90) 98 121/77 (92) 02/19/18 04:13 99 60 02/19/18 04:00 60 02/19/18 04:00 97.4 85 18 99 133/79 (97) 02/19/18 04:00 85 02/19/18 03:20 80 136/82 02/19/18 00:43 99 65 02/19/18 00:00 65 02/19/18 00:00 83 02/19/18 00:00 97.4 83 18 97 136/81 (99) 02/18/18 20:00 97.3 92 18 98 137/84 (101) 02/18/18 20:00 99 65 02/18/18 20:00 90 02/18/18 20:00 65 Intake & Output 02/19/18 02/19/18 07:00 19:00 Intake Total 355 ml 944.2 ml Output Total 400 ml 1175 ml Balance -45 ml -230.8 ml Intake Oral 190 ml IV Total 355 ml 754.2 ml Output Urine Total 400 ml 1175 ml # Voids 8 Physical Exam CONSTITUTIONAL/GENERAL: 17 year old intubated, in critical condition, TUBES/LINES/DRAINS: right femoral arterial sheath, left femoral triple lumen, deluca. right IJ SKIN: No jaundice, rashes, or lesions. Ecchymoses on upper extremities. No wounds seen anteriorly. Skin temperature appropriate. Not diaphoretic. HEAD: Atraumatic. Normocephalic. EYES: Pupils dilated, minimally reactive. ENT: . Nose without bleeding or purulent drainage. Throat intubated NECK: Trachea midline. CARDIOVASCULAR: Regular rate and rhythm without murmurs, gallops, or rubs. No JVD. Peripheral pulses symmetric. RESPIRATORY/CHEST: Symmetric, unlabored respirations. Clear to auscultation. Breath sounds equal bilaterally. No wheezes, rales, or rhonchi. GASTROINTESTINAL: Abdomen soft, non-tender, nondistended. No hepato-splenomegaly , or palpable masses. No guarding. Bowel sounds present. GENITOURINARY: Without palpable bladder distension. Deluca catheter in place. MUSCULOSKELETAL: Extremities without clubbing, cyanosis, or edema. LYMPHATICS: No palpable cervical or supraclavicular adenopathy. NEUROLOGICAL: unresponsive, I could not elicit withdraw to pain on my visit. PSYCHIATRIC: could not examine given level of responsiveness. Diagnostic Tests Laboratory Laboratory Tests Test 02/17/18 04:30 02/17/18 05:58 02/17/18 13:15 02/18/18 04:39 White Blood Count 17.2 TH/MM3 (4.0-11.0) 14.3 TH/MM3 (4.0-11.0) Red Blood Count 3.25 MIL/MM3 (4.00-5.30) 3.43 MIL/MM3 (4.00-5.30) Hemoglobin 9.8 GM/DL (11.6-15.3) 10.5 GM/DL (11.6-15.3) Hematocrit 28.8 % (35.0-46.0) 31.0 % (35.0-46.0) Mean Corpuscular Volume 88.8 FL (80.0-100.0) 90.4 FL (80.0-100.0) Mean Corpuscular Hemoglobin 30.1 PG (27.0-34.0) 30.7 PG (27.0-34.0) Mean Corpuscular Hemoglobin Concent 33.8 % (32.0-36.0) 34.0 % (32.0-36.0) Red Cell Distribution Width 13.2 % (11.6-17.2) 13.5 % (11.6-17.2) Platelet Count 99 TH/MM3 (150-450) 102 TH/MM3 (150-450) Mean Platelet Volume 9.1 FL (7.0-11.0) 8.9 FL (7.0-11.0) Prothrombin Time 11.2 SEC (9.8-11.6) 11.2 SEC (9.8-11.6) Prothromb Time International Ratio 1.1 RATIO 1.1 RATIO Activated Partial Thromboplast Time 21.7 SEC (24.3-30.1) 19.6 SEC (24.3-30.1) Fibrinogen 183 mg/dL (227-377) Blood Urea Nitrogen 31 MG/DL (7-18) 28 MG/DL (7-18) Creatinine 1.86 MG/DL (0.50-1.00) 1.51 MG/DL (0.50-1.00) Random Glucose 108 MG/DL (74-106) 117 MG/DL (74-106) Total Protein 5.8 GM/DL (6.4-8.2) 5.7 GM/DL (6.4-8.2) Albumin 2.9 GM/DL (3.4-5.0) 2.6 GM/DL (3.4-5.0) Calcium Level 8.2 MG/DL (8.5-10.1) 8.0 MG/DL (8.5-10.1) Phosphorus Level 2.9 MG/DL (2.5-4.9) 3.6 MG/DL (2.5-4.9) Magnesium Level 2.2 MG/DL (1.5-2.5) 2.5 MG/DL (1.5-2.5) Alkaline Phosphatase 78 U/L (45-117) 84 U/L (45-117) Aspartate Amino Transf (AST/SGOT) 45 U/L (16-38) 27 U/L (16-38) Alanine Aminotransferase (ALT/SGPT) 84 U/L (9-42) 58 U/L (9-42) Lactate Dehydrogenase 460 U/L (84-246) Total Bilirubin 0.7 MG/DL (0.2-1.0) 0.6 MG/DL (0.2-1.0) Sodium Level 146 MEQ/L (136-145) 149 MEQ/L (136-145) Potassium Level 3.5 MEQ/L (3.5-5.1) 3.2 MEQ/L (3.5-5.1) Chloride Level 112 MEQ/L (98-107) 113 MEQ/L (98-107) Carbon Dioxide Level 21.7 MEQ/L (21.0-32.0) 26.3 MEQ/L (21.0-32.0) Anion Gap 12 MEQ/L (5-15) 10 MEQ/L (5-15) Estimat Glomerular Filtration Rate 35 ML/MIN (>89) 44 ML/MIN (>89) Lactic Acid Level 1.5 mmol/L (0.4-2.0) 1.1 mmol/L (0.4-2.0) Total Creatine Kinase 193 U/L (26-192) Creatine Kinase MB 0.9 NG/ML (0.5-3.6) Creatine Kinase MB % 0.5 % (0.0-4.0) Troponin I 0.11 NG/ML (0.02-0.05) Amylase Level 73 U/L (25-115) Lipase 128 U/L (73-393) Phenytoin (Dilantin) Level 10.2 MCG/ML (10.0-20.0) 9.9 MCG/ML (10.0-20.0) Blood Gas Puncture Site ART LINE Blood Gas Patient Temperature 98.6 Blood Gas HCO3 24 mmol/L (22-26) Blood Gas Base Excess 0.2 mmol/L (-2-2) Blood Gas Oxygen Saturation 96 % (90-100) Arterial Blood pH 7.43 (7.380-7.420) Arterial Blood Partial Pressure CO2 37 mmHg (38-42) Arterial Blood Partial Pressure O2 109 mmHg (61-120) Arterial Blood Oxygen Content 13.1 Vol % (12.0-20.0) Arterial Blood Carboxyhemoglobin 0.8 % (0-4) Arterial Blood Methemoglobin 1.3 % (0-2) Blood Gas Hemoglobin 9.6 G/DL (12.0-16.0) Oxygen Delivery Device VENTILATOR Blood Gas Ventilator Setting PRVC/AC Blood Gas Inspired Oxygen 40 % Ammonia 19 MCMOL/L (11-32) LESS THAN 10 MCMOL/L Test 02/18/18 06:14 02/19/18 03:55 Blood Gas Puncture Site ART LINE Blood Gas Patient Temperature 98.6 Blood Gas HCO3 26 mmol/L (22-26) Blood Gas Base Excess 2.7 mmol/L (-2-2) Blood Gas Oxygen Saturation 95 % (90-100) Arterial Blood pH 7.46 (7.380-7.420) Arterial Blood Partial Pressure CO2 37 mmHg (38-42) Arterial Blood Partial Pressure O2 84 mmHg (61-120) Arterial Blood Oxygen Content 14.1 Vol % (12.0-20.0) Arterial Blood Carboxyhemoglobin 0.9 % (0-4) Arterial Blood Methemoglobin 1.1 % (0-2) Blood Gas Hemoglobin 10.5 G/DL (12.0-16.0) Oxygen Delivery Device VENTILATOR Blood Gas Ventilator Setting PRVC/AC Blood Gas Inspired Oxygen 40 % White Blood Count 10.3 TH/MM3 (4.0-11.0) Red Blood Count 3.25 MIL/MM3 (4.00-5.30) Hemoglobin 10.0 GM/DL (11.6-15.3) Hematocrit 29.4 % (35.0-46.0) Mean Corpuscular Volume 90.6 FL (80.0-100.0) Mean Corpuscular Hemoglobin 30.9 PG (27.0-34.0) Mean Corpuscular Hemoglobin Concent 34.1 % (32.0-36.0) Red Cell Distribution Width 13.6 % (11.6-17.2) Platelet Count 105 TH/MM3 (150-450) Mean Platelet Volume 9.6 FL (7.0-11.0) Blood Urea Nitrogen 28 MG/DL (7-18) Creatinine 1.17 MG/DL (0.50-1.00) Random Glucose 98 MG/DL (74-106) Total Protein 5.6 GM/DL (6.4-8.2) Albumin 2.5 GM/DL (3.4-5.0) Calcium Level 8.4 MG/DL (8.5-10.1) Alkaline Phosphatase 75 U/L (45-117) Aspartate Amino Transf (AST/SGOT) 28 U/L (16-38) Alanine Aminotransferase (ALT/SGPT) 42 U/L (9-42) Total Bilirubin 0.4 MG/DL (0.2-1.0) Sodium Level 150 MEQ/L (136-145) Potassium Level 4.1 MEQ/L (3.5-5.1) Chloride Level 117 MEQ/L (98-107) Carbon Dioxide Level 23.8 MEQ/L (21.0-32.0) Anion Gap 9 MEQ/L (5-15) Estimat Glomerular Filtration Rate 60 ML/MIN (>89) Phenytoin (Dilantin) Level 10.3 MCG/ML (10.0-20.0) Result Diagram: 02/19/18 0355 02/19/18 0355 Imaging Last Impressions Abdomen X-Ray 02/19/18 0000 Signed Impressions: CONCLUSION: Tip of Dobbhoff feeding tube appears to be within the proximal duodenum. Chest X-Ray 02/18/18 0600 Signed Impressions: CONCLUSION: 1. Right IJ [place]-Christiano catheter no longer seen. 2. Mild left lung base opacity unchanged. Brain MRI 02/18/18 0000 Signed Impressions: CONCLUSION: 1. Findings consistent with anoxia without edema. 2. Cortical hemorrhages, Largest right posterior sylvian region. 3. There is no venous thrombosis. Cortical hemorrhages in both hemispheres Head CT 02/17/18 0752 Signed Impressions: CONCLUSION: Very slight improvement of the 3.1 cm right temporal lobe parenchymal hemorrhag e. Scattered tiny areas of parenchymal/subarachnoid hemorrhage are stable withi n the left frontal, left temporal and right parietal lobes. Diffuse sulcal effa cement is unchanged. No new midline shift is noted. IVC Filter Placement X-Ray 02/14/18 Signed Impressions: CONCLUSION: 1. Uncomplicated inferior vena cava filter placement as above. Lower Extremity Ultrasound 02/13/18 Signed Impressions: CONCLUSION: 1. There is thrombus within the right popliteal and peroneal veins. CT Angiography 02/12/182030 Signed Impressions: CONCLUSION: 1. Multiple large central and peripheral bilateral pulmonary emboli. 2. Trace pericardial fluid. 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 Pt's father Mir Waterman, as witnessed by RN on 02/18/2018 decline to participate in health care decision making and wish to defer to pt's mother Andreia Waterman Ethical issues impacting care: none. Important Contacts Andreia Waterman [phone] Prognosis 17 year old after car trip from [place] to [facility], had syncope, and dyspnea. EMS activated, and further workup show multiple large central bilateral PE, and thrombus in popliteal vein. Was IR for thrombectomy but condition complicated by cardiac arrestx2; cardiogenic shock from RV failure, respiratory failure, and renal failure. Pt had tpa. Further complications arose including: right temporal and parietal acute parenchymal hemorrhage with smaller scattered areas of punctate hemorrhage and mild subarachnoid hemorrhage in the right greater than left hemisphere; anoxic encephalopathy, seizures. Prognosis is guarded. Code Status: No Code Plan == code DNR. both parents are amenable to DNR. == capacity- patient does not have capacity to make medical decisions, and given ich and anoxia , high probablility of not regaining capacity. == Health Care Decision Maker. there is no advance directive available. Pt is single, no children, and [place], patient parents: Andreia Waterman and Mir Waterman are health care proxy. Mir Waterman while on the phone, and witnessed by CASI Sandhu does not want to participate in medical decision making and defer to pt's mother Andreia Waterman. Therefore, sole healthcare decision maker/Health care proxy is pt's mother Andreia Waterman. == goals of treatment (family meeting held with pt's mother, pt's aunt, and pt' s grandfather, along with myself and receptionist nurse). Spoke with pt's Father over the phone, who again has defered decision making. No change in goals of care today. * Family are aware of significant encephalopathy, the possibility of being dependant of life support for an extended period of time, and possibility she may not have any progression in neurological recovery. * If after, this , by Friday there is not significant neurological improvement, interactions, they would revaluate on what to do: comfort vs continue medical care. * They are hopeful that she may have some neurologic improvement Friday, but realistically they know that may also not happen. * both pt's parents have said if there is no hope, Magali would not want prolong life support. They want to balance giving her a chance to recover, but also do not want patient to have prolong suffering from debility. * Transitioning to comfort measures was discussed with family and they are amenable to that should there be no neurologically improvement in the coming days. * Peg and trach decisions were discussed. == symptoms of discomfort: dyspnea- remains on the vent, no new med rec, currently off sedation. Pain- from ich hemorrhage, cpr, hospitalization, intubated- continue current regimen. == palliative care will be available to make recommendations for symptom management, and review goals of care as clinical condition evolves. d/w with receptionist nurse. Attestation To help prompt me to consider important information that might be impacting today's encounter and assessment, information from prior notes written by myself or my colleagues may have been "brought forward" into today's note. My signature on this note, however, is an attestation that I personally performed the exam, history, and/or decision-making noted today, and, unless otherwise indicated, the interactions with patient, family, and staff as well as the review of records all occurred today. I also attest that the listed assessment and stated plan reflect my best clinical judgment today based on the combination of historical information, prior notes, and today's exam/ interactions. When time spent is documented, it refers only to time spent today by the signer, or if indicated, combined time spent today by collaborating physician/nurse practitioner. Wei Perez MD Feb 19, 2018 18:13
--- NOTE | 2018-02-19 18:42 | HHI.CCPN ---
Subjective Remarks/Hospital Course Hospital Course: 17-year-old female with a past medical history significant for hypothyroidism presents to the emergency department for evaluation of shortness of breath and a syncopal episode. Patient reports that for the past 2 days she has had shortness of breath. Today she noticed that she had increasing dyspnea on exertion. She reports associated emesis 3 with dizziness and loss of consciousness. She states she had right lower extremity pain approximately 1 month ago. She denies any chest pain. No abdominal pain. No fevers/chills. The patient was initially admitted to medicine service on a heparin drip. She was evaluated by hematology oncology Dr. Banks, and the stress echocardiogram showed severe RV dilation. The patient was also clinically worsening requiring more oxygen support. She was taken to IR for mechanical thrombectomy. While in the IR suite she suffered a respiratory arrest and was intubated and successfully resuscitated. She returned to ICU in severe shock/obstructive. Shortly after arrival to the unit the patient suffered another episode of cardiac arrest requiring 2 cycles of CPR and 2 injections of epinephrine. Due to hemodynamic instability the TPA bolus followed by an infusion was immediately administered. 02/14: patient remains in profound obstructive cardiogenic shock with acute RV failure, as well as acute hypoxic respiratory failure. I added inhaled flolan at 50 ng/kg/min, dobutamine at 5 mcg/kg/min. epinephrine is at 6 mcg/min and vasopressin at 0.04 units/min. avoiding norepinephrine to minimize pulmonary vascular constriction. avoiding milrinone currently due to hypotension, although if we get control of her shock, milrinone may be of added benefit. lactate is 8 and continues to rise. pH 7.1 with BE -14. remains hemodynamically unstable. pupils are 6mm and minimally reactive, although the patient has recently received atropine IV during her cardiac arrest, so unclear what prognostic value her pupillary exam is currently. She does have a history of recently falling and hitting her head, so we will order head CT to rule out catastrophic hemorrhage. Also have given 3 amps bicarb, 1 gm calcium chloride for her acid/base and electrolyte derangements. started insulin drip for severe hyperglycemia. remained at bedside titrating vasoactive medications. remains on 100% fio2. very unstable. 02/15: 02/16: Afebrile. Temperature overnight but did not tolerate tube feeds will be restarted today. KUB ordered. Pupils are reactive with a leftward gaze. Withdraws to pain bilateral upper and lower extremities. Discussed with mother at bedside. 02/17: T-max 99.5. Currently afebrile. Dobutamine discontinued overnight due to "tachycardia". Cardiac output is greater than 11. Cardiac index is greater than 4. Neuro examination worsened overnight. Both pupils are fixed and dilated right pupil about 8 mm left pupil about 6 mm and fixed. Does not withdraw to pain at all today. Gag positive. No corneal reflex. No cough. 02/18: remains sedated. pupils remain fixed and dilated. plan for MRI today. hemodynamically stable on minimal clevidipine to keep SBP < 140. high concern for anoxic brain injury. discussed with mother at bedside. Subjective: 02/19: no change in profound neurologic deficit. MRI consistent with anoxia. Objective Vital Signs Date Time Temp Pulse Resp B/P (MAP) Pulse Ox O2 Delivery O2 Flow Rate FiO2 02/19/18 16:16 60 02/19/18 15:57 98 02/19/18 15:00 80 02/19/18 15:00 96.2 18 114/71 (85) 117/73 (88) 02/18/18 07:30 Mechanical Ventilator Intake and Output 02/19/18 02/19/18 02/20/18 08:00 16:00 00:00 Intake Total 100 ml 50 ml 894.2 ml Output Total 400 ml 1175 ml Balance -300 ml 50 ml -280.8 ml Result Diagram: 02/19/18 0355 02/19/18 0355 Imaging Last Impressions Abdomen X-Ray 02/16/18 0000 Signed Impressions: CONCLUSION: No significant bowel distention Persistent contrast remaining in the kidneys. This can be seen with ATN. Head CT 02/14/18 0000 Signed Impressions: CONCLUSION: 1. Stable parenchymal hemorrhage on the right and scattered subarachnoid hemor rhage with some swelling and edema in the brain. Overall no significant change from February 14 at 1243. Chest X-Ray 02/14/18 0000 Signed Impressions: CONCLUSION: Increase in bilateral airspace disease since earlier exam. Placement of Lotus-Ga nz catheter with tip in right pulmonary artery. Endotracheal tube and nasogastr ic tube unchanged. Lower Extremity Ultrasound 02/13/18 Signed Impressions: CONCLUSION: 1. There is thrombus within the right popliteal and peroneal veins. CT Angiography 02/12/182030 Signed Impressions: CONCLUSION: 1. Multiple large central and peripheral bilateral pulmonary emboli. 2. Trace pericardial fluid. Objective Remarks GENERAL: 17-year-old female currently orotracheally intubated and sedated on fentanyl and versed. SKIN: Warm. Well perfused. HEAD: Normocephalic. Atraumatic. EYES: Right pupil is about 6 mm and fixed. Left pupil is about 6 mm and fixed. No scleral icterus. No injection or drainage. NECK: Supple, trachea midline. large neck circumference prevents accurate assessment of JVD. dressing over right neck clean, dry, intact. CARDIOVASCULAR: tachycardic rate, regular rhythm. sinus. RESPIRATORY: Diminished breath sounds throughout. No wheezing is appreciated GASTROINTESTINAL: Abdomen obese, soft, non-tender, nondistended. no guarding. EXTREMITIES: Warm and currently well perfused.. distal pulses 1+. right groin with arterial sheath in place, site clean and dry, dressing intact, no hematoma. left groin with triple lumen catheter in place, site c/d, dressing intact, no hematoma. NEURO EXAM: LUE extensor postures. the remainder of the extremities have what appears to be weak withdraw to painful stimuli. no clonus. +gag. +corneals. + cough. Date of Insertion: Feb 14, 2018 Line: Central Venous Catheter Side: Left Location: Femoral A/P Assessment and Plan Assessment: 17yF with massive PE complicated by cardiac arrest x 2, intracerebral hemorrhage, hypoxic/ischemic encephalopathy. remains critically ill. Neuro/Psych: Acute hypoxic/ischemic encephalopathy Acute temporoparietal intraparenchymal hemorrhage with scattered punctate hemorrhage in right greater than left subarachnoid hemorrhage Seizure disorder NOS Allergic rhinitis - neurosurgery: Dr. Izaguirre following -Neurology following -Dr. De Guzman - hold all sedation. - RASS goal -2 - frequent neuro checks -CT brain 02/17: mild reduction in size of bleed. no midline shift - MRI 02/18 consistent with anoxic injury. - avoid anticoagulation in light of hemorrhage as above. - noted platelets of remain low: risk/benefit favors holding on transfusing platelets given recent massive PE and concern for hypercoagulability. -Acetaminophen 650 mg by tube every 6 hours as needed fever Currently on levetiracetam 500 mg IV twice daily and fosphenytoin 100 mg IV every 8 hours. phenytoin level 9.9. EEG 02/17: severe encephalopathy. 02/15 EEG revealed a diffuse encephalopathy. In addition,sharp activity is identified frequently over the right hemisphere with phase reversal, which is consistent with a possible seizure focus in the right hemisphere. Holding cetirizine 10 mg daily add provigil Respiratory: Acute hypoxic and hypercarbic respiratory failure Massive pulmonary embolism status post systemic TPA Acute pulmonary Hypertension secondary to acute pulmonary embolism PRVC 18/600/09/13/39 - vent bundle, hob elevated, Albuterol/ipratropium aerosols every 4 hours with albuterol aerosols every 2 hours as needed dyspnea - wean fio2 for goal spo2 > 92% - inhaled epoprostenol at 40 ng/kg/min. wean to 30 ng/kg/min. - no weaning of mechanical ventilation given shock and instability Cardiovascular: Cardiogenic Shock- Obstructive type- resolved Right Ventricular Failure secondary to massive pulmonary embolism Resolved lactic acidosis Moderate TR off inotropes on clevidipine for goal sbp < 140 increase sildenafil to 40 mg po q8h - s/p systemic TPA 02/14 for hemodynamic collapse - s/p endovascular mechanical thrombectomy 02/13, repeat thrombectomy 02/14 - s/p emergent IVC filter placement 02/14 - hold all anticoagulation. Continue normal saline at 25 cc an hour continue lasix 20mg iv daily Echocardiogram 02/13 The left ventricular systolic function is normal with an estimated ejection fraction in the range of 60-65%. There is a flattened septum in systole consistent with right ventricle pressure overload. The right ventricle is severely dilated. There is akinesis of the RV free wall with apical hypercontractility of the apex (Miller's sign) consistent with pulmonary embolism. Trace mitral valve regurgitation. There is mild to moderate tricuspid valve regurgitation. There is estimated severe pulmonary hypertension present ( > 70 mmHg). Renal: Acute kidney injury likely Acute Tubular Necrosis- resolving. - likely secondary to shock and contrast loads: -very slowly improving. Cr remains elevated. uop adequate. - daily bmp, magnesium phosphorus - must keep deluca. -- Strict I/Os -continue furosemide 40 mg IV daily FEN/GI: Acute Liver Injury: shock liver and congestive hepatopathy- resolving. Elevated BMI of 35.1 Hypoalbuminemia Hypernatremia - tube feeds with vital 1.5 per nutrition recommendations goal 75 cc an hour currently 20 cc an hour. Lansoprazole for GI prophylaxis Docusate sodium 100 mg twice daily/senna 820 mg twice daily for bowel regimen increase bowel regimen to include MOM, Miralax, Mag citrate x 1. - trend CMP daily - placed post-pyloric DHT 02/19 Heme/ID: Hypercoagulable State with ongoing workup of hypercoagulable profile s/p systemic TPA 02/14 Thrombocytopenia Hypofibrinogenemia- resolved Normocytic anemia Massive Pulmonary Embolism - hold all anticoagulation given head bleeds - will not reverse coagulopathy given recent massive PE - low platelets secondary to consumption: 4T score low probability for HIT - s/p emergent IVC filter placement 02/14 - hematology consulted and following - trend daily cbc - no infectious etiology suspected at this time FIGUEROA screen positive. Further laboratory workup pending Endocrine: Severe hyperglycemia of critical illness- improving Hypothyroidism Continue SSI, med scale, q4h -TSH is 2.31. Continue levothyroxine 175 mcg by mouth daily Prophylaxis: GI Prophylaxis Lansoprazole DVT Prophylaxis -- SCDs - IVC filter - hold anticoagulation. Lines: 02/14: right femoral arterial sheath 02/14: left femoral triple lumen catheter 02/13: deluca 02/14 - 02/17: right IJ 9 Fr introducer sheath 02/14 - 02/17: right IJ PA catheter (IR guided into right main PA, free of clot). will need to swap lines to upper extremity and out of groin today Critical Care: The total critical care time was 31 minutes. Time to perform other separately billable procedures was not included in the critical care time. Gennaro Ocampo MD Feb 19, 2018 18:42
[2018-02-19] MEDS ORDERED: ALBUMIN 5% INJ 250 ML IV ONE ×2 (20:05→21:00)
--- NOTE | 2018-02-19 20:47 | PD.PROCEDR ---
Procedure Note Procedure Procedure: Arterial Line Placement Left radial arterial line Diagnosis: Anoxic brain injury Indications: Need for beat to beat hemodynamic monitoring Consent: Obtained from the mother Description of the Procedure: The left wrist was prepped and draped sterilely. The pulse was located and a needle was advanced into the artery. A 20 gauge, 12 cm catheter was advanced into the artery using a modified Seldinger technique. The catheter was sutured to the skin and a sterile dressing was applied. The catheter was connected to a pressure transducer and an arterial waveform was noted. There were no immediate complications noted. There was minimal EBL. I personally performed the procedure. Gennaro Ocampo MD Feb 19, 2018 20:47
--- NOTE | 2018-02-19 20:48 | PD.PROCEDR ---
Procedure Note Procedure Central Line Procedure Note Left subclavian 7 Andorran 20 cm triple-lumen catheter Diagnosis: Massive pulmonary embolism Indications: Need for central pressure monitoring and vasoactive substances Consent: Obtained from the mother medical decision maker Anesthesia: None Description of the Procedure: The patient was placed in the supine, mild- Trendelenburg position. The area was prepped and draped sterilely. A 19g needle was inserted under negative pressure aspiration and dark venous blood was obtained. The needle was transduced in the following home of venous blood was observed. A guidewire was inserted easily without resistance. A small incision was made using a #11 blade. Using a modified Seldinger technique, the dilator and 7 Andorran, 20 cm catheter were advanced over the guidewire without resistance. All ports were aspirated and flushed, and had brisk blood return. The line was secured at the skin using non-suture StatLock device. A Biopatch and Transparent sterile dressing were applied. There were no immediate complications noted. There was minimal EBL. The patient tolerated the procedure well. Ultrasound guidance was not used for this procedure. A Chest x-ray has been ordered. I personally performed the procedure. Gennaro Ocampo MD Feb 19, 2018 20:48
[2018-02-19] MEDS: VASOPRESSIN 40 U/D5W 100 ML Titrate, Post Cardiac Surgery IV PRN ×2 (21:00)
[2018-02-19] MEDS: amLODIPine BESYLATE 5 MG TAB PO SCH (21:00)
--- NOTE | 2018-02-19 21:10 | RADRPT ---
EXAM DATE: 02/19/2018 9:03 PM EDT AGE/SEX: 17 years / Female INDICATIONS: Central line placement. CLINICAL DATA: This is the patient's subsequent encounter. Patient reports that signs and symptoms h ave been present for 1 day and indicates a pain score of Nonresponsive. MEDICAL/SURGICAL HISTORY: . Thyroid cancer, PEs. Non-responsive. COMPARISON: [facility] – [place], CHEST SINGLE AP, 02/18/2018. . FINDINGS: A single AP view of the chest demonstrates left basilar density. Left subclavian central line with ti p crossing the midline in the right subclavian vein. Heart in the upper limits of normal in size. End otracheal tube and nasogastric tube appear unchanged. Osseous structures are intact. CONCLUSION: Left subclavian central line with tip in the right subclavian vein. No pneumothorax. Electronically signed by: Torey Salter MD 02/19/2018 9:08 PM EDT
[2018-02-20] VITALS (17 sets, daily range): BP systolic 96–135; BP diastolic 57–85; PULSE 70–89; RESP 18; TEMP 95.1–97.9; O2SAT 96–99
[2018-02-20] MEDS: MAGNESIUM HYDROXIDE SUSP 30 ML CUP PO SCH ×2 (00:08→12:45)
[2018-02-20] MEDS: RESP: ALBUTEROL 2.5 MG/IPRATROPIUM 0.5 MG NEB (SCH) NEB ×2 (00:23→03:51)
[2018-02-20] MEDS: FREE WATER G-TUBE SCH ×6 (04:00→20:00)
[2018-02-20] MEDS: INSULIN NovoLIN REGULAR SUPPLEMENTAL SCALE SQ SCH ×6 (04:00→20:24)
[2018-02-20 05:22] LABS: HEMATOCRIT 25.5 % (35.0-46.0); HEMOGLOBIN 8.7 GM/DL (11.6-15.3); MEAN CELL VOLUME 90.7 FL (80.0-100.0); MEAN CORPUSCULAR HEMOGLOBIN 30.8 PG (27.0-34.0); MEAN CORPUSCULAR HGB CONC 33.9 % (32.0-36.0); MEAN PLATELET VOLUME 9.2 FL (7.0-11.0); PLATELET COUNT 110 TH/MM3 (150-450); RED BLOOD COUNT 2.81 MIL/MM3 (4.00-5.30); RED CELL DISTRIBUTION WIDTH 13.6 % (11.6-17.2); WHITE BLOOD COUNT 9.7 TH/MM3 (4.0-11.0)
[2018-02-20 05:40] LABS: ALBUMIN 2.5 GM/DL (3.4-5.0); AST (GOT) 16 U/L (16-38); BLOOD UREA NITROGEN 33 MG/DL (7-18); CHLORIDE 118 MEQ/L (98-107); CREATININE 1.18 MG/DL (0.50-1.00); GLOMERULAR FILTRATION RATE 59 ML/MIN (>89); GLUCOSE,RANDOM 104 MG/DL (74-106); SODIUM (NA) 152 MEQ/L (136-145)
[2018-02-20 05:44] LABS: ALKALINE PHOSPHATASE 67 U/L (45-117); ALT (GPT) 34 U/L (9-42); TOTAL BILIRUBIN ADULT 0.3 MG/DL (0.2-1.0); TOTAL PROTEIN 5.4 GM/DL (6.4-8.2)
[2018-02-20] MEDS: ARTIFICIAL TEARS OPTH SOLN 15 ML BTL EACH EYE SCH ×3 (06:00→22:00)
[2018-02-20] MEDS: POTASSIUM CHLOR 20 MEQ PREMIX 100 ML IV PRN ×2 (06:01→07:50)
[2018-02-20] MEDS: LEVOTHYROXINE SODIUM 75 MCG TAB PO SCH (06:05)
[2018-02-20] MEDS: METOCLOPRAMIDE HCL 10 MG/2 ML VIAL IV PUSH SCH ×3 (06:05→22:40)
[2018-02-20] MEDS: FOSPHENYTOIN SODIUM 100 MG PE/2 ML VIAL IV SCH ×3 (06:05→22:40)
[2018-02-20] MEDS: SILDENAFIL CITRATE 20 MG TAB PO SCH ×3 (06:05→22:39)
[2018-02-20] MEDS: LEVOTHYROXINE SODIUM 100 MCG TAB PO SCH (06:05)
--- NOTE | 2018-02-20 08:43 | MG ---
cc: Eloy Sosa MD EEG RECORD NUMBER: [id number] 1-3 Hz delta activity with 50 microvolt with alpha spindle in the frontal channels. Right frontal region episodic sharp waves occurring, example epoch 23. Sharp transients epoch 70 right frontal. Spindle activity noted as well. Limited driving with photic stimulation. Single lead EKG showing sinus rhythm. INTERPRETATION: Moderate encephalopathy with isolated paroxysmal right frontal sharps suggestive of structural lesion or epileptic focus. No active seizure activity. Clinical correlation. Eloy Sosa MD MG/DL , 08:27 AM , 08:42 AM
--- NOTE | 2018-02-20 08:44 | HHI.NPPN ---
Subjective History of Present Illness 17 year old with massive PE, cardiac arrest ARF, brain bleed Objective Data Data Vital Signs Date Time Temp Pulse Resp B/P (MAP) Pulse Ox O2 Delivery O2 Flow Rate FiO2 02/20/18 04:05 60 02/20/18 03:53 99 55 02/20/18 03:19 97.7 89 18 122/82 (95) 99 119/72 (88) 02/20/18 03:00 84 02/20/18 01:10 96 55 02/20/18 00:28 97.9 89 18 121/74 (90) 99 113/69 (84) 02/20/18 00:27 60 02/19/18 23:00 89 02/19/18 22:50 99 60 02/19/18 21:00 75/44 02/19/18 20:00 60 02/19/18 19:57 98 60 02/19/18 19:30 98.3 76 18 103/52 (69) 98 94/56 (69) 02/19/18 19:00 91 02/19/18 16:16 60 02/19/18 15:57 98 60 02/19/18 15:00 80 02/19/18 15:00 96.2 88 18 114/71 (85) 99 117/73 (88) 02/19/18 14:05 93.9 02/19/18 14:00 81 120/75 02/19/18 12:00 60 02/19/18 11:00 70 02/19/18 11:00 93.4 81 18 130/89 (103) 99 148/91 (110) -: 02/20/18 0432 02/20/18 0432 Physical Exam General Appearance: Well Developed, Well Nourished Neck Neck Exam: Neck Supple Pulmonary Resp Exam: Clear Bilaterally, Breath Sounds Equal Cardiology CV Exam: Tachycardia Gastrointestinal/Abdomen GI Exam: Soft, Non-Tender, Bowel Sounds Present Extremeties Extremities Exam: Moderate Edema Assessment/Plan Assessment Summary: [place]ndry Hyperparathyroid Problem List: (1) Acute renal failure ICD Codes: N17.9 - Acute kidney failure, unspecified Plan: patient has ischemic event and receive contrast study contributing to ARF her urine out put is low PA pressures are high She is on Flolan to help regulate pulmonary arterial pressures. Diuresing well with Lasix, avoid Nephrotoxins. Creatinine stable 1.18 UOP 1.9 L Na 152 on water flushes change to 1/2 NS at 75 cc/hr K low replace MRI brain Severe Encephalopathy from anoxia prognosis is guarded to poor wait for improvement EEG slow waves (2) Pulmonary emboli ICD Codes: I26.99 - Other pulmonary embolism without acute cor pulmonale Status: Acute Plan: treated with TPA, Angiogram (3) Cardiac arrest ICD Codes: I46.9 - Cardiac arrest, cause unspecified Plan: patient had cardiac arrest x 2 (4) SAH (subarachnoid hemorrhage) ICD Codes: I60.9 - Nontraumatic subarachnoid hemorrhage, unspecified Status: Acute Plan: as above complications from fall/TPA/anticoagulation Problem Qualifiers (1) Acute renal failure: Qualified Codes: N17.0 - Acute kidney failure with tubular necrosis (2) Pulmonary emboli: Lori Banks MD Feb 20, 2018 08:44
[2018-02-20] MEDS ORDERED: POTASSIUM CHLOR 20 MEQ PREMIX 100 ML IV ONE (08:45)
[2018-02-20] MEDS: CHLORHEXIDINE 0.12% (ORAL KIT) 15 ML CUP MT SCH ×2 (08:47→20:22)
[2018-02-20] MEDS: RESP: ALBUTEROL 2.5 MG/3 ML NEB (PRN) NEB ×4 (08:48→20:59)
--- NOTE | 2018-02-20 08:49 | HHI.PR ---
Review/Management Diagnosis right contusions, MRI showing signs of hypoxic encephalopathy focal sz resolved on cerebyx and keppra. protein corrected phenytoin level is 16 labile BP--check CT brain to r/o mass effect Plan re check CT brain Maintain SBP <150, >90 Diagnosis/Plan: Subjective Subjective Comments No acute events reported Pt has had labile BP with hypotension and hypertension Active Medications Current Medications Medications (Trade) Dose Ordered Sig/Gregg Route Start Time Stop Time Status Last Admin (NS Flush) 2 ml UNSCH PRN IV FLUSH 02/13/18 00:45 (NS Flush) 2 ml BID IV FLUSH 02/13/18 09:00 02/19/18 09:10 (Narcan Inj) 0.4 mg UNSCH PRN IV PUSH 02/13/18 00:45 (Dulcolax Supp) 10 mg DAILY PRN RECTAL 02/13/18 00:45 (ZyrTEC) 10 mg DAILY PO 02/13/18 09:00 Future Hold 02/16/18 09:08 (Flonase Anil Spr) 1 spray BID EACH NARE 02/13/18 09:00 Future Hold 02/13/18 10:14 (Synthroid) 100 mcg DAILY@0700 PO 02/13/18 07:00 02/20/18 06:05 (Synthroid) 75 mcg DAILY@0700 PO 02/13/18 07:00 02/20/18 06:05 (Peridex 0.12% Liq) 15 ml BID@08,20 MT 02/14/18 08:00 02/19/18 21:56 (D50w (Vial) Inj) 50 ml UNSCH PRN IV PUSH 02/14/18 09:00 Sodium Chloride 1,000 ml @ 25 mls/hr Q24H IV 02/14/18 13:30 02/19/18 05:27 Dobutamine HCl 1000 mg/Sodium Chloride 250 ml @ 13.09 mls/ hr TITRATE PRN IV 02/14/18 15:00 Future Hold Norepinephrine Bitartrate 4 mg/ Sodium Chloride 254 ml @ 7.62 mls/hr TITRATE PRN IV 02/14/18 15:00 Clevidipine 50 ml @ 2 mls/hr TITRATE PRN IV 02/14/18 19:15 02/19/18 14:00 Levetriacetam 500 mg/Sodium Chloride 105 ml @ 420 mls/hr Q12HR IV 02/14/18 21:00 02/19/18 21:56 (D50w (Vial) Inj) 25 ml UNSCH PRN IV PUSH 02/15/18 08:45 (NovoLIN R SUPPLEMENTAL SCALE) 1 Q4HR SQ 02/15/18 12:00 (Cerebyx Inj) 100 mgpe Q8HR IV 02/16/18 14:00 02/20/18 06:05 (Albuterol Neb) 2.5 mg Q2HR NEB PRN NEB 02/16/18 07:30 (Tears Naturale Opth Soln) 1 drop Q8HR EACH EYE 02/16/18 14:00 02/19/18 22:00 (Tylenol 650 Mg/ 20 ml Liq) 650 mg Q6H PRN NG 02/16/18 07:30 (Prevacid Odt) 30 mg DAILY NG 02/16/18 09:00 02/19/18 08:59 (Colace Liq) 100 mg Q12HR PO 02/16/18 09:00 02/19/18 09:03 (Benadryl Inj) 25 mg Q4H PRN IV 02/17/18 05:30 02/17/18 10:55 (Reglan Inj) 5 mg Q8HR IV PUSH 02/17/18 14:00 02/20/18 06:05 Epoprostenol Sodium 70 ml/ Sodium Chloride 100 ml @ 5 mls/hr Q8H NEB 02/18/18 00:00 02/20/18 00:00 Potassium Chloride 100 ml @ 50 mls/hr Q2H PRN IV 02/18/18 08:15 Potassium Chloride 100 ml @ 50 mls/hr Q2H PRN IV 02/18/18 08:15 02/18/18 18:55 (K-Lyte Cl Eff) 50 meq UNSCH PRN PO 02/18/18 08:15 Potassium Chloride 100 ml @ 25 mls/hr UNSCH PRN IV 02/18/18 08:15 Potassium Chloride 100 ml @ 50 mls/hr Q2H PRN IV 02/18/18 08:15 02/20/18 07:50 Magnesium Sulfate 4 gm/Sodium Chloride 100 ml @ 50 mls/hr UNSCH PRN IV 02/18/18 08:15 (Mag-Ox) 800 mg UNSCH PRN PO 02/18/18 08:15 Magnesium Sulfate 2 gm/Sodium Chloride 100 ml @ 50 mls/hr UNSCH PRN IV 02/18/18 08:15 (K-Phos) 2,000 mg Q4H PRN PO 02/18/18 08:15 Sodium Phosphate 30 mmol/Sodium Chloride 250 ml @ 42 mls/hr UNSCH PRN IV 02/18/18 08:15 (K-Phos) 2,000 mg UNSCH PRN PO/TUBE 02/18/18 08:15 Potassium Phosphate 30 mmol/ Sodium Chloride 260 ml @ 42 mls/hr UNSCH PRN IV 02/18/18 08:15 (Pill Splitter) 1 ea UNSCH PRN OTHER 02/18/18 08:30 (Lactulose Liq) 30 ml BID PO 02/19/18 09:00 02/19/18 09:03 (Milk Of Magnesia Liq) 30 ml Q12H PO 02/19/18 12:45 (Revatio) 40 mg Q8HR PO 02/19/18 14:00 02/20/18 06:05 (Fiordaliza-Colace) 2 tab BID PO 02/19/18 09:00 02/19/18 09:02 (Free Water) 200 ml Q4HR G-TUBE 02/19/18 16:00 02/20/18 04:00 (Provigil) 200 mg DAILY PO 02/20/18 09:00 (Norvasc) 5 mg Q12HR PO 02/19/18 21:00 Vasopressin 40 units/Dextrose 100 ml @ 1.5 mls/hr TITRATE PRN IV 02/19/18 20:45 02/19/18 21:00 Allergies Allergies Coded Allergies tree nut (Verified Allergy, Unknown, 02/12/18) Exam I&O / VS Vital Signs Date Time Temp Pulse Resp B/P (MAP) Pulse Ox O2 Delivery O2 Flow Rate FiO2 02/20/18 04:05 60 02/20/18 03:53 99 55 02/20/18 03:19 97.7 89 18 122/82 (95) 99 119/72 (88) 02/20/18 03:00 84 02/20/18 01:10 96 55 02/20/18 00:28 97.9 89 18 121/74 (90) 99 113/69 (84) 02/20/18 00:27 60 02/19/18 23:00 89 02/19/18 22:50 99 60 02/19/18 21:00 75/44 02/19/18 20:00 60 02/19/18 19:57 98 60 02/19/18 19:30 98.3 76 18 103/52 (69) 98 94/56 (69) 02/19/18 19:00 91 02/19/18 16:16 60 02/19/18 15:57 98 60 02/19/18 15:00 80 02/19/18 15:00 96.2 88 18 114/71 (85) 99 117/73 (88) 02/19/18 14:05 93.9 02/19/18 14:00 81 120/75 02/19/18 12:00 60 02/19/18 11:00 70 02/19/18 11:00 93.4 81 18 130/89 (103) 99 148/91 (110) Exam Comments nonresponsive pupils 4 mm bilateral, nonreactive No EOM MOTOR --no spontaneous movement, no tonic clonic activity Objective Micro and Labs Laboratory Tests Test 02/20/18 04:32 White Blood Count 9.7 Red Blood Count 2.81 Hemoglobin 8.7 Hematocrit 25.5 Mean Corpuscular Volume 90.7 Mean Corpuscular Hemoglobin 30.8 Mean Corpuscular Hemoglobin Concent 33.9 Red Cell Distribution Width 13.6 Platelet Count 110 Mean Platelet Volume 9.2 Blood Urea Nitrogen 33 Creatinine 1.18 Random Glucose 104 Total Protein 5.4 Albumin 2.5 Calcium Level 8.0 Alkaline Phosphatase 67 Aspartate Amino Transf (AST/SGOT) 16 Alanine Aminotransferase (ALT/SGPT) 34 Total Bilirubin 0.3 Sodium Level 152 Potassium Level 3.4 Chloride Level 118 Carbon Dioxide Level 23.0 Anion Gap 11 Estimat Glomerular Filtration Rate 59 Phenytoin (Dilantin) Level 11.0 Kendall De Guzman MD PhD Feb 20, 2018 08:49
[2018-02-20] MEDS: levETIRAcetam INJ 500 MG in SODIUM CHLORIDE 0.9% INJ 100 ML IV SCH ×2 (08:51→20:26)
[2018-02-20] MEDS: MODAFINIL 200 MG TAB PO SCH (08:51)
[2018-02-20] MEDS: DOCUSATE SODIUM 100 MG/10 ML UDC PO SCH ×2 (08:51→20:21)
[2018-02-20] MEDS: DOCUSATE SODIUM 50 MG/SENNA 8.6 MG TAB PO SCH ×2 (08:52→20:21)
[2018-02-20] MEDS: LANSOPRAZOLE SOLUTAB 30 MG TAB NG SCH (08:52)
[2018-02-20] MEDS: amLODIPine BESYLATE 5 MG TAB PO SCH ×2 (08:53→20:21)
[2018-02-20] MEDS: SODIUM CHLORIDE 0.9% FLUSH 10 ML FLUSH IV FLUSH SCH ×2 (08:53→21:00)
[2018-02-20] MEDS: LACTULOSE SYRUP 20 GM/30 ML CUP PO SCH ×2 (08:53→20:21)
[2018-02-20] MEDS: SODIUM CHLOR 0.45% 1000 ML INJ 1,000 ML IV SCH ×2 (08:55→22:20)
--- NOTE | 2018-02-20 09:02 | MG ---
cc: Eloy Sosa MD EEG RECORD NUMBER: [id number] Generalized 1-3 Hz delta activity, 10-20 microvolts occurring in a generalized fashion, but slow eye movements delta in the frontal channels, occasional semirhythmic delta right frontal. No driving with photic stimulation. Single lead EKG showing sinus rhythm. INTERPRETATION: Severe encephalopathy with generalized delta activity. No epileptic activity. Clinical correlation. Eloy Sosa MD MG/DL , 08:50 AM , 09:00 AM
--- NOTE | 2018-02-20 10:33 | RADRPT ---
EXAM DATE: 02/14/2018 2:33 AM EDT AGE/SEX: 17 years / Female INDICATIONS: Patient presents with bilateral pulmonary embolism in need of angiogram with possible i nterventions. CLINICAL DATA: This is the patient's initial encounter. Patient reports that signs and symptoms have been present for 1 day and indicates a pain score of 0/10. MEDICAL/SURGICAL HISTORY: Hypothyroidism. Thyroidectomy. COMPARISON: No prior exams available for comparison. FLUORO TIME (min): 31.6 IMAGE SERIES: 17 ACCESS SITE: Right femoral vein CONTRAST (cc): 75cc Visipaque (iodixanol) MEDICATION(S): 2g cefazolin (Ancef) IV 8000 units Heparin IA Anesthesia and pain control was provided by the Anesthesia department. DEVICE(S): Right Pulmonary artery, Inari Flotriever 12fr 115cm Right Pulmonary artery, Inari Aspiration guide cath. 6.5mm 95cm (times 2) . . PROCEDURE : 1. Ultrasound-guided puncture of the right common femoral vein access site. 2. Ultrasound-guided puncture of the right common femoral artery 3. Right femoral artery arterial line placement 4. Right femoral venotomy closure with Proglide suture devices 5. Transcatheter pressure gradient measurements 6. Left pulmonary artery catheterization 7. Left pulmonary arteriography 8. Right pulmonary artery subselective right upper lobe catheterization 9. Subselective and selective right pulmonary arteriography 10. Transcatheter embolectomy, right pulmonary artery The risks, benefits and alternatives to the procedure were explained and verbal and written consent w as obtained. The site was prepped in sterile fashion. Full sterile technique was used, including ca p, mask, sterile gloves and gown and a large sterile sheet. Hand hygiene and 2% chlorhexidine and/or betadine/alcohol prep was utilized per protocol for cutaneous antisepsis. Sterile gel and sterile p robe cover were utilized for ultrasound guidance. The skin and subcutaneous tissues were infiltrated with local anesthetic solution. Under direct ultrasound guidance, the right common femoral artery was accessed with micropuncture sofya hnique. The ultrasound images depicting access guidance were saved and stored PACS for permanent brant rd. A 4 Kuwaiti vascular sheath was inserted and secured with silk suture. This was utilized for hemod ynamic monitoring during the procedure and was left in place at the procedure completion. Attention was turned to ultrasound guided puncture of the right common femoral vein which was accompl ished using micropuncture technique. An 8 Kuwaiti vascular sheath was inserted. A 4 Kuwaiti Omni Flush catheter was introduced and was manipulated across the right heart into the pulmonary artery. Pulmona ry artery pressures were measured, these found to range between 30 and 80 mmHg. The catheter was yessenia pulated into the left pulmonary artery and selective left pulmonary arteriography was performed. The catheter was manipulated across into the right pulmonary artery and selective right pulmonary arteri ography was performed. At this point, Proglide sutures were deployed into the right femoral venotomy site using the preclose d technique. The sutures were clamped and set aside in the sterile field. A 22 Kuwaiti vascular sheath was introduced and manipulated into the IVC. Through this and over a 0.035 inch exchange length Nitr ex wire, the Inari Flowtriever suction embolectomy catheter was advanced into the right pulmonary art ed and used to engage clot in the distal right pulmonary artery trunk. Suctioning was performed with return of moderate mixed age thrombus. The catheter was reintroduced and a second pass was made. Add itional clot was removed. The Omni Flush catheter was reintroduced and follow-up arteriography was performed revealing persiste nt clot mainly in upper pole segmental vessels. The catheter was reintroduced and the Flowtriever device was inserted and manipulated into the proxim al aspect of the right upper lobe pulmonary artery. The Flowtriever device was used to shovel additio nal clot into the embolectomy catheter. Follow-up arteriography revealed significant improvement in the appearance with antegrade flow reesta blished into upper and middle lobe vessels with stable flow in the lower lobe vessels. At this point the patient had an abrupt clinical deterioration and the procedure was terminated in or harshad to get her stabilized. The right femoral sheath was removed and venotomy closed with the Proglide sutures. Hemostasis was au gmented with brief manual compression using a hemostasis patch. The arterial sheath was left in place for monitoring purposes. Anesthesia Department representatives were present throughout for sedation and monitoring assistance. The patient was taken to the intensive care unit in satisfactory condition following stabilization FINDINGS: Extensive bilateral pulmonary embolism, worse on the right than the left. Suction embolect marcio and mechanical embolectomy was utilized on the right with significant improvement in angiographic appearance. No treatment was performed on the left because the patient became clinically unstable CONCLUSION: 1. Suction and mechanical embolectomy performed for bilateral pulmonary embolism as described in det ail above. 2. I'll have the patient remain on heparin anticoagulation. Electronically signed by: Steven Hernandez MD 02/20/2018 10:32 AM EDT
[2018-02-20] MEDS: EPOPROSTENOL NEB SOLUTION 40 NG/KG/MIN 100 ML NEB SCH ×4 (11:24)
--- NOTE | 2018-02-20 11:28 | RADRPT ---
EXAM DATE: 02/19/2018 11:37 AM EDT AGE/SEX: 17 years / Female INDICATIONS: Patient presents with history of pulmonary embolism in need of angiogram with possible interventions. CLINICAL DATA: This is the patient's subsequent encounter. Patient reports that signs and symptoms h ave been present for 2 days and indicates a pain score of Nonresponsive. MEDICAL/SURGICAL HISTORY: Hypothyroidism. Pulmonary embolism. Thyroidectomy. COMPARISON: [facility] – [place]IOGRAM, PULMONARY BILAT, 02/13/2018. . FLUORO TIME (min): 26.5 IMAGE SERIES: 18 ACCESS SITE: Right internal jugular vein CONTRAST (cc): 150cc Visipaque (iodixanol) Anesthesia and pain control was provided by the Anesthesia department. DEVICE(S): Right Internal Jugular, Neuron Max 6fr 088 Sheath . . PROCEDURE : 1. Ultrasound-guided puncture of the right internal jugular vein access site. 2. Selective and subselective catheterization, left pulmonary artery 3 Main pulmonary arteriography 4 Left pulmonary arteriography 5 Suction embolectomy, left upper lobe pulmonary artery 6. Scarbro-Christiano catheter placement into the right pulmonary artery with fluoroscopic guidance The risks, benefits and alternatives to the procedure were explained and verbal and written consent w as obtained. The site was prepped in sterile fashion. Full sterile technique was used, including ca p, mask, sterile gloves and gown and a large sterile sheet. Hand hygiene and 2% chlorhexidine and/or betadine/alcohol prep was utilized per protocol for cutaneous antisepsis. Sterile gel and sterile p robe cover were utilized for ultrasound guidance. The skin and subcutaneous tissues were infiltrated with local anesthetic solution. With ultrasound and fluoroscopic guidance the right internal jugular vein punctured and a 9 Luxembourger va scular sheath was placed and secured with silk suture. An 8 Luxembourger 55 cm Chrissy sheath was introduced and manipulated through the right heart and into the jordyn n pulmonary artery with the aid of an angled Glidewire. Pulmonary arteriography was performed. The sh eath was then manipulated into the left pulmonary artery and selective left pulmonary arteriography w as performed. A 6 Luxembourger neuron sheath was then introduced coaxially and manipulated into branches of the left pulmonary artery for performance of suction embolectomy. The upper lobe segmental vessels w ere targeted. The Neurontin sheath was connected to the penumbra suction apparatus and several passes were made with return of some thromboembolic debris. Completion arteriography revealed considerably improved perfusion to the left upper lobe vessels. The jugular sheath was left in place. A Scarbro-Christiano catheter was manipulated into position into the rig ht pulmonary artery under direct fluoroscopic guidance and was secured in place. The patient tolerated the procedure well and was returned to the intensive care unit in stable condit ion. FINDINGS: Initial nonselective pulmonary arteriography reveals near complete resolution of proximal pulmonary emboli on the right. On the left, small emboli are again noted in lower lobe segmental vess els and occlusive clot is present in proximal left upper lobe vessel. CONCLUSION: 1. Suction embolectomy resulting in improved perfusion to the left lung as described. 2. A right neck venous sheath and Scarbro-Christiano catheter were left in place Electronically signed by: Steven Hernandez MD 02/20/2018 11:27 AM EDT
[2018-02-20] MEDS: VASOPRESSIN 40 U/D5W 100 ML Titrate, Post Cardiac Surgery IV PRN ×2 (12:27)
--- NOTE | 2018-02-20 13:28 | HHI.HCPN ---
Reason for visit a. To assist with evaluation and management of symptoms including:dyspnea, pain b. To assist medical decision maker(s) with: better understanding of current medical conditions; weighing benefits/burdens of medical treatment options; making medical treatment decisions. Subjective/Interval History Patient bp more labile. Pt remains unresponsive, not on sedation. CT head has been ordered by neurology. Family/friend interactions Met with family, gave medical update. Family sees that patient is not rebound neurologically as we have hoped. They are amenable to give patient more time. They know she is schedule to get CT. They do maintain they do not want pt to suffer if there is minimal to no chance of neurological recovery. Plan had been to give patient till Friday.. Advance Directives Living Will: Never completed Health Care Surrogate: Never completed Durable Power of Filter Press Supervisor: Never completed Objective Vital Signs Date Time Temp Pulse Resp B/P (MAP) Pulse Ox O2 Delivery O2 Flow Rate FiO2 02/20/18 12:49 99 55 02/20/18 12:27 78 131/92 02/20/18 12:00 55 02/20/18 11:00 81 02/20/18 11:00 96.9 74 18 101/63 (76) 99 115/78 (90) 02/20/18 08:48 99 55 02/20/18 08:00 55 02/20/18 07:00 96.9 88 18 96/58 (71) 99 98/57 (71) 02/20/18 07:00 83 02/20/18 04:05 60 02/20/18 03:53 99 55 02/20/18 03:19 97.7 89 18 122/82 (95) 99 119/72 (88) 02/20/18 03:00 84 02/20/18 01:10 96 55 02/20/18 00:28 97.9 89 18 121/74 (90) 99 113/69 (84) 02/20/18 00:27 60 02/19/18 23:00 89 02/19/18 22:50 99 60 02/19/18 21:00 75/44 02/19/18 20:00 60 02/19/18 19:57 98 60 02/19/18 19:30 98.3 76 18 103/52 (69) 98 94/56 (69) 02/19/18 19:00 91 02/19/18 16:16 60 02/19/18 15:57 98 60 02/19/18 15:00 80 02/19/18 15:00 96.2 88 18 114/71 (85) 99 117/73 (88) 02/19/18 14:05 93.9 02/19/18 14:00 81 120/75 Intake & Output 02/20/18 02/20/18 06:59 18:59 Intake Total 2193.2 ml 150 ml Output Total 395 ml Balance 1798.2 ml 150 ml IV Total 1393.2 ml 150 ml Tube Irrigant 400 ml Other 400 ml Output Urine Total 395 ml # Bowel Movements 1 Physical Exam CONSTITUTIONAL/GENERAL: 17 year old intubated, in critical condition, TUBES/LINES/DRAINS: right femoral arterial sheath, left femoral triple lumen, deluca. right IJ SKIN: No jaundice, rashes, or lesions. Ecchymoses on upper extremities. No wounds seen anteriorly. Skin temperature appropriate. Not diaphoretic. HEAD: Atraumatic. Normocephalic. EYES: Pupils dilated, not reactive. ENT: . Nose without bleeding or purulent drainage. Throat intubated NECK: Trachea midline. CARDIOVASCULAR: Regular rate and rhythm without murmurs, gallops, or rubs. No JVD. Peripheral pulses symmetric. RESPIRATORY/CHEST: Symmetric, unlabored respirations. Clear to auscultation. Breath sounds equal bilaterally. No wheezes, rales, or rhonchi. GASTROINTESTINAL: Abdomen soft, non-tender, nondistended. No hepato-splenomegaly , or palpable masses. No guarding. Bowel sounds present. GENITOURINARY: Without palpable bladder distension. Deluca catheter in place. MUSCULOSKELETAL: Extremities without clubbing, cyanosis. 2+edema on all ext. LYMPHATICS: No palpable cervical or supraclavicular adenopathy. NEUROLOGICAL: unresponsive, I could not elicit withdraw to pain on my visit. PSYCHIATRIC: could not examine given level of responsiveness. Diagnostic Tests Laboratory Laboratory Tests Test 02/17/18 13:15 02/18/18 04:39 02/18/18 06:14 02/19/18 03:55 Ammonia 19 MCMOL/L (11-32) LESS THAN 10 MCMOL/L White Blood Count 14.3 TH/MM3 (4.0-11.0) 10.3 TH/MM3 (4.0-11.0) Red Blood Count 3.43 MIL/MM3 (4.00-5.30) 3.25 MIL/MM3 (4.00-5.30) Hemoglobin 10.5 GM/DL (11.6-15.3) 10.0 GM/DL (11.6-15.3) Hematocrit 31.0 % (35.0-46.0) 29.4 % (35.0-46.0) Mean Corpuscular Volume 90.4 FL (80.0-100.0) 90.6 FL (80.0-100.0) Mean Corpuscular Hemoglobin 30.7 PG (27.0-34.0) 30.9 PG (27.0-34.0) Mean Corpuscular Hemoglobin Concent 34.0 % (32.0-36.0) 34.1 % (32.0-36.0) Red Cell Distribution Width 13.5 % (11.6-17.2) 13.6 % (11.6-17.2) Platelet Count 102 TH/MM3 (150-450) 105 TH/MM3 (150-450) Mean Platelet Volume 8.9 FL (7.0-11.0) 9.6 FL (7.0-11.0) Prothrombin Time 11.2 SEC (9.8-11.6) Prothromb Time International Ratio 1.1 RATIO Activated Partial Thromboplast Time 19.6 SEC (24.3-30.1) Blood Urea Nitrogen 28 MG/DL (7-18) 28 MG/DL (7-18) Creatinine 1.51 MG/DL (0.50-1.00) 1.17 MG/DL (0.50-1.00) Random Glucose 117 MG/DL (74-106) 98 MG/DL (74-106) Total Protein 5.7 GM/DL (6.4-8.2) 5.6 GM/DL (6.4-8.2) Albumin 2.6 GM/DL (3.4-5.0) 2.5 GM/DL (3.4-5.0) Calcium Level 8.0 MG/DL (8.5-10.1) 8.4 MG/DL (8.5-10.1) Phosphorus Level 3.6 MG/DL (2.5-4.9) Magnesium Level 2.5 MG/DL (1.5-2.5) Alkaline Phosphatase 84 U/L (45-117) 75 U/L (45-117) Aspartate Amino Transf (AST/SGOT) 27 U/L (16-38) 28 U/L (16-38) Alanine Aminotransferase (ALT/SGPT) 58 U/L (9-42) 42 U/L (9-42) Total Bilirubin 0.6 MG/DL (0.2-1.0) 0.4 MG/DL (0.2-1.0) Sodium Level 149 MEQ/L (136-145) 150 MEQ/L (136-145) Potassium Level 3.2 MEQ/L (3.5-5.1) 4.1 MEQ/L (3.5-5.1) Chloride Level 113 MEQ/L (98-107) 117 MEQ/L (98-107) Carbon Dioxide Level 26.3 MEQ/L (21.0-32.0) 23.8 MEQ/L (21.0-32.0) Anion Gap 10 MEQ/L (5-15) 9 MEQ/L (5-15) Estimat Glomerular Filtration Rate 44 ML/MIN (>89) 60 ML/MIN (>89) Lactic Acid Level 1.1 mmol/L (0.4-2.0) Phenytoin (Dilantin) Level 9.9 MCG/ML (10.0-20.0) 10.3 MCG/ML (10.0-20.0) Blood Gas Puncture Site ART LINE Blood Gas Patient Temperature 98.6 Blood Gas HCO3 26 mmol/L (22-26) Blood Gas Base Excess 2.7 mmol/L (-2-2) Blood Gas Oxygen Saturation 95 % (90-100) Arterial Blood pH 7.46 (7.380-7.420) Arterial Blood Partial Pressure CO2 37 mmHg (38-42) Arterial Blood Partial Pressure O2 84 mmHg (61-120) Arterial Blood Oxygen Content 14.1 Vol % (12.0-20.0) Arterial Blood Carboxyhemoglobin 0.9 % (0-4) Arterial Blood Methemoglobin 1.1 % (0-2) Blood Gas Hemoglobin 10.5 G/DL (12.0-16.0) Oxygen Delivery Device VENTILATOR Blood Gas Ventilator Setting PRV/AC Blood Gas Inspired Oxygen 40 % Test 02/20/18 04:32 White Blood Count 9.7 TH/MM3 (4.0-11.0) Red Blood Count 2.81 MIL/MM3 (4.00-5.30) Hemoglobin 8.7 GM/DL (11.6-15.3) Hematocrit 25.5 % (35.0-46.0) Mean Corpuscular Volume 90.7 FL (80.0-100.0) Mean Corpuscular Hemoglobin 30.8 PG (27.0-34.0) Mean Corpuscular Hemoglobin Concent 33.9 % (32.0-36.0) Red Cell Distribution Width 13.6 % (11.6-17.2) Platelet Count 110 TH/MM3 (150-450) Mean Platelet Volume 9.2 FL (7.0-11.0) Blood Urea Nitrogen 33 MG/DL (7-18) Creatinine 1.18 MG/DL (0.50-1.00) Random Glucose 104 MG/DL (74-106) Total Protein 5.4 GM/DL (6.4-8.2) Albumin 2.5 GM/DL (3.4-5.0) Calcium Level 8.0 MG/DL (8.5-10.1) Alkaline Phosphatase 67 U/L (45-117) Aspartate Amino Transf (AST/SGOT) 16 U/L (16-38) Alanine Aminotransferase (ALT/SGPT) 34 U/L (9-42) Total Bilirubin 0.3 MG/DL (0.2-1.0) Sodium Level 152 MEQ/L (136-145) Potassium Level 3.4 MEQ/L (3.5-5.1) Chloride Level 118 MEQ/L (98-107) Carbon Dioxide Level 23.0 MEQ/L (21.0-32.0) Anion Gap 11 MEQ/L (5-15) Estimat Glomerular Filtration Rate 59 ML/MIN (>89) Phenytoin (Dilantin) Level 11.0 MCG/ML (10.0-20.0) Result Diagram: 02/20/1843102/20/18431 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 Pt's father Mir Waterman, as witnessed by RN on 02/18/2018 decline to participate in health care decision making and wish to defer to pt's mother Andreia Waterman Ethical issues impacting care: none. Important Contacts Andreia Waterman [phone] Prognosis 17 year old after car trip from [place] to [facility], had syncope, and dyspnea. EMS activated, and further workup show multiple large central bilateral PE, and thrombus in popliteal vein. Was IR for thrombectomy but condition complicated by cardiac arrestx2; cardiogenic shock from RV failure, respiratory failure, and renal failure. Pt had tpa. Further complications arose including: right temporal and parietal acute parenchymal hemorrhage with smaller scattered areas of punctate hemorrhage and mild subarachnoid hemorrhage in the right greater than left hemisphere; anoxic encephalopathy, seizures. Prognosis is guarded. Code Status: No Code Plan == code DNR. both parents are amenable to DNR. == capacity- patient does not have capacity to make medical decisions, and given ich and anoxia , high probablility of not regaining capacity. == Health Care Decision Maker. there is no advance directive available. Pt is single, no children, and by [place] Statutes, patient parents: Andreia Waterman and Mir Waterman are health care proxy. Mir Waterman while on the phone, and witnessed by CASI Sandhu does not want to participate in medical decision making and defer to pt's mother Andreia Waterman. Therefore, sole healthcare decision maker/Health care proxy is pt's mother Andreia Waterman. == goals of treatment No change in goals of care today. * Family are aware of significant encephalopathy, the possibility of being dependant of life support for an extended period of time, and possibility she may not have any progression in neurological recovery. * If after, this , by Friday there is not significant neurological improvement, interactions, they would revaluate on what to do: comfort vs continue medical care. * They are hopeful that she may have some neurologic improvement Friday, but realistically they know that may also not happen. * Both pt's parents have said if there is no hope, Magali would not want prolong life support. * Transitioning to comfort measures was discussed with family and they are amenable to that should there be no neurologically improvement in the coming days. == symptoms of discomfort: dyspnea- remains on the vent, no new med rec, currently off sedation. Pain- from ich hemorrhage, cpr, hospitalization, intubated- continue current regimen. == palliative care will be available to make recommendations for symptom management, and review goals of care as clinical condition evolves, and provide support for patient and this family. d/w with automatic thread winder Dr. Alamo today. Attestation To help prompt me to consider important information that might be impacting today's encounter and assessment, information from prior notes written by myself or my colleagues may have been "brought forward" into today's note. My signature on this note, however, is an attestation that I personally performed the exam, history, and/or decision-making noted today, and, unless otherwise indicated, the interactions with patient, family, and staff as well as the review of records all occurred today. I also attest that the listed assessment and stated plan reflect my best clinical judgment today based on the combination of historical information, prior notes, and today's exam/ interactions. When time spent is documented, it refers only to time spent today by the signer, or if indicated, combined time spent today by collaborating physician/nurse practitioner. Wei Perez MD Feb 20, 2018 13:28
--- NOTE | 2018-02-20 13:54 | RADRPT ---
EXAM DATE: 02/20/2018 1:45 PM EDT AGE/SEX: 17 years / Female INDICATIONS: Cerebral hemorrhage. CLINICAL DATA: This is the patient's subsequent encounter. Patient reports that signs and symptoms h ave been present for 1 week and indicates a pain score of Nonresponsive. MEDICAL/SURGICAL HISTORY: Cardiovascular disease. Carcinoma, thyroid. Seizures. None. RADIATION DOSE: 43.92 CTDI (mGy) COMPARISON: [facility] – [place] BRAIN W/O CONTRAST, 02/17/2018. . TECHNIQUE: CT of the head without contrast. Using automated exposure control and adjustment of the mA and/or kV according to patient size, radiation dose was kept as low as reasonably achievable to ob tain optimal diagnostic quality images. FINDINGS: Further deterioration in the appearance of the scan with obliteration of the cisterns, sulcal spaces and ventricles. Loss of cortical navarrete-white matter differentiation. Persistent hemorrhages. CONCLUSION: 1. Further deterioration in the appearance of the scan as described above. Electronically signed by: Drake Seals MD 02/20/2018 1:52 PM EDT
--- NOTE | 2018-02-20 15:55 | HHI.CCPN ---
Subjective Remarks/Hospital Course Hospital Course: 17-year-old female with a past medical history significant for hypothyroidism presents to the emergency department for evaluation of shortness of breath and a syncopal episode. Patient reports that for the past 2 days she has had shortness of breath. Today she noticed that she had increasing dyspnea on exertion. She reports associated emesis 3 with dizziness and loss of consciousness. She states she had right lower extremity pain approximately 1 month ago. She denies any chest pain. No abdominal pain. No fevers/chills. The patient was initially admitted to medicine service on a heparin drip. She was evaluated by hematology oncology Dr. Banks, and the stress echocardiogram showed severe RV dilation. The patient was also clinically worsening requiring more oxygen support. She was taken to IR for mechanical thrombectomy. While in the IR suite she suffered a respiratory arrest and was intubated and successfully resuscitated. She returned to ICU in severe shock/obstructive. Shortly after arrival to the unit the patient suffered another episode of cardiac arrest requiring 2 cycles of CPR and 2 injections of epinephrine. Due to hemodynamic instability the TPA bolus followed by an infusion was immediately administered. 02/14: patient remains in profound obstructive cardiogenic shock with acute RV failure, as well as acute hypoxic respiratory failure. I added inhaled flolan at 50 ng/kg/min, dobutamine at 5 mcg/kg/min. epinephrine is at 6 mcg/min and vasopressin at 0.04 units/min. avoiding norepinephrine to minimize pulmonary vascular constriction. avoiding milrinone currently due to hypotension, although if we get control of her shock, milrinone may be of added benefit. lactate is 8 and continues to rise. pH 7.1 with BE -14. remains hemodynamically unstable. pupils are 6mm and minimally reactive, although the patient has recently received atropine IV during her cardiac arrest, so unclear what prognostic value her pupillary exam is currently. She does have a history of recently falling and hitting her head, so we will order head CT to rule out catastrophic hemorrhage. Also have given 3 amps bicarb, 1 gm calcium chloride for her acid/base and electrolyte derangements. started insulin drip for severe hyperglycemia. remained at bedside titrating vasoactive medications. remains on 100% fio2. very unstable. 02/15: 02/16: Afebrile. Temperature overnight but did not tolerate tube feeds will be restarted today. KUB ordered. Pupils are reactive with a leftward gaze. Withdraws to pain bilateral upper and lower extremities. Discussed with mother at bedside. 02/17: T-max 99.5. Currently afebrile. Dobutamine discontinued overnight due to "tachycardia". Cardiac output is greater than 11. Cardiac index is greater than 4. Neuro examination worsened overnight. Both pupils are fixed and dilated right pupil about 8 mm left pupil about 6 mm and fixed. Does not withdraw to pain at all today. Gag positive. No corneal reflex. No cough. 02/18: remains sedated. pupils remain fixed and dilated. plan for MRI today. hemodynamically stable on minimal clevidipine to keep SBP < 140. high concern for anoxic brain injury. discussed with mother at bedside. Subjective: 02/19: no change in profound neurologic deficit. MRI consistent with anoxia. 02/20: Head CT today reveals diffuse disintegration of parenchymal architecture with probable cytogenic edema and effacement of basal cisterns. This is consistent with generalized anoxic injury and incompatible with any form of meaningful neurological recovery. Objective Vital Signs Date Time Temp Pulse Resp B/P (MAP) Pulse Ox O2 Delivery O2 Flow Rate FiO2 02/20/18 13:25 99 100 02/20/18 12:27 78 131/92 02/20/18 11:00 96.9 18 02/18/18 07:30 Mechanical Ventilator Intake and Output 02/20/18 02/20/18 02/21/18 08:00 16:00 00:00 Intake Total 1828.2 ml 150 ml Output Total 395 ml Balance 1433.2 ml 150 ml Result Diagram: 02/20/18 0432 02/20/18 0432 Imaging Last Impressions Abdomen X-Ray 02/16/18 0000 Signed Impressions: CONCLUSION: No significant bowel distention Persistent contrast remaining in the kidneys. This can be seen with ATN. Head CT 02/14/18 0000 Signed Impressions: CONCLUSION: 1. Stable parenchymal hemorrhage on the right and scattered subarachnoid hemor rhage with some swelling and edema in the brain. Overall no significant change from February 14 at 1243. Chest X-Ray 02/14/18 0000 Signed Impressions: CONCLUSION: Increase in bilateral airspace disease since earlier exam. Placement of [place] nz catheter with tip in right pulmonary artery. Endotracheal tube and nasogastr ic tube unchanged. Lower Extremity Ultrasound 02/13/18 0000 Signed Impressions: CONCLUSION: 1. There is thrombus within the right popliteal and peroneal veins. CT Angiography 02/12/182030 Signed Impressions: CONCLUSION: 1. Multiple large central and peripheral bilateral pulmonary emboli. 2. Trace pericardial fluid. Objective Remarks GENERAL: 17-year-old female currently orotracheally intubated. SKIN: Warm. Well perfused. HEAD: Normocephalic. Atraumatic. EYES: Both pupils fixed at 6 mm and nonreactive. No scleral icterus. No injection or drainage. NECK: Supple, trachea midline. Dressing over right neck clean, dry, intact. CARDIOVASCULAR: normal sinus, regular rhythm. Neck veins not visualized. RESPIRATORY: Diminished breath sounds throughout. No wheezing is appreciated GASTROINTESTINAL: Abdomen obese, soft, non-tender, nondistended. no guarding. EXTREMITIES: Warm and currently well perfused.. distal pulses 1+. right groin with arterial sheath in place, site clean and dry, dressing intact, no hematoma. left groin with triple lumen catheter in place, site c/d, dressing intact, no hematoma. NEURO EXAM: Unresponsive. Date of Insertion: Feb 14, 2018 Line: Central Venous Catheter Side: Left Location: Femoral A/P Assessment and Plan Assessment: 17yF with massive PE complicated by cardiac arrest x 2, intracerebral hemorrhage, hypoxic/ischemic encephalopathy. remains critically ill. Neuro/Psych: Acute hypoxic/ischemic encephalopathy Acute temporoparietal intraparenchymal hemorrhage with scattered punctate hemorrhage in right greater than left subarachnoid hemorrhage Seizure disorder NOS Allergic rhinitis - neurosurgery: Dr. Izaguirre following -Neurology following -Dr. De Guzman - hold all sedation. - RASS goal -2 - frequent neuro checks -CT brain 02/17: mild reduction in size of bleed. no midline shift - MRI 02/18 consistent with anoxic injury. - avoid anticoagulation in light of hemorrhage as above. - noted platelets of remain low: risk/benefit favors holding on transfusing platelets given recent massive PE and concern for hypercoagulability. -Acetaminophen 650 mg by tube every 6 hours as needed fever Currently on levetiracetam 500 mg IV twice daily and fosphenytoin 100 mg IV every 8 hours. phenytoin level 9.9. EEG 02/17: severe encephalopathy. 02/15 EEG revealed a diffuse encephalopathy. In addition,sharp activity is identified frequently over the right hemisphere with phase reversal, which is consistent with a possible seizure focus in the right hemisphere. Holding cetirizine 10 mg daily add provigil Head CT 02/20 reveals severe, diffuse injury, likely anoxic in etiology. Respiratory: Acute hypoxic and hypercarbic respiratory failure Massive pulmonary embolism status post systemic TPA Acute pulmonary Hypertension secondary to acute pulmonary embolism [facility] [address]/09/13/39 - vent bundle, hob elevated, Albuterol/ipratropium aerosols every 4 hours with albuterol aerosols every 2 hours as needed dyspnea - wean fio2 for goal spo2 > 92% - inhaled epoprostenol at 40 ng/kg/min. wean to 30 ng/kg/min. - no weaning of mechanical ventilation given shock and instability - Hypotensive episodes today probably related to preload dependent pulmonary flow, watch for excessive diuresis. Cardiovascular: Cardiogenic Shock- Obstructive type- resolved Right Ventricular Failure secondary to massive pulmonary embolism Resolved lactic acidosis Moderate TR off inotropes on clevidipine for goal sbp < 140 increase sildenafil to 40 mg po q8h - s/p systemic TPA 02/14 for hemodynamic collapse - s/p endovascular mechanical thrombectomy 02/13, repeat thrombectomy 02/14 - s/p emergent IVC filter placement 02/14 - hold all anticoagulation. Continue normal saline at 25 cc an hour Hold lasix 20mg iv daily Echocardiogram 02/13 The left ventricular systolic function is normal with an estimated ejection fraction in the range of 60-65%. There is a flattened septum in systole consistent with right ventricle pressure overload. The right ventricle is severely dilated. There is akinesis of the RV free wall with apical hypercontractility of the apex (Miller's sign) consistent with pulmonary embolism. Trace mitral valve regurgitation. There is mild to moderate tricuspid valve regurgitation. There is estimated severe pulmonary hypertension present ( > 70 mmHg). Renal: Acute kidney injury likely Acute Tubular Necrosis- resolving. - likely secondary to shock and contrast loads: -very slowly improving. Cr remains elevated. uop adequate. - daily bmp, magnesium phosphorus - must keep deluca. -- Strict I/Os -Hold furosemide 40 mg IV daily FEN/GI: Acute Liver Injury: shock liver and congestive hepatopathy- resolving. Elevated BMI of 35.1 Hypoalbuminemia Hypernatremia - tube feeds with vital 1.5 per nutrition recommendations goal 75 cc an hour currently 20 cc an hour. Lansoprazole for GI prophylaxis Docusate sodium 100 mg twice daily/senna 820 mg twice daily for bowel regimen increase bowel regimen to include MOM, Miralax, Mag citrate x 1. - trend CMP daily - placed post-pyloric DHT 02/19 Heme/ID: Hypercoagulable State with ongoing workup of hypercoagulable profile s/p systemic TPA 02/14 Thrombocytopenia Hypofibrinogenemia- resolved Normocytic anemia Massive Pulmonary Embolism - hold all anticoagulation given head bleeds - will not reverse coagulopathy given recent massive PE - low platelets secondary to consumption: 4T score low probability for HIT - s/p emergent IVC filter placement 02/14 - hematology consulted and following - trend daily cbc - no infectious etiology suspected at this time FIGUEROA screen positive. Further laboratory workup pending Endocrine: Severe hyperglycemia of critical illness- improving Hypothyroidism Continue SSI, med scale, q4h -TSH is 2.31. Continue levothyroxine 175 mcg by mouth daily Prophylaxis: GI Prophylaxis Lansoprazole DVT Prophylaxis -- SCDs - IVC filter - hold anticoagulation. Lines: 02/14: right femoral arterial sheath 02/14: left femoral triple lumen catheter 02/13: deluca 02/14 - 02/17: right IJ 9 Fr introducer sheath 02/14 - 02/17: right IJ PA catheter (IR guided into right main PA, free of clot). will need to swap lines to upper extremity and out of groin today Overall impression: Devastating brain injury with no chance of a meaningful neurological recovery. CT head today much worse than previous recent scans and MRI. I have expressed to the family that she will not recover from this degree of brain damage. Remains critically ill. Critical Care 50 mins including lengthy discussion with family and RN. Jackson Sims MD Feb 20, 2018 15:55
[2018-02-20] MEDS ORDERED: SODIUM CHLOR 0.9% 1000 ML INJ 1,000 ML IV ONE (16:00)
--- NOTE | 2018-02-20 22:12 | HHI.NSPN ---
History Chief Complaint: Unable to obtain due to patient's clinical condition. Interval History In CVICU Intubated off all sedation Exam Results Vital Signs Date Time Temp Pulse Resp B/P (MAP) Pulse Ox O2 Delivery O2 Flow Rate FiO2 02/20/18 20:40 99 50 02/20/18 19:30 97.5 72 18 110/73 (85) 109/77 (88) 02/18/18 07:30 Mechanical Ventilator Intake and Output 02/20/18 02/20/18 02/21/18 08:00 16:00 00:00 Intake Total 1828.2 ml 207.2 ml 3070 ml Output Total 395 ml 215 ml Balance 1433.2 ml 207.2 ml 2855 ml Physical Examination Patient was seen on the evening of 02/19/2018 and was noted to have pupils 7 mm nonreactive, minimal oculocephalic and right corneal response. Minimal reflex type movements in the lower extremities to deep pain On today's examination 02/20/2018 the patient remains intubated, off all sedation. Pupils are 7 mm nonreactive. Absent corneal and oculocephalic responses Absent cough and gag response No facial grimacing or head turning to deep pain. No response to deep pain all extremities Lab, Micro, Other Results 02/20/2018 CT scan head images reviewed by the undersigned. The study reveals essentially total loss of navarrete-white interface and cortical markings. The ventricles and cisterns are now near totally effaced. Head CT 02/20/18 0000 Signed Impressions: CONCLUSION: 1. Further deterioration in the appearance of the scan as described above. Medical Decision Making Impression and Plan Impression: Further deterioration in neurologic exam and imaging studies as noted above. No indication of brainstem or cortical function on exam today. Follow-up CT scan reveals findings consistent with severe progressive anoxic or ischemic encephalopathy. Plan: Patient discussed with palliative care earlier on 02/18/2018. Evaluation noted. Discussed with supervisor pole yard again today Family not in room during visit this evening It is felt that she has sustained severe reversible loss of brain function. Presently without evidence of cortical or brainstem activity on exam. Nursing staff indicates the patient's family will likely elect to withdraw artificial support over the weekend. Rodrigo Izaguirre MD Feb 20, 2018 22:12
[2018-02-21] VITALS (15 sets, daily range): BP systolic 92–177; BP diastolic 8–89; PULSE 76–92; RESP 18; TEMP 98.5–99.2; O2SAT 90–99
[2018-02-21] MEDS: MAGNESIUM HYDROXIDE SUSP 30 ML CUP PO SCH ×2 (00:11→12:45)
[2018-02-21] MEDS: EPOPROSTENOL NEB SOLUTION 40 NG/KG/MIN 100 ML NEB SCH ×6 (01:24→10:51)
[2018-02-21] MEDS: RESP: ALBUTEROL 2.5 MG/3 ML NEB (PRN) NEB ×3 (01:35→16:14)
[2018-02-21] MEDS: INSULIN NovoLIN REGULAR SUPPLEMENTAL SCALE SQ SCH ×5 (04:00→16:00)
[2018-02-21] MEDS: FREE WATER G-TUBE SCH ×5 (04:00→16:00)
[2018-02-21 05:48] LABS: HEMATOCRIT 25.4 % (35.0-46.0); HEMOGLOBIN 8.6 GM/DL (11.6-15.3); MEAN CELL VOLUME 90.9 FL (80.0-100.0); MEAN CORPUSCULAR HEMOGLOBIN 30.8 PG (27.0-34.0); MEAN CORPUSCULAR HGB CONC 33.9 % (32.0-36.0); MEAN PLATELET VOLUME 9.3 FL (7.0-11.0); PLATELET COUNT 111 TH/MM3 (150-450); RED BLOOD COUNT 2.79 MIL/MM3 (4.00-5.30); WHITE BLOOD COUNT 8.1 TH/MM3 (4.0-11.0)
[2018-02-21] MEDS: ARTIFICIAL TEARS OPTH SOLN 15 ML BTL EACH EYE SCH ×2 (06:00→14:02)
[2018-02-21] MEDS: METOCLOPRAMIDE HCL 10 MG/2 ML VIAL IV PUSH SCH ×2 (06:00→14:03)
[2018-02-21] MEDS: FOSPHENYTOIN SODIUM 100 MG PE/2 ML VIAL IV SCH ×2 (06:00→14:03)
[2018-02-21 06:28] LABS: ALBUMIN 2.3 GM/DL (3.4-5.0); ALT (GPT) 37 U/L (9-42); AST (GOT) 20 U/L (16-38); BICARBONATE 21.8 MEQ/L (21.0-32.0); BLOOD UREA NITROGEN 40 MG/DL (7-18); CALCIUM 7.9 MG/DL (8.5-10.1); CHLORIDE 114 MEQ/L (98-107); CREATININE 1.04 MG/DL (0.50-1.00); GLOMERULAR FILTRATION RATE 68 ML/MIN (>89); GLUCOSE,RANDOM 90 MG/DL (74-106); SODIUM (NA) 147 MEQ/L (136-145)
[2018-02-21 06:31] LABS: ALKALINE PHOSPHATASE 76 U/L (45-117); TOTAL BILIRUBIN ADULT 0.4 MG/DL (0.2-1.0); TOTAL PROTEIN 5.2 GM/DL (6.4-8.2)
[2018-02-21] MEDS: LEVOTHYROXINE SODIUM 75 MCG TAB PO SCH (07:00)
[2018-02-21] MEDS: LEVOTHYROXINE SODIUM 100 MCG TAB PO SCH (07:00)
[2018-02-21] MEDS: SILDENAFIL CITRATE 20 MG TAB PO SCH ×2 (07:15→14:02)
[2018-02-21] MEDS: CHLORHEXIDINE 0.12% (ORAL KIT) 15 ML CUP MT SCH (08:00)
[2018-02-21] MEDS: VASOPRESSIN 40 U/D5W 100 ML Titrate, Post Cardiac Surgery IV PRN ×2 (08:10)
[2018-02-21] MEDS: DOCUSATE SODIUM 100 MG/10 ML UDC PO SCH (08:52)
[2018-02-21] MEDS: levETIRAcetam INJ 500 MG in SODIUM CHLORIDE 0.9% INJ 100 ML IV SCH (08:52)
[2018-02-21] MEDS: MODAFINIL 200 MG TAB PO SCH (08:52)
[2018-02-21] MEDS: LANSOPRAZOLE SOLUTAB 30 MG TAB NG SCH (08:52)
[2018-02-21] MEDS: SODIUM CHLORIDE 0.9% FLUSH 10 ML FLUSH IV FLUSH SCH (08:52)
[2018-02-21] MEDS: LACTULOSE SYRUP 20 GM/30 ML CUP PO SCH (08:53)
[2018-02-21] MEDS: amLODIPine BESYLATE 5 MG TAB PO SCH (08:53)
[2018-02-21] MEDS: DOCUSATE SODIUM 50 MG/SENNA 8.6 MG TAB PO SCH (08:53)
[2018-02-21] MEDS ORDERED: NOREPINEPHRINE-DEXTROSE DRIP 250 ML IV ONE (09:44)
--- NOTE | 2018-02-21 10:34 | HHI.CCPN ---
Subjective Remarks/Hospital Course Hospital Course: 17-year-old female with a past medical history significant for hypothyroidism presents to the emergency department for evaluation of shortness of breath and a syncopal episode. Patient reports that for the past 2 days she has had shortness of breath. Today she noticed that she had increasing dyspnea on exertion. She reports associated emesis 3 with dizziness and loss of consciousness. She states she had right lower extremity pain approximately 1 month ago. She denies any chest pain. No abdominal pain. No fevers/chills. The patient was initially admitted to medicine service on a heparin drip. She was evaluated by hematology oncology Dr. Banks, and the stress echocardiogram showed severe RV dilation. The patient was also clinically worsening requiring more oxygen support. She was taken to IR for mechanical thrombectomy. While in the IR suite she suffered a respiratory arrest and was intubated and successfully resuscitated. She returned to ICU in severe shock/obstructive. Shortly after arrival to the unit the patient suffered another episode of cardiac arrest requiring 2 cycles of CPR and 2 injections of epinephrine. Due to hemodynamic instability the TPA bolus followed by an infusion was immediately administered. 02/14: patient remains in profound obstructive cardiogenic shock with acute RV failure, as well as acute hypoxic respiratory failure. I added inhaled flolan at 50 ng/kg/min, dobutamine at 5 mcg/kg/min. epinephrine is at 6 mcg/min and vasopressin at 0.04 units/min. avoiding norepinephrine to minimize pulmonary vascular constriction. avoiding milrinone currently due to hypotension, although if we get control of her shock, milrinone may be of added benefit. lactate is 8 and continues to rise. pH 7.1 with BE -14. remains hemodynamically unstable. pupils are 6mm and minimally reactive, although the patient has recently received atropine IV during her cardiac arrest, so unclear what prognostic value her pupillary exam is currently. She does have a history of recently falling and hitting her head, so we will order head CT to rule out catastrophic hemorrhage. Also have given 3 amps bicarb, 1 gm calcium chloride for her acid/base and electrolyte derangements. started insulin drip for severe hyperglycemia. remained at bedside titrating vasoactive medications. remains on 100% fio2. very unstable. 02/15: 02/16: Afebrile. Temperature overnight but did not tolerate tube feeds will be restarted today. KUB ordered. Pupils are reactive with a leftward gaze. Withdraws to pain bilateral upper and lower extremities. Discussed with mother at bedside. 02/17: T-max 99.5. Currently afebrile. Dobutamine discontinued overnight due to "tachycardia". Cardiac output is greater than 11. Cardiac index is greater than 4. Neuro examination worsened overnight. Both pupils are fixed and dilated right pupil about 8 mm left pupil about 6 mm and fixed. Does not withdraw to pain at all today. Gag positive. No corneal reflex. No cough. 02/18: remains sedated. pupils remain fixed and dilated. plan for MRI today. hemodynamically stable on minimal clevidipine to keep SBP < 140. high concern for anoxic brain injury. discussed with mother at bedside. Subjective: 02/19: no change in profound neurologic deficit. MRI consistent with anoxia. 02/20: Head CT today reveals diffuse disintegration of parenchymal architecture with probable cytogenic edema and effacement of basal cisterns. This is consistent with generalized anoxic injury and incompatible with any form of meaningful neurological recovery. 02/21: on vasopressors for instability overnight. neuro exam much worse- likely consistent with brain . Objective Vital Signs Date Time Temp Pulse Resp B/P (MAP) Pulse Ox O2 Delivery O2 Flow Rate FiO2 02/21/18 08:15 80 02/21/18 08:10 90/56 02/21/18 08:06 80 02/21/18 08:05 99.2 18 98 02/18/18 07:30 Mechanical Ventilator Intake and Output 02/21/18 02/21/18 02/22/18 08:00 16:00 00:00 Intake Total 50 ml 187 ml Output Total 150 ml Balance -100 ml 187 ml Result Diagram: 02/21/18 0510 02/21/18 0510 Imaging Last Impressions Abdomen X-Ray 02/16/18 0000 Signed Impressions: CONCLUSION: No significant bowel distention Persistent contrast remaining in the kidneys. This can be seen with ATN. Head CT 02/14/18 0000 Signed Impressions: CONCLUSION: 1. Stable parenchymal hemorrhage on the right and scattered subarachnoid hemor rhage with some swelling and edema in the brain. Overall no significant change from February 14 at 1243. Chest X-Ray 02/14/18 0000 Signed Impressions: CONCLUSION: Increase in bilateral airspace disease since earlier exam. Placement of Anderson-Ga nz catheter with tip in right pulmonary artery. Endotracheal tube and nasogastr ic tube unchanged. Lower Extremity Ultrasound 02/13/18 0000 Signed Impressions: CONCLUSION: 1. There is thrombus within the right popliteal and peroneal veins. CT Angiography 02/12/182030 Signed Impressions: CONCLUSION: 1. Multiple large central and peripheral bilateral pulmonary emboli. 2. Trace pericardial fluid. Objective Remarks GENERAL: 17-year-old female currently orotracheally intubated. SKIN: Warm. Well perfused. HEAD: Normocephalic. Atraumatic. EYES: Both pupils fixed at 6 mm and nonreactive. No scleral icterus. No injection or drainage. NECK: Supple, trachea midline. Dressing over right neck clean, dry, intact. CARDIOVASCULAR: normal sinus, regular rhythm. Neck veins not visualized. RESPIRATORY: Diminished breath sounds throughout. No wheezing is appreciated GASTROINTESTINAL: Abdomen obese, soft, non-tender, nondistended. no guarding. EXTREMITIES: Warm and currently well perfused.. distal pulses 1+. NEURO EXAM: Unresponsive. GCS 3. no movement in any extremity to deep stimulation. - cough. - gag. - corneals. - occulocephalic. does not breath over vent. pupils as above. A/P Assessment and Plan Assessment: 17yF with massive PE complicated by cardiac arrest x 2, intracerebral hemorrhage, hypoxic/ischemic encephalopathy. now with malignant cerebral edema and likely now has progressed to brain . remains critically ill. have discussed at length with the family. will pursue formal brain testing today. have discussed with neurology. Neuro/Psych: Acute hypoxic/ischemic encephalopathy Malignant cerebral edema Acute temporoparietal intraparenchymal hemorrhage with scattered punctate hemorrhage in right greater than left subarachnoid hemorrhage Seizure disorder NOS Allergic rhinitis - neurosurgery: Dr. Izaguirre following -Neurology following -Dr. De Guzman - hold all sedation: no sedation in > 48h. - RASS goal 0 - frequent neuro checks -CT brain 02/17: mild reduction in size of bleed. no midline shift - MRI 02/18 consistent with anoxic injury. - avoid anticoagulation in light of hemorrhage as above. - noted platelets of remain low: risk/benefit favors holding on transfusing platelets given recent massive PE and concern for hypercoagulability. -Acetaminophen 650 mg by tube every 6 hours as needed fever Currently on levetiracetam 500 mg IV twice daily and fosphenytoin 100 mg IV every 8 hours. phenytoin level 9.9. EEG 02/17: severe encephalopathy. 02/15 EEG revealed a diffuse encephalopathy. In addition,sharp activity is identified frequently over the right hemisphere with phase reversal, which is consistent with a possible seizure focus in the right hemisphere. Holding cetirizine 10 mg daily provigil Head CT 02/20 reveals severe, diffuse injury, likely anoxic in etiology. formal brain testing today. Respiratory: Acute hypoxic and hypercarbic respiratory failure Massive pulmonary embolism status post systemic TPA Acute pulmonary Hypertension secondary to acute pulmonary embolism [place] 18/600/09/13/69 - vent bundle, hob elevated, Albuterol/ipratropium aerosols every 4 hours with albuterol aerosols every 2 hours as needed dyspnea - wean fio2 for goal spo2 > 92% - inhaled epoprostenol at 30 ng/kg/min. - no weaning of mechanical ventilation given shock and instability Cardiovascular: Cardiogenic Shock- Obstructive type- resolved Right Ventricular Failure secondary to massive pulmonary embolism Resolved lactic acidosis Moderate TR off inotropes on clevidipine for goal sbp < 140 increase sildenafil to 40 mg po q8h - s/p systemic TPA 02/14 for hemodynamic collapse - s/p endovascular mechanical thrombectomy 02/13, repeat thrombectomy 02/14 - s/p emergent IVC filter placement 02/14 - hold all anticoagulation. Continue normal saline at 25 cc an hour Hold lasix 20mg iv daily Echocardiogram 02/13 The left ventricular systolic function is normal with an estimated ejection fraction in the range of 60-65%. There is a flattened septum in systole consistent with right ventricle pressure overload. The right ventricle is severely dilated. There is akinesis of the RV free wall with apical hypercontractility of the apex (Miller's sign) consistent with pulmonary embolism. Trace mitral valve regurgitation. There is mild to moderate tricuspid valve regurgitation. There is estimated severe pulmonary hypertension present ( > 70 mmHg). Renal: Acute kidney injury likely Acute Tubular Necrosis- resolving. - likely secondary to shock and contrast loads: -very slowly improving. Cr remains elevated. uop adequate. - daily bmp, magnesium phosphorus - must keep deluca. -- Strict I/Os -Hold furosemide 40 mg IV daily FEN/GI: Acute Liver Injury: shock liver and congestive hepatopathy- resolving. Elevated BMI of 35.1 Hypoalbuminemia Hypernatremia - tube feeds with vital 1.5 per nutrition recommendations goal 75 cc an hour currently 20 cc an hour. Lansoprazole for GI prophylaxis Docusate sodium 100 mg twice daily/senna 820 mg twice daily for bowel regimen increase bowel regimen to include MOM, Miralax, Mag citrate x 1. - trend CMP daily - placed post-pyloric DHT 02/19 Heme/ID: Hypercoagulable State with ongoing workup of hypercoagulable profile s/p systemic TPA 02/14 Thrombocytopenia Hypofibrinogenemia- resolved Normocytic anemia Massive Pulmonary Embolism - hold all anticoagulation given head bleeds - will not reverse coagulopathy given recent massive PE - low platelets secondary to consumption: 4T score low probability for HIT - s/p emergent IVC filter placement 02/14 - hematology consulted and following - trend daily cbc - no infectious etiology suspected at this time FIGUEROA screen positive. Further laboratory workup pending Endocrine: Severe hyperglycemia of critical illness- improving Hypothyroidism Continue SSI, med scale, q4h -TSH is 2.31. Continue levothyroxine 175 mcg by mouth daily Prophylaxis: GI Prophylaxis Lansoprazole DVT Prophylaxis -- SCDs - IVC filter - hold anticoagulation. Lines: 02/19: left SC TLC 02/19: left radial art line. 02/13: deluca 02/14 - 02/17: right IJ 9 Fr introducer sheath 02/14 - 02/17: right IJ PA catheter (IR guided into right main PA, free of clot). 02/14: right femoral arterial sheath- removed 02/19 02/14: left femoral triple lumen catheter- removed 02/19 Overall impression: Devastating brain injury with no chance of a meaningful neurological recovery. likely has progressed to brain . formal testing today. Critically ill. unlikely to survive. Critical Care 54 mins including lengthy discussion with family, RN, neurology. Gennaro Ocampo MD Feb 21, 2018 10:34
--- NOTE | 2018-02-21 11:11 | HHI.PR ---
Review/Management Diagnosis right contusions, MRI showing signs of hypoxic encephalopathy focal sz resolved on cerebyx and keppra. protein corrected phenytoin level is 16 Patient cardiac arrest 2 with post anoxic encephalopathy Impaired cortical and brainstem reflexes. Patient has been off sedation for apparently over 24 hours. Similar neurologic exam findings have been recorded the previous day and also by critical care Recommendations Patient is to have the apnea test in the assessment of brain Discussed with critical care and nursing Discussed the patient's mother at bedside she is aware of her grave prognosis Diagnosis/Plan: Subjective Subjective Comments Cross cover Medical chart reviewed Discussed with RN and patient's mother bedside Patient been is in a coma state unresponsive over the past week History cardiac arrest 2 last week and hypoxemia Active Medications Current Medications Medications (Trade) Dose Ordered Sig/Gregg Route Start Time Stop Time Status Last Admin (NS Flush) 2 ml UNSCH PRN IV FLUSH 02/13/18 00:45 (NS Flush) 2 ml BID IV FLUSH 02/13/18 09:00 02/21/18 08:52 (Narcan Inj) 0.4 mg UNSCH PRN IV PUSH 02/13/18 00:45 (Dulcolax Supp) 10 mg DAILY PRN RECTAL 02/13/18 00:45 (ZyrTEC) 10 mg DAILY PO 02/13/18 09:00 Future Hold 02/16/18 09:08 (Flonase Anil Spr) 1 spray BID EACH NARE 02/13/18 09:00 Future Hold 02/13/18 10:14 (Synthroid) 100 mcg DAILY@0700 PO 02/13/18 07:00 02/21/18 07:00 (Synthroid) 75 mcg DAILY@0700 PO 02/13/18 07:00 02/21/18 07:00 (Peridex 0.12% Liq) 15 ml BID@08,20 MT 02/14/18 08:00 02/21/18 08:00 (D50w (Vial) Inj) 50 ml UNSCH PRN IV PUSH 02/14/18 09:00 Dobutamine HCl 1000 mg/Sodium Chloride 250 ml @ 13.09 mls/ hr TITRATE PRN IV 02/14/18 15:00 Future Hold Norepinephrine Bitartrate 4 mg/ Sodium Chloride 254 ml @ 7.62 mls/hr TITRATE PRN IV 02/14/18 15:00 02/19/18 20:30 Clevidipine 50 ml @ 2 mls/hr TITRATE PRN IV 02/14/18 19:15 02/19/18 14:00 Levetriacetam 500 mg/Sodium Chloride 105 ml @ 420 mls/hr Q12HR IV 02/14/18 21:00 02/21/18 08:52 (D50w (Vial) Inj) 25 ml UNSCH PRN IV PUSH 02/15/18 08:45 (NovoLIN R SUPPLEMENTAL SCALE) 1 Q4HR SQ 02/15/18 12:00 (Cerebyx Inj) 100 mgpe Q8HR IV 02/16/18 14:00 02/21/18 06:00 (Albuterol Neb) 2.5 mg Q2HR NEB PRN NEB 02/16/18 07:30 02/21/18 04:02 (Tears Naturale Opth Soln) 1 drop Q8HR EACH EYE 02/16/18 14:00 02/20/18 22:00 (Tylenol 650 Mg/ 20 ml Liq) 650 mg Q6H PRN NG 02/16/18 07:30 (Prevacid Odt) 30 mg DAILY NG 02/16/18 09:00 02/21/18 08:52 (Colace Liq) 100 mg Q12HR PO 02/16/18 09:00 02/20/18 08:51 (Benadryl Inj) 25 mg Q4H PRN IV 02/17/18 05:30 02/17/18 10:55 (Reglan Inj) 5 mg Q8HR IV PUSH 02/17/18 14:00 02/21/18 06:00 Epoprostenol Sodium 70 ml/ Sodium Chloride 100 ml @ 5 mls/hr Q8H NEB 02/18/18 00:00 02/21/18 10:51 Potassium Chloride 100 ml @ 50 mls/hr Q2H PRN IV 02/18/18 08:15 Potassium Chloride 100 ml @ 50 mls/hr Q2H PRN IV 02/18/18 08:15 02/18/18 18:55 (K-Lyte Cl Eff) 50 meq UNSCH PRN PO 02/18/18 08:15 Potassium Chloride 100 ml @ 25 mls/hr UNSCH PRN IV 02/18/18 08:15 Potassium Chloride 100 ml @ 50 mls/hr Q2H PRN IV 02/18/18 08:15 02/20/18 07:50 Magnesium Sulfate 4 gm/Sodium Chloride 100 ml @ 50 mls/hr UNSCH PRN IV 02/18/18 08:15 (Mag-Ox) 800 mg UNSCH PRN PO 02/18/18 08:15 Magnesium Sulfate 2 gm/Sodium Chloride 100 ml @ 50 mls/hr UNSCH PRN IV 02/18/18 08:15 (K-Phos) 2,000 mg Q4H PRN PO 02/18/18 08:15 Sodium Phosphate 30 mmol/Sodium Chloride 250 ml @ 42 mls/hr UNSCH PRN IV 02/18/18 08:15 (K-Phos) 2,000 mg UNSCH PRN PO/TUBE 02/18/18 08:15 Potassium Phosphate 30 mmol/ Sodium Chloride 260 ml @ 42 mls/hr UNSCH PRN IV 02/18/18 08:15 (Pill Splitter) 1 ea UNSCH PRN OTHER 02/18/18 08:30 (Lactulose Liq) 30 ml BID PO 02/19/18 09:00 02/19/18 09:03 (Milk Of Magnesia Liq) 30 ml Q12H PO 02/19/18 12:45 (Revatio) 40 mg Q8HR PO 02/19/18 14:00 02/21/18 07:15 (Fiordaliza-Colace) 2 tab BID PO 02/19/18 09:00 02/20/18 08:52 (Free Water) 200 ml Q4HR G-TUBE 02/19/18 16:00 02/21/18 08:00 (Provigil) 200 mg DAILY PO 02/20/18 09:00 02/21/18 08:52 (Norvasc) 5 mg Q12HR PO 02/19/18 21:00 Vasopressin 40 units/Dextrose 100 ml @ 1.5 mls/hr TITRATE PRN IV 02/19/18 20:45 02/21/18 08:10 Sodium Chloride 1,000 ml @ 75 mls/hr [id number] IV 02/20/18 09:00 02/20/18 22:20 Allergies Allergies Coded Allergies tree nut (Verified Allergy, Unknown, 02/12/18) Review of Systems All other ROS: Unable to obtain Exam I&O / VS 02/21/18 02/21/18 02/22/18 15:00 23:00 07:00 Intake Total 437 ml Output Total 150 ml Balance 287 ml IV Total 437 ml Output Urine Total 150 ml Vital Signs Date Time Temp Pulse Resp B/P (MAP) Pulse Ox O2 Delivery O2 Flow Rate FiO2 02/21/18 11:08 98.8 92 18 146/78 (100) 98 106/64 (78) 02/21/18 11:07 80 02/21/18 08:15 80 02/21/18 08:10 90/56 02/21/18 08:06 80 02/21/18 08:05 99.2 84 18 128/71 (90) 98 99/60 (73) 02/21/18 07:40 97 80 02/21/18 05:15 92 70 02/21/18 05:08 91 60 02/21/18 04:24 50 02/21/18 04:00 96 50 02/21/18 03:20 98.5 76 18 118/8 (44) 98 92/62 (72) 02/21/18 03:04 78 02/21/18 01:28 99 50 02/21/18 00:00 50 02/20/18 23:30 95.1 70 18 135/84 (101) 98 110/77 (88) 02/20/18 23:00 72 02/20/18 22:20 80/50 02/20/18 20:40 99 50 02/20/18 20:00 50 02/20/18 19:30 50 02/20/18 19:30 97.5 72 18 110/73 (85) 99 109/77 (88) 02/20/18 19:00 72 02/20/18 16:55 99 50 02/20/18 16:00 55 02/20/18 15:00 96.2 76 18 120/82 (95) 99 120/85 (97) 02/20/18 15:00 76 02/20/18 13:25 99 100 02/20/18 12:49 99 55 02/20/18 12:27 78 131/92 02/20/18 12:00 55 Exam Comments Intubated unresponsive nonverbal not following. Pupils appear to be approximately 5.5 mm fixed and nonreactive. Corneal reflex absent. Oculovestibular reflex impaired cold calorics performed with no reaction no gaze deviation. No grimacing to tactile no extremity movement plantarflex response no clonus Objective Micro and Labs Laboratory Tests Test 02/21/18 05:10 02/21/18 10:27 White Blood Count 8.1 Red Blood Count 2.79 Hemoglobin 8.6 Hematocrit 25.4 Mean Corpuscular Volume 90.9 Mean Corpuscular Hemoglobin 30.8 Mean Corpuscular Hemoglobin Concent 33.9 Red Cell Distribution Width 14.0 Platelet Count 111 Mean Platelet Volume 9.3 Blood Urea Nitrogen 40 Creatinine 1.04 Random Glucose 90 Total Protein 5.2 Albumin 2.3 Calcium Level 7.9 Alkaline Phosphatase 76 Aspartate Amino Transf (AST/SGOT) 20 Alanine Aminotransferase (ALT/SGPT) 37 Total Bilirubin 0.4 Sodium Level 147 Potassium Level 3.8 Chloride Level 114 Carbon Dioxide Level 21.8 Anion Gap 11 Estimat Glomerular Filtration Rate 68 Phenytoin (Dilantin) Level 10.0 Blood Gas Puncture Site ART LINE Blood Gas Patient Temperature 98.6 Blood Gas HCO3 22 Blood Gas Base Excess -2.4 Blood Gas Oxygen Saturation 97 Arterial Blood pH 7.38 Arterial Blood Partial Pressure CO2 38 Arterial Blood Partial Pressure O2 141 Arterial Blood Oxygen Content 12.1 Arterial Blood Carboxyhemoglobin 0.7 Arterial Blood Methemoglobin 1.2 Blood Gas Hemoglobin 8.6 Oxygen Delivery Device VENTILATOR Blood Gas Ventilator Setting 18/600/PEEP6 Blood Gas Inspired Oxygen 100 Eloy Sosa MD Feb 21, 2018 11:11
[2018-02-21] MEDS: SODIUM CHLOR 0.45% 1000 ML INJ 1,000 ML IV SCH (11:50)
--- NOTE | 2018-02-21 13:44 | HHI.NPPN ---
Subjective History of Present Illness 17 year old with massive PE, cardiac arrest ARF, brain bleed Interval History patient is unresponsive on the ventilator. Renal function is stable. On IVF. Apnea test is planned. Objective Data Data 02/21/18 02/22/18 19:00 07:00 Intake Total 1437 ml Output Total 150 ml Balance 1287 ml IV Total 1437 ml Output Urine Total 150 ml Vital Signs Date Time Temp Pulse Resp B/P (MAP) Pulse Ox O2 Delivery O2 Flow Rate FiO2 02/21/18 12:04 80 02/21/18 11:08 98.8 92 18 146/78 (100) 98 106/64 (78) 02/21/18 11:07 80 02/21/18 10:30 96 100 02/21/18 08:15 80 02/21/18 08:10 90/56 02/21/18 08:06 80 02/21/18 08:05 99.2 84 18 128/71 (90) 98 99/60 (73) 02/21/18 07:40 97 80 02/21/18 05:15 92 70 02/21/18 05:08 91 60 02/21/18 04:24 50 02/21/18 04:00 96 50 02/21/18 03:20 98.5 76 18 118/8 (44) 98 92/62 (72) 02/21/18 03:04 78 02/21/18 01:28 99 50 02/21/18 00:00 50 02/20/18 23:30 95.1 70 18 135/84 (101) 98 110/77 (88) 02/20/18 23:00 72 02/20/18 22:20 80/50 02/20/18 20:40 99 50 02/20/18 20:00 50 02/20/18 19:30 50 02/20/18 19:30 97.5 72 18 110/73 (85) 99 109/77 (88) 02/20/18 19:00 72 02/20/18 16:55 99 50 02/20/18 16:00 55 02/20/18 15:00 96.2 76 18 120/82 (95) 99 120/85 (97) 02/20/18 15:00 76 -: 02/21/18 0510 02/21/18 0510 Physical Exam General Appearance: Well Developed, Well Nourished Neck Neck Exam: Neck Supple Pulmonary Resp Exam: Clear Bilaterally, Breath Sounds Equal Cardiology CV Exam: Tachycardia Gastrointestinal/Abdomen GI Exam: Soft Extremeties Extremities Exam: Moderate Edema Assessment/Plan Assessment Summary: Secndry Hyperparathyroid Problem List: (1) Acute renal failure ICD Codes: N17.9 - Acute kidney failure, unspecified Plan: patient has ischemic event and receive contrast study contributing to ARF Overall stable renal function, however she has severe brain insult. Poor prognosis. Family is at the bedside. (2) Pulmonary emboli ICD Codes: I26.99 - Other pulmonary embolism without acute cor pulmonale Status: Acute Plan: treated with TPA, Angiogram (3) Cardiac arrest ICD Codes: I46.9 - Cardiac arrest, cause unspecified Plan: patient had cardiac arrest x 2 (4) SAH (subarachnoid hemorrhage) ICD Codes: I60.9 - Nontraumatic subarachnoid hemorrhage, unspecified Status: Acute Problem Qualifiers (1) Acute renal failure: Qualified Codes: N17.0 - Acute kidney failure with tubular necrosis (2) Pulmonary emboli: Keegan Will MD Feb 21, 2018 13:44
--- NOTE | 2018-02-21 15:58 | RADRPT ---
EXAM DATE: 02/21/2018 3:19 PM EDT AGE/SEX: 17 years / Female INDICATIONS: Cardiac arrest. CLINICAL DATA: This is the patient's initial encounter. Patient reports that signs and symptoms have been present for 1 day and indicates a pain score of 0/10. MEDICAL/SURGICAL HISTORY: Hypothyroidism. Carcinoma, thyroid. beta - Thyroidectomy. thrombect marcio. COMPARISON: [facility] [place], CT BRAIN W/O CONTRAST, 02/20/2018. . TECHNIQUE: Anterior dynamic imaging as well as delayed static imaging. DOSE: 25.2 mCi Tc99m DTPA IV The diagnosis of brain is clinical and the results of this test should be taken in the content of clinical and electrocephalographic data. FINDINGS: There is no intracranial or intracerebral blood flow. CONCLUSION: 1. Positive for brain . Electronically signed by: Justo Patel MD 02/21/2018 3:57 PM EDT
--- NOTE | 2018-02-21 16:57 | DEATH SUM ---
Pronouncement Date Pronounced : Feb 21, 2018 Time Of : 16:41 Pronouncement Called to pronounce of patient. Identified patient as Magali Waterman with wrist band MR# [id number]. My clinical exam is consistent with the diagnosis of brain . Nuclear medicine flow study negative for any cerebral flow, consistent with brain . Dr. Sims provided consultation and exam consistent with brain . Please see accompanying documents in the medical record. I declared the patient by neurologic criteria at 16:41 on 2017. Preliminary Cause of : Brain Gennaro Ocampo MD Feb 21, 2018 16:57
--- NOTE | 2018-02-21 16:59 | HHI.DS ---
Summary Note Date of : Feb 21, 2018 Time Of : 16:41 Admission Date Feb 12, 2018 at 23:25 Admitting Diagnosis Bilateral large PEs, shortness of breath, syncope Diagnosis at Time of : Brief History 17-year-old female with a past medical history significant for hypothyroidism presents to the emergency department for evaluation of shortness of breath and a syncopal episode. Patient reports that for the past 2 days she has had shortness of breath. Today she noticed that she had increasing dyspnea on exertion. She reports associated emesis 3 with dizziness and loss of consciousness. She states she had right lower extremity pain approximately 1 month ago. She denies any chest pain. No abdominal pain. No fevers/chills. CBC/BMP: 02/21/18 0510 02/21/18 0510 Significant Findings Laboratory Tests Test 02/19/18 03:55 02/20/18 04:32 02/21/18 05:10 02/21/18 10:27 Red Blood Count 3.25 MIL/MM3 (4.00-5.30) 2.81 MIL/MM3 (4.00-5.30) 2.79 MIL/MM3 (4.00-5.30) Hemoglobin 10.0 GM/DL (11.6-15.3) 8.7 GM/DL (11.6-15.3) 8.6 GM/DL (11.6-15.3) Hematocrit 29.4 % (35.0-46.0) 25.5 % (35.0-46.0) 25.4 % (35.0-46.0) Platelet Count 105 TH/MM3 (150-450) 110 TH/MM3 (150-450) 111 TH/MM3 (150-450) Blood Urea Nitrogen 28 MG/DL (7-18) 33 MG/DL (7-18) 40 MG/DL (7-18) Creatinine 1.17 MG/DL (0.50-1.00) 1.18 MG/DL (0.50-1.00) 1.04 MG/DL (0.50-1.00) Total Protein 5.6 GM/DL (6.4-8.2) 5.4 GM/DL (6.4-8.2) 5.2 GM/DL (6.4-8.2) Albumin 2.5 GM/DL (3.4-5.0) 2.5 GM/DL (3.4-5.0) 2.3 GM/DL (3.4-5.0) Calcium Level 8.4 MG/DL (8.5-10.1) 8.0 MG/DL (8.5-10.1) 7.9 MG/DL (8.5-10.1) Sodium Level 150 MEQ/L (136-145) 152 MEQ/L (136-145) 147 MEQ/L (136-145) Chloride Level 117 MEQ/L (98-107) 118 MEQ/L (98-107) 114 MEQ/L (98-107) Estimat Glomerular Filtration Rate 60 ML/MIN (>89) 59 ML/MIN (>89) 68 ML/MIN (>89) Potassium Level 3.4 MEQ/L (3.5-5.1) Gamma Glutamyl Transpeptidase 99 U/L (5-55) Blood Gas Base Excess -2.4 mmol/L (-2-2) Arterial Blood Partial Pressure O2 141 mmHg (61-120) Blood Gas Hemoglobin 8.6 G/DL (12.0-16.0) Test 02/21/18 12:00 Blood Gas Base Excess -3.2 mmol/L (-2-2) Arterial Blood pH 7.35 (7.380-7.420) Arterial Blood Oxygen Content 11.5 Vol % (12.0-20.0) Blood Gas Hemoglobin 8.5 G/DL (12.0-16.0) Imaging Last Impressions Abdomen X-Ray 02/16/18 Signed Impressions: CONCLUSION: No significant bowel distention Persistent contrast remaining in the kidneys. This can be seen with ATN. Head CT 02/14/18 Signed Impressions: CONCLUSION: 1. Stable parenchymal hemorrhage on the right and scattered subarachnoid hemor rhage with some swelling and edema in the brain. Overall no significant change from February 14 at 1243. Chest X-Ray 02/14/18 Signed Impressions: CONCLUSION: Increase in bilateral airspace disease since earlier exam. Placement of [place] nz catheter with tip in right pulmonary artery. Endotracheal tube and nasogastr ic tube unchanged. Lower Extremity Ultrasound 02/13/18 Signed Impressions: CONCLUSION: 1. There is thrombus within the right popliteal and peroneal veins. CT Angiography 02/12/182030 Signed Impressions: CONCLUSION: 1. Multiple large central and peripheral bilateral pulmonary emboli. 2. Trace pericardial fluid. Hospital Course 17-year-old female with a past medical history significant for hypothyroidism presents to the emergency department for evaluation of shortness of breath and a syncopal episode. Patient reports that for the past 2 days she has had shortness of breath. Today she noticed that she had increasing dyspnea on exertion. She reports associated emesis 3 with dizziness and loss of consciousness. She states she had right lower extremity pain approximately 1 month ago. She denies any chest pain. No abdominal pain. No fevers/chills. The patient was initially admitted to medicine service on a heparin drip. She was evaluated by hematology oncology Dr. Banks, and the stress echocardiogram showed severe RV dilation. The patient was also clinically worsening requiring more oxygen support. She was taken to IR for mechanical thrombectomy. While in the IR suite she suffered a respiratory arrest and was intubated and successfully resuscitated. She returned to ICU in severe shock/obstructive. Shortly after arrival to the unit the patient suffered another episode of cardiac arrest requiring 2 cycles of CPR and 2 injections of epinephrine. Due to hemodynamic instability the TPA bolus followed by an infusion was immediately administered. 02/14: patient remains in profound obstructive cardiogenic shock with acute RV failure, as well as acute hypoxic respiratory failure. I added inhaled flolan at 50 ng/kg/min, dobutamine at 5 mcg/kg/min. epinephrine is at 6 mcg/min and vasopressin at 0.04 units/min. avoiding norepinephrine to minimize pulmonary vascular constriction. avoiding milrinone currently due to hypotension, although if we get control of her shock, milrinone may be of added benefit. lactate is 8 and continues to rise. pH 7.1 with BE -14. remains hemodynamically unstable. pupils are 6mm and minimally reactive, although the patient has recently received atropine IV during her cardiac arrest, so unclear what prognostic value her pupillary exam is currently. She does have a history of recently falling and hitting her head, so we will order head CT to rule out catastrophic hemorrhage. Also have given 3 amps bicarb, 1 gm calcium chloride for her acid/base and electrolyte derangements. started insulin drip for severe hyperglycemia. remained at bedside titrating vasoactive medications. remains on 100% fio2. very unstable. 02/15: 02/16: Afebrile. Temperature overnight but did not tolerate tube feeds will be restarted today. KUB ordered. Pupils are reactive with a leftward gaze. Withdraws to pain bilateral upper and lower extremities. Discussed with mother at bedside. 02/17: T-max 99.5. Currently afebrile. Dobutamine discontinued overnight due to "tachycardia". Cardiac output is greater than 11. Cardiac index is greater than 4. Neuro examination worsened overnight. Both pupils are fixed and dilated right pupil about 8 mm left pupil about 6 mm and fixed. Does not withdraw to pain at all today. Gag positive. No corneal reflex. No cough. 02/18: remains sedated. pupils remain fixed and dilated. plan for MRI today. hemodynamically stable on minimal clevidipine to keep SBP < 140. high concern for anoxic brain injury. discussed with mother at bedside. 02/19: no change in profound neurologic deficit. MRI consistent with anoxia. 02/20: Head CT today reveals diffuse disintegration of parenchymal architecture with probable cytogenic edema and effacement of basal cisterns. This is consistent with generalized anoxic injury and incompatible with any form of meaningful neurological recovery. 02/21: on vasopressors for instability overnight. neuro exam much worse- likely consistent with brain . Patient met criteria for brain and was declared by neurologic criteria on 02/21 at 16:41 Gennaro Ocampo MD Feb 21, 2018 16:59
== END 2018-02-21 17:46 | disposition expired | DRG 163 ==
LOC: NEPD 19:54 → NEDA 23:25 → N06A 02-13 01:15 → N03A 02-13 20:39 → HCVI 02-14 18:35 → HCPC 02-17 08:07 → HCVI 02-17 08:14
PROVIDERS: ADMIT Internal Medicine Critical Care Medicine; ATTEND Internal Medicine Critical Care Medicine
PROC: 3E04317 Introduction of Other Thrombolytic into Central Vein, Percutaneous Approach (ICD-10-PCS; 2018-02-13)
PROC: 02CQ3ZZ Extirpation of Matter from Right Pulmonary Artery, Percutaneous Approach (ICD-10-PCS; principal; 2018-02-14)
PROC: B31TYZZ Fluoroscopy of Left Pulmonary Artery using Other Contrast (ICD-10-PCS; 2018-02-14)
PROC: 04HY32Z Insertion of Monitoring Device into Lower Artery, Percutaneous Approach (ICD-10-PCS; 2018-02-14)
PROC: B31SYZZ Fluoroscopy of Right Pulmonary Artery using Other Contrast (ICD-10-PCS; 2018-02-14)
PROC: 0BH17EZ Insertion of Endotracheal Airway into Trachea, Via Natural or Artificial Opening (ICD-10-PCS; 2018-02-14)
PROC: 5A1955Z Respiratory Ventilation, Greater than 96 Consecutive Hours (ICD-10-PCS; 2018-02-14)
PROC: 02HV33Z Insertion of Infusion Device into Superior Vena Cava, Percutaneous Approach (ICD-10-PCS; 2018-02-14)
PROC: 5A12012 Performance of Cardiac Output, Single, Manual (ICD-10-PCS; 2018-02-14)
PROC: 06H03DZ Insertion of Intraluminal Device into Inferior Vena Cava, Percutaneous Approach (ICD-10-PCS; 2018-02-17)
PROC: 02CR3ZZ Extirpation of Matter from Left Pulmonary Artery, Percutaneous Approach (ICD-10-PCS; 2018-02-19)
PROC: B31TYZZ Fluoroscopy of Left Pulmonary Artery using Other Contrast (ICD-10-PCS; 2018-02-19)
PROC: B31UYZZ Fluoroscopy of Pulmonary Trunk using Other Contrast (ICD-10-PCS; 2018-02-19)
PROC: 02HQ32Z Insertion of Monitoring Device into Right Pulmonary Artery, Percutaneous Approach (ICD-10-PCS; 2018-02-19)
PROC: 03HY32Z Insertion of Monitoring Device into Upper Artery, Percutaneous Approach (ICD-10-PCS; 2018-02-19)
DX: I26.09 Other pulmonary embolism with acute cor pulmonale (principal); G93.6 Cerebral edema; J96.01 Acute respiratory failure with hypoxia; J96.02 Acute respiratory failure with hypercapnia; K72.00 Acute and subacute hepatic failure without coma; E87.2 Acidosis; D68.59 Other primary thrombophilia; S06.6X0A Traumatic subarachnoid hemorrhage without loss of consciousness, initial encounter; N17.0 Acute kidney failure with tubular necrosis; S06.360A Traumatic hemorrhage of cerebrum, unspecified, without loss of consciousness, initial encounter; G93.49 Other encephalopathy; G93.41 Metabolic encephalopathy; I82.431 Acute embolism and thrombosis of right popliteal vein; G93.1 Anoxic brain damage, not elsewhere classified; I67.82 Cerebral ischemia; E87.0 Hyperosmolality and hypernatremia; R57.0 Cardiogenic shock; E89.0 Postprocedural hypothyroidism; F41.9 Anxiety disorder, unspecified; E66.01 Morbid (severe) obesity due to excess calories; E86.0 Dehydration; I50.810 Right heart failure, unspecified; R00.0 Tachycardia, unspecified; I27.29 Other secondary pulmonary hypertension; I08.1 Rheumatic disorders of both mitral and tricuspid valves; W19.XXXA Unspecified fall, initial encounter; G40.909 Epilepsy, unspecified, not intractable, without status epilepticus; Z66 Do not resuscitate; R73.9 Hyperglycemia, unspecified; K76.1 Chronic passive congestion of liver; J30.9 Allergic rhinitis, unspecified; D64.9 Anemia, unspecified; D69.6 Thrombocytopenia, unspecified; E21.3 Hyperparathyroidism, unspecified; E88.09 Other disorders of plasma-protein metabolism, not elsewhere classified; Z85.850 Personal history of malignant neoplasm of thyroid; Z68.37 Body mass index [BMI] 37.0-37.9, adult
CPT/HCPCS: 33915; 36013; 36014; 36556; 37191; 70450; 70551; 71045; 71275; 74018; 75743; 76937; 78606; 80048; 80053; 80185; 81240; 81241; 81291; 82140; 82150; 82550; 82552; 82570; 82805; 82948; 82977; 83090; 83605; 83615; 83690; 83735; 84100; 84300; 84443; 84484; 84702; 85025; 85027; 85240; 85300; 85303; 85306; 85307; 85384; 85598; 85610; 85613; 85652; 85730; 86038; 86039; 86140; 86146; 86147; 86148; 86430; 86850; 86900; 86901; 87641; 92950; 93005; 93306; 93970; 94003; 94640; 94664; 94799; 95819; 96361; 96374; A9539; C1760; C1769; C1880; C1887; C1894; C9248; J0171; J0282; J0461; J0610; J1200; J1250; J1325; J1644; J1817; J1940; J1953; J2060; J2250; J2260; J2370; J2765; J2997; J3010; J3480; J7030; J7050; J7060; J7070; J7613; P9045; Q2009; Q9967